=== PATIENT | female | born 1935 | race Caucasian/White ===

== ENCOUNTER 2024-03-09 15:00 | Emergency (ER) | payer MEDICARE, SELFPAY ==
--- NOTE | ~2024-03-09 | XR_ITS ---
EXAMINATION: XR chest 1V portable DATE: 03/09/2024 17:26 INDICATION: General fatigue, weakness and frequent urination TECHNIQUE: frontal view of the chest was obtained. COMPARISON: Chest radiograph dated 09/10/2022 FINDINGS: The lungs remain clear with no focal airspace opacities, pulmonary edema, pleural effusion or pneumot horax. The cardiomediastinal silhouette is normal. Lobular regions of amorphous calcification overlyi ng the right greater tuberosity consistent with right rotator cuff calcific tendinitis. IMPRESSION: 1. No acute cardiopulmonary disease. Reviewed, dictated and finalized at location A.
[2024-03-09 15:01] VITALS: BP 173/83; PULSE 76; RESP 20; TEMP 36.6; O2SAT 99
[2024-03-09 16:45] VITALS: BP 196/89; PULSE 81; RESP 16; O2SAT 96
--- NOTE | 2024-03-09 17:03 | ED.GENADULT ---
HPI - General Adult General Chief complaint: Weakness Stated complaint: weakness Time Seen by Provider: 03/09/24 16:58 Source: patient Mode of arrival: ambulatory Limitations: no limitations History of Present Illness HPI narrative: This is a 80-year-old female with PMH of DM, CVA, HLD, HTN, urinary incontinence who presents to the ED for chief complaint of generalized weakness for the past 3-4 days. She is here with her states that she has been extremely tired and not herself. Patient reports that she has had chronic urinary incontinence ever since her stroke to 4 years ago but over the last couple of days it seems to be getting worse. Denies dysuria or hematuria. Denies abdominal pain, nausea, vomiting, diarrhea or change in bowel movements. Denies GI bleeding symptoms. Denies fevers, chills, chest pain, shortness of breath, cough, focal weakness numbness. states that she has not been acting confused. He has noticed that she has had trouble with her daily activities due to general weakness. States patient has been taking her regular medications but has been out of a couple for about a month. He does note that she has been out of potassium pills but is unsure what else she has been missing. Has received her care through [facility] in the past. Related Data Home Medications Medication Instructions Recorded Confirmed insulin degludec 100 subcut 03/09/24 03/09/24 unit-liraglutide 3.6 mg/mL(3 mL) subcutaneous pen (Xultophy 100/3.6) mirabegron 25 mg tablet,extended mg PO 03/09/24 release 24 hr (Myrbetriq) Review of Systems Review of Systems: All systems as dictated in HPI Exam Narrative: GENERAL: Well-appearing, well-nourished, and in no acute distress. HEAD: Normocephalic, atraumatic. EYES: PERRLA and EOMI. ENT: Nares clear, no rhinorrhea or epistaxis. Mucous membranes moist. Oropharynx without tonsillar hypertrophy exudate or other lesions. NECK: Supple. No adenopathy or masses. CHEST: No respiratory distress. Clear to auscultation. No wheezes rales or rhonchi HEART: Regular rate and rhythm. No murmur heard. Normal peripheral pulses. ABDOMEN: Soft, nontender, nondistended, normal active bowel sounds. MSK: Normal range of motion. No edema. SKIN: Warm, dry, no rash. NEURO: Alert and oriented x4. No focal deficits. PSYCH: Normal mood and affect. Course Vital Signs Vital signs: Vital Signs Temperature 97.8 F 03/09/24 15:01 Pulse Rate 76 03/09/24 15:01 Respiratory Rate 20 03/09/24 15:01 Blood Pressure 173/83 H 03/09/24 15:01 Pulse Oximetry 99 03/09/24 15:01 Oxygen Delivery Room Air 03/09/24 15:01 Temperature 97.8 F 03/09/24 15:01 Pulse Rate 76 03/09/24 18:45 Respiratory Rate 14 03/09/24 18:45 Blood Pressure 193/82 H 03/09/24 18:45 Pulse Oximetry 100 03/09/24 18:45 Oxygen Delivery Room Air 03/09/24 15:01 Medical Decision Making MDM Narrative Medical decision making narrative: This is an 80-year-old female who presents to the ED with chief complaint of increased urinary continence and generalized weakness for the past several days. Vitals show elevated blood pressure but otherwise normal. Afebrile. Exam is benign overall. No evidence of acute abdomen or flank pain. Lab work today shows normal white count. CMP shows mild dehydration with BUN of 34 and creatinine of 1.30. I have no baseline labs to compare to as far as this is concerned. Glucose is elevated to 247, patient is diabetic and ate just prior to arrival. UA is remarkable for overt urinary tract infection. Chest x-ray is unremarkable. Overall symptoms and presentation are consistent with UTI. Discussed with patient that she has evidence of high blood sugar and dehydration exam. Offered admission. She discussed with her who is bedside and they feel more comfortable with trying to home. Advised that she needs to keep track of her blood sugars and make sure that she is
[2024-03-09 17:15] VITALS: BP 195/98; PULSE 76; RESP 16; O2SAT 100
--- NOTE | 2024-03-09 17:16 | ECG_ITS ---
SEE SCANNED COPY FOR CONFIRMED REPORT MTDD
[2024-03-09 18:00] VITALS: BP 199/91; PULSE 74; RESP 18; O2SAT 98
[2024-03-09 18:02] LABS: Alanine Aminotransferase 16 U/L (6-35); Albumin Level 4.9 g/dL (3.5-5.1); Alkaline Phosphatase 100 U/L (38-126); Anion Gap 10 mmol/L (4-12); Aspartate Amino Transferase 21 U/L (14-36); Bilirubin,Total 0.6 mg/dL (0.2-1.3); Blood Urea Nitrogen 44 mg/dL (7-17); CRP < 0.5 mg/dL (<1.0); Calcium 9.5 mg/dL (8.4-10.2); Carbon Dioxide 25 mmol/L (22-30); Chloride 105 mmol/L (98-107); Estimated Glomerular Filt Rate 39; Glucose 247 mg/dL (65-110); Magnesium 2.4 mg/dL (1.6-2.3); Potassium 4.6 mmol/L (3.4-5.0); Sodium 140 mmol/L (137-145)
[2024-03-09 18:11] LABS: Basophils Absolute Auto 0.1 K/mm3 (0.0-0.1); Basophils Percent Auto 0.6 % (0.2-1.2); Eosinophils Absolute Auto 0.2 K/mm3 (0-0.3); Eosinophils Percent Auto 2.7 % (0-4.4); Hematocrit 39.6 % (37.0-47.0); Hemoglobin 12.6 g/dL (12.0-15.0); Immature Granulocyte Absolute 0.03 K/mm3 (0.00-0.031); Immature Granulocyte Percent A 0.3 % (0-0.5); Lymphocytes Absolute Auto 2.39 K/mm3 (0.9-3.2); Lymphocytes Percent Auto 27.2 % (18.3-44.2); Mean Corpuscular HGB Conc 31.8 g/dl (32-36); Mean Corpuscular Hemoglobin 31.1 pg (26-34); Mean Corpuscular Volume 97.8 fl (80-100); Monocytes Absolute Auto 0.6 K/mm3 (0.1-0.6); Monocytes Percent Auto 7.2 % (2.6-8.5); Neutrophils Absolute Auto 5.4 K/mm3 (1.3-6.7); Platelet Count Result 369 k/mm3 (150-375); Red Blood Count 4.05 M/mm3 (4.2-5.4); Red Cell Distribution Width 12.8 % (11.5-14.5); White Blood Count 8.8 K/mm3 (4.5-10.0)
[2024-03-09 18:45] VITALS: BP 193/82; PULSE 76; RESP 14; O2SAT 100
[2024-03-09 19:06] LABS: Appearance Urine Turbid (Clear); Bacteria Urine 4+ /hpf; Bilirubin Urine Negative (Negative); Blood Urine 1+ (Negative); Color Urine Yellow (Yellow); Glucose Urine UA 3+ mg/dL (Negative); Ketones Urine Negative (Negative); Leukocyte Esterase Ur 2+ LEU/UL (Negative); Nitrate Urine Positive (Negative); Non Pathogenic Casts 0-2; Protein Urine 2+ mg/dL (Negative); RBC Urine 0-2 /hpf (0-2); Specific Grav Ur 1.016 (1.001-1.035); Squamous Epithelial Cell Urine None Seen /hpf (Few); Urobilinogen Urine 0.2 mg/dL (<2.0); WBC Urine >100 /hpf (0-3)
[2024-03-09 19:16] LABS: Add Urine Microscopic? YES
[2024-03-10 00:44] VITALS: BP 135/100; PULSE 77; RESP 15; O2SAT 97
== END 2024-03-09 21:09 | disposition home or self-care (01) ==
PROVIDERS: Emergency Provider Physician Assistant; PCP Internal Medicine
DX: N39.0 Urinary tract infection, site not specified (principal)
CPT/HCPCS: 36415; 71045; 80053; 81001; 83735; 84100; 85025; 86140; 87077; 87081; 87086; 87088; 87186; 93005; 96365; 99284; J0696

== ENCOUNTER 2024-06-25 12:04 | Emergency (ER) | payer MEDICARE, SELFPAY ==
[2024-06-25 12:24] VITALS: BP 173/94; PULSE 68; RESP 16; TEMP 36.6; O2SAT 97
[2024-06-25 16:43] VITALS: BP 227/93; PULSE 73; RESP 16; O2SAT 98
[2024-06-25] MEDS: LACTATED RINGERS 1,000 ML 999 ML IV CONT (18:04)
[2024-06-25 18:16] VITALS: BP 220/93; PULSE 78; RESP 15; O2SAT 100
[2024-06-25 18:22] LABS: Basophils Percent Auto 0.5 % (0.2-1.2); Eosinophils Absolute Auto 0.2 K/mm3 (0-0.3); Eosinophils Percent Auto 3.3 % (0-4.4); Hematocrit 38.1 % (37.0-47.0); Hemoglobin 12.7 g/dL (12.0-15.0); Immature Granulocyte Absolute 0.02 K/mm3 (0.00-0.031); Immature Granulocyte Percent A 0.3 % (0-0.5); Lymphocytes Absolute Auto 2.32 K/mm3 (0.9-3.2); Lymphocytes Percent Auto 31.5 % (18.3-44.2); Mean Corpuscular HGB Conc 33.3 g/dl (32-36); Mean Corpuscular Hemoglobin 31.4 pg (26-34); Mean Corpuscular Volume 94.1 fl (80-100); Mean Platelet Volume 9.8 fl (7.4-10.4); Monocytes Absolute Auto 0.7 K/mm3 (0.1-0.6); Monocytes Percent Auto 8.8 % (2.6-8.5); Neutrophils Absolute Auto 4.1 K/mm3 (1.3-6.7); Neutrophils Percent Auto 55.6 % (45.5-73.1); Platelet Count Result 341 k/mm3 (150-375); Red Blood Count 4.05 M/mm3 (4.2-5.4); White Blood Count 7.4 K/mm3 (4.5-10.0)
[2024-06-25 18:28] LABS: Add Urine Microscopic? YES; Appearance Urine Cloudy (Clear); Bacteria Urine 4+ /hpf; Bilirubin Urine Negative (Negative); Blood Urine 1+ (Negative); Color Urine Yellow (Yellow); Glucose Urine UA 3+ mg/dL (Negative); Ketones Urine Negative (Negative); Leukocyte Esterase Ur 2+ LEU/UL (Negative); Nitrate Urine Negative (Negative); Non Pathogenic Casts 0-2; Protein Urine 3+ mg/dL (Negative); RBC Urine 0-2 /hpf (0-2); Squamous Epithelial Cell Urine None Seen /hpf (Few); Urobilinogen Urine 0.2 mg/dL (<2.0); WBC Urine >100 /hpf (0-3); pH Urine 5.5 (5.0-9.0)
[2024-06-25 18:34] LABS: Anion Gap 11 mmol/L (4-12); Blood Urea Nitrogen 38 mg/dL (7-17); Calcium 9.1 mg/dL (8.4-10.2); Carbon Dioxide 27 mmol/L (22-30); Chloride 100 mmol/L (98-107); Estimated Glomerular Filt Rate 39; Glucose 285 mg/dL (65-110); Potassium 4.2 mmol/L (3.4-5.0); Sodium 138 mmol/L (137-145)
[2024-06-25 18:38] LABS: Beta-Hydroxybutyrate/Acetoacetate 0.24 mmol/L (0.02-0.27)
[2024-06-25 19:05] VITALS: BP 214/108; PULSE 79; RESP 15; O2SAT 100
--- NOTE | 2024-06-25 19:13 | PC.NURSE ---
Report given to Francoise Walter, all questions answered
--- NOTE | 2024-06-25 19:43 | ED.FEMALEGU ---
HPI - Female Genitourinary General Chief complaint: Urogenital-Female Stated complaint: can't control bladder Time Seen by Provider: 06/25/24 16:33 History of Present Illness HPI Narrative: This is an 89-year-old female with a history of hypertension and diabetes, presenting to the emergency department chief complaint of difficulty controlling her bladder as well as dysuria for the last few months. Patient states that every time she feels like she has to use the bathroom she gets a burning sensation in her bladder and burning while urinating. She states that she is having difficulty controlling her bladder and she sometimes is having continence at home. No injuries or back pain. She does not have any saddle anesthesia. No issues with defecation or difficulty controlling her bowels. Has a history of UTIs in the past. No recent antibiotics or recent UTIs. Denies any fever, chills, headache, vision changes. She was otherwise in her normal state of health. Related Data Home Medications Medication Instructions Recorded Confirmed insulin degludec 100 subcut 03/09/24 03/09/24 unit-liraglutide 3.6 mg/mL(3 mL) subcutaneous pen (Xultophy 100/3.6) mirabegron 25 mg tablet,extended mg PO 03/09/24 release 24 hr (Myrbetriq) Allergies Allergy/AdvReac Type Severity Reaction Status Date / Time No Known Allergies Allergy Verified 03/09/24 19:57 Review of Systems Review of Systems: As reviewed above in HPI Exam Narrative: GENERAL: [Well-appearing, well-nourished, and in no acute distress.] HEAD: [Normocephalic, atraumatic.] EYES: [PERRLA and EOMI.] ENT: Nares clear, no rhinorrhea or epistaxis. Mucous membranes moist. NECK: Supple. CHEST: [Clear to auscultation. No respiratory distress.] HEART: [Regular rate and rhythm]. No murmur heard. [Normal peripheral pulses.] ABDOMEN: [Soft, nondistended], [nontender], [No rigidity or guarding] EXTREMITIES: Normal range of motion. [No edema.] SKIN: Warm, dry, no rash. NEURO: [No focal deficits]. Alert and oriented [x3.] PSYCH: [Normal mood and affect.] Course Vital Signs Vital signs: Vital Signs Temperature 36.6 C 06/25/24 12:24 Pulse Rate 68 06/25/24 12:24 Respiratory Rate 16 06/25/24 12:24 Blood Pressure 173/94 H 06/25/24 12:24 Pulse Oximetry 97 06/25/24 12:24 Oxygen Delivery Room Air 06/25/24 12:24 Temperature 36.6 C 06/25/24 12:24 Pulse Rate 79 06/25/24 19:05 Respiratory Rate 15 06/25/24 19:05 Blood Pressure 214/108 H 06/25/24 19:05 Pulse Oximetry 100 06/25/24 19:05 Oxygen Delivery Room Air 06/25/24 12:24 MDM - Female Genitourinary MDM Narrative Medical decision making narrative: This is an 89-year-old female with a history of hypertension and type 2 diabetes who presents to the emergency department for dysuria and difficulty controlling her bladder. Symptoms have been going on for several months. She describes dysuria and burning with urination. No foul order, fever, chills, back pain, anesthesias or difficulty controlling her bowel. Reassuring examination with no focal tenderness in the abdomen, flanks or pelvic region. No other findings focally on her examination. Aside from stable hypertension she has no other vital concerns. Differential diagnosis at this time includes urinary tract infection, bladder spasms, overactive bladder, cystitis, less likely upper urinary tract pathology. A workup was ordered including a CBC, BMP, urinalysis with urine culture. Beta hydroxybutyrate was also ordered because she is a diabetic. She was given fluid resuscitation with lactated Ringer's. Workup revealed no leukocytosis or anemia. Normal electrolyte panel, a creatinine of 1.30 which is stable from patient's baseline CKD. Some elevated glucose of 285 but negative beta hydroxybutyrate. This is not ketotic hyperglycemia. Uncontrolled blood sugar could also be contributed to her frequency. Urinary analysis revealed si
[2024-06-25] MEDS: SULFAMETHOXAZOLE/TRIMETHOPRIM 800/160 MG DS TABLET 1 TAB PO (19:59)
[2024-06-25 20:09] VITALS: BP 194/100; PULSE 78; RESP 15; O2SAT 100
== END 2024-06-25 20:11 | disposition home or self-care (01) ==
PROVIDERS: Emergency Provider Student in an Organized Health Care Education/Training Program; PCP Internal Medicine
DX: N39.0 Urinary tract infection, site not specified (principal); I10 Essential (primary) hypertension; E11.9 Type 2 diabetes mellitus without complications; Z79.4 Long term (current) use of insulin
CPT/HCPCS: 36415; 80048; 81001; 82010; 85025; 87077; 87086; 87088; 96360; 99283; A9270; J7120

== ENCOUNTER 2024-12-31 19:39 | Emergency (ER) | payer MEDICARE, SELFPAY ==
--- NOTE | ~2024-12-31 | CT_ITS ---
CT facial & cervical spine wo Ordering provider: Erickson Herman MD History: . Fall, . Comparison: None. Technique: Thin slice axial CT of the facial bones was performed without contrast. Coronal and sagit mirna reformatted images were also obtained. . Automated exposure control and iterative reconstruction technique were employed. The dose-length product was 345.72 mGy-cm. FINDINGS: PARANASAL SINUSES: Well aerated. BONES: Fracture right nasal bone. Otherwise, No facial fracture. Dental cares seen in the right upper jaw in the tooth prior to the last one. ORBITS AND SUPERFICIAL SOFT TISSUES: The optic globes and orbits are normal. Hematomas seen anterior to the right orbit and in the right maxillary bone is The superficial soft tissues are normal. VISUALIZED MASTOIDS: Well aerated. LIMITED VISUALIZED BRAIN PARENCHYMA: Normal. IMPRESSION: Fracture right nasal bone. Hematoma anterior to the right orbit and right maxillary bone. CT facial & cervical spine wo Ordering provider: Erickson Herman MD History: . Fall, . Comparison: None. Technique: CT of the cervical spine was performed without contrast. Sagittal and coronal reformatted images were also obtained and reviewed. Automated exposure control and iterative reconstruction brianna hnique were employed. The dose-length product was 345.72 mGy-cm. FINDINGS: VERTEBRAE: No subluxation or acute fracture. The occipital condyles are intact. Minimal anterolisthe sis at the level of C7-T1. DISC SPACES: Narrowing of the disc spaces C5-C6, C6-C7 and T1-T2. Multilevel facet joint disease. Mul tilevel uncovertebral joint osteoarthritic changes. Multilevel intervertebral foraminal narrowing. PARASPINOUS SOFT TISSUES: Normal. IMPRESSION: No acute osseous abnormality cervical spine. Multilevel degenerative disc disease. Reviewed, dictated and finalized at location A. IMPRESSION: Fracture right nasal bone. Hematoma anterior to the right orbit and right maxillary bone. CT facial & cervical spine wo Ordering provider: Erickson Herman MD History: . Fall, . Comparison: None. Technique: CT of the cervical spine was performed without contrast. Sagittal a nd coronal reformatted images were also obtained and reviewed. Automated expos ure control and iterative reconstruction technique were employed. The dose-saúl th product was 345.72 mGy-cm. FINDINGS: VERTEBRAE: No subluxation or acute fracture. The occipital condyles are intact. Minimal anterolisthesis at the level of C7-T1. DISC SPACES: Narrowing of the disc spaces C5-C6, C6-C7 and T1-T2. Multilevel fa cet joint disease. Multilevel uncovertebral joint osteoarthritic changes. Multi level intervertebral foraminal narrowing. PARASPINOUS SOFT TISSUES: Normal.
--- NOTE | ~2024-12-31 | CT_ITS ---
CT brain wo con Ordering provider: Erickson Herman MD History: 89 years Female with . Fall . Comparison: None. Technique: CT of the head without contrast. Radiation reduction technique utilized.The dose-length product was 681 mGy-cm. FINDINGS: BRAIN PARENCHYMA AND CSF SPACES: Moderate leukoaraiosis and diffuse cortical atrophy. Moderate athero matous disease. No midline shift, mass effect or hemorrhage. The brain parenchyma and CSF spaces are otherwise norm al. VISUALIZED PARANASAL SINUSES: Well aerated. MASTOIDS: Well aerated. BONES: Right Nasal bone fracture otherwise, The bones appear intact. SOFT TISSUES: Visualized nasopharynx is normal. Hematoma in the soft tissues anterior to the right o rbit and right maxillary bone is noted. Otherwise, Superficial soft tissues are normal. IMPRESSION: No acute intracranial findings. Hematoma anterior to the right orbit and right maxillary bone. Fracture right nasal bone. Reviewed, dictated and finalized at location A.
--- NOTE | ~2024-12-31 | XR_ITS ---
XR shoulder LT min 2V Ordering provider: Erickson Herman MD History: . Fall . Comparison: None. FINDINGS: BONES: No acute fracture or dislocation. Degenerative changes in the area of the greater tuberosity. JOINT SPACES: The acromioclavicular joint shows osteoarthritic changes.. The glenohumeral joint is no rmal. SOFT TISSUES: Normal. IMPRESSION: No acute osseous abnormality left shoulder. Reviewed, dictated and finalized at location A.
--- NOTE | ~2024-12-31 | XR_ITS ---
XR hand LT min 3V Ordering provider: Erickson Herman MD History: . Fall . Comparison: None. FINDINGS: BONES: No acute fracture or dislocation. JOINT SPACES: The narrowing of the proximal and distal interphalangeal joints. Osteoarthritic changes of the first carpometacarpal joint. SOFT TISSUES: Unremarkable. IMPRESSION: No acute osseous abnormality left hand. Polyarticular osteoarthritic changes. Reviewed, dictated and finalized at location A.
--- NOTE | ~2024-12-31 | XR_ITS ---
XR elbow LT 2V Ordering provider: Erickson Herman MD History: . Fall . Comparison: None. FINDINGS: BONES: No acute fracture or dislocation. JOINT SPACES: Normal. SOFT TISSUES: Normal. No definite joint effusion. IMPRESSION: No acute osseous abnormality left elbow. Reviewed, dictated and finalized at location A.
[2024-12-31 19:34] VITALS: BP 215/85; PULSE 84; RESP 18; TEMP 36.8; O2SAT 99
--- OUTSIDE RECORDS SUMMARY | 2024-12-31 21:26 | XMS_ITS | Data Portability ---
Author Organization [facility] [place] [facility] Address [address] [place] [address] Care Team Providers Care Arson Investigator Name Role Phone JIMMY MARINO Primary Care Provider Assessment Encounter Date Assessment Date Assessment LastModified by Organization Details LastModified Time 06/28/2024 06/28/2024 diabetes is uncontrolled they have a family member who knows the insurance loss control surveyor and they are going to be reaching out to the family member so that she can get scheduled with the insurance loss control surveyor if there is any difficulty charis and her will call me and I will arrange for a referral. Atorvastatin 10 mg a day I want to see her in 1 month she is to take her blood sugars twice a day also she needs to be referred to uro straight edger eventually but right now she is infected so there is not much that they would probably do to this all clears up. I told her very important for her to keep appointments [email or web address] Not available 07/04/2024 17:30:17 07/26/2024 07/26/2024 her diabetes is uncontrolled we will make the referral to endocrinology we will make the referral to Uro straight edger for incontinence see me in 1 month I have told her that he needs to bring me the medicine that was prescribed by the insurance loss control surveyor I have no record of it [email or web address] Not available 07/31/2024 15:24:24 11/25/2024 11/25/2024 [email or web address]. Blood work. Follow up in 1 month. please take all medicines as prescribed [email or web address] Not available 11/25/2024 22:23:32 Plan of Treatment Reminders Order Date Submit Date Provider Last Modified By Organization Details Last Modified Time Details Appointments ANY 15 2024 02:15P Gavin Marino MD Not available Not available Not available Lab HbA1c (hemoglob in A1c), blood 2024 025 [email or web address] In-Office Order, Internal Use Only DO Not Attach Compendium DO Not Attach Compendium, Do Not Delete/merge, [id number] 11/25/2024 17:44:41 CMP, serum or plasma 2024 025 [email or web address] [facility], [address], [place], [address], 12/16/2024 16:23:12 lipid panel, serum 2024 025 [email or web address] [facility], [address], [place], [address], 12/16/2024 16:23:12 CBC w/ auto diff 2024 025 [email or web address] [facility], [address], [place], [address], 12/16/2024 16:23:12 HbA1c (hemoglob in A1c), blood 2023 024 [email or web address] In-Office Order, Internal Use Only DO Not Attach Compendium DO Not Attach Compendium, Do Not Delete/merge, [id number] 06/28/2024 21:41:22 Referral endocrino logy referral 2023 024 [facility] - Endocrinology , [address], [place], [address], 11/09/2024 09:37:09 Procedures None recorded. Surgeries None recorded. Imaging None recorded. Medication Orders pantopraz ole 40 mg tablet,de layed release 2024 025 [email or web address] [facility], [address], [place], [address], 11/25/2024 17:44:41 atorvasta tin 10 mg tablet 2023 024 [email or web address] [facility], [address], [place], [address], 07/31/2024 15:19:56 atorvasta tin 10 mg tablet 2023 024 [email or web address] [facility], [address], [place], [address], 07/20/2024 13:52:49 Patient TargetsNo targets recorded. Patient Instructions Encounter Date Encounter Id Patient Instructions Last Modified By Organization Details Last Modified Time 06/28/2024 [id number] A healthy lifestyle: care instructions Not available 06/28/2024 14:10:49 07/26/2024 [id number] A healthy lifestyle: care instructions [email or web address] Not available 07/26/2024 14:10:31 11/25/2024 [id number] A healthy lifestyle: care instructions [email or web address] Not available 11/25/2024 17:44:41 Reason for Referral Endocrinology Referral for T ype 2 diabetes mellitus Referring Physician: Jimmy Marino, Internal Medicine, Encounter Date: 06/28/2024 Results Created Date Observation Date Name Description Value Unit Range Abnormal Flag Note LastModifiedBy Organization Detail LastModifiedTime 06/28/2006/28/2024 HbA1c (hemo globi n A1c), blood HbA1c 10.1 Not Available In-Office Order Internal Use Only DO Not Attach Compendium DO Not Attach Compendium, Do Not Delete/merge, [id number] 06/28/2024 17:19:06 11/25/19 25 11/25/2024 HbA1c (hemo globi n A1c), blood HbA1c 8.2 Not Available In-Office Order Internal Use Only DO Not Attach Compendium DO Not Attach Compendium, Do Not Delete/merge, [id number] 11/25/2024 16:03:17 Result Notes None recorded. Problems Name Problem SNOMED Code Status Onset Date Resolution Date Notes Provider Name and Address Organization Details Recorded Time Overweight 081272637 Active [address] - [place] 12:20:55 Type 2 diabetes mellitus 61319076 Active 2023 ARMEN Motta, [facility] 4 12:21:04 Hyperlipidemia 27079500 [facility] 12:[facility]08 Problem Notes None recorded. Medical Equipment None Reported. Allergies No known drug allergies Medications Name Sig Start Date Stop Date Status Note LastModified by Organization Details LastModified Time atorvastatin 10 mg tablet Take 1 tablet every day by oral route. 2023 active Not Available Not Available Not Avai lable sulfamethoxa zole 800 mg-trimethop rim 160 mg tablet TAKE 1 TABLET BY MOUTH EVERY 12 HOURS active Not Available Not Available No t Available pantoprazole 40 mg tablet,delay ed release TAKE 1 TABLET BY MOUTH EVERY DAY active Not Available Not Available No t Available metformin ER 500 mg tablet,exten ded release 24 hr active Not Available Not Available Not Available Myrbetriq 25 mg tablet,exten ded release active Not Available Not Available Not Available Xultophy 100/3.6 100 unit-3.6 mg/mL (3 mL) subcutaneous insulin pen Inject 44 units every day by subcutaneou s route. active Not Available Not Available No t Available Vitals Date Recorded Body height Body mass index (BMI) Body weight Oxygen saturation Oxygen saturation in Arterial blood by Pulse oximetry Heart rate Systolic blood pressure Diastolic blood pressure Provider Name and Address Organization Details Last Updated DateTime 4 149.86 cm 36 kg/m2 34449.4 4 g 97 % 97 % 78 /min 116 mm[Hg] 74 mm[Hg] Anna Knutson [facility] 4 12:06:06 Date Recorded Body height Body mass index (BMI) Body weight Heart rate Oxygen saturation Oxygen saturation in Arterial blood by Pulse oximetry Systolic blood pressure Diastolic blood pressure Provider Name and Address Organization Details Last Updated DateTime 4 149.86 cm 36 kg/m2 47141.4 4 g 76 /min 96 % 96 % 130 mm[Hg] 90 mm[Hg] Anna Knutson [facility] - [facility] 4 11:54:01 Date Recorded Body height Body mass index (BMI) Body weight Heart rate Oxygen saturation Oxygen saturation in Arterial blood by Pulse oximetry Systolic blood pressure Diastolic blood pressure Provider Name and Address Organization Details Last Updated DateTime 149.86 cm 35.5 kg/m2 02056.2 6 g 78 /min 96 % 96 % 140 mm[Hg] 90 mm[Hg] Em Mcgovern [place] - [place] 14:55:16 Social History Question Answer Notes LastModified by Organizat ion Details LastModified Time Tobacco Smoking Status Never Smoker ARMEN Aguilar, [place] [facility] [place] 07/26/2024 11:55:07 Do You Have An Advance Directive? No Information n ot available 07/26/2024 What Is Your Level Of Alcohol Consumption? None Information not available 07/26/2024 Are You Blind Or Do You Have Difficulty Seeing? No Information n ot available 07/26/2024 What Is Your Level Of Caffeine Consumption? Occasional Information not available 07/26/2024 In The 14 Days Before Symptom Onset, Have You Had Close Contact With A Laboratory-confirm ed COVID-19 While That Case Was Ill? No Information n ot available 07/26/2024 In The 14 Days Before Symptom Onset, Have You Had Close Contact With A Person Who Is Under Investigation For COVID-19 While That Person Was Ill? No Information not available 07/26/2024 Have You Been To An Area Known To Be High Risk For COVID-19? No Information not available 07/26/2024 Are You Currently Employed? No Information not available 07/26/2024 Are You Deaf Or Do You Have Serious Difficulty Hearing? Yes Information not available 07/26/2024 What Type Of Diet Are You Following? REGULAR Information n ot available 07/26/2024 Are There Any Guns Present In Your Home? No Information not available 07/26/2024 What Was The Date Of Your Most Recent Tobacco Screening? 11/25/2024 [email or web address] Information not available 11/25/2024 What Is Your Relationship Status? Information not available 07/26/2024 Do You Use Your Seat Belt Or Car Seat Routinely? Yes Information not available 07/26/2024 Do You Have Smoke And Carbon Monoxide Detectors In Your Home? Yes Information not available 07/26/2024 Do You Use Any Illicit Or Recreational Drugs? No Information not available 07/26/2024 Do You Use Sunscreen Routinely? Yes Information not available 07/26/2024 Sex: Female Functional Status Question Answer Note LastModified by Organization D etails LastModified Time Are you able to care for yourself? Yes Information n ot available 07/26/2024 Mental Status None recorded. Family History Relationship Description Onset Age of this Age Resolved Age Notes LastModified by Organization Details LastModified Time Father Diabetes mellitus [email or web address] Not available 2024 10:33:30 Son Diabetes mellitus [email or web address] Not available 2024 10:33:30 Mother Diabetes mellitus [email or web address] Not available 2024 10:33:30 Brother Diabetes mellitus [email or web address] Not available 2024 10:33:30 Medical History Condition Response Coronary Artery Disease N Other N Atrial Fibrillation N High Blood Pressure Y Depression N COPD N Blood Clots N Anxiety Disorder N Muscle, Joint, or Bone Problems N Acid Reflux (GERD) N Cancer N Stroke N High Cholesterol Y Liver Disease N Headaches N Kidney or Bladder Problems N Thyroid Problems N GI Problems N Have you had a mammogram in the last yea r? N Skin Problems N Anemia N Heart Attack (SD) N Diabetes Y Seizures/Epilepsy N Have you had a colonoscopy in the last 1 0 years? Y Asthma N Allergies N Have you had a PSA blood test in the las t year? N Hepatitis N Heart Failure N Osteoporosis N Gynecological HistoryNo gynecological history recorded. Obstetrics History GPAL:G 0 P 0 0 0 0 Immunizations Vaccine Type Date Status Note Provider Nam e and Address Organization Details Recorded Time Influenza, split virus, trivalent, preservative [address] - [facility] 07/26/2024 12:21:18 Past Encounters Encounter ID Performer Location Encounter Start Date Encounter Closed Date Diagnosis/Indication Diagnosis SNOMED-CT Code Diagnosis ICD10 Code Diagnosis Note [id number] Jimmy Marino MD [facility] [place] [address] [place] [address] 06/28/2024 11:23:26 06/28/2024 13:35:11 Obesity 300012050 E66.8 Type 2 vicki betes mellitus 43281643 E11.9 Hyperlipidemia 40519271 E78.5 [id number] Jimmy Marino MD [facility] [place] [address] [place] [address] 07/26/2024 11:46:56 07/26/2024 12:47:29 Overweight 791945953 E66.3 Type 2 vicki betes mellitus 24753337 E11.9 Hyperlipidemia 62429457 E78.5 [id number] Jimmy Marino MD [facility] [place] [address] [place] [address] 11/25/2024 14:17:41 11/25/2024 15:41:29 Body mass index 30+ - obesity 454909911 Z68.35 Obesity 653905336 E66.9 Hyperlipidemia 55570384 E78.5 Gastroesop hageal reflux disease without esophagitis 769732809 K21.9 Type 2 vicki betes mellitus 60271492 E11.9 Health Concerns Section Related Observation LastModified by Organization Detai ls LastModified Time None Recorded Concern Status LastModified by Organization Details LastModified Time None Recorded Advance Directives Directive N: Payers Encounter Date Sequence Insurance Name Policy Number Policy Manjarrez Covered Member ID Manjarrez Member ID Guarantor Name 06/28/2024 1 [employer] (MEDICARE REPLACEMENT/ ADVANTAGE - HMO) [id number] Saline J Ross [id number] Saline Ross 07/26/2024 1 [employer] (MEDICARE REPLACEMENT/ ADVANTAGE - HMO) [id number] Saline J Ross [id number] Saline Ross 11/25/2024 1 [employer] - [employer] (MEDICARE REPLACEMENT/ ADVANTAGE - HMO) [id number] Saline J Ross [id number] Saline Ross Notes Date Note Type Note Provider Name and Address Organization Details Recorded Time 06/28/2024 text/html 1. UTI and urina ry incontinence that is chronic recent in ER group B strep UTI Sept. Continue his chronic urinary incontinence. Type 2 diabetes point of care A1c 10.1 her diet is lousy her insight is worse. 3. Dyslipidemia needs to be placed on medication she has stopped taking a lot of her medications she does have an injectable from a diabetic doctor that she is trying to locate Jimmy Marino MD Attn: Accounting, [address], [place], [address], [facility] - [place] 07/04/2024 17:30:47 07/26/2024 text/html she is still hav ing urinary incontinence she is not taking any of her meds except for what was given to her by a previous insurance loss control surveyor they have not made the appointment with the insurance loss control surveyor. I offered to do that at last visit but they said they would do it. They did not Jimmy Marino MD Attn: Accounting, [address], [place], [address], [facility] [place] 07/31/2024 15:24:43 11/25/2024 text/html diabetes they do not really take sugar at home A1c in the office today is 8.2. Dyslipidemia she needs blood work not taking her atorvastatin unclear why. Urinary incontinence not taking her medication. Can not tell me why. says she has been having problems with hiccups in further questioning it sounds like she sometimes gets some reflux symptoms and she coughs but she can not really describe it that well either Jimmy Marino MD Attn: Accounting, [address] , [place], [address], [facility] 11/25/2024 22:24:06 OBGyn Episode No OBEpisode recorded.
--- OUTSIDE RECORDS SUMMARY | 2024-12-31 21:26 | XMS_ITS | Continuity of Care Document ---
Author Organization [facility] Address [address] [place] [address] [place] [address] Phone Care Team Providers Care Garbage Collection Supervisor Name Role Phone Joseph Ryan Unavailable Unavailable Procedures Procedure Date Post-op Follow-up Visit Post-op Follow-up Visit Remove Cataract, Insert Lens,Comanaged N Office/outpatient Visit, Est Dilated Retinal Exam W Interpretation No v Dilated Macular Or Fundus Exam Findings Communicat Macular Or Fundus Exam Performed 2007 Communication Performed Advance Directives Directive Yes / No Effective Date File Name No Information Encounters Encounter Description Practice Location Reason(s) For Visit Diagnoses Date Provider Providers Copied on Encounter [facility], [address] [place] [address] [address], [place], [place], [id number], tel:[phone] [facility] No Information [address] Shelby Ruiz. [address] , [address], [place], [address], [place]. tel:[phone] [facility], [address] [place] [address] [address], [place], [place], [id number], [place] tel:[phone] [facility] No Information [address] Ruiz. [address] , [address], [place], [address], [place]. tel:[phone] [facility], [address] [place] [address] [address], [place], [place], [id number], [place] tel:[phone] [facility] No Information [address] Doishamar Edbeny. [address] [facility] , [address], [place], [place], [facility], . tel:[phone] Referring Provider: Gerber Rios OD, [address] [place], [address]. tel:[phone] Office/outpat ient Visit, [facility], [address], [place], [place], [id number], [place] tel:[phone] [facility] No Information [address] Ruiz. [address] [facility] , [address], [place], [place], [facility], . tel:[phone] Referring Provider: Gerber Rios OD, [address] [place], [address]. tel:[phone] Family History Family Member Type Diagnosis Age At Onset No Information Payers Payer name Insurance type Covered democrat ID Authoriza tion(s) No Information Social History Type Description Quantity Date Captured Comments Sex Female Smoking Status No Information Chief Complaint And Reason For Visit No Information Reason For Referral Reason For Referral No Information History Of Present Illness Encounter Date Complaint History Of Prese nt Illness No Information Functional Status Date Functional Assessmen t No Information Instructions Date Instruction Additional Infor mation No Information Assessments Type Assessment Date No Information Patient Care Teams Name Effective Dates (start - stop) Status Members No Information
[2024-12-31 22:18] VITALS: BP 145/91; PULSE 84; RESP 18; O2SAT 98
--- NOTE | 2024-12-31 22:42 | ED.GENADULT ---
HPI - General Adult General Chief complaint: Fall Stated complaint: fall Time Seen by Provider: 12/31/24 19:56 History of Present Illness HPI narrative: This is an 89-year-old female presenting after ground level fall. She was walking to her kitchen with her walker when she tripped striking her face on the table. She was unable to get up on her own and eventually an ambulance was called he was brought to hospital. This time she is complaining of pain to the right side of her face. She also has pain in her left arm. She is not on blood thinners. She has not had any persistent vomiting weakness to any extremity. Related Data Home Medications ?Medication ?Instructions ?Recorded ?Confirmed ?Last Taken ?Type insulin degludec 100 subcut 03/09/24 03/09/24 Unknown History unit-liraglutide 3.6 mg/mL(3 mL) subcutaneous pen (Xultophy 100/3.6) mirabegron 25 mg tablet,extended mg PO 03/09/24 Unknown History release 24 hr (Myrbetriq) Allergies Allergy/AdvReac Type Severity Reaction Status Date / Time No Known Allergies Allergy Verified 03/09/24 19:57 Exam Narrative: APPEARANCE: No apparent distress. Head: atraumatic. EYES: EOMI, NOSE: Atraumatic NECK: Trachea midline RESPIRATORY: No increased rate of breathing CARDIOVASCULAR: RRR, ABDOMINAL: Non-distended MUSCULOSKELETAl: No obvious deformities NEURO: Alert. Moving 4/4 extremities SKIN:: 2 sent for laceration PSYCHIATRIC: Normal affect Course Vital Signs Vital signs: Vital Signs Temperature 98.3 F 12/31/24 19:34 Pulse Rate 84 12/31/24 19:34 Respiratory Rate 18 12/31/24 19:34 Blood Pressure 215/85 H 12/31/24 19:34 Pulse Oximetry 99 12/31/24 19:34 Oxygen Delivery Room Air 12/31/24 19:34 Temperature 98.3 F 12/31/24 19:34 Pulse Rate 84 12/31/24 22:18 Respiratory Rate 18 12/31/24 22:18 Blood Pressure 145/91 H 12/31/24 22:18 Pulse Oximetry 98 12/31/24 22:18 Oxygen Delivery Room Air 12/31/24 19:34 Medical Decision Making Vital Signs Vital Signs: Vital Signs Temperature 98.3 F 12/31/24 19:34 Pulse Rate 84 12/31/24 19:34 Respiratory Rate 18 12/31/24 19:34 Blood Pressure 215/85 H 12/31/24 19:34 Pulse Oximetry 99 12/31/24 19:34 Oxygen Delivery Room Air 12/31/24 19:34 Temperature 98.3 F 12/31/24 19:34 Pulse Rate 84 12/31/24 22:18 Respiratory Rate 18 12/31/24 22:18 Blood Pressure 145/91 H 12/31/24 22:18 Pulse Oximetry 98 12/31/24 22:18 Oxygen Delivery Room Air 12/31/24 19:34 Discharge Plan Discharge Patient Language: Italian Prescriptions: No Action sulfamethoxazole-trimethoprim [Bactrim DS] 800-160 mg tablet 1 tablet PO Q12H Qty: 14 0RF mirabegron [Myrbetriq] 25 mg tablet extended release 24 hr PO Xultophy 100/3.6 100 unit-3.6 mg /mL (3 mL) insulin pen SUBCUT cefdinir 300 mg capsule 300 mg PO Q12H 7 Days Qty: 14 0RF Follow-up/Referrals: Ned,MD Jimmy [Primary Care Provider] -
[2025-01-01] VITALS (9 sets, daily range): BP systolic 121–245; BP diastolic 74–103; PULSE 78–88; RESP 17–20; TEMP 36.3; O2SAT 94–98
[2025-01-01] MEDS: ACETAMINOPHEN 500 MG TABLET 1000 MG PO (00:02)
[2025-01-01] MEDS: TETANUS,DIPHTHERIA,AC PERTUSSIS ADULT (0.5 ML) BOOSTRIX IM (00:19)
--- NOTE | 2025-01-01 00:36 | PC.NURSE ---
This Rn applied pressure dressing to ptrigth eye to help stop bleeding and protect sutures.
[2025-01-01] MEDS: hydrALAZINE HCL 20 MG/ML VIAL 10 MG IV PUSH (09:03)
[2025-01-01 09:27] LABS: Add Urine Microscopic? YES; Appearance Urine Cloudy (Clear); Bacteria Urine 4+ /hpf; Bilirubin Urine Negative (Negative); Blood Urine Negative (Negative); Color Urine Yellow (Yellow); Glucose Urine UA 3+ mg/dL (Negative); Ketones Urine Negative (Negative); Leukocyte Esterase Ur 1+ LEU/UL (Negative); Nitrate Urine Negative (Negative); Non Pathogenic Casts 0-2; Protein Urine 2+ mg/dL (Negative); RBC Urine 0-2 /hpf (0-2); Specific Grav Ur 1.013 (1.001-1.035); Squamous Epithelial Cell Urine None Seen /hpf (Few); Urobilinogen Urine 0.2 mg/dL (<2.0); WBC Urine 51-100 /hpf (0-3)
== END 2025-01-01 11:14 | disposition short-term general hospital (02) ==
LOC: ANHED 21:24
PROVIDERS: Emergency Medicine; Emergency Provider Emergency Medicine; PCP Internal Medicine
DX: S01.81XA Laceration without foreign body of other part of head, initial encounter (principal); S05.11XA Contusion of eyeball and orbital tissues, right eye, initial encounter; Z23 Encounter for immunization; Z79.4 Long term (current) use of insulin; Z79.899 Other long term (current) drug therapy; W01.198A Fall on same level from slipping, tripping and stumbling with subsequent striking against other object, initial encounter
CPT/HCPCS: 12011; 70450; 70486; 72125; 73030; 73070; 73130; 81001; 87077; 87086; 87186; 90471; 90715; 96374; 99285; A9270; J0360

== ENCOUNTER 2025-01-10 14:30 | Outpatient (CLI) | payer MEDICARE, SELFPAY ==
[2025-01-10 15:28] LABS: Basophils Percent Auto 0.5 % (0.2-1.2); Eosinophils Absolute Auto 0.2 K/mm3 (0-0.3); Eosinophils Percent Auto 3.2 % (0-4.4); Hematocrit 37.9 % (37.0-47.0); Hemoglobin 12.1 g/dL (12.0-15.0); Immature Granulocyte Absolute 0.02 K/mm3 (0.00-0.031); Immature Granulocyte Percent A 0.3 % (0-0.5); Immature Platelet Fraction Pct 3.7 % (0.9-11.2); Lymphocytes Absolute Auto 1.99 K/mm3 (0.9-3.2); Lymphocytes Percent Auto 26.7 % (18.3-44.2); Mean Corpuscular HGB Conc 31.9 g/dl (32-36); Mean Corpuscular Hemoglobin 30.6 pg (26-34); Mean Corpuscular Volume 95.7 fl (80-100); Mean Platelet Volume 11.2 fl (7.4-10.4); Monocytes Absolute Auto 0.5 K/mm3 (0.1-0.6); Monocytes Percent Auto 6.8 % (2.6-8.5); Neutrophils Absolute Auto 4.7 K/mm3 (1.3-6.7); Neutrophils Percent Auto 62.5 % (45.5-73.1); Platelet Count Result 290 k/mm3 (150-375); Red Blood Count 3.96 M/mm3 (4.2-5.4); Red Cell Distribution Width 14.3 % (11.5-14.5); White Blood Count 7.5 K/mm3 (4.5-10.0)
[2025-01-10 15:58] LABS: Anisocytosis 1+; Platelet Estimate Adequate (Adequate)
[2025-01-10 15:59] LABS: Burr Cells 1+; Schistocytes None Seen
--- OUTSIDE RECORDS SUMMARY | 2025-01-10 16:51 | XMS_ITS | Referral Summary ---
Author Organization [facility] [address] [facility] [address] Address [address] [place] [address] Care Team Providers Care Insurance Adviser Name Role Phone Jimmy Marino MD Primary Care Provider + [phone] Encounters Date Type Department Care Team Description 01/01/2025 8:05 PM CDT - 01/01/2025 11:59 PM CDT Hospital Encounter [facility] [address] [place] [address] Discharge Disposition: Discharge to home or self care 01/01/2025 Ophth Exam [facility] Ophthalmology [address] [place] [phone] Chris Lujan MD 01/01/2025 12:07 PM CDT - 01/01/2025 8:[address] [facility] Emergency Department [address] [place] [phone] Lei Lopez MD Knight, Caleb Daniel, MD Diagnosis unknown (Primary Dx); Fall, initial encounter; Concussion without loss of consciousness, initial encounter Discharge Disposition: Discharge to home or self care 12/31/2024 Telephone [facility] Ophthalmology [address] [place] [phone] Ravindra Suarez MD from Last 3 Months Allergies No known active allergies Medications atorvastatin (LIPITOR) 20 mg tablet atorvastatin 20 mg tablet Active furosemide (LASIX) 20 mg tablet furosemide 20 mg tablet Active omeprazole (PriLOSEC) 20 mg capsule omeprazole 20 mg capsule,delayed release Active potassium chloride ER (KLOR-CON) 20 mEq CR tablet potassium chloride ER 20 mEq tablet,extended release(part/ st) Active lisinopriL (PRINIVIL,ZESTR IL) 20 mg tablet lisinopril 20 mg tablet Active blood glucose diagnostic (FreeStyle Lite Strips) strip FreeStyle Lite Strips Active blood-glucose meter kit FreeStyle Lite Meter kit Active lancets 28 gauge misc FreeStyle Lancets 28 gauge Active aspirin 81 mg enteric coated tablet Take 81 mg by mouth daily Active Myrbetriq 25 mg tablet extended release 24 hr Take 25 mg by mouth daily 3 Active Xultophy 100/3.6 100 unit-3.6 mg /mL (3 mL) insulin pen pen INJECT 46 UNITS UNDER THE SKIN SCIENCE TECHNICIAN BEFORE BREAKFAST 45 mL 3 4 Active metFORMIN XR (GLUCOPHAGE XR) 500 mg 24 hr tablet Take 1 tablet by mouth once daily 90 tablet 3 4 Active Active Problems Problem Noted Date Diagnosed Date Diagnosis unknown 01/02/2025 Morbid (severe) obesity due to excess calories 0 06/27/2022 Assessment & Plan (11/15/2022 11:39 AM FLAG DECORATOR): This is a chronic condition which is stable 2 lb weight gain since last office visit Continue xultophy - once a day injection with GLP-1 Assessment & Plan (06/27/2022 2:32 PM CDT): This is a chronic condition which is improving 11lb weight loss since 11/10 Continue xultophy - once a day injection with GLP-1 Benign essential hypertension 11/01/2021 Assessment & Plan (11/15/2022 12:02 PM FLAG DECORATOR): This is a chronic condition which is at goal of less than 140/90 after 5 minutes of rest. Personally reviewed labs. Continue lisinopril and Lasix Avoid caffeine, caffeine will raise blood pressure and excessive alcohol consumption. Monitor your weight and B/P. Encouraged to take medications as prescribed. Assessment & Plan (06/27/2022 2:29 PM CDT): This is a chronic condition which is at goal. Goal is <140/90 Personally reviewed labs. B/p-130/90 Avoid caffeine, caffeine will raise blood pressure and excessive alcohol consumption. Monitor your weight and B/P. Encouraged to take medications as prescribed. Assessment & Plan (02/28/2022 12:34 PM CDT): This is a chronic condition which is not at goal most likely due to forgetting to take her medications. Goal is <140/90 Personally reviewed labs. B/p-164/90 Avoid caffeine, caffeine will raise blood pressure and excessive alcohol consumption. Monitor your weight and B/P. Encouraged to take medications as prescribed. Assessment & Plan (11/01/2021 4:01 PM FLAG DECORATOR): This is a chronic condition which is at goal Goal is <140/90 Personally reviewed labs. B/p-136/70 Avoid caffeine, caffeine will raise blood pressure and excessive alcohol consumption. Monitor your weight and B/P. Encouraged to take medications as prescribed. 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 - to avoid hypoglycemia Monitor blood sugar 2x times a day Encouraged annual eye exam. Monofilament foot exam completed, protective senses intact Personally reviewed labs per care everywhere from 04/10 GFR- 48 Kidney function-stage 3a. B/P today- at Goal blood pressure is <140/90 after 5 minutes of rest. continue lisinopril. Personally reviewed LDL -70. continue atorvastatin. At goal of less than 70 No history of macrovascular disease - CVA, [place]. Assessment & Plan (06/27/2022 2:30 PM CDT): This is a chronic condition which is improving Personally reviewed A1c-9.8% not at goal less than 8% Personally reviewed blood sugar -134 at goal 80-180 Medication- increase Xultophy 32 units daily am. - Monitor blood sugar 2x times a day Encouraged annual eye exam. Monofilament foot exam completed, protective senses intact, Urine microalbumin/creatinine ratio - needed. currently on lisinopril. goal <30 Personally reviewed labs per care everywhere from 04/10 GFR- 48 Kidney function-stage 3a. B/P today- 130/90 , continue lisinopril. at Goal blood pressure is <140/90 . Personally reviewed LDL -70. continue atorvastatin. At goal of less than 70 No history of macrovascular disease - CVA, [place]. Assessment & Plan (02/28/2022 12:47 PM CDT): This is a chronic condition which is out of control Personally reviewed A1c-13.6% not at goal less than 8% Personally reviewed blood sugar -217 not at goal 80-180 Medication- increase Xultophy 28 units daily am. - this will decreases number of injections and hopeful will cover mealtime insulin need. Discussed using [employer] insulin delivery system- she did not think she could sleep in it. Monitor blood sugar 2x times a day Encouraged annual eye exam. Monofilament foot exam completed, protective senses intact, Urine microalbumin/creatinine ratio - needed. currently on lisinopril. goal <30 Personally reviewed labs scanned into media from 10/30/21 BUN-33, creatinine- 1.11 GFR- 45 Kidney function-stage 3a. B/P today- 164/90 , currently on lisinopril. Not at Goal blood pressure is <140/90 and as close to 120/80 as possible. Personally reviewed LDL -91. currently on atorvastatin. Close to goal of less than 70 No history of macrovascular disease - CVA, [place]. Assessment & Plan (11/01/2021 4:03 PM FLAG DECORATOR): This is a chronic condition Awaiting labs from PCP office done yesterday Personally reviewed W7s-wriieiks results goal less than 7% Personally reviewed blood sugar -274 not at goal 80-180 Medication- stop degludec and novolog. Start Xultophy 20 units daily am. - will try this to decrease number of injections and hopeful will cover mealtime insulin need. Monitor blood sugar 4 times a day with Popsetstyle madelyn 2 sensor. Encouraged annual eye exam. Monofilament foot exam completed, protective senses intact, Urine microalbumin/creatinine ratio - awaiting labs currently on lisinopril. goal <30 Personally reviewed labs: awating labs BUN- , creatinine- GFR- Kidney function- B/P today- 136/70 , currently on lisinopril. at Goal blood pressure is <140/90 and as close to 120/80 as possible. Personally reviewed LDL - awaiting lab results. currently on atorvastatin. Goal of less than 70 No history of macrovascular disease - CVA, [place]. Resolved Problems Problem Noted Date Diagnosed Date Resolved Date Encounter for long-term (cur rent) use of insulin 02/28/2022 06/27/2022 Assessment & Plan (02/28/2022 12:38 PM CDT): Uncontrolled hyperglycemia not at goal. increase Xultophy 28 units daily am. - this will decreases number of injections and hopeful will cover mealtime insulin need. Social History Tobacco Use Types Packs/Day Years Used Date Smoking Tobacco: Never Smokeless Tobacco: Never Personal Safety Answer Date Recorded Have you ever been in or are you currently in a harmful physical or emotional relationship or is someone making you feel afraid or unsafe? Denies 01/01/2025 Comments Unknown Sex and Gender Information Value Date Recorded Sex Assigned at Not on file Legal Sex Female 1:44 AM FLAG DECORATOR Gender Identity Not on file Sexual Orientation Not on file Last Filed Vital Signs Vital Sign Reading Time Taken Comments Blood Pressure 198/93 01/01/2025 7:30 PM CDT Pulse 88 01/01/2025 7:30 PM CDT Temperature 36.8 C (98.2 F) 01/01/2025 12:43 PM CDT Respiratory Rate 18 01/01/2025 2:54 PM CDT Oxygen Saturation 95% 01/01/2025 7:30 PM CDT Inhaled Oxygen Concentration - - Weight 79.4 kg (175 lb) 01/01/2025 12:21 PM CDT Height 146.1 cm (4' 9.5 ) 01/01/2025 12:21 PM CD T Body Mass Index 37.21 01/01/2025 12:21 PM CDT Plan of Treatment Not on file Procedures Procedure Name Priority Date/Time Associated Diagnosis Comments URINALYSIS, MICROSCOPIC ONLY STAT 01/01/2025 4:24 PM CDT URINE CULTURE STAT 01/01/2025 4:24 PM CDT URINALYSIS AND REFLEX TO MICROSCOPIC AND CULTURE STAT 01/01/2025 4:24 PM CDT POCT GLUCOSE DEVICE Routine 01/01/2025 4 :11 PM CDT XR TRANSFER OF OUTSIDE FILMS Routine 01/01/2025 3:20 PM CDT XR TRANSFER OF OUTSIDE FILMS Routine 01/01/2025 3:19 PM CDT XR TRANSFER OF OUTSIDE FILMS Routine 01/01/2025 3:[address] OUTSIDE CONSULT Routine 01/01/2025 3:15 PM CDT Diagnosis unknown NEURO CT OUTSIDE CONSULT Routine 01/01/2025 3:12 PM CDT Diagnosis unknown POCT GLUCOSE DEVICE Routine 01/01/2025 2 :47 PM CDT POCT HEMOGLOBIN A1C Routine 11/15/2022 1 1:39 AM FLAG DECORATOR Type 2 diabetes mellitus with hypoglycemia without coma, with long-term current use of insulin (HCC) COMPREHENSIVE METABOLIC PANEL Routine 04/04/2022 LIPID PANEL Routine 04/04/2022 from Last 3 Months or Most Recently Relevant to Health Maintenance Results * (ABNORMAL) Urinalysis reflex to microscopic and culture Urine, clean voided (01/01/2025 4:24 PM CDT) Color, ur Yellow Yellow Clarity, ur Turbid(A) Clear [facility] Specific gravity, ur 1.015 1.003 - 1.030 [facility] pH, urine 6.5 [facility] Comment: Interpretive Data U rine pH is affected by diet, medications, systemic acid-base disturbances, and renal tubular function. pH may affect urinary stone formation. For example, urine pH below 6.0 may help reduce the tendency for calcium phosphate stones and pH greater than 6.0 may reduce the tendency for uric acid stone formation. Source: [facility] Current Interpretive Data was last revised on 2017 Protein, ur ql 2+(A) Negative [facility] Glucose, ur ql 4+(A) Negative [facility] Ketones, ur 1+(A) Negative [facility] Bilirubin, ur Negative Negative [facility] Blood, ur 1+(A) Negative [facility] Urobilinogen, ur <2.0 <2.0 mg/dL [facility] Nitrite, ur Negative Negative [facility] Leukocyte esterase, ur 3+(A) Negative [facility] UA reflex comment Reflex to microscopic UA will be performed. [facility] Urine, clean voided 01/01/2025 4:24 PM CDT 01/01/2025 4:30 PM CDT Manuel Keating MD LAB MICROBIOLOGY - GENERA L ORDERABLES Final Result [facility] [place] [address] * (ABNORMAL) Urinalysis, microscopic only (01/01/2025 4:24 PM CDT) WBC, ur >50(A) 0 - 5 /HPF RBC, ur >50(A) 0 - 2 /HPF [facility] Epithelial cells, squamous, ur 1-5 0 - 5 /HPF [facility] Bacteria, ur 4+(A) [facility] Culture Reflex Comment Reflex to urine culture will be performed. [facility] Urine, clean voided 01/01/2025 4:24 PM CDT 01/01/2025 4:30 PM CDT Manuel Keating MD LAB URINE ORDERABLES Jennifer l Result [facility] [place] [address] * (ABNORMAL) Urine culture Urine, clean voided (01/01/2025 4:24 PM CDT) Report Final Report: Growth indicates contamination with mixed bacterial lucy. Please submit a new specimen with special attention given to the collection process and to prompt transport to the laboratory. (.) Organism GROWTH INDICATES CONTAMINATION WITH MIXED LUCY. [facility] Urine, clean voided 01/01/2025 4:24 PM CDT 01/01/2025 7:57 PM CDT Narrative [facility] - 01/03/2025 4:19 PM CDT Urine culture reflexed based upon urinalysis results. Testing performed by [facility] ([phone]) Manuel Keating MD LAB MICROBIOLOGY - GENERA L ORDERABLES Final Result Performing Organization Address City/[facility] [address]/[facility] Co de Phone Number [facility] [place] [address] * (ABNORMAL) POCT glucose (01/01/2025 4:11 PM CDT) Glucose, POC 251(H) 70 - 199 mg/dL Comment:Glu2: RN/MD Notified Glucose comment 1 Glu2: RN/MD Notified [facility] Blood 01/01/2025 4:11 PM CDT 01/01/2025 4:11 PM CDT Manuel Keating MD LAB POCT ORDERABLES - DEV ICE Final Result Performing Organization Address City/[facility] [address]/ZIP Co de Phone Number [facility] [place] [address] * XR Outside Reference (01/01/2025 3:20 PM CDT) Impressions [email or web address] - 01/01/2025 3:20 PM CDT These images are for Reference purposes only and have not been reviewed by [facility] Radiology. There will be no report generated by a [facility] Radiologist. Narrative [email or web address] - 01/01/2025 3:20 PM CDT EXAMINATION: Images For Reference Purposes Only Rohan Hernandez MD IMG XR PROCEDURES Final R esult Performing Organization Address [facility] [address]/[facility] de Phone Number [email or web address] * XR Outside Reference (01/01/2025 3:19 PM CDT) Impressions [email or web address] - 01/01/2025 3:19 PM CDT These images are for Reference purposes only and have not been reviewed by [facility] Radiology. There will be no report generated by a [facility] Radiologist. Narrative [email or web address] - 01/01/2025 3:19 PM CDT EXAMINATION: Images For Reference Purposes Only Rohan Hernandez MD IMG XR PROCEDURES Final R esult Performing Organization Address [facility] [address]/[facility] de Phone Number [email or web address] * XR Outside Reference (01/01/2025 3:17 PM CDT) Impressions [email or web address] - 01/01/2025 3:17 PM CDT These images are for Reference purposes only and have not been reviewed by [facility] Radiology. There will be no report generated by a [facility] Radiologist. Narrative [email or web address] - 01/01/2025 3:17 PM CDT EXAMINATION: Images For Reference Purposes Only Rohan Hernandez MD IMG XR PROCEDURES Final R esult Performing Organization Address [facility] [address]/[facility] Co de Phone Number [email or web address] * Neuro CT Outside Consult (01/01/2025 3:15 PM CDT) Anatomical Region Laterality Modality N/A Computed Tomogra phy 01/01/2025 4:29 PM CDT Impressions 01/01/2025 4:58 PM CDT 1. Large right infraorbital soft tissue hematoma without definite intraorbital extension. 2. Mildly displaced acute nasal bone fracture deformity. 3. No acute intracranial hemorrhage or cervical spine fracture. 4. Moderate cervical spondylosis contributing to at least moderate C3-C4, C4-C5 and C5-C6 spinal canal stenosis with varying degrees of neuroforaminal narrowing. The findings, conclusions and recommendations within this report do not replace the initial findings, conclusions and recommendations made at the facility where the study was performed based upon the imaging and clinical condition at that time. Comparison with the prior report and clinical history is necessary. The provided images may or may not represent the ione source data set and thus may contain changes that may lower the accuracy of this second-opinion interpretation. Dictated by: Arik Davis M.D. The radiology attending physician has personally reviewed this study, and had reviewed and/or edited this written report and agrees with it. Electronically signed by: MD Oralia Neely 01/01/2025 4:58 PM CDT EXAMINATION: RADIOLOGY CONSULTATION ON OUTSIDE IMAGING STUDY STUDY INITIALLY PERFORMED: 12/31/2024 at [facility]. TYPE OF STUDY: Multiple CT images of the head, face and cervical spine without intravenous contrast are provided at the time of this interpretation. CONTRAST ROUTE: No contrast was administered. The protocol was adequate to address the clinical question. The outside final report was not available at the time of this second opinion interpretation. TYPE OF CONSULTATION: Consult on outside imaging study with images submitted through Outside Image Sharing Service DATE OF CONSULTATION: 01/01/2025 3:31 PM HISTORY: 89-year-old female status post fall COMPARISON: None available. FINDINGS: No acute intracranial hemorrhage. There is a large right infraorbital soft tissue hematoma measuring 4.6 x 2.3 x 3.5 cm without definite intraorbital extension. Moderate generalized cerebral volume loss with ex vacuo dilatation of ventricles. 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 Bilateral lens extractions. Mild paranasal sinus mucosal thickening. Mastoid air cells are well aerated. There is a mildly displaced acute nasal bone fracture deformity. Right mandibular premolar periapical lucencies. There is pannus formation at the dens with mild narrowing of the craniocervical junction. Straightening of the lordotic curvature of the cervical spine. No acute fracture of the cervical spine. Vertebral bodies are normal in height. Multilevel degenerative disc disease most pronounced at C5-C6. Moderate cervical spondylosis with multilevel disc osteophyte complexes contributing to at least moderate spinal canal stenosis at C3-C4, C4-C5 and C5-C6. Varying degrees of facet arthropathy and uncovertebral hypertrophy with no severe neuroforaminal narrowing. Procedure Note Rebecca Owen MD PhD - 01/01/2025 EXAMINATION: RADIOLOGY CONSULTATION ON OUTSIDE IMAGING STUDY STUDY INITIALLY PERFORMED: 12/31/2024 at [facility]. TYPE OF STUDY: Multiple CT images of the head, face and cervical spine without intravenous contrast are provided at the time of this interpretation. CONTRAST ROUTE: No contrast was administered. The protocol was adequate to address the clinical question. The outside final report was not available at the time of this second opinion interpretation. TYPE OF CONSULTATION: Consult on outside imaging study with images submitted through Outside Image Sharing Service DATE OF CONSULTATION: 01/01/2025 3:31 PM HISTORY: 89-year-old female status post fall COMPARISON: None available. FINDINGS: No acute intracranial hemorrhage. There is a large right infraorbital soft tissue hematoma measuring 4.6 x 2.3 x 3.5 cm without definite intraorbital extension. Moderate generalized cerebral volume loss with ex vacuo dilatation of ventricles. 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 Bilateral lens extractions. Mild paranasal sinus mucosal thickening. Mastoid air cells are well aerated. There is a mildly displaced acute nasal bone fracture deformity. Right mandibular premolar periapical lucencies. There is pannus formation at the dens with mild narrowing of the craniocervical junction. Straightening of the lordotic curvature of the cervical spine. No acute fracture of the cervical spine. Vertebral bodies are normal in height. Multilevel degenerative disc disease most pronounced at C5-C6. Moderate cervical spondylosis with multilevel disc osteophyte complexes contributing to at least moderate spinal canal stenosis at C3-C4, C4-C5 and C5-C6. Varying degrees of facet arthropathy and uncovertebral hypertrophy with no severe neuroforaminal narrowing. IMPRESSION: 1. Large right infraorbital soft tissue hematoma without definite intraorbital extension. 2. Mildly displaced acute nasal bone fracture deformity. 3. No acute intracranial hemorrhage or cervical spine fracture. 4. Moderate cervical spondylosis contributing to at least moderate C3-C4, C4-C5 and C5-C6 spinal canal stenosis with varying degrees of neuroforaminal narrowing. The findings, conclusions and recommendations within this report do not replace the initial findings, conclusions and recommendations made at the facility where the study was performed based upon the imaging and clinical condition at that time. Comparison with the prior report and clinical history is necessary. The provided images may or may not represent the ione source data set and thus may contain changes that may lower the accuracy of this second-opinion interpretation. Dictated by: Arik Davis M.D. The radiology attending physician has personally reviewed this study, and had reviewed and/or edited this written report and agrees with it. Electronically signed by: Rebecca Owen MD Rohan Hernandez MD IMG CT PROCEDURES Final R esult * Neuro CT Outside Consult (01/01/2025 3:12 PM CDT) Anatomical Region Laterality Modality N/A Computed Tomogra phy 01/01/2025 4:29 PM CDT Impressions 01/01/2025 4:58 PM CDT 1. Large right infraorbital soft tissue hematoma without definite intraorbital extension. 2. Mildly displaced acute nasal bone fracture deformity. 3. No acute intracranial hemorrhage or cervical spine fracture. 4. Moderate cervical spondylosis contributing to at least moderate C3-C4, C4-C5 and C5-C6 spinal canal stenosis with varying degrees of neuroforaminal narrowing. The findings, conclusions and recommendations within this report do not replace the initial findings, conclusions and recommendations made at the facility where the study was performed based upon the imaging and clinical condition at that time. Comparison with the prior report and clinical history is necessary. The provided images may or may not represent the ione source data set and thus may contain changes that may lower the accuracy of this second-opinion interpretation. Dictated by: Arik Davis M.D. The radiology attending physician has personally reviewed this study, and had reviewed and/or edited this written report and agrees with it. Electronically signed by: Rebecca Owen MD Narrative 01/01/2025 4:58 PM CDT EXAMINATION: RADIOLOGY CONSULTATION ON OUTSIDE IMAGING STUDY STUDY INITIALLY PERFORMED: 12/31/2024 at [facility]. TYPE OF STUDY: Multiple CT images of the head, face and cervical spine without intravenous contrast are provided at the time of this interpretation. CONTRAST ROUTE: No contrast was administered. The protocol was adequate to address the clinical question. The outside final report was not available at the time of this second opinion interpretation. TYPE OF CONSULTATION: Consult on outside imaging study with images submitted through Outside Image Sharing Service DATE OF CONSULTATION: 01/01/2025 3:31 PM HISTORY: 89-year-old female status post fall COMPARISON: None available. FINDINGS: No acute intracranial hemorrhage. There is a large right infraorbital soft tissue hematoma measuring 4.6 x 2.3 x 3.5 cm without definite intraorbital extension. Moderate generalized cerebral volume loss with ex vacuo dilatation of ventricles. 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 Bilateral lens extractions. Mild paranasal sinus mucosal thickening. Mastoid air cells are well aerated. There is a mildly displaced acute nasal bone fracture deformity. Right mandibular premolar periapical lucencies. There is pannus formation at the dens with mild narrowing of the craniocervical junction. Straightening of the lordotic curvature of the cervical spine. No acute fracture of the cervical spine. Vertebral bodies are normal in height. Multilevel degenerative disc disease most pronounced at C5-C6. Moderate cervical spondylosis with multilevel disc osteophyte complexes contributing to at least moderate spinal canal stenosis at C3-C4, C4-C5 and C5-C6. Varying degrees of facet arthropathy and uncovertebral hypertrophy with no severe neuroforaminal narrowing. Procedure Note Rebecca Owen MD PhD - 01/01/2025 EXAMINATION: RADIOLOGY CONSULTATION ON OUTSIDE IMAGING STUDY STUDY INITIALLY PERFORMED: 12/31/2024 at [facility]. TYPE OF STUDY: Multiple CT images of the head, face and cervical spine without intravenous contrast are provided at the time of this interpretation. CONTRAST ROUTE: No contrast was administered. The protocol was adequate to address the clinical question. The outside final report was not available at the time of this second opinion interpretation. TYPE OF CONSULTATION: Consult on outside imaging study with images submitted through Outside Image Sharing Service DATE OF CONSULTATION: 01/01/2025 3:31 PM HISTORY: 89-year-old female status post fall COMPARISON: None available. FINDINGS: No acute intracranial hemorrhage. There is a large right infraorbital soft tissue hematoma measuring 4.6 x 2.3 x 3.5 cm without definite intraorbital extension. Moderate generalized cerebral volume loss with ex vacuo dilatation of ventricles. 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 Bilateral lens extractions. Mild paranasal sinus mucosal thickening. Mastoid air cells are well aerated. There is a mildly displaced acute nasal bone fracture deformity. Right mandibular premolar periapical lucencies. There is pannus formation at the dens with mild narrowing of the craniocervical junction. Straightening of the lordotic curvature of the cervical spine. No acute fracture of the cervical spine. Vertebral bodies are normal in height. Multilevel degenerative disc disease most pronounced at C5-C6. Moderate cervical spondylosis with multilevel disc osteophyte complexes contributing to at least moderate spinal canal stenosis at C3-C4, C4-C5 and C5-C6. Varying degrees of facet arthropathy and uncovertebral hypertrophy with no severe neuroforaminal narrowing. IMPRESSION: 1. Large right infraorbital soft tissue hematoma without definite intraorbital extension. 2. Mildly displaced acute nasal bone fracture deformity. 3. No acute intracranial hemorrhage or cervical spine fracture. 4. Moderate cervical spondylosis contributing to at least moderate C3-C4, C4-C5 and C5-C6 spinal canal stenosis with varying degrees of neuroforaminal narrowing. The findings, conclusions and recommendations within this report do not replace the initial findings, conclusions and recommendations made at the facility where the study was performed based upon the imaging and clinical condition at that time. Comparison with the prior report and clinical history is necessary. The provided images may or may not represent the ione source data set and thus may contain changes that may lower the accuracy of this second-opinion interpretation. Dictated by: Arik Davis M.D. The radiology attending physician has personally reviewed this study, and had reviewed and/or edited this written report and agrees with it. Electronically signed by: Rebecca Owen MD us Rohan Hernandez MD IMG CT PROCEDURES Final R esult * (ABNORMAL) POCT glucose (01/01/2025 2:47 PM CDT) [facility] Glucose, POC 256(H) 70 - 199 mg/dL Blood 01/01/2025 2:47 PM CDT 01/01/2025 2:47 PM CDT Lei Lopez MD LAB POCT ORDERABLES - DEVICE F inal Result [facility] [place] [address] * (ABNORMAL) POCT hemoglobin A1c (11/15/2022 11:39 AM FLAG DECORATOR) [facility] Hemoglobin A1C, POC 9.9 Blood 11/15/2022 11:3 9 AM FLAG DECORATOR us Tammy Lewis NP POINT OF CARE TEST ORDERABLES F inal Result * (ABNORMAL) Lipid panel (04/04/2022) [facility] SCRIBED Cholesterol, Total 165 140 - 199 EXTERNAL LAB SCRIBED HDL 65(A) 0 - 40 EXTERNAL LAB SCRIBED LDL 70 0 - 130 EXTERNAL LAB SCRIBED Triglycerides 150 0 - 150 EXTERNAL LAB Blood 04/04/2022 us Historical Provider LAB BLOOD ORDERABLES Jennifer l Result EXTERNAL LAB * (ABNORMAL) Comprehensive metabolic panel (04/04/2022) [facility] SCRIBED Sodium 139 137 - 145 mmol/L EXTERNAL LAB SCRIBED Potassium 5.0 3.5 - 5.1 mmol/L EXTERNAL LAB SCRIBED Chloride 104 98 - 107 mmol/L EXTERNAL LAB SCRIBED Carbon Dioxide 25 22 - 30 mmol/L EXTERNAL LAB SCRIBED Anion Gap 15.0 14 - 22 mmol/L EXTERNAL LAB SCRIBED Urea Nitrogen (BUN) 33(A) 8 - 19 mg/dl EXTERNAL LAB SCRIBED Creatinine 1.09 0.66 - 1.25 mg/dl EXTERNAL LAB SCRIBED Glucose 277(A) 70 - 99 mg/dl EXTERNAL LAB SCRIBED Calcium 9.2 8.4 - 10.2 mg/dl EXTERNAL LAB SCRIBED Bilirubin 0.40 0.20 - 1.30 mg/dl EXTERNAL LAB SCRIBED Plasma Protein 7.6 6.3 - 8.2 g/dl EXTERNAL LAB SCRIBED Albumin 4.4 3.0 - 4.4 g/dl EXTERNAL LAB SCRIBED Alkaline Phosphatase 87 38 - 126 Units/L EXTERNAL LAB SCRIBED Alanine Transaminase (ALT) 14 0 - 35 Units/L EXTERNAL LAB SCRIBED Aspartate Transaminase (AST) 23 15 - 37 Units/L EXTERNAL LAB SCRIBED eGFR in NonAfrican [place] 48(A) 60 - >90 EXTERNAL LAB Blood 04/04/2022 Historical Provider LAB BLOOD ORDERABLES Jennifer l Result EXTERNAL LAB from Last 3 Months or Most Recently Relevant to Health Maintenance Insurance MEDICARE [employer] AETNA MEDICARE GOLD AETNA MEDICARE GOLD Care Teams Insurance Adviser Relationship Specialty Start Date End Date Jimmy Marino MD PCP - General Internal Medicine 07/11/17
--- OUTSIDE RECORDS SUMMARY | 2025-01-10 16:51 | XMS_ITS | Clinical Summary ---
Author Organization [facility] [address] [facility] [address] Address [address] [place] [address] Care Team Providers Care Network Support Engineer Name Role Phone Jimmy Marino MD Primary Care Provider + [phone] Allergies No known active allergies Medications atorvastatin (LIPITOR) 20 mg tablet atorvastatin 20 mg tablet Active furosemide (LASIX) 20 mg tablet furosemide 20 mg tablet Active omeprazole (PriLOSEC) 20 mg capsule omeprazole 20 mg capsule,delayed release Active potassium chloride ER (KLOR-CON) 20 mEq CR tablet potassium chloride ER 20 mEq tablet,extended release(part/cry st) Active lisinopriL (PRINIVIL,ZESTR IL) 20 mg [...] pen INJECT 46 UNITS UNDER THE SKIN FACILITATOR BEFORE BREAKFAST 45 mL 3 4 Active metFORMIN XR (GLUCOPHAGE XR) 500 mg 24 hr tablet Take 1 tablet by mouth once daily 90 tablet 3 4 Active Active Problems Problem Noted Date Diagnosed Date Diagnosis unknown 01/02/2025 Morbid (severe) obesity due to excess calories 0 06/27/2022 Assessment & Plan (11/15/2022 11:39 AM WOOD CABINET FINISHER): This is a chronic condition which is [...] 11/01/2021 Assessment & Plan (11/15/2022 12:02 PM WOOD CABINET FINISHER): This is a chronic condition which is [...] prescribed. Assessment & Plan (11/01/2021 4:01 PM WOOD CABINET FINISHER): This is a chronic condition which is at goal Goal is <140/90 Personally reviewed labs. B/p-136/70 Avoid caffeine, caffeine will raise blood pressure and excessive alcohol consumption. Monitor your weight and B/P. Encouraged to take medications as prescribed. 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 Assessment & Plan (06/27/2022 2:30 PM CDT): [...] No history of macrovascular disease - CVA, [place]. Assessment & Plan (02/28/2022 12:47 PM CDT): This is a chronic condition which is out of control Personally reviewed A1c-13.6% not at goal less than 8% Personally reviewed blood sugar -217 not at goal 80-180 Medication- increase Xultophy 28 units daily am. - this will decreases number of injections and hopeful will cover mealtime insulin need. Discussed using V[employer] insulin delivery system- she did not think [...] No history of macrovascular disease - CVA, CO. Assessment & Plan (11/01/2021 4:03 PM WOOD CABINET FINISHER): This is a chronic condition Awaiting labs from PCP office done yesterday Personally reviewed [id number] results goal less than 7% Personally reviewed blood sugar -274 not at goal 80-180 Medication- stop degludec and novolog. Start Xultophy 20 units daily am. - will try this to decrease number of injections and hopeful will cover mealtime insulin need. Monitor blood sugar 4 times a day with freestyle madelyn 2 sensor. Encouraged annual eye exam. [...] No history of macrovascular disease - CVA, CO. Resolved Problems Problem Noted Date Diagnosed Date Resolved Date Encounter for long-term (cur rent) use of insulin 02/28/2022 06/27/2022 Assessment & Plan (02/28/2022 12:38 PM CDT): Uncontrolled hyperglycemia not at goal. increase Xultophy 28 units daily am. - this will decreases number of injections and hopeful will cover mealtime insulin need. Encounters Date Type Department Care Team Description 01/01/2025 8:05 PM CDT - 01/01/2025 11:59 PM CDT Hospital Encounter [facility] [address] [place] [address] Discharge Disposition: Discharge to home or self care 01/01/2025 12:07 PM CDT - 01/01/2025 8:01 PM CDT Emergency [facility] Emergency Department [address] [place] [address] Lei Lopez MD Knight, Caleb Daniel, MD Diagnosis unknown (Primary Dx); Fall, initial encounter; Concussion without loss of consciousness, initial encounter Discharge Disposition: Discharge to home or self care 01/01/2025 Ophth Exam [facility] [address] [place] [phone] Chris Lujan MD 12/31/2024 Telephone [facility]hthal[facility] [address] [place] [address] [phone] Ravindra Suarez MD from Last 3 Months Social History Tobacco Use Types Packs/Day Years [...] on file Legal Sex Female 1:44 AM WOOD CABINET FINISHER Gender Identity Not on file Sexual Orientation Not on file Obstetrics History Last Filed Vital Signs Vital Sign Reading [...] 01/01/2025 12:21 PM CDT Plan of Treatment Health Maintenance Due Date Last Done Comments Albumin Creatinine Ratio, Urine 1935 Depression Screening 1935 Fall Risk Assessment 1935 DTaP/Tdap/Td Vaccine (1 - Tdap) 1946 Hepatitis B Screening 1953 Pneumococcal vaccine 65+ (1 of 2 - PCV) 1954 Zoster Vaccine (1 of 2) 1985 Well Visit 65+ 2000 Foot Exam 02/28/2023 02/28/2022, 11/01/2021 Lipid Panel 04/04/2023 04/04/2022, 10/31/2021 eGFR 04/04/2023 04/04/2022, 10/31/2021 Hemoglobin A1C 05/15/2023 11/15/2022, 09/0 05/2022, 02/28/2022, Additional history exists Influenza Vaccine (#1) 2024 09/06/2014 Dilated Eye Exam 01/01/2026 01/01/2025 Procedures Procedure Name Priority Date/Time Associated Diagnosis [...] HEMOGLOBIN A1C Routine 11/15/2022 1 1:39 AM WOOD CABINET FINISHER Type 2 diabetes mellitus with hypoglycemia without coma, with long-term current use of insulin (HCC) COMPREHENSIVE METABOLIC PANEL Routine 04/04/2022 LIPID PANEL Routine 04/04/2022 from Last 3 Months or Most Recently Relevant to Health Maintenance Results * (ABNORMAL) Urinalysis reflex to microscopic and culture Urine, clean voided (01/01/2025 4:24 PM CDT) Color, ur Yellow Yellow Clarity, ur Turbid(A) Clear [facility] Specific gravity, ur 1.015 1.003 - 1.030 [facility] pH, urine 6.[address] [facility] Comment: Interpretive Data U rine pH is affected by diet, medications, systemic acid-base disturbances, and renal tubular function. pH may affect urinary stone formation. For example, urine pH below 6.0 may help reduce the tendency for calcium phosphate stones and pH greater than 6.0 may reduce the tendency for uric acid stone formation. Source: [facility] [place] Current Interpretive Data was last revised on 2017 Protein, ur ql 2+(A) Negative [facility] Glucose, ur ql 4+(A) Negative [facility] Ketones, ur 1+(A) Negative [facility] Bilirubin, ur Negative Negative [facility] Blood, ur 1+(A) Negative [facility] Urobilinogen, ur <2.0 <2.0 mg/dL [facility] Nitrite, ur Negative Negative [facility] Leukocyte esterase, ur 3+(A) Negative [facility] UA reflex comment Reflex to microscopic UA will be performed. [facility] Urine, clean voided 01/01/2025 4:24 PM CDT 01/01/2025 4:30 PM CDT Manuel Keating MD LAB MICROBIOLOGY - GENERA L ORDERABLES Final Result Performing Organization Address [facility] Co de Phone Number [facility] [place] [address] * (ABNORMAL) Urinalysis, microscopic only (01/01/2025 4:24 PM CDT) WBC, ur >50(A) 0 - 5 /HPF RBC, ur >50(A) 0 - 2 /HPF [facility] Epithelial cells, squamous, ur 1-5 0 - 5 /HPF [facility] Bacteria, ur 4+(A) [facility] Culture Reflex Comment Reflex to urine culture will be performed. [facility] Urine, clean voided 01/01/2025 4:24 PM CDT 01/01/2025 4:30 PM CDT Manuel Keating MD LAB URINE ORDERABLES Jennifer l Result Performing Organization Address [facility] de Phone Number [facility] [place] [address] * (ABNORMAL) Urine culture Urine, clean voided (01/01/2025 4:24 PM CDT) Report Final Report: Growth indicates contamination with mixed bacterial lucy. Please submit a new specimen with special attention given to the collection process and to prompt transport to the laboratory. (.) Organism GROWTH INDICATES CONTAMINATION WITH MIXED LUCY. [facility] Urine, clean voided 01/01/2025 4:24 PM CDT 01/01/2025 7:57 PM CDT Narrative [facility] - 01/03/2025 4:19 PM CDT Urine culture reflexed based upon urinalysis results. Testing performed by [facility] Microbiology Laboratory ([phone]) Manuel Keating MD LAB MICROBIOLOGY - GENERA L ORDERABLES Final Result Performing Organization Address [facility] de Phone Number [facility] Department [place] [address] * (ABNORMAL) POCT glucose (01/01/2025 4:11 PM CDT) Glucose, POC 251(H) 70 - 199 mg/dL Comment:Glu2: RN/MD Notified Glucose comment 1 Glu2: RN/MD Notified [facility] Blood 01/01/2025 4:11 PM CDT 01/01/2025 4:11 PM CDT Manuel Keating MD LAB POCT ORDERABLES - DEV ICE Final Result Performing Organization Address [facility] de Phone Number [facility] Department [place] [address] * XR Outside Reference (01/01/2025 3:20 PM CDT) Impressions [facility] - 01/01/2025 3:20 PM CDT These images are for Reference purposes only and have not been reviewed by [facility] Radiology. There will be no report generated by a [facility] Radiologist. Narrative [facility] - 01/01/2025 3:20 PM CDT EXAMINATION: Images For Reference Purposes Only us Rohan Hernandez MD IMG XR PROCEDURES Final R esult Performing Organization Address [facility] de Phone Number [email or web address] * XR Outside Reference (01/01/2025 3:19 PM CDT) Impressions [facility] - 01/01/2025 3:19 PM CDT These images are for Reference purposes only and have not been reviewed by [facility] Radiology. There will be no report generated by a [facility] Radiologist. Narrative [facility] - 01/01/2025 3:19 PM CDT EXAMINATION: Images For Reference Purposes Only Rohan Hernandez MD IMG XR PROCEDURES Final R esult Performing Organization Address City/[facility] Co de Phone Number [email or web address] * XR Outside Reference (01/01/2025 3:17 PM CDT) Impressions [email or web address] - 01/01/2025 3:17 PM CDT These images are for Reference purposes only and have not been reviewed by [facility] Radiology. There will be no report generated by a [facility] Radiologist. Narrative [facility] - 01/01/2025 3:17 PM CDT EXAMINATION: Images For Reference Purposes Only Rohan Hernandez MD IMG XR PROCEDURES Final R esult Performing Organization Address [facility] de Phone Number [email or web address] * Neuro CT [...] images may or may not represent the [place] source data set and thus may contain [...] IMAGING STUDY STUDY INITIALLY PERFORMED: 12/31/2024 at [facility]. TYPE OF STUDY: Multiple CT [...] IMAGING STUDY STUDY INITIALLY PERFORMED: 12/31/2024 at [facility]. TYPE OF STUDY: Multiple CT [...] images may or may not represent the [place] source data set and thus may contain [...] images may or may not represent the [place] source data set and thus may contain [...] IMAGING STUDY STUDY INITIALLY PERFORMED: 12/31/2024 at [facility]. TYPE OF STUDY: Multiple CT [...] IMAGING STUDY STUDY INITIALLY PERFORMED: 12/31/2024 at [facility]. TYPE OF STUDY: Multiple CT [...] images may or may not represent the [place] source data set and thus may contain [...] (ABNORMAL) POCT glucose (01/01/2025 2:47 PM CDT) Glucose, POC 256(H) 70 - 199 mg/dL Blood 01/01/2025 2:47 PM CDT 01/01/2025 2:47 PM CDT us Lei Lopez MD LAB POCT ORDERABLES - DEVICE F inal Result [facility] [place] [address] * (ABNORMAL) POCT hemoglobin A1c (11/15/2022 11:39 AM WOOD CABINET FINISHER) Hemoglobin A1C, POC 9.9 Blood 11/15/2022 11:3 9 AM WOOD CABINET FINISHER us Tammy K. Joshua COTTON GINNER HELPER POINT OF CARE TEST ORDERABLES F inal Result * (ABNORMAL) Lipid panel (04/04/2022) SCRIBED Cholesterol, Total 165 140 - 199 EXTERNAL LAB SCRIBED HDL 65(A) 0 - 40 EXTERNAL LAB SCRIBED LDL 70 0 - 130 EXTERNAL LAB SCRIBED Triglycerides 150 0 - 150 EXTERNAL LAB Blood 04/04/2022 Historical Provider LAB BLOOD ORDERABLES Jennifer l Result EXTERNAL LAB * (ABNORMAL) Comprehensive metabolic panel (04/04/2022) SCRIBED Sodium 139 137 - 145 mmol/L [...] Units/L EXTERNAL LAB SCRIBED eGFR in NonAfrican [place] 48(A) 60 - >90 EXTERNAL LAB Blood 04/04/2022 Historical Provider LAB BLOOD ORDERABLES Jennifer l Result EXTERNAL LAB from Last 3 Months or Most Recently Relevant to Health Maintenance Insurance MEDICARE [employer] [facility] [employer] MEDIC[place] [place] [address] [employer] MED[employer] GOLD Care Teams Network Support Engineer Relationship Specialty Start Date End Date Jimmy Marino MD PCP - General Internal Medicine 07/11/17
--- OUTSIDE RECORDS SUMMARY | 2025-01-10 16:51 | XMS_ITS | Encounter Summary ---
Author Organization [facility] Address [address] [place] [address] Phone Care Team Providers Care Black Leather Buffer Name Role Phone Jimmy Marino MD Primary Care Provider + [phone] Encounter Details Date Type Department Care Team (Late st Contact Info) Description 01/01/2025 Ophth Exam [facility] Ophthalmology [address] [place] [address] [address] [place] [phone] Chris Lujan MD [address] [facility] [address] [place], [place] [id number] Social History Tobacco Use Types Packs/Day Years [...] on file Legal Sex Female 1:44 AM MUSIC CRITIC Gender Identity Not on file Sexual Orientation Not on file documented as of this encounter Plan of Treatment Not on file documented as of this encounter Visit Diagnoses Not on filedocumented in this encounter Eye Exam Visual Acuity (Snellen - Linear) Right eye Left eye Near cc at least 20/400 at least 20/400 Unable to use PH occluder. Confused when trying to read card Tonometry (Tonopen, 2:49 PM) Right eye Left eye Pressure 19 18 Pupils Dark Light Shape React APD Right eye 3 2 Round Sluggish None Left eye 3 2 Round Sluggish None Dilation Both eyes: 2.5% Phenylephrin e, 1.0% Mydriacyl @ 2:50 PM External Exam Right eye Left eye External inferior laceration s/p repair by outside ED over right cheek, large inferior hematoma Slit Lamp Exam Right eye Left eye Lids/Lashes edema, ecchymosis, m inimal resistance to retropulsion, distracible Normal Conjunctiva/Sclera Temporal ANIVAL with sm all amount of inferior chemosis White and quiet Cornea Clear Clear Anterior Chamber Deep and quiet Deep and quiet Iris Round and reactive, no NVI Round and reactive, no NVI Lens PCIOL PCIOL Anterior Vitreous syneresis syneresis Fundus Exam Right eye Left eye Disc Normal Normal C/D Ratio 0.4 0.4 Macula DBH Normal Vessels DBH and few CWS, sclerosed vesse l DBH and few CWS, sclerosed vessel Periphery Peripheral drusen, 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
--- OUTSIDE RECORDS SUMMARY | 2025-01-10 16:51 | XMS_ITS | Data Portability ---
Author Organization [facility] [place] [facility] Address [address] [place] [address] Care Team Providers Care Hand Hose Cutter Name Role Phone REAGAN MARINO Primary Care Provider Assessment Encounter Date Assessment Date Assessment LastModified by Organization Details LastModified Time 06/28/2024 06/28/2024 diabetes is uncontrolled they have a family member who knows the sap hana developer and they are going to be reaching out to the family member so that she can get scheduled with the sap hana developer if there is any difficulty charis and her will call me and I will arrange for a referral. Atorvastatin 10 mg a day I want to see her in 1 month she is to take her blood sugars twice a day also she needs to be referred to uro patrol supervisor eventually but right now she is infected so there is not much that they would probably do to this all clears up. I told her very important for her to keep appointments [email or web address] Not available 07/04/2024 17:30:17 07/26/2024 07/26/2024 her diabetes is uncontrolled we will make the referral to endocrinology we will make the referral to Uro patrol supervisor for incontinence see me in 1 month I have told her that he needs to bring me the medicine that was prescribed by the sap hana developer I have no record of it [email or web address] Not available 07/31/2024 15:24:24 11/25/2024 11/25/2024 pantoprazole. Blood work. Follow up in 1 month. please take all medicines as prescribed [email or web address] Not available 11/25/2024 22:23:32 Plan of Treatment Reminders Order Date Submit Date Provider Last Modified By Organization Details Last Modified Time Details Appointments ANY 2024 01:00P Gavin Marino MD Not available Not available Not available ANY 5 02:15P Gavin Marino MD Not available Not available Not available Lab HbA1c (hemoglob in A1c), blood 2024 025 In-Office Order, Internal Use Only DO Not Attach Compendium DO Not Attach Compendium, Do Not Delete/merge, [id number] 11/25/2024 17:44:41 CMP, serum or plasma 2024 025 [email or web address] [facility], [address], [place], [address], 12/16/2024 16:23:12 lipid panel, serum 2024 025 [email or web address] [facility], [address], [place], [address], 12/16/2024 16:23:12 CBC w/ auto diff [email or web address], [address], [place], [address], 12/16/2024 16:23:12 HbA1c (hemoglob in A1c), blood 2023 024 In-Office Order, Internal Use Only DO Not Attach Compendium DO Not Attach Compendium, Do Not Delete/merge, [id number] 06/28/2024 21:41:22 Referral endocrino logy referral 2023 024 [facility] - Endocrinology , [address], [place], [address], 11/09/2024 09:37:09 Procedures None recorded. Surgeries None recorded. Imaging None recorded. Medication Orders pantopraz ole 40 mg tablet,de layed release 2024 025 [email or web address] [id number], [address], [place], [address], 11/25/2024 17:44:41 atorvasta tin 10 mg tablet 2023 024 LARRY [facility], [address], [place], [address], 01/10/2025 14:13:59 atorvasta tin 10 mg tablet 2023 024 [email or web address] [facility], [address], [place], [address], 01/10/2025 14:13:57 Patient TargetsNo targets recorded. Patient Instructions Encounter Date Encounter Id Patient Instructions Last Modified By Organization Details Last Modified Time 06/28/2024 [id number] A healthy lifestyle: care instructions [email or web address] Not available 06/28/2024 14:10:49 07/26/2024 [id number] A healthy lifestyle: care instructions [email or web address] Not available 07/26/2024 14:10:31 11/25/2024 [id number] A healthy lifestyle: care instructions Not available 11/25/2024 17:44:41 Reason for Referral Endocrinology Referral for T ype 2 diabetes mellitus Referring Physician: Reagan Marino, Internal Medicine, Encounter Date: 06/28/2024 Results Created Date Observation Date Name Description Value Unit Range Abnormal Flag Note LastModifiedBy Organization Detail LastModifiedTime 06/28/2006/28/2024 HbA1c (hemo globi n A1c), blood HbA1c 10.1 Not Available In-Office Order Internal Use Only DO Not Attach Compendium DO Not Attach Compendium, Do Not Delete/merge, [id number] 06/28/2024 17:19:06 11/25/1911/25/2024 HbA1c (hemo globi n A1c), blood HbA1c 8.2 Not Available In-Office Order Internal Use Only DO Not Attach Compendium DO Not Attach Compendium, Do Not Delete/merge, [id number] 11/25/2024 16:03:17 01/01/20 25 12/31/2024 CT, brain , w/o contr ast No observ ation record ed. [facility] [address], [place], [address], 01/05/2025 21:52:52 01/01/20 25 12/31/2024 XR, elbow No observ ation record ed. [address] [facility], [place], [address], 01/05/2025 21:52:52 01/01/20 25 12/31/2024 XR, hand No observ ation record ed. [address] [facility], [place], [address], 01/05/2025 21:52:52 01/01/20 25 12/31/2024 XR, shoul simon No observ ation record ed. [address] [facility], [place], [address], 01/05/2025 21:52:53 01/01/20 25 12/31/2024 CT, cervi kathleen spine , w/o contr ast No observ ation record ed. [address] [facility], [place], [address], 01/05/2025 21:52:53 01/05/20 CT, maxil lofac ial, w/o contr ast No observ ation record ed. [address] [facility], [place], [address], 01/05/2025 21:52:53 Result Notes None recorded. Problems Name Problem SNOMED Code Status Onset Date Resolution Date Notes Provider Name and Address Organization Details Recorded Time Overweight 569063594 Active 2023 ARMEN [place], [place] - [facility] 4 12:20:55 Type 2 diabetes mellitus 57973049 Active 2023 ARM[place] [facility] 4 12:21:04 Hyperlipidemia 31211598 Active 2023 ARM[place], [place] [facility] 4 12:21:08 Problem Notes None recorded. Procedures Surgical History None recorded. Imaging Results Imaging Date Name Status LastModified by Organiz ation Details LastModified Time 12/31/2024 CT, brain, w/o contrast completed [address] [place] [address], [id number], 01/05/2025 21:52:52 12/31/2024 XR, elbow completed [address] [place] [address], [id number], 01/05/2025 21:52:52 12/31/2024 XR, hand completed [address] [place] [address], [id number], 01/05/2025 21:52:52 12/31/2024 XR, shoulder completed [address] [place] [address] [place] [address], [address], 01/05/2025 21:52:53 12/31/2024 CT, cervical spine, w/o contrast completed [address] [place] [address], [address], 01/05/2025 21:52:53 01/04/2025 CT, maxillofacial , w/o contrast completed [address] [place] [address], [address], 01/05/2025 21:52:53 Procedure Notes None recorded. Medical Equipment None Reported. Allergies No known drug allergies Medications Name Sig Start Date Stop Date Status Note LastModified by Organization Details LastModified Time atorvastatin 10 mg tablet TAKE 1 TABLET BY MOUTH EVERY DAY active Not Available Not Available No t Available sulfamethoxa zole 800 mg-trimethop rim 160 mg tablet TAKE 1 TABLET BY MOUTH EVERY 12 HOURS active Not Available Not Available No t Available pantoprazole 40 mg tablet,delay ed release TAKE 1 TABLET BY MOUTH EVERY DAY active Not Available Not Available No t Available metformin ER 500 mg tablet,exten ded release 24 hr TAKE 1 TABLET BY MOUTH EVERY DAY active Not Available Not Available No t Available Myrbetriq 25 mg tablet,exten ded release active Not Available Not Available Not Available Xultophy 100/3.6 100 unit-3.6 mg/mL (3 mL) subcutaneous insulin pen Inject 44 units every day by subcutaneou s route. active Not Available Not Available No t Available Ozempic 0.25 mg or 0.5 mg (2 mg/1.5 mL) subcutaneous pen injector inject 0.25mg weekly for 4 weeks then 0.5mg 2024 active Not Available Not Available Not Avai lable Vitals Date Recorded Body height Body mass index (BMI) Body weight Oxygen saturation Oxygen saturation in Arterial blood by Pulse oximetry Heart rate Systolic blood pressure Diastolic blood pressure Provider Name and Address Organization Details Last Updated DateTime 4 149.86 cm 36 kg/m2 53934.4 4 g 97 % 97 % 78 /min 116 mm[Hg] 74 mm[Hg] Anna Knutson MA [facility] 4 12:06:06 Date Recorded Body height Body mass index (BMI) Body weight Heart rate Oxygen saturation Oxygen saturation in Arterial blood by Pulse oximetry Systolic blood pressure Diastolic blood pressure Provider Name and Address Organization Details Last Updated DateTime 4 149.86 cm 36 kg/m2 65196.4 4 g 76 /min 96 % 96 % 130 mm[Hg] 90 mm[Hg] Anna Knutson MA [facility] 4 11:54:01 Date Recorded Body height Body mass index (BMI) Body weight Heart rate Oxygen saturation Oxygen saturation in Arterial blood by Pulse oximetry Systolic blood pressure Diastolic blood pressure Provider Name and Address Organization Details Last Updated DateTime 5 149.86 cm 35.5 kg/m2 92109.2 6 g 78 /min 96 % 96 % 140 mm[Hg] 90 mm[Hg] Em Mcgovern [place] - [facility] 5 14:55:16 Date Recorded Body height Heart rate Oxygen saturation Oxygen saturation in Arterial blood by Pulse oximetry Systolic blood pressure Diastolic blood pressure Provider Name and Address Organization Details Last Updated DateTime 5 149.86 cm 76 /min 97 % 97 % 130 mm[Hg] 80 mm[Hg] Anna Knutson MA [facility] 5 14:11:03 Social History Question Answer Notes LastModified by Organizat ion Details LastModified Time Tobacco Smoking Status Never Smoker Anna Knutson MA [facility], [place] - [facility] 07/26/2024 11:55:07 Do You Have [...] Date Of Your Most Recent Tobacco Screening? 01/10/2025 Information not available 01/10/2025 What Is Your Relationship Status? Information not available 07/26/2024 Do You Use Your Seat Belt Or Car Seat Routinely? Yes Information not available 07/26/2024 Do You Have Smoke And Carbon Monoxide Detectors In Your Home? Yes Information not available 07/26/2024 Do You Use Any Illicit Or Recreational Drugs? No Information not available 07/26/2024 Do You Use Sunscreen Routinely? Yes Information not available 07/26/2024 Has Tobacco Cessation Counseling Been Provided? No Information not available 01/10/2025 Sex: Female Functional Status Question Answer Note [...] Skin Problems N Anemia N Heart Attack ([place]) N Diabetes Y Seizures/Epilepsy N Have you [...] Influenza, split virus, trivalent, preservative 4 completed Brie Buchaann MA [facility] 07/26/2024 12:21:18 Past Encounters Encounter ID Performer Location Encounter Start Date Encounter Closed Date Diagnosis/Indication Diagnosis SNOMED-CT Code Diagnosis ICD10 Code Diagnosis Note [id number] Reagan Marino MD [facility] [employer] [facility] [place] [address] [place] [address] 06/28/2024 11:23:26 06/28/2024 13:35:11 Obesity 848623711 E66.8 Type 2 vicki betes mellitus 15796118 E11.9 Hyperlipidemia 05822395 E78.5 [id number] Reagan Marino MD [facility] [employer] [facility] [place] [address] [place] [employer] [place] [address] 07/26/2024 11:46:56 07/26/2024 12:47:29 Overweight 508904085 E66.3 Type 2 vicki betes mellitus 90938251 E11.9 Hyperlipidemia 10254143 E78.5 [id number] Reagan Marino MD [facility] [employer] [address] [place] [employer] [place] [address] 11/25/2024 14:17:41 11/25/2024 15:41:29 Body mass index 30+ - obesity 600566299 Z68.35 Obesity 243050738 E66.9 Hyperlipidemia 00690388 E78.5 Gastroesop hageal reflux disease without esophagitis 572326359 K21.9 Type 2 vicki betes mellitus 27202918 E11.9 [id number] Em Mcgovern MA [facility] [employer] [address] [place] [address] 01/10/2025 13:53:12 01/10/2025 14:46:45 Facial laceration 300534710 S01.81XA Type 2 vicki betes mellitus 01905351 E11.9 Gastroesop hageal reflux disease without esophagitis 913432348 K21.9 Hyperlipidemia 44682133 E78.5 Health Concerns Section Related Observation LastModified by Organization Detai ls LastModified Time None Recorded Concern Status LastModified by Organization Details LastModified Time None Recorded Advance Directives Directive N: Payers Encounter Date Sequence Insurance Name Policy Number Policy Manjarrez Covered Member ID Manjarrez Member ID Guarantor Name 06/28/2024 1 [employer] - PRIME (MEDICARE REPLACEMENT/ ADVANTAGE - HMO) [id number] Charis Ross [id number] Charis Ross 07/26/2024 1 [employer] - [employer]IME (MEDICARE REPLACEMENT/ ADVANTAGE - HMO) [id number] Charis Ross [id number] [place] 11/25/2024 1 [employer] - [employer]IME (MEDICARE REPLACEMENT/ ADVANTAGE - HMO) [id number] Charis Ross [id number] Chrais Ross Notes Date Note Type Note Provider [...] doctor that she is trying to locate Reagan Marino MD Attn: Accounting, [address], [place], [address], [facility] 07/04/2024 17:30:47 07/26/2024 text/html she is still hav ing urinary incontinence she is not taking any of her meds except for what was given to her by a previous sap hana developer they have not made the appointment with the sap hana developer. I offered to do that at last visit but they said they would do it. They did not Reagan Marino MD Attn: Accounting, [address], [place], [address], [facility] 07/31/2024 15:24:43 11/25/2024 text/html diabetes they do [...] not really describe it that well either Reagan Marino MD Attn: Accounting, [address], [place], [address], [facility] [place] 11/25/2024 22:24:06 OBGyn Episode No OBEpisode recorded.
--- OUTSIDE RECORDS SUMMARY | 2025-01-10 16:51 | XMS_ITS | Continuity of Care Document ---
Author Organization [facility] Address [address] [place] [address] [place] [address] Phone Care Team Providers Care Wafer Machine Operator Name Role Phone Joseph Ryan Unavailable Unavailable [...] Diagnoses Date Provider Providers Copied on Encounter [facility], [address] [place] [address] [address], [place], [place], [id number], tel:[phone] [facility] No Information 8 Shelby Ruiz. [address] , [address], [place], [address], [place]. tel:[phone] [facility], [address] [place] [address] [address], [place], [place], [id number], [place] tel:[phone] [facility] No Information [address] Ru[address]. [address] , [address], [place], [address], [place]. tel:[phone] [facility], [address] [place] [address] [address], [place], [place], [id number], [place] tel:[phone] [facility] No Information [address]. [address] [facility] , [address], [place], [place], [facility], . tel:[phone] Referring Provider: Gerber Rios OD, [address] [place], [address]. tel:[phone] Office/outpat ient Visit, [facility], [address], [place], [place], [id number], [place] tel:[phone] [facility] No Information [address] Ruiz. [address] [facility] , [address], [place], [place], [facility], . tel:[phone] Referring Provider: Gerber Rios OD, [address] [place], [address]. tel:[phone] Family History Family Member Type Diagnosis Age At Onset No Information Payers Payer name Insurance type Covered constitution party ID Authoriza tion(s) No Information Social History [...]
[2025-01-10 17:28] LABS: Hemoglobin A1C 7.3 % (<5.7)
== END 2025-01-10 14:31 | disposition home or self-care (01) ==
LOC: ANHLAB 14:35
PROVIDERS: PCP Internal Medicine; Visit Provider Internal Medicine
DX: E11.9 Type 2 diabetes mellitus without complications (principal)
CPT/HCPCS: 36415; 83036; 85025; 85055

== ENCOUNTER 2025-01-19 13:18 | Inpatient (IN) | payer MEDICARE, SELFPAY ==
[2025-01-19] VITALS (15 sets, daily range): BP systolic 151–217; BP diastolic 61–101; PULSE 76–94; RESP 12–20; TEMP 36.4–36.5; O2SAT 96–99; BMI 35.7
--- NOTE | ~2025-01-19 | CT_ITS ---
CT head without contrast Indication: Weakness COMPARISON: 12/31/2024 Technique: Serial scans were obtained through the brain without the administration of contrast. Dose reduction technique was used on this scan by utilizing automated exposure control and iterative recon struction technique. The dose-length product (DLP) was 681.00 mGy-cm. Findings: There is no evidence of intracranial hemorrhage, mass lesion, or acute infarct. The ventri cles and subarachnoid spaces are dilated, consistent with moderate atrophy. Low attenuation regions are seen within the periventricular white matter bilaterally, likely representing changes from chroni c microvascular ischemic disease. There is no evidence of edema, mass effect or midline shift. The visualized paranasal sinuses and mastoid air cells are clear. Mild interval decrease of right infraor bital hematoma. Impression: No intracranial hemorrhage, mass, or acute infarct. Atrophy and chronic white matter changes, as above. Mild interval decrease of right intraorbital hematoma. Reviewed, dictated and finalized at location . Impression: No intracranial hemorrhage, mass, or acute infarct. Atrophy and chronic white matter changes, as above. Mild interval decrease of right intraorbital hematoma.
--- NOTE | ~2025-01-19 | XR_ITS ---
EXAMINATION: XR chest 1V DATE: 01/19/2025 15:05 INDICATION: Weakness. Altered mental status. TECHNIQUE: frontal view of the chest was obtained. COMPARISON: Chest radiograph dated 03/09/2024 FINDINGS: The lungs are clear with no focal airspace opacities, pulmonary edema, pleural effusion or pneumothor ax. The cardiomediastinal silhouette is normal. Chronic appearing posterior right sixth rib fracture, new since the prior study. IMPRESSION: 1. No acute cardiopulmonary disease. Reviewed, dictated and finalized at location A.
--- NOTE | 2025-01-19 13:30 | ECG_ITS ---
Test Date: 2025-01-19 13:44:33 Measurements Intervals [place] Rate: 83 P: 69 PA: 324 QRS: 4 QRSD: 92 T: 11 QT: 380 QTc: 448 Interpretive Statements SINUS RHYTHM WITH MARKED FIRST DEGREE AV BLOCK VOLTAGE CRITERIA FOR LVH CONSIDER INFERIOR INFARCT, AGE INDETERMINATE BASELINE ARTIFACT- I, II, AVR, AVL, AVF, V1 ABNORMAL ECG No previous ECG available for comparison Electronically Signed On 01-19-2025 13:48:33 CDT by Jorge L George D.O.
[2025-01-19 13:38] LABS: Glucose Point of Care 87 mg/dl (65-105)
[2025-01-19 13:44] LABS: Basophils Absolute Auto 0.1 K/mm3 (0.0-0.1); Basophils Percent Auto 0.5 % (0.2-1.2); Eosinophils Absolute Auto 0.2 K/mm3 (0-0.3); Hematocrit 35.9 % (37.0-47.0); Hemoglobin 11.5 g/dL (12.0-15.0); Immature Granulocyte Absolute 0.02 K/mm3 (0.00-0.031); Immature Granulocyte Percent A 0.2 % (0-0.5); Lymphocytes Absolute Auto 2.26 K/mm3 (0.9-3.2); Lymphocytes Percent Auto 22.4 % (18.3-44.2); Mean Corpuscular Hemoglobin 30.3 pg (26-34); Mean Corpuscular Volume 94.7 fl (80-100); Mean Platelet Volume 9.9 fl (7.4-10.4); Monocytes Absolute Auto 0.7 K/mm3 (0.1-0.6); Monocytes Percent Auto 6.5 % (2.6-8.5); Neutrophils Absolute Auto 6.9 K/mm3 (1.3-6.7); Neutrophils Percent Auto 68.4 % (45.5-73.1); Platelet Count Result 398 k/mm3 (150-375); Red Blood Count 3.79 M/mm3 (4.2-5.4); Red Cell Distribution Width 14.4 % (11.5-14.5); White Blood Count 10.1 K/mm3 (4.5-10.0)
[2025-01-19 13:56] LABS: Alanine Aminotransferase 13 U/L (6-35); Albumin Level 4.2 g/dL (3.5-5.1); Alkaline Phosphatase 88 U/L (38-126); Anion Gap 11 mmol/L (4-12); Aspartate Amino Transferase 24 U/L (14-36); Bilirubin,Total 0.4 mg/dL (0.2-1.3); Blood Urea Nitrogen 30 mg/dL (7-17); Carbon Dioxide 22 mmol/L (22-30); Chloride 107 mmol/L (98-107); Estimated Glomerular Filt Rate 49; Glucose 103 mg/dL (65-110); Potassium 4.1 mmol/L (3.4-5.0); Sodium 140 mmol/L (137-145)
[2025-01-19 14:09] LABS: Add Urine Microscopic? YES; Appearance Urine Cloudy (Clear); Bacteria Urine 4+ /hpf; Bilirubin Urine Negative (Negative); Blood Urine Negative (Negative); Color Urine Yellow (Yellow); Glucose Urine UA Negative (Negative); Ketones Urine Negative (Negative); Leukocyte Esterase Ur 3+ LEU/UL (Negative); Nitrate Urine Negative (Negative); Non Pathogenic Casts 0-2; Protein Urine 3+ mg/dL (Negative); RBC Urine 0-2 /hpf (0-2); Specific Grav Ur 1.013 (1.001-1.035); Squamous Epithelial Cell Urine None Seen /hpf (Few); Urobilinogen Urine 0.2 mg/dL (<2.0); WBC Urine >100 /hpf (0-3); pH Urine 5.5 (5.0-9.0)
--- NOTE | 2025-01-19 14:38 | ED.WEAKNESS ---
HPI - Weakness General Chief complaint: Weakness <Mechelle Hamilton PA-C - Last Filed: 01/19/25 16:30> Stated complaint: weakness <Mechelle Hamilton PA-C - Last Filed: 01/19/25 16:30> Time Seen by Provider: 01/19/25 14:16 <Mechelle Hamilton PA-C - Last Filed: 01/19/25 16:30> Source: patient <CHAN Quinn Last Filed: 01/19/25 16:30> Mode of arrival: EMS <CHAN Quinn Last Filed: 01/19/25 16:30> Limitations: no limitations <Mechelle Hamilton PA-C - Last Filed: 01/19/25 16:30> History of Present Illness HPI Narrative: Patient is an 89-year-old female, with PMH of CVA, DM, who presents the ED via EMS from home, with report of weakness. Per EMS, patient has been increasingly weak and confused at home. Sent here for further evaluation. 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 Patient does not know why she is in the hospital. Denies acute pain. Denies chest pain or shortness of breath. Nursing staff here noticed a strong odor of urine. Patient has history of frequent UTIs. Patient was seen here in the ED on 12/31 after a fall with significant swelling to right periorbital region. She was transferred to [facility] at that time for ophthalmology evaluation. Per records, patient typically A&O x4. Alert oriented x2 currently. <Mechelle Hamilton PA-C - Last Filed: 01/19/25 16:30> Related Data Home medications: Home Medications ?Medication ?Instructions ?Recorded ?Confirmed ?Last Taken ?Type insulin degludec 100 44 unit subcut QAM 09/11/22 01/19/25 01/19/25 History unit-liraglutide 3.6 mg/mL(3 mL) subcutaneous pen (Xultophy 100/3.6) metformin 500 mg tablet,extended 500 mg PO QPM 01/19/25 01/19/25 01/18/25 History release 24 hr pantoprazole 40 mg tablet,delayed 40 mg PO DAILY 01/19/25 01/19/25 01/19/25 History release semaglutide 0.25 mg or 0.5 mg (2 0.25 mg subcut WEEKLY 01/19/25 01/19/25 01/12/25 History mg/3 mL) subcutaneous pen injector (Ozempic) <Mechelle Hamilton PA-C - Last Filed: 01/19/25 16:30> Allergies/Adverse reactions: Allergies Allergy/AdvReac Type Severity Reaction Status Date / Time No Known Allergies Allergy Verified 01/06/25 08:12 <Mechelle Hamilton PA-C - Last Filed: 01/19/25 16:30> Review of Systems Review of Systems: All systems reviewed & are unremarkable except as noted in HPI. 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/2018) Left basal ganglia and posterior limb of the left internal capsule with initial complaint of difficulty walking and right facial numbness <Mechelle Hamilton PA-C - Last Filed: 01/19/25 16:30> Surgical History Surgical History: Surgical History History of tonsillectomy and adenoidectomy Status post cataract extraction of both eyes with insertion of intraocular lens History of total bilateral knee replacement (2005) <Mechelle Hamilton PA-C - Last Filed: 01/19/25 16:30> Family History Family History: Family History Mother Diabetes mellitus Cerebrovascular accident Father Diabetes mellitus Heart disease Sibling Diabetes mellitus Multiple myeloma <Mechelle Hamilton PA-C - Last Filed: 01/19/25 16:30> Social History Social History: Social History Smoking status: Never smoker Second hand tobacco smoke exposure: No Alcohol intake: never Substance use: never Lack of Transportation: No Lack of Food: Never True Current Housing: I Have Housing Concerned About Future Housing: No Difficulty Paying Gas/Electric Bills: No Difficulty Paying for Meds: No Currently Unemployed: No Education: High School Diploma/GED Difficulty w/ Childcare or Family Care: No Spiritual care concerns: No <Mechelle Hamilton PA-C - Last Filed: 01/19/25 16:30> Exam Narrative: GENERAL: Elderly, obese with BMI of 37.2, non-toxic, in no acute distress. HEAD: Normocephalic, atraumatic. EYES: Moderate swelling and bruising to R inferior periorbital region. Small laceration present which appears to be healing well. No active bleeding or drainage. Small conjunctival hemorrhage medial eye. PERRL/EOMI, no crepitus RESPIRATORY: Airway patent, respirations nonlabored. Clear to auscultation bilaterally, no rales, rhonchi, wheezing. CARDIOVASCULAR: Regular rate and rhythm without murmurs, rubs, or gallops. ABDOMINAL: Soft, no appreciable tenderness, nondistended. Normoactive BS. MUSCULOSKELETAL: No gross deformities. SKIN: Warm, dry, normal color. NEURO: A&O X2, knows her name and that she is in a hospital. Speech clear. No ataxic movements. No focal deficits. PSYCHIATRIC: Appropriate mood and affect. Normal interaction. <Mechelle Hamilton PA-C - Last Filed: 01/19/25 16:30> Course SENIOR MANAGER [employer]/PA Physician Supervision For this patient encounter, I reviewed the SENIOR MANAGER [employer] or PA documentation, treatment plan, and medical decision making; and I had [id number] time with this patient. <Bowen Metz MD - Last Filed: 01/19/25 18:33> Vital Signs Vital signs: Vital Signs Temperature 97.6 F 01/19/25 13:20 Pulse Rate 85 01/19/25 13:20 Respiratory Rate 14 01/19/25 13:20 Blood Pressure 213/98 H 01/19/25 13:20 Pulse Oximetry 97 01/19/25 13:20 Oxygen Delivery Room Air 01/19/25 13:20 Temperature 97.6 F 01/19/25 13:20 Pulse Rate 91 01/19/25 16:35 Respiratory Rate 17 01/19/25 16:35 Blood Pressure 151/61 H 01/19/25 16:35 Pulse Oximetry 98 01/19/25 16:35 Oxygen Delivery Room Air 01/19/25 13:53 <Mechelle Hamilton PA-C - Last Filed: 01/19/25 16:30> Vital Signs Temperature 97.6 F 01/19/25 13:20 Pulse Rate 85 01/19/25 13:20 Respiratory Rate 14 01/19/25 13:20 Blood Pressure 213/98 H 01/19/25 13:20 Pulse Oximetry 97 01/19/25 13:20 Oxygen Delivery Room Air 01/19/25 13:20 Temperature 97.6 F 01/19/25 13:20 Pulse Rate 91 01/19/25 16:35 Respiratory Rate 17 01/19/25 16:35 Blood Pressure 151/61 H 01/19/25 16:35 Pulse Oximetry 98 01/19/25 16:35 Oxygen Delivery Room Air 01/19/25 13:53 <Bowen Metz MD - Last Filed: 01/19/25 18:33> MDM - Weakness MDM Narrative Medical decision making narrative: Patient presented to ED with increased weakness, confusion from home. Vital signs notable for hypertension upon arrival. Patient with frequently uncontrolled blood pressure per records. Given dose of IV hydralazine here for persistent pressures in 200s systolic. Blood pressure did improve into the 160s systolic. She is asymptomatic regarding this. Denies any acute complaints. A&O x2 currently. Laboratory studies with white blood cell count of 10.1. Stable H& H. CMP is unremarkable. UA consistent with infection. Will treat. Sent for culture. Previous sensitivities reviewed. Rocephin started in the ED. CT brain without acute findings. Showing interval improvement of right periorbital region. Chest x-ray is clear. Patient will be admitted for further evaluation of altered mental status, weakness, UTI. Will place care coordination consult as patient currently living at home with as caregiver, multiple recent falls. Discussed case with Peggy Rodriguez SENIOR MANAGER [employer] hospitalist, accepted patient for admission. <Mechelle Hamilton PA-C - Last Filed: 01/19/25 16:30> Medical Records Attestation: I reviewed the patient's medical records. <Mechelle Hamilton PA-C - Last Filed: 01/19/25 16:30> Lab Data Attestation: I reviewed the patient's lab results. <Mechelle Hamilton PA-C - Last Filed: 01/19/25 16:30> Result diagrams: 01/19/25 13:34 01/19/25 13:34 <CHAN Quinn Last Filed: 01/19/25 16:30> Labs: Lab Results 01/19/25 01/19/25 01/19/25 Range/Units 13:34 13:36 13:54 WBC 10.1 H (4.5-10.0) K/mm3 RBC 3.79 L (4.2-5.4) M/mm3 Hgb 11.5 L (12.0-15.0) g/dL Hct 35.9 L (37.0-47.0) % MCV 94.7 (80-100) fl MCH 30.3 (26-34) pg MCHC 32.0 (32-36) g/dl RDW 14.4 (11.5-14.5) % Plt Count 398 H (150-375) k/mm3 MPV 9.9 (7.4-10.4) fl Immature Gran % (Auto) 0.2 (0-0.5) % Neut % (Auto) 68.4 (45.5-73.1) % Lymph % (Auto) 22.4 (18.3-44.2) % [place] % (Auto) 6.5 (2.6-8.5) % Eos % (Auto) 2.0 (0-4.4) % Baso % (Auto) 0.5 (0.2-1.2) % Lymph # (Auto) 2.26 (0.9-3.2) K/mm3 [place] # (Auto) 0.7 H (0.1-0.6) K/mm3 Eos # (Auto) 0.2 (0-0.3) K/mm3 Baso # (Auto) 0.1 (0.0-0.1) K/mm3 Abs Immat Gran (auto) 0.02 (0.00-0.031) K/mm3 Absolute Neuts (auto) 6.9 H (1.3-6.7) K/mm3 Absolute Nucleated RBC 0.000 (0.0-0.012) K/mm3 Nucleated RBC % 0.0 (0.0-0.2) % Sodium 140 (137-145) mmol/L Potassium 4.1 (3.4-5.0) mmol/L Chloride 107 (98-107) mmol/L Carbon Dioxide 22 (22-30) mmol/L Anion Gap 11 (4-12) mmol/L BUN 30 H (7-17) mg/dL Creatinine 1.05 H (0.7-1.0) mg/dL Estim Creat Clear Calc Not Reportable Estimated GFR 49 L (59 - ) Glucose 103 (65-110) mg/dL POC Capillary Glucose 87 (65-105) mg/dl Calcium 9.0 (8.4-10.2) mg/dL Total Bilirubin 0.4 (0.2-1.3) mg/dL AST 24 (14-36) U/L ALT 13 (6-35) U/L Alkaline Phosphatase 88 (38-126) U/L Total Protein 8.0 (6.3-8.2) g/dL Albumin 4.2 (3.5-5.1) g/dL Urine Color Yellow (Yellow) Urine Appearance Cloudy H (Clear) Urine pH 5.5 (5.0-9.0) Ur Specific [place] 1.013 (1.001-1.035) Urine Protein 3+ H (Negative) mg/dL Urine Glucose (UA) Negative (Negative) mg/dL Urine Ketones Negative (Negative) mg/dL Ur Blood (Man) Negative (Negative) Urine Nitrate Negative (Negative) Urine Bilirubin Negative (Negative) Urine Urobilinogen 0.2 (<2.0) mg/dL Leukocyte Esterase Rfl 3+ H (Negative) ZAID/UL Urine RBC 0-2 (0-2) /hpf Urine WBC >100 H (0-3) /hpf Ur Squamous Epith Cells None seen (Few) /hpf Urine Bacteria 4+ H /hpf Urine Casts 0-2 <Mechelle Hamilton PA-C - Last Filed: 01/19/25 16:30> Lab Results 01/19/25 01/19/25 01/19/25 Range/Units 13:34 13:36 13:54 WBC 10.1 H (4.5-10.0) K/mm3 RBC 3.79 L (4.2-5.4) M/mm3 Hgb 11.5 L (12.0-15.0) g/dL Hct 35.9 L (37.0-47.0) % MCV 94.7 (80-100) fl MCH 30.3 (26-34) pg MCHC 32.0 (32-36) g/dl RDW 14.4 (11.5-14.5) % Plt Count 398 H (150-375) k/mm3 MPV 9.9 (7.4-10.4) fl Immature Gran % (Auto) 0.2 (0-0.5) % Neut % (Auto) 68.4 (45.5-73.1) % Lymph % (Auto) 22.4 (18.3-44.2) % [place] % (Auto) 6.5 (2.6-8.5) % Eos % (Auto) 2.0 (0-4.4) % Baso % (Auto) 0.5 (0.2-1.2) % Lymph # (Auto) 2.26 (0.9-3.2) K/mm3 [place] # (Auto) 0.7 H (0.1-0.6) K/mm3 Eos # (Auto) 0.2 (0-0.3) K/mm3 Baso # (Auto) 0.1 (0.0-0.1) K/mm3 Abs Immat Gran (auto) 0.02 (0.00-0.031) K/mm3 Absolute Neuts (auto) 6.9 H (1.3-6.7) K/mm3 Absolute Nucleated RBC 0.000 (0.0-0.012) K/mm3 Nucleated RBC % 0.0 (0.0-0.2) % Sodium 140 (137-145) mmol/L Potassium 4.1 (3.4-5.0) mmol/L Chloride 107 (98-107) mmol/L Carbon Dioxide 22 (22-30) mmol/L Anion Gap 11 (4-12) mmol/L BUN 30 H (7-17) mg/dL Creatinine 1.05 H (0.7-1.0) mg/dL Estim Creat Clear Calc Not Reportable Estimated GFR 49 L (59 - ) Glucose 103 (65-110) mg/dL POC Capillary Glucose 87 (65-105) mg/dl Calcium 9.0 (8.4-10.2) mg/dL Total Bilirubin 0.4 (0.2-1.3) mg/dL AST 24 (14-36) U/L ALT 13 (6-35) U/L Alkaline Phosphatase 88 (38-126) U/L Total Protein 8.0 (6.3-8.2) g/dL Albumin 4.2 (3.5-5.1) g/dL Urine Color Yellow (Yellow) Urine Appearance Cloudy H (Clear) Urine pH 5.5 (5.0-9.0) Ur Specific [place] 1.013 (1.001-1.035) Urine Protein 3+ H (Negative) mg/dL Urine Glucose (UA) Negative (Negative) mg/dL Urine Ketones Negative (Negative) mg/dL Ur Blood (Man) Negative (Negative) Urine Nitrate Negative (Negative) Urine Bilirubin Negative (Negative) Urine Urobilinogen 0.2 (<2.0) mg/dL Leukocyte Esterase Rfl 3+ H (Negative) ZAID/UL Urine RBC 0-2 (0-2) /hpf Urine WBC >100 H (0-3) /hpf Ur Squamous Epith Cells None seen (Few) /hpf Urine Bacteria 4+ H /hpf Urine Casts 0-2 <Bowen Metz MD - Last Filed: 01/19/25 18:33> Imaging Data Attestation: I personally reviewed and interpreted this imaging study as follows: <Mechelle Hamilton PA-C - Last Filed: 01/19/25 16:30> Radiologist's impression: ITS Impressions Head CT 01/19/25 15:03 Impression: No intracranial hemorrhage, mass, or acute infarct. Atrophy and chronic white matter changes, as above. Mild interval decrease of right intraorbital hematoma. Chest X-Ray 01/19/25 15:20 IMPRESSION: 1. No acute cardiopulmonary disease. <Mechelle Hamilton PA-C - Last Filed: 01/19/25 16:30> ECG Data EKG #1: Attestation: I personally reviewed and interpreted this ECG as follows: <Mechelle Hamilton PA-C - Last Filed: 01/19/25 16:30> ECG completion date: 01/19/25 <CHAN Quinn Last Filed: 01/19/25 16:30> ECG completion time: 13:44 <CHAN Quinn Last Filed: 01/19/25 16:30> EKG Interpretation: normal rate (83), sinus rhythm (First-degree AV block), non-specific ST changes and other (Baseline artifact) <CHAN Quinn Last Filed: 01/19/25 16:30> Discharge Plan Discharge Clinical Impression: Generalized weakness, UTI (urinary tract infection), Elevated blood pressure reading with diagnosis of hypertension, AMS (altered mental status) <Mechelle Hamilton PA-C - Last Filed: 01/19/25 16:30> Patient Disposition: Still a Patient <CHAN Quinn Last Filed: 01/19/25 16:30> Condition: Stable <CHAN Quinn Last Filed: 01/19/25 16:30>
[2025-01-19] MEDS: SODIUM CHLORIDE 0.9% IV 500 ML 999 ML IV CONT (15:04)
[2025-01-19] MEDS: hydrALAZINE HCL 20 MG/ML VIAL 10 MG IV PUSH (15:05)
--- OUTSIDE RECORDS SUMMARY | 2025-01-19 15:51 | XMS_ITS | Clinical Summary ---
Author Organization [facility] [address] Address [address] [place] [address] Care Team Providers Care Account Financial Manager Name Role Phone Jimmy Marino MD Primary Care Provider + [phone] Allergies No known active allergies Medications atorvastatin [...] pen INJECT 46 UNITS UNDER THE SKIN WINDOWS AND DOORS INSTALLER BEFORE BREAKFAST 45 mL 3 4 Active metFORMIN XR (GLUCOPHAGE XR) 500 mg 24 hr tablet Take 1 tablet by mouth once daily 90 tablet 3 4 Active Active Problems Problem Noted Date Diagnosed Date Diagnosis unknown 01/02/2025 Morbid (severe) obesity due to excess calories 0 06/27/2022 Assessment & Plan (11/15/2022 11:39 AM RECREATION COUNSELOR): This is a chronic condition which is [...] 11/01/2021 Assessment & Plan (11/15/2022 12:02 PM RECREATION COUNSELOR): This is a chronic condition which is [...] prescribed. Assessment & Plan (11/01/2021 4:01 PM RECREATION COUNSELOR): This is a chronic condition which is at goal Goal is <140/90 Personally reviewed labs. B/p-136/70 Avoid caffeine, caffeine will raise blood pressure and excessive alcohol consumption. Monitor your weight and B/P. Encouraged to take medications as prescribed. Type 2 diabetes mellitus wit h hypoglycemia without coma, with long-term current use of insulin 07/31/2020 Assessment & Plan (11/15/2022 12:06 PM RECREATION COUNSELOR): This is a chronic condition which is [...] No history of macrovascular disease - CVA, NV. Assessment & Plan (06/27/2022 2:30 PM CDT): [...] No history of macrovascular disease - CVA, NV. Assessment & Plan (02/28/2022 12:47 PM CDT): [...] No history of macrovascular disease - CVA, NV. Assessment & Plan (11/01/2021 4:03 PM RECREATION COUNSELOR): This is a chronic condition Awaiting labs from PCP office done yesterday Personally reviewed [id number] results goal less than 7% Personally reviewed [...] No history of macrovascular disease - CVA, NV. Resolved Problems Problem Noted Date Diagnosed Date [...] PM CDT Hospital Encounter [facility] [id number] [place] [address] Discharge Disposition: Discharge to home or self care 01/01/2025 12:07 PM CDT - 01/01/2025 8:01 PM CDT Emergency [facility] Emergency Department [address] [place] [address] Lei Lopez MD Knight, Caleb Daniel, MD Diagnosis unknown (Primary Dx); Fall, initial encounter; Concussion without loss of consciousness, initial encounter Discharge Disposition: Discharge to home or self care 01/01/2025 Ophth Exam [facility] Ophthalmology [address] [place] [phone] Chris Lujan MD 12/31/2024 Telephone [facility] Ophthalmology [address] [place] [address] [phone] Ravindra Suarez MD from Last 3 Months [...] on file Legal Sex Female 1:44 AM RECREATION COUNSELOR Gender Identity Not on file Sexual Orientation [...] 05/2022, 02/28/2022, Additional history exists Influenza Vaccine (Season Ended) 2025 09/06/20 14 Dilated Eye Exam 01/01/2026 01/01/2025 Procedures Procedure [...] HEMOGLOBIN A1C Routine 11/15/2022 1 1:39 AM RECREATION COUNSELOR Type 2 diabetes mellitus with hypoglycemia without coma, with long-term current use of insulin (HCC) COMPREHENSIVE METABOLIC PANEL Routine 04/04/2022 LIPID PANEL Routine 04/04/2022 from Last 3 Months or Most Recently Relevant to Health Maintenance Results * (ABNORMAL) Urinalysis reflex to microscopic and culture Urine, clean voided (01/01/2025 4:24 PM CDT) Color, ur Yellow Yellow Clarity, ur Turbid(A) Clear [facility] Specific gravity, ur 1.015 1.003 - 1.030 [facility] pH, urine 6.5 [facility] Comment: Interpretive Data U rine pH is affected by diet, medications, systemic acid-base disturbances, and renal tubular function. pH may affect urinary stone formation. For example, urine pH below 6.0 may help reduce the tendency for calcium phosphate stones and pH greater than 6.0 may reduce the tendency for uric acid stone formation. Source: [facility]ILabs Current Interpretive Data was last revised on 2017 Protein, ur ql 2+(A) Negative [facility] Glucose, ur ql 4+(A) Negative [facility] Ketones, ur 1+(A) Negative [facility] Bilirubin, ur Negative Negative [facility] Blood, ur 1+(A) Negative [facility] Urobilinogen, ur <2.0 <2.0 mg/dL [facility] Nitrite, ur Negative Negative [facility] Leukocyte esterase, ur 3+(A) Negative [facility] UA reflex comment Reflex to microscopic UA will be performed. [facility] Urine, clean voided 01/01/2025 4:24 PM CDT 01/01/2025 4:30 PM CDT Manuel Keating MD LAB MICROBIOLOGY - GENERA L ORDERABLES Final Result Performing Organization Address [facility] Co de Phone Number [facility] [place] [address] * (ABNORMAL) Urinalysis, microscopic only (01/01/2025 4:24 PM CDT) WBC, ur >50(A) 0 - 5 /HPF RBC, ur >50(A) 0 - 2 /HPF [facility] Epithelial cells, squamous, ur 1-5 0 - 5 /HPF [facility] Bacteria, ur 4+(A) [facility] Culture Reflex Comment Reflex to urine culture will be performed. [facility] Urine, clean voided 01/01/2025 4:24 PM CDT 01/01/2025 4:30 PM CDT Manuel Keating MD LAB URINE ORDERABLES Jennifer l Result Performing Organization Address [facility] de Phone Number [facility] Department [place] [address] * (ABNORMAL) Urine culture Urine, clean voided (01/01/2025 4:24 PM CDT) Report Final Report: Growth indicates contamination with mixed bacterial lucy. Please submit a new specimen with special attention given to the collection process and to prompt transport to the laboratory. (.) Organism GROWTH INDICATES CONTAMINATION WITH MIXED LUCY. [facility] Urine, clean voided 01/01/2025 4:24 PM CDT 01/01/2025 7:57 PM CDT Narrative [facility] - 01/03/2025 4:19 PM CDT Urine culture reflexed based upon urinalysis results. Testing performed by [facility] Microbiology Laboratory ([phone]) Manuel Keating MD LAB MICROBIOLOGY - GENERA L ORDERABLES Final Result Performing Organization Address [facility] de Phone Number [facility] Department [place] [address] * (ABNORMAL) POCT glucose (01/01/2025 4:11 PM CDT) Glucose, POC 251(H) 70 - 199 mg/dL Comment:Glu2: RN/MD Notified Glucose comment 1 Glu2: RN/MD Notified [id number] Blood 01/01/2025 4:11 PM CDT 01/01/2025 4:11 PM CDT Manuel Keating MD LAB POCT ORDERABLES - DEV ICE Final Result Performing Organization Address [facility] de Phone Number [facility] [place] [address] * XR Outside Reference (01/01/2025 3:20 PM CDT) Impressions [facility] - 01/01/2025 3:20 PM CDT These images are for Reference purposes only and have not been reviewed by [facility] Radiology. There will be no report generated by a [facility] Radiologist. Narrative [facility] - 01/01/2025 3:20 PM CDT EXAMINATION: Images For Reference Purposes Only us Rohan Hernandez MD IMG XR PROCEDURES Final R esult Performing Organization Address [facility] de Phone Number [email or web address] * XR Outside Reference (01/01/2025 3:19 PM CDT) Impressions [facility] - 01/01/2025 3:19 PM CDT These images are for Reference purposes only and have not been reviewed by [facility] Radiology. There will be no report generated by a [facility] Radiologist. Narrative [facility] - 01/01/2025 3:19 PM CDT EXAMINATION: Images For Reference Purposes Only us Rohan Hernandez MD IMG XR PROCEDURES Final R esult Performing Organization Address City/[facility] Co de Phone Number [email or web address] * XR Outside Reference (01/01/2025 3:17 PM CDT) Impressions [email or web address] - 01/01/2025 3:17 PM CDT These images are for Reference purposes only and have not been reviewed by [facility] Radiology. There will be no report generated by a [facility] Radiologist. Narrative [facility] - 01/01/2025 3:17 PM CDT EXAMINATION: Images For Reference Purposes Only Rohan Hernandez MD IMG XR PROCEDURES Final R esult Performing Organization Address [facility] de Phone Number [email or web address] * Neuro CT [...] images may or may not represent the citizen [place] source data set and thus may contain [...] IMAGING STUDY STUDY INITIALLY PERFORMED: 12/31/2024 at [facility]. TYPE OF STUDY: Multiple CT images of [...] IMAGING STUDY STUDY INITIALLY PERFORMED: 12/31/2024 at [facility]. TYPE OF STUDY: Multiple CT images of [...] images may or may not represent the citizen [place] source data set and thus may contain [...] images may or may not represent the citizen [place] source data set and thus may contain [...] IMAGING STUDY STUDY INITIALLY PERFORMED: 12/31/2024 at [facility]. TYPE OF STUDY: Multiple CT images of [...] IMAGING STUDY STUDY INITIALLY PERFORMED: 12/31/2024 at [facility]. TYPE OF STUDY: Multiple CT images of [...] images may or may not represent the citizen [place] source data set and thus may contain [...] POCT ORDERABLES - DEVICE F inal Result [facility] Department [place] [address] * (ABNORMAL) POCT hemoglobin A1c (11/15/2022 11:39 AM RECREATION COUNSELOR) Hemoglobin A1C, POC 9.9 Blood 11/15/2022 11:3 9 AM RECREATION COUNSELOR us Tammy K. Joshua SWIMMING COACH POINT OF CARE TEST ORDERABLES F inal [...] Units/L EXTERNAL LAB SCRIBED eGFR in NonAfrican Guyanese 48(A) 60 - >90 EXTERNAL LAB Blood 04/04/2022 Historical Provider LAB BLOOD ORDERABLES Jennifer l Result EXTERNAL LAB from Last 3 Months or Most Recently Relevant to Health Maintenance Insurance MEDICARE [employer] [facility] [employer] [place] [address] [place] [address] [employer] [facility] Address: [facility] [address] [place] [address] Care Teams Account Financial Manager Relationship Specialty Start Date End Date Jimmy Marino MD PCP - General Internal Medicine 07/11/17
--- OUTSIDE RECORDS SUMMARY | 2025-01-19 15:51 | XMS_ITS | Referral Summary ---
Author Organization [facility] [address] [facility] [address] Address [address] [place] [address] Care Team Providers Care Metallurgical Specialist Name Role Phone Jimmy Marino MD Primary Care Provider + [phone] Encounters Date Type Department Care Team Description 01/01/2025 8:05 PM CDT - 01/01/2025 11:59 PM CDT Hospital Encounter [facility] [address] [place] [address] Discharge Disposition: Discharge to home or self care 01/01/2025 Ophth Exam [facility] Ophthalmology [address] [place] [phone] Chris Lujan MD 01/01/2025 12:07 PM CDT - 01/01/2025 8:01 PM CDT Emergency [facility] Emergency Department [address] [place] [phone] Lei Lopez MD Knight, Caleb Daniel, MD Diagnosis unknown (Primary Dx); Fall, initial encounter; Concussion without loss of consciousness, initial encounter Discharge Disposition: Discharge to home or self care 12/31/2024 Telephone [facility] Ophthalmology [address] [place] [phone] Ravindra Suarez MD from Last 3 [...] pen INJECT 46 UNITS UNDER THE SKIN STAKING ENGINEER BEFORE BREAKFAST 45 mL 3 4 Active metFORMIN XR (GLUCOPHAGE XR) 500 mg 24 hr tablet Take 1 tablet by mouth once daily 90 tablet 3 4 Active Active Problems Problem Noted Date Diagnosed Date Diagnosis unknown 01/02/2025 Morbid (severe) obesity due to excess calories 0 06/27/2022 Assessment & Plan (11/15/2022 11:39 AM REFRACTORY TECHNICIAN): This is a chronic condition which is [...] 11/01/2021 Assessment & Plan (11/15/2022 12:02 PM REFRACTORY TECHNICIAN): This is a chronic condition which is [...] prescribed. Assessment & Plan (11/01/2021 4:01 PM REFRACTORY TECHNICIAN): This is a chronic condition which is at goal Goal is <140/90 Personally reviewed labs. B/p-136/70 Avoid caffeine, caffeine will raise blood pressure and excessive alcohol consumption. Monitor your weight and B/P. Encouraged to take medications as prescribed. 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 Assessment & Plan (06/27/2022 2:30 PM CDT): [...] No history of macrovascular disease - CVA, CT. Assessment & Plan (02/28/2022 12:47 PM CDT): This is a chronic condition which is out of control Personally reviewed A1c-13.6% not at goal less than 8% Personally reviewed blood sugar -217 not at goal 80-180 Medication- increase Xultophy 28 units daily am. - this will decreases number of injections and hopeful will cover mealtime insulin need. Discussed using [employer]age[employer] insulin delivery system- she did not think [...] No history of macrovascular disease - CVA, CT. Assessment & Plan (11/01/2021 4:03 PM REFRACTORY TECHNICIAN): This is a chronic condition Awaiting labs from PCP office done yesterday Personally reviewed T6d-aujitvoh results goal less than 7% Personally reviewed blood sugar -274 not at goal 80-180 Medication- stop degludec and novolog. Start Xultophy 20 units daily am. - will try this to decrease number of injections and hopeful will cover mealtime insulin need. Monitor blood sugar 4 times a day with Digital [employer]oy[employer] madelyn 2 sensor. Encouraged annual eye exam. [...] No history of macrovascular disease - CVA, CT. Resolved Problems Problem Noted Date Diagnosed Date [...] on file Legal Sex Female 1:44 AM REFRACTORY TECHNICIAN Gender Identity Not on file Sexual Orientation [...] HEMOGLOBIN A1C Routine 11/15/2022 1 1:39 AM REFRACTORY TECHNICIAN Type 2 diabetes mellitus with hypoglycemia without coma, with long-term current use of insulin (HCC) COMPREHENSIVE METABOLIC PANEL Routine 04/04/2022 LIPID PANEL Routine 04/04/2022 from Last 3 Months or Most Recently Relevant to Health Maintenance Results * (ABNORMAL) Urinalysis reflex to microscopic and culture Urine, clean voided (01/01/2025 4:24 PM CDT) Color, ur Yellow Yellow Clarity, ur Turbid(A) Clear [facility] Specific gravity, ur 1.015 1.003 - 1.030 [facility] pH, urine 6.5 [facility] Comment: Interpretive Data U rine pH is affected by diet, medications, systemic acid-base disturbances, and renal tubular function. pH may affect urinary stone formation. For example, urine pH below 6.0 may help reduce the tendency for calcium phosphate stones and pH greater than 6.0 may reduce the tendency for uric acid stone formation. Source: [facility] Current Interpretive Data was last revised on 2017 Protein, ur ql 2+(A) Negative [facility] Glucose, ur ql 4+(A) Negative [facility] Ketones, ur 1+(A) Negative [facility] Bilirubin, ur Negative Negative [facility] Blood, ur 1+(A) Negative [facility] Urobilinogen, ur <2.0 <2.0 mg/dL [facility] Nitrite, ur Negative Negative [facility] Leukocyte esterase, ur 3+(A) Negative [facility] UA reflex comment Reflex to microscopic UA will be performed. [facility] Urine, clean voided 01/01/2025 4:24 PM CDT 01/01/2025 4:30 PM CDT Manuel Keating MD LAB MICROBIOLOGY - GENERA L ORDERABLES Final Result [facility] Department [place] [address] * (ABNORMAL) Urinalysis, microscopic only (01/01/2025 4:24 PM CDT) WBC, ur >50(A) 0 - 5 /HPF RBC, ur >50(A) 0 - 2 /HPF [facility] Epithelial cells, squamous, ur 1-5 0 - 5 /HPF [facility] Bacteria, ur 4+(A) [facility] Culture Reflex Comment Reflex to urine culture will be performed. [facility] Urine, clean voided 01/01/2025 4:24 PM CDT 01/01/2025 4:30 PM CDT Manuel Keating MD LAB URINE ORDERABLES Jennifer l Result [facility] [place] [address] * (ABNORMAL) Urine culture Urine, clean voided (01/01/2025 4:24 PM CDT) Report Final Report: Growth indicates contamination with mixed bacterial lucy. Please submit a new specimen with special attention given to the collection process and to prompt transport to the laboratory. (.) Organism GROWTH INDICATES CONTAMINATION WITH MIXED LUCY. [facility] Urine, clean voided 01/01/2025 4:24 PM CDT 01/01/2025 7:57 PM CDT Narrative [facility] - 01/03/2025 4:19 PM CDT Urine culture reflexed based upon urinalysis results. Testing performed by [facility] Microbiology Laboratory ([phone]) Manuel Keating MD LAB MICROBIOLOGY - GENERA L ORDERABLES Final Result Performing Organization Address City/[facility] Co de Phone Number [facility] [place] [address] * (ABNORMAL) POCT glucose (01/01/2025 4:11 PM CDT) Glucose, POC 251(H) 70 - 199 mg/dL Comment:Glu2: RN/MD Notified Glucose comment 1 Glu2: RN/MD Notified [facility] Blood 01/01/2025 4:11 PM CDT 01/01/2025 4:11 PM CDT Manuel Keating MD LAB POCT ORDERABLES - DEV ICE Final Result Performing Organization Address City/[facility]/ZIP Co de Phone Number [facility] [place] [address] * XR Outside Reference (01/01/2025 3:20 PM CDT) Impressions [email or web address] - 01/01/2025 3:20 PM CDT These images are for Reference purposes only and have not been reviewed by [facility] Radiology. There will be no report generated by a [facility] Radiologist. Narrative [email or web address] - 01/01/2025 3:20 PM CDT EXAMINATION: Images For Reference Purposes Only Rohan Hernandez MD IMG XR PROCEDURES Final R esult Performing Organization Address [facility] de Phone Number [email or web address] * XR Outside Reference (01/01/2025 3:19 PM CDT) Impressions [email or web address] - 01/01/2025 3:19 PM CDT These images are for Reference purposes only and have not been reviewed by [facility] Radiology. There will be no report generated by a [facility] Radiologist. Narrative [facility] - 01/01/2025 3:19 PM CDT EXAMINATION: Images For Reference Purposes Only Rohan Hernandez MD IMG XR PROCEDURES Final R esult Performing Organization Address [facility] de Phone Number [email or web address] * XR Outside Reference (01/01/2025 3:17 PM CDT) Impressions [email or web address] - 01/01/2025 3:17 PM CDT These images are for Reference purposes only and have not been reviewed by [facility] Radiology. There will be no report generated by a [facility] Radiologist. Narrative [email or web address] - 01/01/2025 3:17 PM CDT EXAMINATION: Images For Reference Purposes Only Rohan Hernandez MD IMG XR PROCEDURES Final R esult Performing Organization Address [facility] Co de Phone Number [email or web address] * Neuro [...] images may or may not represent the lovelock source data set and thus may contain [...] IMAGING STUDY STUDY INITIALLY PERFORMED: 12/31/2024 at [facility]. TYPE OF STUDY: Multiple CT [...] IMAGING STUDY STUDY INITIALLY PERFORMED: 12/31/2024 at [facility]. TYPE OF STUDY: Multiple CT [...] images may or may not represent the lovelock source data set and thus may contain [...] images may or may not represent the lovelock source data set and thus may contain [...] IMAGING STUDY STUDY INITIALLY PERFORMED: 12/31/2024 at [facility]. TYPE OF STUDY: Multiple CT [...] IMAGING STUDY STUDY INITIALLY PERFORMED: 12/31/2024 at [facility]. TYPE OF STUDY: Multiple CT [...] images may or may not represent the lovelock source data set and thus may contain [...] (ABNORMAL) POCT glucose (01/01/2025 2:47 PM CDT) [facility] Glucose, POC 256(H) 70 - 199 mg/dL Blood 01/01/2025 2:47 PM CDT 01/01/2025 2:47 PM CDT Lei Lopez MD LAB POCT ORDERABLES - DEVICE F inal Result [facility] Department [place] [address] * (ABNORMAL) POCT hemoglobin A1c (11/15/2022 11:39 AM REFRACTORY TECHNICIAN) [facility] Hemoglobin A1C, POC 9.9 Blood 11/15/2022 11:3 9 AM REFRACTORY TECHNICIAN us Tammy Lewis NP POINT OF CARE TEST ORDERABLES F inal Result * (ABNORMAL) Lipid panel (04/04/2022) [facility] SCRIBED Cholesterol, Total 165 140 - 199 EXTERNAL LAB SCRIBED HDL 65(A) 0 - 40 EXTERNAL LAB SCRIBED LDL 70 0 - 130 EXTER[facility] LAB SCRIBED Triglycerides 150 0 - 150 EXTERNAL LAB Blood 04/04/2022 us Historical Provider LAB BLOOD ORDERABLES Jennifer l Result EXTERNAL LAB * (ABNORMAL) Comprehensive metabolic panel (04/04/2022) [facility] SCRIBED Sodium 139 137 - 145 mmol/L [...] Units/L EXTERNAL LAB SCRIBED eGFR in NonAfrican Iranian 48(A) 60 - >90 EXTERNAL LAB Blood 04/04/2022 Historical Provider LAB BLOOD ORDERABLES Jennifer l Result EXTERNAL LAB from Last 3 Months or Most Recently Relevant to Health Maintenance Insurance MEDICARE [employer] IDPA [employer] AETNA MEDICARE GOLD AETNA MEDICARE GOLD Care Teams Metallurgical Specialist Relationship Specialty Start Date End Date Jimmy Marino MD PCP - General Internal Medicine 07/11/17
--- OUTSIDE RECORDS SUMMARY | 2025-01-19 15:51 | XMS_ITS | Continuity of Care Document ---
Author Organization [facility] Address [address] [place] [address] [place] [address] Phone Care Team Providers Care Marketing Analytics Analyst Name Role Phone Joseph Ryan Unavailable Unavailable [...] Diagnoses Date Provider Providers Copied on Encounter [facility], [address] [place] [address] [address], [place], [place], [id number], tel:[phone] [facility] No Information [address] , [address], [place], [address], [place]. tel:[phone] [facility], [address] [place] [address] [address], [place], [place], [id number], [place] tel:[phone] [facility] No Information [address] , [address], [place], [address], [place]. tel:[phone] [facility], [address] [place] [address] [address], [place], [place], [id number], [place] tel:[phone] [facility] No Information [address] [facility] , [address], [place], [place], [facility], . tel:[phone] Referring Provider: Gerber Rios OD, [address] [place], [address]. tel:[phone] Office/outpat ient Visit, [facility], [address], [place], [place], [id number], [place] tel:[phone] [facility] No Information [address] [facility] , [address], [place], [place], [facility], . tel:[phone] Referring Provider: Gerber Rios OD, [address] [place], [address]. tel:[phone] Family History Family Member Type Diagnosis Age [...]
--- OUTSIDE RECORDS SUMMARY | 2025-01-19 15:51 | XMS_ITS | Data Portability ---
[facility] Address [address] [place] [address] Care Team Providers Care Missile Inspector Name Role Phone REAGAN MARINO Primary Care Provider Assessment Encounter Date Assessment Date Assessment LastModified by Organization Details LastModified Time 06/28/2024 06/28/2024 diabetes is uncontrolled they have a family member who knows the diver's tender and they are going to be reaching out to the family member so that she can get scheduled with the diver's tender if there is any difficulty charis and her will call me and I will arrange for a referral. Atorvastatin 10 mg a day I want to see her in 1 month she is to take her blood sugars twice a day also she needs to be referred to uro meat press operator eventually but right now she is infected so there is not much that they would probably do to this all clears up. I told her very important for her to keep appointments [email or web address] Not available 07/04/2024 17:30:17 07/26/2024 07/26/2024 her diabetes is uncontrolled we will make the referral to endocrinology we will make the referral to Uro meat press operator for incontinence see me in 1 month I have told her that he needs to bring me the medicine that was prescribed by the diver's tender I have no record of it [email or web address] Not available 07/31/2024 15:24:24 11/25/2024 11/25/2024 pantoprazole. Blood work. Follow up in 1 month. please take all medicines as prescribed [email or web address] Not available 11/25/2024 22:23:32 01/10/2025 01/10/2025 sutures were removed without incident hemostasis maintained we will try to get her some Ozempic check blood work. Get her some Tylenol with codeine for pain she will see me back in 3 weeks and she needs to check in with her private optoelectronic technician Not available 01/11/2025 22:29:35 Plan of Treatment Reminders Order Date Submit Date Provider Last Modified By Organization Details Last Modified Time Details Appointments ANY 15 2024 02:15P Gavin Marino MD Not available Not available Not available Lab HbA1c (hemoglob in A1c), blood 2024 025 LARRY [facility], [address], [place], [address], 01/11/2025 00:30:44 lipid panel, serum 2024 025 [email or web address] [facility], [address], [place], [address], 01/10/2025 17:24:01 CMP, serum or plasma 2024 025 nicole [facility], [address], [place], [address], 01/10/2025 17:24:01 CBC w/ auto diff 2024 025 [email or web address] [facility], [address], [place], [address], 01/10/2025 17:24:01 HbA1c (hemoglob in A1c), blood 2024 025 [email or web address] In-Office Order, Internal Use Only DO Not Attach Compendium DO Not Attach Compendium, Do Not Delete/merge, [id number] 11/25/2024 17:44:41 CMP, serum or plasma 2024 025 [email or web address] [facility], [address], [place], [address], 01/18/2025 13:28:25 lipid panel, serum 2024 025 [email or web address] [facility], [address], [place], [address], 01/18/2025 13:28:25 CBC w/ auto diff 2024 025 [email or web address] [facility], [address], [place], [address], 01/18/2025 13:28:25 HbA1c (hemoglob in A1c), blood 2023 024 [email or web address] In-Office Order, Internal Use Only DO Not Attach Compendium DO Not Attach Compendium, Do Not Delete/merge, [id number] 06/28/2024 21:41:22 Referral endocrino logy referral 2023 024 [facility] - Endocr[facility]ology , [address], [place], [address], 11/09/2024 09:37:09 Procedures None recorded. Surgeries None recorded. Imaging None recorded. Medication Orders Ozempic 0.25 mg or 0.5 mg (2 mg/1.5 mL) subcutane ous pen injector 2024 025 [email or web address] [facility] [address] [address] , [place], [address], 01/10/2025 17:24:01 pantopraz ole 40 mg tablet,de layed release 2024 025 [email or web address] [facility] [address] , [place], [address], 11/25/2024 17:44:41 atorvasta tin 10 mg tablet 2023 024 LARRY [facility] [address] , [place], [address], 01/10/2025 14:13:59 atorvasta tin 10 mg tablet 2023 024 [email or web address] [facility] [address] , [place], [address], 01/10/2025 14:13:57 Patient TargetsNo targets recorded. Patient Instructions Encounter Date Encounter Id Patient Instructions Last Modified By Organization Details Last Modified Time 06/28/2024 [id number] A healthy lifestyle: care instructions Not available 06/28/2024 14:10:49 07/26/2024 [id number] A healthy lifestyle: care instructions Not available 07/26/2024 14:10:31 11/25/2024 [id number] A healthy lifestyle: care instructions [email or web address] Not available 11/25/2024 17:44:41 Reason for Referral [...] DO Not Attach Compendium, Do Not Delete/merge, [id number] 06/28/2024 17:19:06 11/25/1911/25/2024 HbA1c (hemo globi n A1c), blood HbA1c 8.2 Not Available In-Office Order Internal Use Only DO Not Attach Compendium DO Not Attach Compendium, Do Not Delete/merge, [id number] 11/25/2024 16:03:17 01/01/2012/31/2024 CT, brain , w/o contr ast No observ ation record ed. [address], [place], [address], 01/05/2025 21:52:52 01/01/20 25 12/31/2024 XR, elbow No observ ation record ed. [address], [place], [address], 01/05/2025 21:52:52 01/01/20 25 12/31/2024 XR, hand No observ ation record ed. [address], [place], [address], 01/05/2025 21:52:52 01/01/2012/31/2024 XR, shoul simon No observ ation record ed. [address], [place], [address], 01/05/2025 21:52:53 01/01/2012/31/2024 CT, cervi kathleen spine , w/o contr ast No observ ation record ed. [address], [place], [address], 01/05/2025 21:52:53 01/05/20 CT, maxil lofac ial, w/o contr ast No observ ation record ed. [address] [address], [place], [address], 01/05/2025 21:52:53 01/20/20 25 01/19/2025 imagi ng/di agnos tic resul t No observ ation record ed. [address] [address], [place], [address], 01/19/2025 16:11:08 01/20/20 25 01/19/2025 imagi ng/di agnos tic resul t No observ ation record ed. [address] [address], [place], [address], 01/19/2025 16:25:25 Result Notes None recorded. Problems Name Problem SNOMED Code Status Onset Date Resolution Date Notes Provider Name and Address Organization Details Recorded Time Overweight 582285984 Active 2023 ARMEN Motta, EMILY - [facility] 4 12:20:55 Type 2 diabetes mellitus 84887895 Active 2023 ARMEN Motta, EMILY - [facility] 12:21:04 Hyperlipidemia 17531779 Active 2023 ARMEN Motta, [facility] 12:21:08 Problem Notes None recorded. Procedures Surgical History None recorded. Imaging Results Imaging Date Name Status LastModified by [facility] Details LastModified Time 12/31/2024 CT, brain, w/o contrast completed [address] [facility], [place], [address], 01/05/2025 21:52:52 12/31/2024 XR, elbow completed [address] [facility], [place], [address], 01/05/2025 21:52:52 12/31/2024 XR, hand completed [address] [address], [place], [address], 01/05/2025 21:52:52 12/31/2024 XR, shoulder completed [address] [place] [address] [place] [address], [address], 01/05/2025 21:52:53 12/31/2024 CT, cervical spine, w/o contrast completed [address] [facility], [place], [address], 01/05/2025 21:52:53 01/04/2025 CT, maxillofacial , w/o contrast completed [address], [address], 01/05/2025 21:52:53 01/19/2025 imaging/diagn ostic result active [address] [place] [address], [address], 01/19/2025 16:11:08 01/19/2025 imaging/diagn ostic result active [address], [address], 01/19/2025 16:25:25 Procedure Notes None recorded. Medical Equipment None Reported. Allergies No known drug allergies Medications Name Sig Start Date Stop Date Status Note LastModified by Organization Details LastModified Time atorvastatin 10 mg tablet TAKE 1 TABLET BY MOUTH EVERY DAY active Not Available Not Available No t Available acetaminophe n 300 mg-codeine 30 mg tablet Take 1 tablet every 8 hours by oral route as needed. 2024 active Not Available Not Available Not [...] Updated DateTime 4 149.86 cm 36 kg/m2 26515.4 4 g 97 % 97 % 78 /min 116 mm[Hg] 74 mm[Hg] [place] - [facility] 4 12:06:06 Date Recorded Body height Body mass index (BMI) Body weight Heart rate Oxygen saturation Oxygen saturation in Arterial blood by Pulse oximetry Systolic blood pressure Diastolic blood pressure Provider Name and Address Organization Details Last Updated DateTime 4 149.86 cm 36 kg/m2 07273.4 4 g 76 /min 96 % 96 % 130 mm[Hg] 90 mm[Hg] [place] - [facility] 4 11:54:01 Date Recorded Body height Body mass index (BMI) Body weight Heart rate Oxygen saturation Oxygen saturation in Arterial blood by Pulse oximetry Systolic blood pressure Diastolic blood pressure Provider Name and Address Organization Details Last Updated DateTime 5 149.86 cm 35.5 kg/m2 28316.2 6 g 78 /min 96 % 96 % 140 mm[Hg] 90 mm[Hg] [place] - [facility] 5 14:55:16 Date Recorded Body height Heart rate Oxygen saturation Oxygen saturation in Arterial blood by Pulse oximetry Systolic blood pressure Diastolic blood pressure Provider Name and Address Organization Details Last Updated DateTime 5 149.86 cm 76 /min 97 % 97 % 130 mm[Hg] 80 mm[Hg] Anna Knutson MA [facility] 5 14:11:03 Social History Question Answer Notes LastModified by Organizat ion Details LastModified Time Tobacco Smoking Status Never Smoker Anna Knutson MA null, [facility] 07/26/2024 11:55:07 Do You Have An [...] Skin Problems N Anemia N Heart Attack (NM) N Diabetes Y Seizures/Epilepsy N Have you [...] split virus, trivalent, preservative 4 completed Brie Buchanan MA Merged with [facility] 07/26/2024 12:21:18 Past Encounters Encounter ID Performer Location Encounter Start Date Encounter Closed Date Diagnosis/Indication Diagnosis SNOMED-CT Code Diagnosis ICD10 Code Diagnosis Note [id number] Reagan Marino MD [facility] [place] [address] [place] [address] 06/28/2024 11:23:26 06/28/2024 13:35:11 Obesity 438649512 E66.8 Type 2 vicki betes mellitus 38366485 E11.9 Hyperlipidemia 44489509 E78.5 [id number] Reagan Marino MD [facility] [place] [address] [place] [address] 07/26/2024 11:46:56 07/26/2024 12:47:29 Overweight 721209550 E66.3 Type 2 vicki betes mellitus 91730570 E11.9 Hyperlipidemia 10364164 E78.5 [id number] Reagan Marino MD [facility] [place] [address] [place] [address] 11/25/2024 14:17:41 11/25/2024 15:41:29 Body mass index 30+ - obesity 787968846 Z68.35 Obesity 489714053 E66.9 Hyperlipidemia 21425772 E78.5 Gastroesop hageal reflux disease without esophagitis 591261931 K21.9 Type 2 vicki betes mellitus 35350098 E11.9 [id number] Reagan Marino MD [facility] [place] [address] [place] [address] 01/10/2025 13:53:12 01/10/2025 14:46:45 Facial laceration 282213809 S01.81XA Type 2 vicki betes mellitus 56917550 E11.9 Gastroesop hageal reflux disease without esophagitis 975605409 K21.9 Hyperlipidemia 97763429 E78.5 Health Concerns Section Related Observation LastModified by Organization Detai ls LastModified Time None Recorded Concern Status LastModified by Organization Details LastModified Time None Recorded Advance Directives Directive N: Payers Encounter Date Sequence Insurance Name Policy Number Policy Manjarrez Covered Member ID Manjarrez Member ID Guarantor Name 06/28/2024 1 [employer] - [employer] (MEDICARE REPLACEMENT/ ADVANTAGE - HMO) [id number] Charis Ross [id number] [place] 07/26/2024 1 [employer] (MEDICARE REPLACEMENT/ ADVANTAGE - HMO) [id number] Charis Ross [id number] [place] 11/25/2024 1 [employer] - [employer] (MEDICARE REPLACEMENT/ ADVANTAGE - HMO) [id number] Charis Ross [id number] [place] 01/10/2025 1 [employer] - [employer] (MEDICARE REPLACEMENT/ ADVANTAGE - HMO) [id number] Charis Ross [id number] [place] Notes Date Note Type Note Provider Name and Address Organization Details Recorded Time 06/28/2024 text/html 1. UTI and urina ry incontinence that is chronic recent in ER group B strep UTI Septra. Continue his chronic urinary incontinence. Type 2 diabetes point of care A1c 10.1 her diet is lousy her insight is worse. 3. Dyslipidemia needs to be placed on medication she has stopped taking a lot of her medications she does have an injectable from a diabetic doctor that she is trying to locate Reagan Marino MD Attn: Accounting[address] , [place], [address], [facility] 07/04/2024 17:30:47 07/26/2024 text/html she is still hav ing urinary incontinence she is not taking any of her meds except for what was given to her by a previous diver's tender they have not made the appointment with the diver's tender. I offered to do that at last visit but they said they would do it. They did not Reagan Marino MD Attn: Accounting,[address], [place], [address], [facility] 07/31/2024 15:24:43 11/25/2024 text/html diabetes [...] that well either Reagan Marino MD Attn: Accounting,[address], [place], [address], [facility] 11/25/2024 22:24:06 01/10/2025 text/html she had a fall w ent to the hospital for stitches paste over her right cheek transferred to [place] because of concerns about her eye and she was given a clean bill of health with regards to her eye from Ophthalmology at the tertiary care center she still has some redness in the eye sore all over and ibuprofen is not really helping no numbness or tingling anywhere. No headache no nausea no vomiting no polyphagia no polydipsia she is interested in a GLP 1 agent her GERD has been doing fine on the pantoprazole urinary incontinence she still struggles Reagan Marino MD Attn: Accounting,[address], [place], [address], [facility] 01/11/2025 22:32:39 OBGyn Episode No OBEpisode recorded.
--- NOTE | 2025-01-19 17:10 | ADMGEN ---
This patient, Yesi Ross, was admitted to 3 Med Surg Room 322-01. Patient/family oriented to hospital policies and general routines including ID bracelet, bed and alarms, visiting hours, pain management, procedures, bathroom and other care routines, personal items, smoking policy, room service/diet, and visiting hours. Information on how to activate the Rapid Response Team has been discussed. Patient/Family are encouraged to report perceived risks to care and to ask questions if they do not understand what they are told or what they should do.
[2025-01-19 21:24] LABS: Glucose Point of Care 73 mg/dl (65-105)
--- NOTE | 2025-01-19 21:24 | P.HP_ITS ---
H&P: HPI History of Present Illness Date/Time: 01/19/25 21:24 Chief Complaint: Confusion and weakness Narrative: 89-year-old female with past medical history wbb-zgthzgb-yryeqloxo diabetes mellitus, hypertension, history of CVA in 2018 who was noted to be increasingly weak and confused at home by her who is her spa assistant manager. Arrived to [place] [facility] via EMS and she did not know why she is in the hospital and is A&O x1. She is typically x3. Of note, she was seen in [place] [facility] on 12/31 after a fall and was transferred to [facility] for right periorbital edema. ER evaluation revealed blood pressure 213/98 now improved status post hydralazine 10 mg IV x2. WBC borderline elevated at 10.1. Head CT without acute changes, demonstrating chronic white matter changes and mild interval decrease of right intraorbital hematoma. UA consistent with UTI. Positive wbc's, leukocyte esterase, bacteria. Patient given ceftriaxone 1 g IV. Review of Systems Review of Systems: All systems reviewed & are unremarkable except as noted in HPI and below (HPI) ROS unobtainable: Yes unobtainable due to mental status PMFSH Past Medical History Medical History Type 2 diabetes mellitus Normal echocardiogram (06/2018) EF 65-70%, impaired grade 1 diastolic dysfunction CVA (cerebral vascular accident) (06/2018) Left basal ganglia and posterior limb of the left internal capsule with initial complaint of difficulty walking and right facial numbness Surgical History Surgical History History of tonsillectomy and adenoidectomy Status post cataract extraction of both eyes with insertion of intraocular lens History of total bilateral knee replacement (2005) Family History Family History Mother Diabetes mellitus Cerebrovascular accident Father Diabetes mellitus Heart disease Sibling Diabetes mellitus Multiple myeloma Social History Social History Smoking status: Never smoker Second hand tobacco smoke exposure: No Alcohol intake: never Substance use: never Lack of Transportation: No Lack of Food: Never True Current Housing: I Have Housing Concerned About Future Housing: No Difficulty Paying Gas/Electric Bills: No Difficulty Paying for Meds: No Currently Unemployed: No Education: High School Diploma/GED Difficulty w/ Childcare or Family Care: No Spiritual care concerns: No Meds Home Medications and Allergies Home Medications ?Medication ?Instructions ?Recorded ?Confirmed ?Type insulin degludec 100 44 unit subcut QAM 09/11/22 01/19/25 History unit-liraglutide 3.6 mg/mL(3 mL) subcutaneous pen (Xultophy 100/3.6) metformin 500 mg tablet,extended 500 mg PO QPM 01/19/25 01/19/25 History release 24 hr pantoprazole 40 mg tablet,delayed 40 mg PO DAILY 01/19/25 01/19/25 History release semaglutide 0.25 mg or 0.5 mg (2 0.25 mg subcut WEEKLY 01/19/25 01/19/25 History mg/3 mL) subcutaneous pen injector (Ozempic) Allergies Allergy/AdvReac Type Severity Reaction Status Date / Time No Known Allergies Allergy Verified 01/06/25 08:12 Vital Signs Vital Signs - 24 hr 01/19/25 13:20 01/19/25 13:30 01/19/25 13:45 Temperature 97.6 F Pulse Rate 85 85 84 Respiratory Rate 14 15 15 Blood Pressure 213/98 H 213/78 H 215/93 H Pulse Oximetry 97 96 97 Oxygen Delivery Room Air 01/19/25 13:53 01/19/25 14:00 01/19/25 14:15 Temperature Pulse Rate 85 82 Respiratory Rate 14 Blood Pressure 217/93 H 215/92 H Pulse Oximetry 97 99 99 Oxygen Delivery Room Air 01/19/25 14:30 01/19/25 15:02 01/19/25 15:09 Temperature Pulse Rate 83 83 Respiratory Rate 15 15 Blood Pressure 209/93 H 212/101 H 198/85 H Pulse Oximetry 97 Oxygen Delivery 01/19/25 15:15 01/19/25 15:30 01/19/25 15:53 Temperature Pulse Rate 85 88 94 Respiratory Rate 16 14 12 Blood Pressure 184/70 H 167/90 H Pulse Oximetry 98 97 97 Oxygen Delivery 01/19/25 16:35 01/19/25 20:11 01/19/25 21:07 Temperature 97.7 F Pulse Rate 91 76 Respiratory Rate 17 20 Blood Pressure 151/61 H 182/94 H 164/92 H Pulse Oximetry 98 97 Oxygen Delivery Exam Const: General: comfortable and no acute distress Other: A&O x1 HENMT: Mouth: Yes moist mucous membranes Eyes: Pupils: Equal, round and reactive pupils present Neck: Neck: supple Resp: Effort & Inspection: normal respiratory effort Auscultation: clear to auscultation bilaterally Cardio: Rate: regular rate Rhythm: regular rhythm GI: GI Palp: Yes Soft to palpation and No Tenderness to palpation present (GI) : General: Yes bladder normal to palpation Urinary Catheter: Urinary Catheter: urine cloudy Extrem: General: edema (+1 pitting edema bilateral lower extremities below the knees) H&P: Results Labs Labs: Short CBC 01/19/25 Range/Units 13:34 WBC 10.1 H (4.5-10.0) K/mm3 Hgb 11.5 L (12.0-15.0) g/dL Hct 35.9 L (37.0-47.0) % Plt Count 398 H (150-375) k/mm3 BMP 01/19/25 13:34 Sodium 140 Potassium 4.1 Chloride 107 Carbon Dioxide 22 BUN 30 H Creatinine 1.05 H Glucose 103 Calcium 9.0 Liver Function 01/19/25 Range/Units 13:34 Total Bilirubin 0.4 (0.2-1.3) mg/dL AST 24 (14-36) U/L ALT 13 (6-35) U/L Alkaline Phosphatase 88 (38-126) U/L Albumin 4.2 (3.5-5.1) g/dL Urine 01/19/25 Range/Units 13:54 Urine Color Yellow (Yellow) Urine Appearance Cloudy H (Clear) Urine pH 5.5 (5.0-9.0) Ur Specific [place] 1.013 (1.001-1.035) Urine Protein 3+ H (Negative) mg/dL Urine Glucose (UA) Negative (Negative) mg/dL Assessment and Plan Assessment and plan (1) Acute UTI: Code(s): N39.0 - Urinary tract infection, site not specified Status: Acute (2) AMS (altered mental status): Code(s): R41.82 - Altered mental status, unspecified Status: Acute (3) Generalized weakness: Code(s): R53.1 - Weakness Status: Acute Plan 89-year-old female with past medical history gkq-yzzaivt-uhqkquitu diabetes mellitus, hypertension, history of CVA in 2018 who was noted to be increasingly weak and confused at home by her who is her spa assistant manager. Arrived to [place] [facility] via EMS and she did not know why she is in the hospital and is A&O x1. She is typically x3. Of note, she was seen in [place] [facility] on 12/31 after a fall and was transferred to [facility] for right periorbital edema. ER evaluation revealed blood pressure 213/98 now improved status post hydralazine 10 mg IV x2. WBC borderline elevated at 10.1. Head CT without acute changes, demonstrating chronic white matter changes and mild interval decrease of right intraorbital hematoma. UA consistent with UTI. Positive wbc's, leukocyte esterase, bacteria. Patient given ceftriaxone 1 g IV. ----- Admit for observation for UTI, weakness, confusion. Continue ceftriaxone 1 g Q 24 hours. Follow-up urine cultures. PTOT evaluations for weakness. Care coordination consultation for palliative care assessment. Uncontrolled hypertension. Now improved status post hydralazine. Continue with labetalol 10 mg q.2 hours p.r.n. for SBP greater than 180. Start amlodipine 10 mg q.day starting now. Full code. SCDs. Saline lock IV. Ambulate with assistance. Accu-Allynks darrencDeirdre HS, diabetic diet. Hospitalist MIPS Advance Care Plan I have confirmed that the patient's Advanced Care Plan is present, code status is documented, or surrogate decision maker is listed in patient medical record.: Yes Medication Reconciliation I have utilized all available resources to obtain, update and review the patients current medications (includes all prescriptions, OTC, herbals, cannabis, and nutritional supplements).: Yes
[2025-01-19] MEDS: amLODIPine BESYLATE 10 MG TABLET PO (22:26)
[2025-01-20 04:56] LABS: Glucose Point of Care 114 mg/dl (65-105)
[2025-01-20 04:56] LABS: Glucose Point of Care 59 mg/dl (65-105)
[2025-01-20] MEDS: DEXTROSE 50% 25 GM/50 ML SYRINGE IV PUSH (05:10)
[2025-01-20 05:15] VITALS: BP 170/80; PULSE 78; RESP 16; TEMP 36.4; O2SAT 100
[2025-01-20 06:01] LABS: Basophils Absolute Auto 0.1 K/mm3 (0.0-0.1); Basophils Percent Auto 0.6 % (0.2-1.2); Eosinophils Absolute Auto 0.3 K/mm3 (0-0.3); Eosinophils Percent Auto 2.8 % (0-4.4); Hematocrit 34.6 % (37.0-47.0); Hemoglobin 11.1 g/dL (12.0-15.0); Immature Granulocyte Absolute 0.02 K/mm3 (0.00-0.031); Immature Granulocyte Percent A 0.2 % (0-0.5); Lymphocytes Absolute Auto 2.07 K/mm3 (0.9-3.2); Lymphocytes Percent Auto 21.5 % (18.3-44.2); Mean Corpuscular HGB Conc 32.1 g/dl (32-36); Mean Corpuscular Hemoglobin 30.3 pg (26-34); Mean Corpuscular Volume 94.5 fl (80-100); Mean Platelet Volume 9.8 fl (7.4-10.4); Monocytes Absolute Auto 0.8 K/mm3 (0.1-0.6); Monocytes Percent Auto 8.2 % (2.6-8.5); Neutrophils Absolute Auto 6.4 K/mm3 (1.3-6.7); Neutrophils Percent Auto 66.7 % (45.5-73.1); Platelet Count Result 361 k/mm3 (150-375); Red Blood Count 3.66 M/mm3 (4.2-5.4); Red Cell Distribution Width 14.5 % (11.5-14.5); White Blood Count 9.6 K/mm3 (4.5-10.0)
[2025-01-20 06:15] LABS: Anion Gap 11 mmol/L (4-12); Blood Urea Nitrogen 24 mg/dL (7-17); Calcium 8.8 mg/dL (8.4-10.2); Carbon Dioxide 22 mmol/L (22-30); Chloride 106 mmol/L (98-107); Estimated Glomerular Filt Rate 54; Glucose 93 mg/dL (65-110); Magnesium 1.9 mg/dL (1.6-2.3); Potassium 3.6 mmol/L (3.4-5.0); Sodium 139 mmol/L (137-145)
[2025-01-20 08:43] LABS: Glucose Point of Care 87 mg/dl (65-105)
[2025-01-20] MEDS: PANTOPRAZOLE 40 MG TABLET PO (08:51)
--- NOTE | 2025-01-20 09:20 | P.PNIM_ITS ---
Progress Note: A&P Assessment and Plan (1) Acute UTI: Code(s): N39.0 - Urinary tract infection, site not specified Status: Acute Assessment and Plan: Continue ceftriaxone 1 g Q 24 hours. cultures and sensitivities pending (2) AMS (altered mental status): Code(s): R41.82 - Altered mental status, unspecified Status: Acute Assessment and Plan: could be from UTI verses overall decline versus other home meds reviewed no concerns there urine drug screen pending head CT with no acute process chest x-ray with no acute process no leukocytosis electrolytes within range (3) Generalized weakness: Code(s): R53.1 - Weakness Status: Acute Assessment and Plan: could be secondary to UTI PT OT evaluate and treat (4) Hypertensive emergency: Code(s): I16.1 - Hypertensive emergency Status: Acute Assessment and Plan: ER evaluation revealed blood pressure 213/98 now improved status post hydralazine 10 mg IV x2. Continue with labetalol 10 mg q.2 hours p.r.n. for SBP greater than 180. Start amlodipine 10 mg q.day starting now. (5) Type 2 diabetes mellitus with hyperglycemia, with long-term current use of insulin: Code(s): E11.65 - Type 2 diabetes mellitus with hyperglycemia; Z79.4 - retirement (current) use of insulin Status: Acute Assessment and Plan: hold home metformin while in hospital laura brought in from home and given on / diabetic diet Accu-Cheks a.c. HS SSI Plan Full code. SCDs. Saline lock IV. Ambulate with assistance. Accu-Cheks a.c. HS, diabetic diet. Time Spent With Patient Time with patient: Greater than 35 minutes Subjective Date/time seen: 01/20/25 09:20 Interval history: 89-year-old female with past medical history [id number] diabetes mellitus, hypertension, history of CVA in 2018 who was noted to be increasingly weak and confused at home. f note, she was seen in [place] ER on 12/31 after a fall and was transferred to [facility] for right periorbital edema. Head CT without acute changes, demonstrating chronic white matter changes and mild interval decrease of right intraorbital hematoma. UA consistent with UTI. when trying to talk to patient, patient swats at [employer] and says stay back not to touch her. When asked what is her name ,she answers that she needs her . Review of Systems Review of Systems: ROS unobtainable: Yes unobtainable due to mental status Exam Narrative: General: well appearing, appears stated age. HEENT: normocephalic, atraumatic. Mucous membranes moist. EOMI, PERRLA, bilateral sclera anicteric, no conjunctival injection. Neck supple without JVD, lymphadenopathy, or bruit. Respiratory: refuses assessment Cardiovascular: refuses assessment Abdomen: refuses assessment Extremities: No cyanosis, clubbing, or edema present. Pulses are palpable 2/2. Active ROM to all four extremities. Neuro: patient is alert however refuses to answer any questions, PERRLA. Skin: Warm, dry, Psych: pleasant, uncooperative, normal speech, hard of hearing Objective Data Vital Signs Vital Signs: Vital Signs - 24 hr 04/02/25 13:20 01/19/25 13:30 01/19/25 13:45 Temperature 97.6 F Pulse Rate 85 85 84 Respiratory Rate 14 15 15 Blood Pressure 213/98 H 213/78 H 215/93 H Pulse Oximetry 97 96 97 Oxygen Delivery Room Air 01/19/25 13:53 01/19/25 14:00 01/19/25 14:15 Temperature Pulse Rate 85 82 Respiratory Rate 14 Blood Pressure 217/93 H 215/92 H Pulse Oximetry 97 99 99 Oxygen Delivery Room Air 01/19/25 14:30 01/19/25 15:02 01/19/25 15:09 Temperature Pulse Rate 83 83 Respiratory Rate 15 15 Blood Pressure 209/93 H 212/101 H 198/85 H Pulse Oximetry 97 Oxygen Delivery 01/19/25 15:15 01/19/25 15:30 01/19/25 15:53 Temperature Pulse Rate 85 88 94 Respiratory Rate 16 14 12 Blood Pressure 184/70 H 167/90 H Pulse Oximetry 98 97 97 Oxygen Delivery 01/19/25 16:35 01/19/25 20:00 01/19/25 20:11 Temperature 97.7 F Pulse Rate 91 76 Respiratory Rate 17 20 Blood Pressure 151/61 H 182/94 H Pulse Oximetry 98 97 Oxygen Delivery Room Air 01/19/25 21:07 01/20/25 05:15 Temperature 97.5 F L Pulse Rate 78 Respiratory Rate 16 Blood Pressure 164/92 H 170/80 H Pulse Oximetry 100 Oxygen Delivery Intake/Output Intake/Output: Intake & Output 01/17/25 01/18/25 01/19/25 01/20/25 23:59 23:59 23:59 23:59 Intake Total 550 790 Output Total 775 Balance 550 15 Meds/Results Medications: Active Medications Generic Name Dose Route Start Last Admin Trade Name Freq PRN Reason Stop Dose Admin Acetaminophen 650 mg 01/19/25 15:50 Acetaminophen 325 Mg Tablet PO Q4H PRN Mild Pain (1-3) or Fever Amlodipine Besylate 10 mg 01/19/25 20:40 01/19/25 22:26 Amlodipine Besylate 10 Mg Tablet PO 10 mg DAILY ANIVAL Administration Dextrose 12.5 gm 01/19/25 20:37 01/20/25 05:10 Dextrose 50% 25 Gm/50 Ml Syringe IV PUSH 12.5 gm PRN PRN Administration Hypoglycemia Protocol Glucagon 1 mg 01/19/25 20:37 Glucagon For Inj 1 Mg Vial IM PRN PRN Hypoglycemia Protocol Glucose 15 gm 01/19/25 20:37 Glucose Oral Gel 15 Gm Of Glucse In 37.5 Gm Tube PO PRN PRN Hypoglycemia Protocol Ceftriaxone Sodium 1 gm in 50 mls @ 100 mls/hr 01/20/25 14:00 Rocephin 1 Gm/Ns 50 Ml IVPB Q24H ANIVAL Dextrose 1,000 mls @ 100 mls/hr 01/19/25 20:37 Dextrose 5% 1,000 Ml IVPB PRN PRN Hypoglycemia Protocol Insulin Aspart 2 - 5 units 01/20/25 08:00 01/20/25 08:51 Insulin Aspart (*Bkc) 100 Units/Ml SUB-Q Not Given TIDWM ANIVAL Protocol Insulin Aspart 1 - 2 units 01/19/25 21:00 01/19/25 22:23 Insulin Aspart (*Bkc) 100 Units/Ml SUB-Q Not Given HS ANIVAL Protocol Labetalol HCl 10 mg 01/19/25 20:39 Labetalol Hcl Inj 100 Mg/20 Ml Vial IV PUSH Q2H PRN hypertension Pantoprazole Sodium 40 mg 01/20/25 09:00 01/20/25 08:51 Pantoprazole 40 Mg Tablet PO 40 mg DAILY ANIVAL Administration Radiology Results: ITS Impressions Head CT 01/19/25 15:03 Impression: No intracranial hemorrhage, mass, or acute infarct. Atrophy and chronic white matter changes, as above. Mild interval decrease of right intraorbital hematoma. Chest X-Ray 01/19/25 15:20 IMPRESSION: 1. No acute cardiopulmonary disease. Labs Labs: Laboratory Results - last 24 hr 01/19/25 01/19/25 01/19/25 13:34 13:36 13:54 WBC 10.1 H RBC 3.79 L Hgb 11.5 L Hct 35.9 L MCV 94.7 MCH 30.3 MCHC 32.0 RDW 14.4 Plt Count 398 H MPV 9.9 Immature Gran % (Auto) 0.2 Neut % (Auto) 68.4 Lymph % (Auto) 22.4 [place] % (Auto) 6.5 Eos % (Auto) 2.0 Baso % (Auto) 0.5 Lymph # (Auto) 2.26 [place] # (Auto) 0.7 H Eos # (Auto) 0.2 Baso # (Auto) 0.1 Abs Immat Gran (auto) 0.02 Absolute Neuts (auto) 6.9 H Absolute Nucleated RBC 0.000 Nucleated RBC % 0.0 Sodium 140 Potassium 4.1 Chloride 107 Carbon Dioxide 22 Anion Gap 11 BUN 30 H Creatinine 1.05 H Estim Creat Clear Calc Not Reportable Estimated GFR 49 L Glucose 103 POC Capillary Glucose 87 Calcium 9.0 Magnesium Total Bilirubin 0.4 AST 24 ALT 13 Alkaline Phosphatase 88 Total Protein 8.0 Albumin 4.2 Urine Color Yellow Urine Appearance Cloudy H Urine pH 5.5 Ur Specific [place] 1.013 Urine Protein 3+ H Urine Glucose (UA) Negative Urine Ketones Negative Ur Blood (Man) Negative Urine Nitrate Negative Urine Bilirubin Negative Urine Urobilinogen 0.2 Leukocyte Esterase Rfl 3+ H Urine RBC 0-2 Urine WBC >100 H Ur Squamous Epith Cells None seen Urine Bacteria 4+ H Urine Casts 0-2 01/19/25 01/20/25 01/20/25 21:03 04:26 04:50 WBC RBC Hgb Hct MCV MCH MCHC RDW Plt Count MPV Immature Gran % (Auto) Neut % (Auto) Lymph % (Auto) [place] % (Auto) Eos % (Auto) Baso % (Auto) Lymph # (Auto) [place] # (Auto) Eos # (Auto) Baso # (Auto) Abs Immat Gran (auto) Absolute Neuts (auto) Absolute Nucleated RBC Nucleated RBC % Sodium Potassium Chloride Carbon Dioxide Anion Gap BUN Creatinine Estim Creat Clear Calc Estimated GFR Glucose POC Capillary Glucose 73 59 L* 114 H Calcium Magnesium Total Bilirubin AST ALT Alkaline Phosphatase Total Protein Albumin Urine Color Urine Appearance Urine pH Ur Specific [place] Urine Protein Urine Glucose (UA) Urine Ketones Ur Blood (Man) Urine Nitrate Urine Bilirubin Urine Urobilinogen Leukocyte Esterase Rfl Urine RBC Urine WBC Ur Squamous Epith Cells Urine Bacteria Urine Casts 01/20/25 01/20/25 01/20/25 05:39 05:40 07:55 WBC 9.6 RBC 3.66 L Hgb 11.1 L Hct 34.6 L MCV 94.5 MCH 30.3 MCHC 32.1 RDW 14.5 Plt Count 361 MPV 9.8 Immature Gran % (Auto) 0.2 Neut % (Auto) 66.7 Lymph % (Auto) 21.5 [place] % (Auto) 8.2 Eos % (Auto) 2.8 Baso % (Auto) 0.6 Lymph # (Auto) 2.07 [place] # (Auto) 0.8 H Eos # (Auto) 0.3 Baso # (Auto) 0.1 Abs Immat Gran (auto) 0.02 Absolute Neuts (auto) 6.4 Absolute Nucleated RBC 0.000 Nucleated RBC % 0.0 Sodium 139 Potassium 3.6 Chloride 106 Carbon Dioxide 22 Anion Gap 11 BUN 24 H Creatinine 0.97 Estim Creat Clear Calc Not Reportable Estimated GFR 54 L Glucose 93 POC Capillary Glucose 87 Calcium 8.8 Magnesium 1.9 Total Bilirubin AST ALT Alkaline Phosphatase Total Protein Albumin Urine Color Urine Appearance Urine pH Ur Specific [place] Urine Protein Urine Glucose (UA) Urine Ketones Ur Blood (Man) Urine Nitrate Urine Bilirubin Urine Urobilinogen Leukocyte Esterase Rfl Urine RBC Urine WBC Ur Squamous Epith Cells Urine Bacteria Urine Casts Quality VTE Prophylaxis VTE prophylaxis: mechanical ordered Hospitalist MIPS Advance Care Plan I have confirmed that the patient's Advanced Care Plan is present, code status is documented, or surrogate decision maker is listed in patient medical record.: Yes
--- NOTE | 2025-01-20 10:11 | PCPTNOTE ---
Attempted therapy evaluation 1010, patient disoriented and swinging arms at therapist and saying get out . Will follow once orientation improves.
--- NOTE | 2025-01-20 11:48 | PHAR ---
Pharmacy verified home med: * Use From Home * Semaglutide [Ozempic] 0.25 mg or 0.5 mg (2 mg/3 mL) pen injector - inject 0.25 mg once weekly on friday for 4 weeks, then increase dose to 0.5 mg (1st dose given on 01/12)
[2025-01-20 11:56] LABS: Glucose Point of Care 146 mg/dl (65-105)
[2025-01-20] MEDS: [UNRECOGNIZED DRUG - REMARK] 0.25 EACH SUB-Q (12:10)
[2025-01-20 16:40] LABS: Glucose Point of Care 103 mg/dl (65-105)
[2025-01-20 20:22] VITALS: BP 175/95; PULSE 93; RESP 16; TEMP 37.2; O2SAT 98
[2025-01-20 21:22] LABS: Glucose Point of Care 159 mg/dl (65-105)
[2025-01-21 06:00] VITALS: BP 152/75; PULSE 94; RESP 20; TEMP 36.6; O2SAT 98
[2025-01-21 07:43] LABS: Glucose Point of Care 146 mg/dl (65-105)
[2025-01-21 11:17] LABS: Glucose Point of Care 173 mg/dl (65-105)
--- NOTE | 2025-01-21 12:14 | P.PNIM_ITS ---
Progress Note: A&P Assessment and Plan (1) Acute UTI: Code(s): N39.0 - Urinary tract infection, site not specified Status: Acute Assessment and Plan: UA concerning for UTI Continue ceftriaxone 1 g Q 24 hours. cultures and sensitivities pending (2) AMS (altered mental status): Code(s): R41.82 - Altered mental status, unspecified Status: Acute Assessment and Plan: could be from UTI verses overall decline versus other UA positive for ECOLI previously pansensitive home meds reviewed no concerns there urine drug screen pending head CT with no acute process chest x-ray with no acute process no leukocytosis electrolytes within range (3) Generalized weakness: Code(s): R53.1 - Weakness Status: Acute Assessment and Plan: could be secondary to UTI PT OT evaluate and treat (4) Hypertensive emergency: Code(s): I16.1 - Hypertensive emergency Status: Acute Assessment and Plan: ER evaluation revealed blood pressure 213/98 now improved status post hydralazine 10 mg IV x2. Continue with labetalol 10 mg q.2 hours p.r.n. for SBP greater than 180. amlodipine 10 mg q.day (5) Type 2 diabetes mellitus with hyperglycemia, with long-term current use of insulin: Code(s): E11.65 - Type 2 diabetes mellitus with hyperglycemia; Z79.4 - detention (current) use of insulin Status: Acute Assessment and Plan: hold home metformin while in hospital theronempic brought in from home and given on 01/20 diabetic diet Accu-Cheks a.c. HS SSI Plan Full code. SCDs. Saline lock IV. Ambulate with assistance. Accu-Cheks a.c. HS, diabetic diet. Subjective Date/time seen: 01/21/25 12:14 Interval history: 89-year-old female with past medical history [id number] diabetes mellitus, hypertension, history of CVA in 2018 who was noted to be increasingly weak and confused at home. f note, she was seen in [place] ER on 12/31 after a fall and was transferred to [facility] for right periorbital edema. Head CT without acute changes, demonstrating chronic white matter changes and mild interval decrease of right intraorbital hematoma. UA consistent with UTI. when trying to talk to patient, patient swats at [employer] and says stay back not to touch her. When asked what is her name ,she answers that she needs her h usband. 01/21/25 Patient was seen and examined at bedside. She is awake but oriented to her name only. Denies any chest pain, shortness of breath, abd pain, nausea vomiting. WBC 9.6, hemoglobin 11.1, creatinine 0.97. UA concerning for UTI. Continue with Rocephin. Follow culture results Chest xray and CT unremarkable Review of Systems Review of Systems: All systems reviewed & are unremarkable except as noted in HPI and below (HPI) ROS unobtainable: Yes unobtainable due to mental status Exam Narrative: Const: General: comfortab le and no acute di stress Other: A &O x1 HENMT: Mouth: Yes moist m ucous membranes Eyes: Pupils: Equal, rou nd and reactive pu pils present Neck: Neck: supple Resp: Effort & Inspectio n: normal respirat ory effort Auscul tation: clear to a uscultation bilate rally Cardio: Rate: regular rate Rhythm: regular rhythm GI: GI Palp: Yes Soft to palpation and N o Tenderness to pa lpation present (G I) : General: Yes bladd er normal to palpa tion Urinary Catheter: Urinary Catheter: urine cloudy Extrem: General: edema (+1 pitting edema sylvia ateral lower extre mities below the k nees) Const: General: comfortable and no acute distress Other: A&O x1 HENMT: Mouth: Yes moist mucous membranes Eyes: Pupils: Equal, round and reactive pupils present Neck: Neck: supple Resp: Effort & Inspection: normal respiratory effort Auscultation: clear to auscultation bilaterally Cardio: Rate: regular rate Rhythm: regular rhythm : General: Yes bladder normal to palpation Bimanual exam- vagina & uterus: bladder normal to palpation Urinary Catheter: Urinary Catheter: urine cloudy Neuro: Cranial nerves: Yes Equal, round and reactive pupils present Extrem: General: edema (+1 pitting edema bilateral lower extremities below the knees) Objective Data Vital Signs Vital Signs: Vital Signs - 24 hr 01/20/25 20:22 01/21/25 06:00 01/21/25 09:32 Temperature 98.9 F 97.8 F Pulse Rate 93 94 Respiratory Rate 16 20 Blood Pressure 175/95 H 152/75 H Pulse Oximetry 98 98 Oxygen Delivery Room Air Intake/Output Intake/Output: Intake & Output 01/18/25 01/19/25 01/20/25 01/21/25 23:59 23:59 23:59 23:59 Intake Total 550 2010 790 Output Total 775 Balance 550 1235 790 Meds/Results Medications: Active Medications Generic Name Dose Route Start Last Admin Trade Name Freq PRN Reason Stop Dose Admin Acetaminophen 650 mg 01/19/25 15:50 Acetaminophen 325 Mg Tablet PO Q4H PRN Mild Pain (1-3) or Fever Amlodipine Besylate 10 mg 01/19/25 20:40 01/19/25 22:26 Amlodipine Besylate 10 Mg Tablet PO 10 mg DAILY ANIVAL Administration Dextrose 12.5 gm 01/19/25 20:37 01/20/25 05:10 Dextrose 50% 25 Gm/50 Ml Syringe IV PUSH 12.5 gm PRN PRN Administration Hypoglycemia Protocol Glucagon 1 mg 01/19/25 20:37 Glucagon For Inj 1 Mg Vial IM PRN PRN Hypoglycemia Protocol Glucose 15 gm 01/19/25 20:37 Glucose Oral Gel 15 Gm Of Glucse In 37.5 Gm Tube PO PRN PRN Hypoglycemia Protocol Ceftriaxone Sodium 1 gm in 50 mls @ 100 mls/hr 01/20/25 14:00 01/20/25 15:20 Rocephin 1 Gm/Ns 50 Ml IVPB 100 mls/hr Q24H ANIVAL Administration Dextrose 1,000 mls @ 100 mls/hr 01/19/25 20:37 Dextrose 5% 1,000 Ml IVPB PRN PRN Hypoglycemia Protocol Insulin Aspart 2 - 5 units 01/20/25 08:00 01/21/25 07:56 Insulin Aspart (*Bkc) 100 Units/Ml SUB-Q Not Given TIDWM ANIVAL Protocol Insulin Aspart 1 - 2 units 01/19/25 21:00 01/20/25 21:20 Insulin Aspart (*Bkc) 100 Units/Ml SUB-Q Not Given HS ANIVAL Protocol Labetalol HCl 10 mg 01/19/25 20:39 Labetalol Hcl Inj 100 Mg/20 Ml Vial IV PUSH Q2H PRN hypertension * Home Med * 0.25 mg 01/20/25 11:45 01/20/25 12:10 Semaglutide [Ozempic SUB-Q 02/19/25 11:44 0.25 mg ] 0.25 Mg Or 0.5 Mg We@0900 ANIVAL Administration (2 Mg/3 Ml) Pen Injector Pantoprazole Sodium 40 mg 01/20/25 09:00 01/20/25 08:51 Pantoprazole 40 Mg Tablet PO 40 mg DAILY ANIVAL Administration Radiology Results: ITS Impressions Head CT 01/19/25 15:03 Impression: No intracranial hemorrhage, mass, or acute infarct. Atrophy and chronic white matter changes, as above. Mild interval decrease of right intraorbital hematoma. Chest X-Ray 01/19/25 15:20 IMPRESSION: 1. No acute cardiopulmonary disease. Labs Labs: Laboratory Results - last 24 hr 01/20/25 01/20/25 01/21/25 16:21 21:19 07:40 POC Capillary Glucose 103 159 H 146 H 01/21/25 11:14 POC Capillary Glucose 173 H Quality VTE Prophylaxis VTE prophylaxis: mechanical ordered
[2025-01-21 14:55] VITALS: BP 176/99; PULSE 85; RESP 16; TEMP 36.5; O2SAT 99
[2025-01-21] MEDS: amLODIPine BESYLATE 10 MG TABLET PO (14:59)
[2025-01-21] MEDS: PANTOPRAZOLE 40 MG TABLET PO (14:59)
[2025-01-21 15:00] VITALS: BMI 10.0
[2025-01-21] MEDS: ONDANSETRON INJ 4 MG/2 ML VIAL IV PUSH (15:30)
[2025-01-21 16:39] LABS: Glucose Point of Care 183 mg/dl (65-105)
[2025-01-21 20:19] LABS: Glucose Point of Care 169 mg/dl (65-105)
[2025-01-21 22:00] VITALS: BP 153/70; PULSE 78; RESP 18; TEMP 36.1; O2SAT 96
[2025-01-22 05:54] VITALS: BP 149/69; PULSE 75; RESP 18; TEMP 36.2; O2SAT 94
[2025-01-22 05:57] LABS: Hematocrit 35.1 % (37.0-47.0); Hemoglobin 11.2 g/dL (12.0-15.0); Mean Corpuscular HGB Conc 31.9 g/dl (32-36); Mean Corpuscular Hemoglobin 30.4 pg (26-34); Mean Corpuscular Volume 95.4 fl (80-100); Mean Platelet Volume 9.8 fl (7.4-10.4); Platelet Count Result 366 k/mm3 (150-375); Red Blood Count 3.68 M/mm3 (4.2-5.4); Red Cell Distribution Width 14.4 % (11.5-14.5); White Blood Count 8.4 K/mm3 (4.5-10.0)
[2025-01-22 06:20] LABS: Anion Gap 9 mmol/L (4-12); Blood Urea Nitrogen 27 mg/dL (7-17); Calcium 8.5 mg/dL (8.4-10.2); Carbon Dioxide 25 mmol/L (22-30); Chloride 106 mmol/L (98-107); Estimated Glomerular Filt Rate 42; Glucose 147 mg/dL (65-110); Potassium 3.9 mmol/L (3.4-5.0); Sodium 140 mmol/L (137-145)
[2025-01-22 07:49] LABS: Glucose Point of Care 142 mg/dl (65-105)
[2025-01-22] MEDS: amLODIPine BESYLATE 10 MG TABLET PO (10:20)
[2025-01-22] MEDS: PANTOPRAZOLE 40 MG TABLET PO (10:20)
[2025-01-22 11:15] LABS: Glucose Point of Care 166 mg/dl (65-105)
--- NOTE | 2025-01-22 13:03 | P.PNIM_ITS ---
Progress Note: A&P Assessment and Plan (1) Acute UTI: Code(s): N39.0 - Urinary tract infection, site not specified Status: Acute Assessment and Plan: UA concerning for UTI Continue ceftriaxone 2 g Q 24 hours. Urine positive for E coli. sensitivities pending (2) AMS (altered mental status): Code(s): R41.82 - Altered mental status, unspecified Status: Acute Assessment and Plan: Secondary to UTI UA positive for ECOLI previously pansensitive home meds reviewed no concerns there urine drug screen pending head CT with no acute process chest x-ray with no acute process no leukocytosis electrolytes within range (3) Generalized weakness: Code(s): R53.1 - Weakness Status: Acute Assessment and Plan: secondary to UTI PT OT evaluate and treat Rehab placement (4) Hypertensive emergency: Code(s): I16.1 - Hypertensive emergency Status: Acute Assessment and Plan: ER evaluation revealed blood pressure 213/98. improving Continue with labetalol 10 mg q.2 hours p.r.n. for SBP greater than 180. 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 HS SSI Plan Full code. SCDs. Saline lock IV. Ambulate with assistance. Accu-Cheks a.c. HS, diabetic diet. Subjective Date/time seen: 01/22/25 13:03 Interval history: 89-year-old female with past medical history [id number] diabetes mellitus, hypertension, history of CVA in 2018 who was noted to be increasingly weak and confused at home. f note, she was seen in [place] ER on 12/31 after a fall and was transferred to [facility] for right periorbital edema. Head CT without acute changes, demonstrating chronic white matter changes and mild interval decrease of right intraorbital hematoma. UA consistent with UTI. when trying to talk to patient, patient swats at [employer] and says stay back not to touch her. When asked what is her name ,she answers that she needs her . 01/21/25 Patient was seen and examined at bedside. She is awake but oriented to her name only. Denies any chest pain, shortness of breath, abd pain, nausea vomiting. WBC 9.6, hemoglobin 11.1, creatinine 0.97. UA concerning for UTI. Continue with Rocephin. Follow culture results Chest xray and CT unremarkable 01/22/25 Patient was seen and examined at bedside. She is more awake oriented. Oriented to her name time and place. Denies any chest pain, shortness a breath no abdominal pain, nausea vomiting. Urine positive for E coli. Will follow final urine culture result. Continue Rocephin. Leukocytosis improving Review of Systems Review of Systems: All systems reviewed & are unremarkable except as noted in HPI and below (HPI) ROS unobtainable: Yes unobtainable due to mental status Exam Narrative: Const: General: comfortab le and no acute di stress Other: A &O x3 HENMT: Mouth: Yes moist m ucous membranes Eyes: Pupils: Equal, rou nd and reactive pu pils present Neck: Neck: supple Resp: Effort & Inspectio n: normal respirat ory effort Auscul tation: clear to a uscultation bilate rally Cardio: Rate: regular rate Rhythm: regular rhythm GI: GI Palp: Yes Soft to palpation and N o Tenderness to pa lpation present (G I) : General: Yes bladd er normal to palpa tion Urinary Catheter: Urinary Catheter: urine cloudy Extrem: General: edema (+1 pitting edema sylvia ateral lower extre mities below the k nees) Const: General: comfortable and no acute distress Other: A&O x1 HENMT: Mouth: Yes moist mucous membranes Eyes: Pupils: Equal, round and reactive pupils present Neck: Neck: supple Resp: Effort & Inspection: normal respiratory effort Auscultation: clear to auscultation bilaterally Cardio: Rate: regular rate Rhythm: regular rhythm : General: Yes bladder normal to palpation Bimanual exam- vagina & uterus: bladder normal to palpation Urinary Catheter: Urinary Catheter: urine cloudy Neuro: Cranial nerves: Yes Equal, round and reactive pupils present Extrem: General: edema (+1 pitting edema bilateral lower extremities below the knees) Objective Data Vital Signs Vital Signs: Vital Signs - 24 hr 01/21/25 14:55 01/21/25 22:00 01/22/25 05:54 Temperature 97.7 F 97.0 F L 97.2 F L Pulse Rate 85 78 75 Respiratory Rate 16 18 18 Blood Pressure 176/99 H 153/70 H 149/69 H Pulse Oximetry 99 96 94 Intake/Output Intake/Output: Intake & Output 01/19/25 01/20/25 01/21/25 01/22/25 23:59 23:59 23:59 23:59 Intake Total 550 2060 1080 0 Output Total 775 Balance 550 1285 1080 0 Meds/Results Medications: Active Medications Generic Name Dose Route Start Last Admin Trade Name Freq PRN Reason Stop Dose Admin Acetaminophen 650 mg 01/19/25 15:50 Acetaminophen 325 Mg Tablet PO Q4H PRN Mild Pain (1-3) or Fever Amlodipine Besylate 10 mg 01/19/25 20:40 01/22/25 10:20 Amlodipine Besylate 10 Mg Tablet PO 10 mg DAILY ANIVAL Administration Dextrose 12.5 gm 01/19/25 20:37 01/20/25 05:10 Dextrose 50% 25 Gm/50 Ml Syringe IV PUSH 12.5 gm PRN PRN Administration Hypoglycemia Protocol Glucagon 1 mg 01/19/25 20:37 Glucagon For Inj 1 Mg Vial IM PRN PRN Hypoglycemia Protocol Glucose 15 gm 01/19/25 20:37 Glucose Oral Gel 15 Gm Of Glucse In 37.5 Gm Tube PO PRN PRN Hypoglycemia Protocol Ceftriaxone Sodium 1 gm in 50 mls @ 100 mls/hr 01/20/25 14:00 01/21/25 15:28 Rocephin 1 Gm/Ns 50 Ml IVPB Infused Q24H ANIVAL Infusion Dextrose 1,000 mls @ 100 mls/hr 01/19/25 20:37 Dextrose 5% 1,000 Ml IVPB PRN PRN Hypoglycemia Protocol Insulin Aspart 2 - 5 units 01/20/25 08:00 01/22/25 10:19 Insulin Aspart (*Bkc) 100 Units/Ml SUB-Q Not Given TIDWM ANIVAL Protocol Insulin Aspart 1 - 2 units 01/19/25 21:00 01/21/25 22:47 Insulin Aspart (*Bkc) 100 Units/Ml SUB-Q Not Given HS ANIVAL Protocol Labetalol HCl 10 mg 01/19/25 20:39 Labetalol Hcl Inj 100 Mg/20 Ml Vial IV PUSH Q2H PRN hypertension * Home Med * 0.25 mg 01/20/25 11:45 01/20/25 12:10 Semaglutide [Ozempic SUB-Q 02/19/25 11:44 0.25 mg ] 0.25 Mg Or 0.5 Mg We@0900 ANIVAL Administration (2 Mg/3 Ml) Pen Injector Ondansetron HCl 4 mg 01/21/25 15:24 01/21/25 15:30 Ondansetron Inj 4 Mg/2 Ml Vial IV PUSH 4 mg Q6H PRN Administration Nausea And Vomiting Pantoprazole Sodium 40 mg 01/20/25 09:00 01/22/25 10:20 Pantoprazole 40 Mg Tablet PO 40 mg DAILY ANIVAL Administration Radiology Results: ITS Impressions Head CT 01/19/25 15:03 Impression: No intracranial hemorrhage, mass, or acute infarct. Atrophy and chronic white matter changes, as above. Mild interval decrease of right intraorbital hematoma. Chest X-Ray 01/19/25 15:20 IMPRESSION: 1. No acute cardiopulmonary disease. Labs Labs: Laboratory Results - last 24 hr 01/21/25 01/21/25 01/22/25 16:34 20:13 05:45 WBC 8.4 RBC 3.68 L Hgb 11.2 L Hct 35.1 L MCV 95.4 MCH 30.4 MCHC 31.9 L RDW 14.4 Plt Count 366 MPV 9.8 Sodium 140 Potassium 3.9 Chloride 106 Carbon Dioxide 25 Anion Gap 9 BUN 27 H Creatinine 1.20 H Estim Creat Clear Calc Not Reportable Estimated GFR 42 L Glucose 147 H POC Capillary Glucose 183 H 169 H Calcium 8.5 01/22/25 01/22/25 07:47 11:12 WBC RBC Hgb Hct MCV MCH MCHC RDW Plt Count MPV Sodium Potassium Chloride Carbon Dioxide Anion Gap BUN Creatinine Estim Creat Clear Calc Estimated GFR Glucose POC Capillary Glucose 142 H 166 H Calcium Quality VTE Prophylaxis VTE prophylaxis: mechanical ordered
[2025-01-22 14:00] VITALS: BP 148/70; PULSE 85; RESP 16; TEMP 36.6; O2SAT 95
[2025-01-22 16:29] LABS: Glucose Point of Care 171 mg/dl (65-105)
[2025-01-22 20:50] LABS: Glucose Point of Care 223 mg/dl (65-105)
[2025-01-22] MEDS: INSULIN ASPART (*BKC) 100 UNITS/ML SUB-Q (20:52)
[2025-01-22 22:00] VITALS: BP 150/73; PULSE 88; RESP 18; TEMP 36.6; O2SAT 96
[2025-01-23 04:26] VITALS: BP 152/76; PULSE 83; RESP 18; TEMP 36.3; O2SAT 95
[2025-01-23 06:15] LABS: Hematocrit 35.7 % (37.0-47.0); Hemoglobin 11.4 g/dL (12.0-15.0); Mean Corpuscular HGB Conc 31.9 g/dl (32-36); Mean Corpuscular Hemoglobin 30.3 pg (26-34); Mean Corpuscular Volume 94.9 fl (80-100); Mean Platelet Volume 9.6 fl (7.4-10.4); Platelet Count Result 388 k/mm3 (150-375); Red Blood Count 3.76 M/mm3 (4.2-5.4); Red Cell Distribution Width 13.9 % (11.5-14.5); White Blood Count 8.5 K/mm3 (4.5-10.0)
[2025-01-23 06:28] LABS: Anion Gap 11 mmol/L (4-12); Blood Urea Nitrogen 26 mg/dL (7-17); Calcium 8.7 mg/dL (8.4-10.2); Carbon Dioxide 26 mmol/L (22-30); Chloride 103 mmol/L (98-107); Estimated Glomerular Filt Rate 50; Glucose 187 mg/dL (65-110); Potassium 3.8 mmol/L (3.4-5.0); Sodium 140 mmol/L (137-145)
[2025-01-23 07:26] LABS: Glucose Point of Care 187 mg/dl (65-105)
[2025-01-23] MEDS: amLODIPine BESYLATE 10 MG TABLET PO (10:39)
[2025-01-23] MEDS: PANTOPRAZOLE 40 MG TABLET PO (10:40)
[2025-01-23 11:18] LABS: Glucose Point of Care 210 mg/dl (65-105)
[2025-01-23] MEDS: INSULIN ASPART (*BKC) 100 UNITS/ML SUB-Q ×2 (12:03→20:52)
--- NOTE | 2025-01-23 12:14 | P.PNIM_ITS ---
Progress Note: A&P Assessment and Plan (1) Acute UTI: Code(s): N39.0 - Urinary tract infection, site not specified Status: Acute Assessment and Plan: UA concerning for UTI Continue ceftriaxone 2 g Q 24 hours. Urine positive for E coli. sensitivities pending (2) AMS (altered mental status): Code(s): R41.82 - Altered mental status, unspecified Status: Acute Assessment and Plan: Secondary to UTI UA positive for ECOLI previously pansensitive home meds reviewed no concerns there head CT with no acute process chest x-ray with no acute process no leukocytosis electrolytes within range (3) Generalized weakness: Code(s): R53.1 - Weakness Status: Acute Assessment and Plan: secondary to UTI PT OT evaluate and treat ?Rehab placement (4) Hypertensive emergency: Code(s): I16.1 - Hypertensive emergency Status: Acute Assessment and Plan: ER evaluation revealed blood pressure 213/98. improving Continue with labetalol 10 mg q.2 hours p.r.n. for SBP greater than 180. amlodipine 10 mg q.day (5) Type 2 diabetes mellitus with hyperglycemia, with long-term current use of insulin: Code(s): E11.65 - Type 2 diabetes mellitus with hyperglycemia; Z79.4 - detention (current) use of insulin Status: Acute Assessment and Plan: hold home metformin while in hospital laura brought in from home and given on 01/20 diabetic diet Accu-Cheks a.c. HS SSI Plan Full code. SCDs. Saline lock IV. Ambulate with assistance. Accu-Cheks a.c. HS, diabetic diet. Subjective Date/time seen: 01/23/25 12:14 Interval history: 89-year-old female with past medical history hej-vghvcvw-vuhqrwiic diabetes mellitus, hypertension, history of CVA in 2018 who was noted to be increasingly weak and confused at home. f note, she was seen in [place] ER on 12/31 after a fall and was transferred to [facility] for right periorbital edema. Head CT without acute changes, demonstrating chronic white matter changes and mild interval decrease of right intraorbital hematoma. UA consistent with UTI. when trying to talk to patient, patient swats at [employer] and says stay back not to touch her. When asked what is her name ,she answers that she needs her . 01/21/25 Patient was seen and examined at bedside. She is awake but oriented to her name only. Denies any chest pain, shortness of breath, abd pain, nausea vomiting. WBC 9.6, hemoglobin 11.1, creatinine 0.97. UA concerning for UTI. Continue with Rocephin. Follow culture results Chest xray and CT unremarkable 01/22/25 Patient was seen and examined at bedside. She is more awake oriented. Oriented to her name time and place. Denies any chest pain, shortness a breath no abdominal pain, nausea vomiting. Urine positive for E coli. Will follow final urine culture result. Continue Rocephin. Leukocytosis improving 01/23/25 Patient is more alert oriented. Almost back to baseline. Urine culture positive for E coli pending sensitivities. WBC 8.4. Patient denies any chest pain, shortness of breath, abd pain, N/V Review of Systems Review of Systems: All systems reviewed & are unremarkable except as noted in HPI and below (HPI) ROS unobtainable: Yes unobtainable due to mental status Exam Narrative: Const: General: comfortab le and no acute di stress Other: A &O x3 HENMT: Mouth: Yes moist m ucous membranes Eyes: Pupils: Equal, rou nd and reactive pu pils present Neck: Neck: supple Resp: Effort & Inspectio n: normal respirat ory effort Auscul tation: clear to a uscultation bilate rally Cardio: Rate: regular rate Rhythm: regular rhythm GI: GI Palp: Yes Soft to palpation and N o Tenderness to pa lpation present (G I) : General: Yes bladd er normal to palpa tion Urinary Catheter: Urinary Catheter: urine cloudy Extrem: General: edema (+1 pitting edema sylvia ateral lower extre mities below the k nees) Const: General: comfortable and no acute distress Other: A&O x1 HENMT: Mouth: Yes moist mucous membranes Eyes: Pupils: Equal, round and reactive pupils present Neck: Neck: supple Resp: Effort & Inspection: normal respiratory effort Auscultation: clear to auscultation bilaterally Cardio: Rate: regular rate Rhythm: regular rhythm : General: Yes bladder normal to palpation Bimanual exam- vagina & uterus: bladder normal to palpation Urinary Catheter: Urinary Catheter: urine cloudy Neuro: Cranial nerves: Yes Equal, round and reactive pupils present Extrem: General: edema (+1 pitting edema bilateral lower extremities below the knees) Objective Data Vital Signs Vital Signs: Vital Signs - 24 hr 01/22/25 14:00 01/22/25 20:32 01/22/25 22:00 Temperature 97.9 F 97.8 F Pulse Rate 85 88 Respiratory Rate 16 18 Blood Pressure 148/70 H 150/73 H Pulse Oximetry 95 96 Oxygen Delivery Room Air 01/23/25 04:26 Temperature 97.4 F L Pulse Rate 83 Respiratory Rate 18 Blood Pressure 152/76 H Pulse Oximetry 95 Oxygen Delivery Intake/Output Intake/Output: Intake & Output 01/20/25 01/21/25 01/22/25 01/23/25 23:59 23:59 23:59 23:59 Intake Total 2060 1080 963.3 400 Output Total 775 Balance 1285 1080 963.3 400 Meds/Results Medications: Active Medications Generic Name Dose Route Start Last Admin Trade Name Freq PRN Reason Stop Dose Admin Acetaminophen 650 mg 01/19/25 15:50 Acetaminophen 325 Mg Tablet PO Q4H PRN Mild Pain (1-3) or Fever Amlodipine Besylate 10 mg 01/19/25 20:40 01/23/25 10:39 Amlodipine Besylate 10 Mg Tablet PO 10 mg DAILY ANIVAL Administration Dextrose 12.5 gm 01/19/25 20:37 01/20/25 05:10 Dextrose 50% 25 Gm/50 Ml Syringe IV PUSH 12.5 gm PRN PRN Administration Hypoglycemia Protocol Glucagon 1 mg 01/19/25 20:37 Glucagon For Inj 1 Mg Vial IM PRN PRN Hypoglycemia Protocol Glucose 15 gm 01/19/25 20:37 Glucose Oral Gel 15 Gm Of Glucse In 37.5 Gm Tube PO PRN PRN Hypoglycemia Protocol Ceftriaxone Sodium 1 gm in 50 mls @ 100 mls/hr 01/20/25 14:00 01/22/25 16:22 Rocephin 1 Gm/Ns 50 Ml IVPB Infused Q24H ANIVAL Infusion Dextrose 1,000 mls @ 100 mls/hr 01/19/25 20:37 Dextrose 5% 1,000 Ml IVPB PRN PRN Hypoglycemia Protocol Insulin Aspart 2 - 5 units 01/20/25 08:00 01/23/25 12:03 Insulin Aspart (*Bkc) 100 Units/Ml SUB-Q 2 units TIDWM ANIVAL Administration Protocol Insulin Aspart 1 - 2 units 01/19/25 21:00 01/22/25 20:52 Insulin Aspart (*Bkc) 100 Units/Ml SUB-Q 1 units HS ANIVAL Administration Protocol Labetalol HCl 10 mg 01/19/25 20:39 Labetalol Hcl Inj 100 Mg/20 Ml Vial IV PUSH Q2H PRN hypertension * Home Med * 0.25 mg 01/20/25 11:45 01/20/25 12:10 Semaglutide [Ozempic SUB-Q 02/19/25 11:44 0.25 mg ] 0.25 Mg Or 0.5 Mg We@0900 ANIVAL Administration (2 Mg/3 Ml) Pen Injector Ondansetron HCl 4 mg 01/21/25 15:24 01/21/25 15:30 Ondansetron Inj 4 Mg/2 Ml Vial IV PUSH 4 mg Q6H PRN Administration Nausea And Vomiting Pantoprazole Sodium 40 mg 01/20/25 09:00 01/23/25 10:40 Pantoprazole 40 Mg Tablet PO 40 mg DAILY ANIVAL Administration Radiology Results: ITS Impressions Head CT 01/19/25 15:03 Impression: No intracranial hemorrhage, mass, or acute infarct. Atrophy and chronic white matter changes, as above. Mild interval decrease of right intraorbital hematoma. Chest X-Ray 01/19/25 15:20 IMPRESSION: 1. No acute cardiopulmonary disease. Labs Labs: Laboratory Results - last 24 hr 01/22/25 01/22/25 01/23/25 16:25 20:49 06:10 WBC 8.5 RBC 3.76 L Hgb 11.4 L Hct 35.7 L MCV 94.9 MCH 30.3 MCHC 31.9 L RDW 13.9 Plt Count 388 H MPV 9.6 Sodium 140 Potassium 3.8 Chloride 103 Carbon Dioxide 26 Anion Gap 11 BUN 26 H Creatinine 1.04 H Estim Creat Clear Calc Not Reportable Estimated GFR 50 L Glucose 187 H POC Capillary Glucose 171 H 223 H Calcium 8.7 01/23/25 01/23/25 07:21 11:15 WBC RBC Hgb Hct MCV MCH MCHC RDW Plt Count MPV Sodium Potassium Chloride Carbon Dioxide Anion Gap BUN Creatinine Estim Creat Clear Calc Estimated GFR Glucose POC Capillary Glucose 187 H 210 H Calcium Quality VTE Prophylaxis VTE prophylaxis: mechanical ordered
[2025-01-23 14:00] VITALS: BP 179/78; PULSE 81; RESP 18; TEMP 36.7; O2SAT 99
[2025-01-23 16:24] LABS: Glucose Point of Care 178 mg/dl (65-105)
[2025-01-23 20:00] VITALS: BP 184/81; PULSE 87; RESP 18; TEMP 36.4; O2SAT 97
[2025-01-23 20:50] LABS: Glucose Point of Care 275 mg/dl (65-105)
[2025-01-23 20:54] VITALS: BP 151/77
[2025-01-24 05:49] VITALS: BP 176/79; PULSE 84; RESP 16; TEMP 36.1; O2SAT 99
[2025-01-24 06:06] LABS: Hematocrit 37.3 % (37.0-47.0); Hemoglobin 11.6 g/dL (12.0-15.0); Mean Corpuscular HGB Conc 31.1 g/dl (32-36); Mean Corpuscular Hemoglobin 30.1 pg (26-34); Mean Corpuscular Volume 96.9 fl (80-100); Mean Platelet Volume 9.9 fl (7.4-10.4); Platelet Count Result 397 k/mm3 (150-375); Red Blood Count 3.85 M/mm3 (4.2-5.4); White Blood Count 9.1 K/mm3 (4.5-10.0)
[2025-01-24 06:20] LABS: Anion Gap 12 mmol/L (4-12); Blood Urea Nitrogen 26 mg/dL (7-17); Calcium 9.1 mg/dL (8.4-10.2); Carbon Dioxide 25 mmol/L (22-30); Chloride 103 mmol/L (98-107); Estimated Glomerular Filt Rate 48; Glucose 207 mg/dL (65-110); Potassium 4.2 mmol/L (3.4-5.0); Sodium 140 mmol/L (137-145)
[2025-01-24 07:58] LABS: Glucose Point of Care 207 mg/dl (65-105)
[2025-01-24] MEDS: INSULIN ASPART (*BKC) 100 UNITS/ML SUB-Q ×3 (08:21→21:07)
[2025-01-24] MEDS: PANTOPRAZOLE 40 MG TABLET PO (08:21)
[2025-01-24] MEDS: amLODIPine BESYLATE 10 MG TABLET PO (08:21)
--- NOTE | 2025-01-24 10:34 | P.DS_ITS ---
DS: Admitting Diagnosis Discharge Date 01/24/25 Admitting Diagnosis AMS DS: Discharge Diagnosis Discharge Diagnosis (1) Acute UTI: Code(s): N39.0 - Urinary tract infection, site not specified Status: Acute Assessment and Plan: UA concerning for UTI Received ceftriaxone 2 g Q 24 hours. Will continue Omnicef for 4 more days Urine positive for E coli. Previously pansensitive (2) AMS (altered mental status): Code(s): R41.82 - Altered mental status, unspecified Status: Acute Assessment and Plan: Secondary to UTI UA positive for ECOLI previously pansensitive home meds reviewed no concerns there head CT with no acute process chest x-ray with no acute process no leukocytosis electrolytes within range (3) Generalized weakness: Code(s): R53.1 - Weakness Status: Acute Assessment and Plan: secondary to UTI PT OT evaluate and treat ?Rehab placement (4) Hypertensive emergency: Code(s): I16.1 - Hypertensive emergency Status: Acute Assessment and Plan: ER evaluation revealed blood pressure 213/98. improving Continue with labetalol 10 mg q.2 hours p.r.n. for SBP greater than 180. 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 HS SSI Plan Full code. SCDs. Saline lock IV. Ambulate with assistance. Accu-Cheks a.c. HS, diabetic diet. DS: Summary Hospital Course Hospital Course: Interval history: 89-year-old female with past medical history [id number]-rhckgclkc diabetes mellitus, hypertension, history of CVA in 2018 who was noted to be increasingly weak and confused at home. f note, she was seen in [place] ER on 12/31 after a fall and was transferred to [facility] for right periorbital edema. Head CT without acute changes, demonstrating chronic white matter changes and mild interval decrease of right intraorbital hematoma. UA consistent with UTI. when trying to talk to patient, patient swats at ROLL TESTER and says stay back not to touch her. When asked what is her name ,she answers that she needs her . 01/21/25 Patient was seen and examined at bedside. She is awake but oriented to her name only. Denies any chest pain, shortness of breath, abd pain, nausea vomiting. WBC 9.6, hemoglobin 11.1, creatinine 0.97. UA concerning for UTI. Continue with Rocephin. Follow culture results Chest xray and CT unremarkable 01/24/25 Patient was seen and examined at bedside. She gradually improved. Today is alert oriented and back to baseline. Denies any chest pain, shortness off breath, nausea vomiting. Urine culture positive for E coli. Discharge patient to home with home health Status at Discharge Overall status at discharge: patient is back to baseline Time Spent with Patient Time attestation: Total time spent providing and/or coordinating discharge services: Exam Narrative: Const: General: comfortab le and no acute di stress Other: A &O x3 HENMT: Mouth: Yes moist m ucous membranes Eyes: Pupils: Equal, rou nd and reactive pu pils present Neck: Neck: supple Resp: Effort & Inspectio n: normal respirat ory effort Auscul tation: clear to a uscultation bilate rally Cardio: Rate: regular rate Rhythm: regular rhythm GI: GI Palp: Yes Soft to palpation and N o Tenderness to pa lpation present (G I) : General: Yes bladd er normal to palpa tion Urinary Catheter: Urinary Catheter: urine cloudy Extrem: General: edema (+1 pitting edema sylvia ateral lower extre mities below the k nees) Const: General: comfortable and no acute distress Other: A&O x1 HENMT: Mouth: Yes moist mucous membranes Eyes: Pupils: Equal, round and reactive pupils present Neck: Neck: supple Resp: Effort & Inspection: normal respiratory effort Auscultation: clear to auscultation bilaterally Cardio: Rate: regular rate Rhythm: regular rhythm : General: Yes bladder normal to palpation Bimanual exam- vagina & uterus: bladder normal to palpation Urinary Catheter: Urinary Catheter: urine cloudy Neuro: Cranial nerves: Yes Equal, round and reactive pupils present Extrem: General: edema (+1 pitting edema bilateral lower extremities below the knees) DS: Data Data Completed and Pending Labs on day of discharge: Labs from last 24 hours 01/24/25 01/24/25 01/23/25 07:55 05:55 20:19 WBC 9.1 RBC 3.85 L Hgb 11.6 L Hct 37.3 MCV 96.9 MCH 30.1 MCHC 31.1 L RDW 14.0 Plt Count 397 H MPV 9.9 Sodium 140 Potassium 4.2 Chloride 103 Carbon Dioxide 25 Anion Gap 12 BUN 26 H Creatinine 1.07 H Estim Creat Clear Calc Not Reportable Estimated GFR 48 L Glucose 207 H POC Capillary Glucose 207 H 275 H Calcium 9.1 01/23/25 01/23/25 16:22 11:15 WBC RBC Hgb Hct MCV MCH MCHC RDW Plt Count MPV Sodium Potassium Chloride Carbon Dioxide Anion Gap BUN Creatinine Estim Creat Clear Calc Estimated GFR Glucose POC Capillary Glucose 178 H 210 H Calcium Preliminary micro results at discharge 01/19/25 13:54 Urine Culture - Preliminary Urine Catheterized Escherichia Coli Discharge Plan Discharge Discharging Clinician: Tianna Seymour Patient Disposition: Home with Home Health Service Activity: as tolerated Diet: heart healthy Discharge Instructions: Per Care Coordination: [facility] will contact you prior to their first visit. [facility] will follow for RN and PT/OT eval and treat. [facility] can be contacted at [phone]. Nursing please fax discharge paperwork to [phone]. Follow with PCP in 1 week Check your blood pressure and heart rate regularly and report to PCP Patient Instructions: Antibiotic Form Patient Language: Romanian Stand Alone Forms: General Discharge Information Follow-up/Referrals: Yaritza,MD Jimmy [Primary Care Provider] - 1 Week Discharge Medications: New amlodipine 10 mg Tablet 10 mg PO DAILY Qty: 30 0RF cefdinir 300 mg capsule 300 mg PO Q12H Qty: 6 0RF Continued metformin 500 mg tablet extended release 24 hr 500 mg PO QPM pantoprazole 40 mg tablet,delayed release (DR/EC) 40 mg PO DAILY Ozempic 0.25 mg or 0.5 mg (2 mg/3 mL) pen injector 0.25 mg SUBCUT WEEKLY Xultophy 100/3.6 100 unit-3.6 mg /mL (3 mL) insulin pen 44 unit SUBCUT QAM Date of admission: 01/20/25 10:57 Primary Care Provider: NedJimmy Admitting Provider: Tianna Seymour Attending physician on admission: Tamica Medellin Condition: Stable Quality VTE Prophylaxis VTE prophylaxis: mechanical ordered
--- NOTE | 2025-01-24 10:47 | P.PNIM_ITS ---
Progress Note: A&P Assessment and Plan (1) Acute UTI: Code(s): N39.0 - Urinary tract infection, site not specified Status: Acute Assessment and Plan: UA concerning for UTI Continue ceftriaxone 2 g Q 24 hours. Urine positive for E coli. sensitivities pending (2) AMS (altered mental status): Code(s): R41.82 - Altered mental status, unspecified Status: Acute Assessment and Plan: Secondary to UTI UA positive for ECOLI previously pansensitive home meds reviewed no concerns there head CT with no acute process chest x-ray with no acute process no leukocytosis electrolytes within range (3) Generalized weakness: Code(s): R53.1 - Weakness Status: Acute Assessment and Plan: secondary to UTI PT OT evaluate and treat Rehab placement (4) Hypertensive emergency: Code(s): I16.1 - Hypertensive emergency Status: Acute Assessment and Plan: ER evaluation revealed blood pressure 213/98. improving Continue with labetalol 10 mg q.2 hours p.r.n. for SBP greater than 180. 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 HS SSI Plan Full code. SCDs. Saline lock IV. Ambulate with assistance. Accu-Cheks a.c. HS, diabetic diet. Subjective Date/time seen: 01/24/25 10:47 Interval history: 89-year-old female with past medical history kcr-rrzanje-zllamldep diabetes mellitus, hypertension, history of CVA in 2018 who was noted to be increasingly weak and confused at home. f note, she was seen in [place] ER on 12/31 after a fall and was transferred to [facility] for right periorbital edema. Head CT without acute changes, demonstrating chronic white matter changes and mild interval decrease of right intraorbital hematoma. UA consistent with UTI. when trying to talk to patient, patient swats at NATIONAL ACCOUNT DIRECTOR and says stay back not to touch her. When asked what is her name ,she answers that she needs her . 01/21/25 Patient was seen and examined at bedside. She is awake but oriented to her name only. Denies any chest pain, shortness of breath, abd pain, nausea vomiting. WBC 9.6, hemoglobin 11.1, creatinine 0.97. UA concerning for UTI. Continue with Rocephin. Follow culture results Chest xray and CT unremarkable 01/22/25 Patient was seen and examined at bedside. She is more awake oriented. Oriented to her name time and place. Denies any chest pain, shortness a breath no abdominal pain, nausea vomiting. Urine positive for E coli. Will follow final urine culture result. Continue Rocephin. Leukocytosis improving 01/23/25 Patient is more alert oriented. Almost back to baseline. Urine culture positive for E coli pending sensitivities. WBC 8.4. Patient denies any chest pain, shortness of breath, abd pain, N/V 01/24/25 Patient was seen and examined at bedside. She gradually improved. Today is alert oriented and back to baseline. Denies any chest pain, shortness off breath, nausea vomiting. Urine culture positive for E coli. Patient and her family decided SNF. 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 Review of Systems Review of Systems: All systems reviewed & are unremarkable except as noted in HPI and below (HPI) ROS unobtainable: Yes unobtainable due to mental status Exam Narrative: Const: General: comfortab le and no acute di stress Other: A &O x3 HENMT: Mouth: Yes moist m ucous membranes Eyes: Pupils: Equal, rou nd and reactive pu pils present Neck: Neck: supple Resp: Effort & Inspectio n: normal respirat ory effort Auscul tation: clear to a uscultation bilate rally Cardio: Rate: regular rate Rhythm: regular rhythm GI: GI Palp: Yes Soft to palpation and N o Tenderness to pa lpation present (G I) : General: Yes bladd er normal to palpa tion Urinary Catheter: Urinary Catheter: urine cloudy Extrem: General: edema (+1 pitting edema sylvia ateral lower extre mities below the k nees) Const: General: comfortable and no acute distress Other: A&O x1 HENMT: Mouth: Yes moist mucous membranes Eyes: Pupils: Equal, round and reactive pupils present Neck: Neck: supple Resp: Effort & Inspection: normal respiratory effort Auscultation: clear to auscultation bilaterally Cardio: Rate: regular rate Rhythm: regular rhythm : General: Yes bladder normal to palpation Bimanual exam- vagina & uterus: bladder normal to palpation Urinary Catheter: Urinary Catheter: urine cloudy Neuro: Cranial nerves: Yes Equal, round and reactive pupils present Extrem: General: edema (+1 pitting edema bilateral lower extremities below the knees) Objective Data Vital Signs Vital Signs: Vital Signs - 24 hr 01/23/25 14:00 01/23/25 20:00 01/23/25 20:52 Temperature 98.0 F 97.6 F Pulse Rate 81 87 Respiratory Rate 18 18 Blood Pressure 179/78 H 184/81 H Pulse Oximetry 99 97 Oxygen Delivery Room Air 01/23/25 20:54 01/24/25 05:49 01/24/25 08:00 Temperature 97 F L Pulse Rate 84 Respiratory Rate 16 Blood Pressure 151/77 H 176/79 H Pulse Oximetry 99 Oxygen Delivery Room Air Intake/Output Intake/Output: Intake & Output 01/21/25 01/22/25 01/23/25 01/24/25 23:59 23:59 23:59 23:59 Intake Total 1080 963.3 1190 0 Balance 1080 963.3 1190 0 Meds/Results Medications: Active Medications Generic Name Dose Route Start Last Admin Trade Name Freq PRN Reason Stop Dose Admin Acetaminophen 650 mg 01/19/25 15:50 Acetaminophen 325 Mg Tablet PO Q4H PRN Mild Pain (1-3) or Fever Amlodipine Besylate 10 mg 01/19/25 20:40 01/24/25 08:21 Amlodipine Besylate 10 Mg Tablet PO 10 mg DAILY ANIVAL Administration Dextrose 12.5 gm 01/19/25 20:37 01/20/25 05:10 Dextrose 50% 25 Gm/50 Ml Syringe IV PUSH 12.5 gm PRN PRN Administration Hypoglycemia Protocol Glucagon 1 mg 01/19/25 20:37 Glucagon For Inj 1 Mg Vial IM PRN PRN Hypoglycemia Protocol Glucose 15 gm 01/19/25 20:37 Glucose Oral Gel 15 Gm Of Glucse In 37.5 Gm Tube PO PRN PRN Hypoglycemia Protocol Ceftriaxone Sodium 1 gm in 50 mls @ 100 mls/hr 01/20/25 14:00 01/23/25 14:45 Rocephin 1 Gm/Ns 50 Ml IVPB 100 mls/hr Q24H ANIVAL Administration Dextrose 1,000 mls @ 100 mls/hr 01/19/25 20:37 Dextrose 5% 1,000 Ml IVPB PRN PRN Hypoglycemia Protocol Insulin Aspart 2 - 5 units 01/20/25 08:00 01/24/25 08:21 Insulin Aspart (*Bkc) 100 Units/Ml SUB-Q 2 units TIDWM ANIVAL Administration Protocol Insulin Aspart 1 - 2 units 01/19/25 21:00 01/23/25 20:52 Insulin Aspart (*Bkc) 100 Units/Ml SUB-Q 1 units HS ANIVAL Administration Protocol Labetalol HCl 10 mg 01/19/25 20:39 Labetalol Hcl Inj 100 Mg/20 Ml Vial IV PUSH Q2H PRN hypertension * Home Med * 0.25 mg 01/20/25 11:45 01/20/25 12:10 Semaglutide [Ozempic SUB-Q 02/19/25 11:44 0.25 mg ] 0.25 Mg Or 0.5 Mg We@0900 ANIVAL Administration (2 Mg/3 Ml) Pen Injector Ondansetron HCl 4 mg 01/21/25 15:24 01/21/25 15:30 Ondansetron Inj 4 Mg/2 Ml Vial IV PUSH 4 mg Q6H PRN Administration Nausea And Vomiting Pantoprazole Sodium 40 mg 01/20/25 09:00 01/24/25 08:21 Pantoprazole 40 Mg Tablet PO 40 mg DAILY ANIVAL Administration Radiology Results: ITS Impressions Head CT 01/19/25 15:03 Impression: No intracranial hemorrhage, mass, or acute infarct. Atrophy and chronic white matter changes, as above. Mild interval decrease of right intraorbital hematoma. Chest X-Ray 01/19/25 15:20 IMPRESSION: 1. No acute cardiopulmonary disease. Labs Labs: Laboratory Results - last 24 hr 01/23/25 01/23/25 01/23/25 11:15 16:22 20:19 WBC RBC Hgb Hct MCV MCH MCHC RDW Plt Count MPV Sodium Potassium Chloride Carbon Dioxide Anion Gap BUN Creatinine Estim Creat Clear Calc Estimated GFR Glucose POC Capillary Glucose 210 H 178 H 275 H Calcium 01/24/25 01/24/25 05:55 07:55 WBC 9.1 RBC 3.85 L Hgb 11.6 L Hct 37.3 MCV 96.9 MCH 30.1 MCHC 31.1 L RDW 14.0 Plt Count 397 H MPV 9.9 Sodium 140 Potassium 4.2 Chloride 103 Carbon Dioxide 25 Anion Gap 12 BUN 26 H Creatinine 1.07 H Estim Creat Clear Calc Not Reportable Estimated GFR 48 L Glucose 207 H POC Capillary Glucose 207 H Calcium 9.1 Quality VTE Prophylaxis VTE prophylaxis: mechanical ordered
--- NOTE | 2025-01-24 10:58 | WPDCDIQUERY2 ---
CDI Query Clarification Request Altered mental status has been documented in progress notes. Please clarify the acuity of alteration in mental status: ? -Acute ? -Chronic ? -Acute and chronic ? -Unable to determine ? -Other, please specify Please clarify the underlying possible/probable/suspected cause for the altered mental status in the progress notes: ?- Encephalopathy (metabolic, COVID, hepatic, hypoxic, uremic, Wernicke, other) ? -Neurologic condition (CVA/TIA/NPH/seizure) ? -Electrolyte/metabolic imbalance/dehydration ? -Infectious process (i.e. meningitis/encephalitis) ? -Psychiatric condition ? -Respiratory condition ? -Dementia ? -Other, please specify ? -Unknown/unable to determine (2) AMS (altered mental status): Code(s): R41.82 - Altered mental status, unspecified Status: Acute Assessment and Plan: Secondary to UTI UA positive for ECOLI previously pansensitive home meds reviewed no concerns there head CT with no acute process chest x-ray with no acute process no leukocytosis electrolytes within range <Debbie Peterson RN - Last Filed: 01/24/25 11:01> Provider Comments Acute metabolic encephalopathy <Tianna Seymour MD - Last Filed: 01/24/25 16:28>
[2025-01-24 12:00] LABS: Glucose Point of Care 195 mg/dl (65-105)
[2025-01-24] MEDS: AMOXICILLIN/CLAVULANATE K 500-125 MG TAB 1 TABLET PO ×2 (13:22→21:07)
[2025-01-24 14:00] VITALS: BP 174/68; PULSE 88; RESP 18; TEMP 36.1; O2SAT 97
[2025-01-24 17:05] LABS: Glucose Point of Care 217 mg/dl (65-105)
[2025-01-24 20:59] LABS: Glucose Point of Care 217 mg/dl (65-105)
[2025-01-24 22:00] VITALS: BP 155/78; PULSE 84; RESP 16; TEMP 36.6; O2SAT 98
[2025-01-25 06:00] VITALS: BP 151/76; PULSE 82; RESP 16; TEMP 36.7; O2SAT 98
[2025-01-25 07:46] LABS: Glucose Point of Care 204 mg/dl (65-105)
[2025-01-25] MEDS: AMOXICILLIN/CLAVULANATE K 500-125 MG TAB 1 TABLET PO ×2 (09:24→20:02)
[2025-01-25] MEDS: amLODIPine BESYLATE 10 MG TABLET PO (09:24)
[2025-01-25] MEDS: INSULIN ASPART (*BKC) 100 UNITS/ML SUB-Q ×4 (09:24→20:05)
[2025-01-25] MEDS: PANTOPRAZOLE 40 MG TABLET PO (09:24)
[2025-01-25 12:00] LABS: Glucose Point of Care 256 mg/dl (65-105)
[2025-01-25 14:00] VITALS: BP 177/93; PULSE 83; RESP 16; TEMP 36.3; O2SAT 99
--- NOTE | 2025-01-25 14:05 | P.PNIM_ITS ---
Progress Note: A&P Assessment and Plan (1) Acute UTI: Code(s): N39.0 - Urinary tract infection, site not specified Status: Acute Assessment and Plan: UA concerning for UTI received Rocephin. on Augmentin since yesterday Urine positive for E coli and aerococus. sensitivities to augmentin (2) AMS (altered mental status): Code(s): R41.82 - Altered mental status, unspecified Status: Acute Assessment and Plan: Secondary to UTI Urine positive for E coli and aerococus. sensitivities to augmentin home meds reviewed no concerns there head CT with no acute process chest x-ray with no acute process no leukocytosis electrolytes within range (3) Generalized weakness: Code(s): R53.1 - Weakness Status: Acute Assessment and Plan: secondary to UTI PT OT evaluate and treat Rehab placement (4) Hypertensive emergency: Code(s): I16.1 - Hypertensive emergency Status: Acute Assessment and Plan: ER evaluation revealed blood pressure 213/98. improving Continue with labetalol 10 mg q.2 hours p.r.n. for SBP greater than 180. amlodipine 10 mg q.day will add coreg (5) Type 2 diabetes mellitus with hyperglycemia, with long-term current use of insulin: Code(s): E11.65 - Type 2 diabetes mellitus with hyperglycemia; Z79.4 - [facility] (current) use of insulin Status: Acute Assessment and Plan: hold home metformin while in hospital laura brought in from home and given on 01/20 diabetic diet Accu-Cheks a.c. HS SSI Plan Full code. SCDs. Saline lock IV. Ambulate with assistance. Accu-Cheks a.c. HS, diabetic diet. Subjective Date/time seen: 01/25/25 14:05 Interval history: 89-year-old female with past medical history [id number] diabetes mellitus, hypertension, history of CVA in 2018 who was noted to be increasingly weak and confused at home. f note, she was seen in [place] ER on 12/31 after a fall and was transferred to [facility] for right periorbital edema. Head CT without acute changes, demonstrating chronic white matter changes and mild interval decrease of right intraorbital hematoma. UA consistent with UTI. when trying to talk to patient, patient swats at [employer] and says stay back not to touch her. When asked what is her name ,she answers that she needs her . 01/21/25 Patient was seen and examined at bedside. She is awake but oriented to her name only. Denies any chest pain, shortness of breath, abd pain, nausea vomiting. WBC 9.6, hemoglobin 11.1, creatinine 0.97. UA concerning for UTI. Continue with Rocephin. Follow culture results Chest xray and CT unremarkable 01/22/25 Patient was seen and examined at bedside. She is more awake oriented. Oriented to her name time and place. Denies any chest pain, shortness a breath no abdominal pain, nausea vomiting. Urine positive for E coli. Will follow final urine culture result. Continue Rocephin. Leukocytosis improving 01/23/25 Patient is more alert oriented. Almost back to baseline. Urine culture positive for E coli pending sensitivities. WBC 8.4. Patient denies any chest pain, shortness of breath, abd pain, N/V 01/24/25 Patient was seen and examined at bedside. She gradually improved. Today is alert oriented and back to baseline. Denies any chest pain, shortness off breath, nausea vomiting. Urine culture positive for E coli. on Augmentin. Patient and her family decided SNF. 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 01/25/25 Patient was seen and examined at bedside.. Denies any chest pain, shortness off breath, abdominal pain, nausea vomiting. Blood pressure running high. Will add coreg. continue amlodipin Review of Systems Review of Systems: All systems reviewed & are unremarkable except as noted in HPI and below (HPI) ROS unobtainable: Yes unobtainable due to mental status Exam Narrative: Const: General: comfortab le and no acute di stress Other: A &O x3 HENMT: Mouth: Yes moist m ucous membranes Eyes: Pupils: Equal, rou nd and reactive pu pils present Neck: Neck: supple Resp: Effort & Inspectio n: normal respirat ory effort Auscul tation: clear to a uscultation bilate rally Cardio: Rate: regular rate Rhythm: regular rhythm GI: GI Palp: Yes Soft to palpation and N o Tenderness to pa lpation present (G I) : General: Yes bladd er normal to palpa tion Urinary Catheter: Urinary Catheter: urine cloudy Extrem: General: edema (+1 pitting edema sylvia ateral lower extre mities below the k nees) Const: General: comfortable and no acute distress Other: A&O x1 HENMT: Mouth: Yes moist mucous membranes Eyes: Pupils: Equal, round and reactive pupils present Neck: Neck: supple Resp: Effort & Inspection: normal respiratory effort Auscultation: clear to auscultation bilaterally Cardio: Rate: regular rate Rhythm: regular rhythm : General: Yes bladder normal to palpation Bimanual exam- vagina & uterus: bladder normal to palpation Urinary Catheter: Urinary Catheter: urine cloudy Neuro: Cranial nerves: Yes Equal, round and reactive pupils present Extrem: General: edema (+1 pitting edema bilateral lower extremities below the knees) Objective Data Vital Signs Vital Signs: Vital Signs - 24 hr 01/24/25 22:00 01/25/25 06:00 01/25/25 08:00 Temperature 97.8 F 98.1 F Pulse Rate 84 82 Respiratory Rate 16 16 Blood Pressure 155/78 H 151/76 H Pulse Oximetry 98 98 Oxygen Delivery Room Air Intake/Output Intake/Output: Intake & Output 01/22/25 01/23/25 01/24/25 01/25/25 23:59 23:59 23:59 23:59 Intake Total 963.3 1190 850 710 Balance 963.3 1190 850 710 Meds/Results Medications: Active Medications Generic Name Dose Route Start Last Admin Trade Name Freq PRN Reason Stop Dose Admin Acetaminophen 650 mg 01/19/25 15:50 Acetaminophen 325 Mg Tablet PO Q4H PRN Mild Pain (1-3) or Fever Amlodipine Besylate 10 mg 01/19/25 20:40 01/25/25 09:24 Amlodipine Besylate 10 Mg Tablet PO 10 mg DAILY ANIVAL Administration Amoxicillin/Clavulanate Potassium 1 tablet 01/24/25 13:15 01/25/25 09:24 Amoxicillin/Clavulanate K 500-125 Mg Tab PO 01/25/25 21:01 1 tablet Q12HR ANIVAL Administration Dextrose 12.5 gm 01/19/25 20:37 01/20/25 05:10 Dextrose 50% 25 Gm/50 Ml Syringe IV PUSH 12.5 gm PRN PRN Administration Hypoglycemia Protocol Glucagon 1 mg 01/19/25 20:37 Glucagon For Inj 1 Mg Vial IM PRN PRN Hypoglycemia Protocol Glucose 15 gm 01/19/25 20:37 Glucose Oral Gel 15 Gm Of Glucse In 37.5 Gm Tube PO PRN PRN Hypoglycemia Protocol Dextrose 1,000 mls @ 100 mls/hr 01/19/25 20:37 Dextrose 5% 1,000 Ml IVPB PRN PRN Hypoglycemia Protocol Insulin Aspart 2 - 5 units 01/20/25 08:00 01/25/25 12:21 Insulin Aspart (*Bkc) 100 Units/Ml SUB-Q 3 units TIDWM ANIVAL Administration Protocol Insulin Aspart 1 - 2 units 01/19/25 21:00 01/24/25 21:07 Insulin Aspart (*Bkc) 100 Units/Ml SUB-Q 1 units HS ANIVAL Administration Protocol Labetalol HCl 10 mg 01/19/25 20:39 Labetalol Hcl Inj 100 Mg/20 Ml Vial IV PUSH Q2H PRN hypertension * Home Med * 0.25 mg 01/20/25 11:45 01/20/25 12:10 Semaglutide [Ozempic SUB-Q 02/19/25 11:44 0.25 mg ] 0.25 Mg Or 0.5 Mg We@0900 ANIVAL Administration (2 Mg/3 Ml) Pen Injector Ondansetron HCl 4 mg 01/21/25 15:24 01/21/25 15:30 Ondansetron Inj 4 Mg/2 Ml Vial IV PUSH 4 mg Q6H PRN Administration Nausea And Vomiting Pantoprazole Sodium 40 mg 01/20/25 09:00 01/25/25 09:24 Pantoprazole 40 Mg Tablet PO 40 mg DAILY ANIVAL Administration Radiology Results: ITS Impressions Head CT 01/19/25 15:03 Impression: No intracranial hemorrhage, mass, or acute infarct. Atrophy and chronic white matter changes, as above. Mild interval decrease of right intraorbital hematoma. Chest X-Ray 01/19/25 15:20 IMPRESSION: 1. No acute cardiopulmonary disease. Labs Labs: Laboratory Results - last 24 hr 01/24/25 01/24/25 01/25/25 16:51 20:51 07:43 POC Capillary Glucose 217 H 217 H 204 H 01/25/25 11:41 POC Capillary Glucose 256 H Quality VTE Prophylaxis VTE prophylaxis: mechanical ordered
[2025-01-25 16:29] LABS: Glucose Point of Care 244 mg/dl (65-105)
[2025-01-25 20:02] VITALS: PULSE 80
[2025-01-25] MEDS: carvediloL 6.25 MG TABLET PO (20:02)
[2025-01-25 20:16] VITALS: BP 169/82; PULSE 86; RESP 16; TEMP 36.2; O2SAT 97
[2025-01-25 20:16] LABS: Glucose Point of Care 346 mg/dl (65-105)
[2025-01-26 05:45] VITALS: BP 175/81; PULSE 80; RESP 18; TEMP 36.5; O2SAT 94
[2025-01-26 06:12] LABS: Hematocrit 35.4 % (37.0-47.0); Hemoglobin 11.3 g/dL (12.0-15.0); Mean Corpuscular HGB Conc 31.9 g/dl (32-36); Mean Corpuscular Hemoglobin 30.6 pg (26-34); Mean Corpuscular Volume 95.9 fl (80-100); Platelet Count Result 361 k/mm3 (150-375); Red Blood Count 3.69 M/mm3 (4.2-5.4); Red Cell Distribution Width 14.1 % (11.5-14.5)
[2025-01-26 06:39] LABS: Anion Gap 8 mmol/L (4-12); Blood Urea Nitrogen 32 mg/dL (7-17); Carbon Dioxide 26 mmol/L (22-30); Chloride 105 mmol/L (98-107); Estimated Glomerular Filt Rate 41; Glucose 309 mg/dL (65-110); Sodium 139 mmol/L (137-145)
[2025-01-26 08:15] LABS: Glucose Point of Care 309 mg/dl (65-105)
[2025-01-26] MEDS: INSULIN ASPART (*BKC) 100 UNITS/ML SUB-Q ×4 (09:02→21:10)
[2025-01-26] MEDS: amLODIPine BESYLATE 10 MG TABLET PO (09:02)
[2025-01-26 09:03] VITALS: PULSE 80
[2025-01-26] MEDS: carvediloL 6.25 MG TABLET PO ×2 (09:03→21:09)
[2025-01-26] MEDS: PANTOPRAZOLE 40 MG TABLET PO (09:03)
[2025-01-26] MEDS: INSULIN GLARGINE (*BKC) 100 UNITS/ML 8 UNITS SUB-Q (09:05)
[2025-01-26 12:02] LABS: Glucose Point of Care 284 mg/dl (65-105)
[2025-01-26 14:00] VITALS: BP 157/83; PULSE 75; RESP 16; TEMP 36.1; O2SAT 99
[2025-01-26 17:10] LABS: Glucose Point of Care 309 mg/dl (65-105)
--- NOTE | 2025-01-26 19:11 | P.PNIM_ITS ---
Progress Note: A&P Assessment and Plan (1) Acute UTI: Code(s): N39.0 - Urinary tract infection, site not specified Status: Acute Assessment and Plan: UA concerning for UTI received Rocephin. Urine positive for E coli and aerococus. sensitivities to augmentin Patient changed to Augmentin (2) AMS (altered mental status): Code(s): R41.82 - Altered mental status, unspecified Status: Acute Assessment and Plan: Secondary to UTI Urine culture positive Home meds reviewed no concerns there Head CT with no acute process CXR with no acute process No leukocytosis Electrolytes within range Mental status is much improved. She is more oriented. Continue PT OT. Strongly encourage family to consider [facility] placement. (3) Generalized weakness: Code(s): R53.1 - Weakness Status: Acute Assessment and Plan: Secondary to UTI PT OT evaluate and treat Rehab placement (4) Hypertensive emergency: Code(s): I16.1 - Hypertensive emergency Status: Acute Assessment and Plan: ER evaluation revealed blood pressure 213/98. Patient's blood pressure was reviewed on 01/26 Blood pressure better but still poorly controlled. Coreg just added. Will continue Coreg and Norvasc. Continue with labetalol 10 mg q.2 hours p.r.n. for SBP greater than 180. (5) Type 2 diabetes mellitus with hyperglycemia, with long-term current use of insulin: Code(s): E11.65 - Type 2 diabetes mellitus with hyperglycemia; Z79.4 - nursing home (current) use of insulin Status: Acute Assessment and Plan: The patient's blood glucose was reviewed on 01/26 Glucose remains well controlled. Continue AccuCheks covering with sliding scale. Hypoglycemia protocol available as needed. Add lantus. Hold Ozempic. Continue to monitor Plan Code status - Full code. DVT Prophylaxis - SCDs. Subjective Date/time seen: 01/26/25 19:11 Interval history: 89yo female with DM, HTN, history of CVA in 2018 who was noted to be increasingly weak and confused at home. Of note, she was seen in [place] ER on 12/31 after a fall and was transferred to [facility] for right periorbital edema. Assuming care. Chart reviewed. No chest pain or shortness of breath. No nausea or vomiting. No abdominal pain. Exam Narrative: AF 97.0 157/83 75 16 99% ra Gen - NARD Chest - CTA bilaterally, nml RR CV - RRR S1/S2 Abd - Soft, NT/ND, Positive BS Ext - No pedal edema Neuro - Alert and oriented x4 Psych - Nml mood and affect Skin - Warm and dry. Resolving bruising noted in the right periorbital region Objective Data Vital Signs Vital Signs: Vital Signs - 24 hr 01/25/25 20:02 01/25/25 20:16 01/26/25 05:45 Temperature 97.2 F L 97.7 F Pulse Rate 80 86 80 Respiratory Rate 16 18 Blood Pressure 169/82 H 175/81 H Pulse Oximetry 97 94 Oxygen Delivery 01/26/25 08:00 01/26/25 09:03 01/26/25 14:00 Temperature 97.0 F L Pulse Rate 80 75 Respiratory Rate 16 Blood Pressure 157/83 H Pulse Oximetry 99 Oxygen Delivery Room Air Intake/Output Intake/Output: Intake & Output 01/23/25 01/24/25 01/25/25 01/26/25 23:59 23:59 23:59 23:59 Intake Total 0930 583 3517 237 Balance 8974 085 0952 237 Meds/Results Medications: Active Medications Generic Name Dose Route Start Last Admin Trade Name Freq PRN Reason Stop Dose Admin Acetaminophen 650 mg 01/19/25 15:50 Acetaminophen 325 Mg Tablet PO Q4H PRN Mild Pain (1-3) or Fever Amlodipine Besylate 10 mg 01/19/25 20:40 01/26/25 09:02 Amlodipine Besylate 10 Mg Tablet PO 10 mg DAILY ANIVAL Administration Carvedilol 6.25 mg 01/25/25 21:00 01/26/25 09:03 Carvedilol 6.25 Mg Tablet PO 6.25 mg Q12HR ANIVAL Administration Dextrose 12.5 gm 01/19/25 20:37 01/20/25 05:10 Dextrose 50% 25 Gm/50 Ml Syringe IV PUSH 12.5 gm PRN PRN Administration Hypoglycemia Protocol Glucagon 1 mg 01/19/25 20:37 Glucagon For Inj 1 Mg Vial IM PRN PRN Hypoglycemia Protocol Glucose 15 gm 01/19/25 20:37 Glucose Oral Gel 15 Gm Of Glucse In 37.5 Gm Tube PO PRN PRN Hypoglycemia Protocol Dextrose 1,000 mls @ 100 mls/hr 01/19/25 20:37 Dextrose 5% 1,000 Ml IVPB PRN PRN Hypoglycemia Protocol Insulin Aspart 2 - 5 units 01/20/25 08:00 01/26/25 18:15 Insulin Aspart (*Bkc) 100 Units/Ml SUB-Q 4 units TIDWM ANIVAL Administration Protocol Insulin Aspart 1 - 2 units 01/19/25 21:00 01/25/25 20:05 Insulin Aspart (*Bkc) 100 Units/Ml SUB-Q 2 units HS ANIVAL Administration Protocol Insulin Glargine 8 units 01/26/25 09:00 01/26/25 09:05 Insulin Glargine (*Bkc) 100 Units/Ml SUB-Q 8 units QAM ANIVAL Administration Labetalol HCl 10 mg 01/19/25 20:39 Labetalol Hcl Inj 100 Mg/20 Ml Vial IV PUSH Q2H PRN hypertension * Home Med * 0.25 mg 01/20/25 11:45 01/20/25 12:10 Semaglutide [Ozempic SUB-Q 02/19/25 11:44 0.25 mg ] 0.25 Mg Or 0.5 Mg We@0900 ANIVAL Administration (2 Mg/3 Ml) Pen Injector Ondansetron HCl 4 mg 01/21/25 15:24 01/21/25 15:30 Ondansetron Inj 4 Mg/2 Ml Vial IV PUSH 4 mg Q6H PRN Administration Nausea And Vomiting Pantoprazole Sodium 40 mg 01/20/25 09:00 01/26/25 09:03 Pantoprazole 40 Mg Tablet PO 40 mg DAILY ANIVAL Administration Radiology Results: ITS Impressions Head CT 01/19/25 15:03 Impression: No intracranial hemorrhage, mass, or acute infarct. Atrophy and chronic white matter changes, as above. Mild interval decrease of right intraorbital hematoma. Chest X-Ray 01/19/25 15:20 IMPRESSION: 1. No acute cardiopulmonary disease. Labs Labs: Laboratory Results - last 24 hr 01/25/25 01/26/25 01/26/25 19:41 05:55 07:54 WBC 8.0 RBC 3.69 L Hgb 11.3 L Hct 35.4 L MCV 95.9 MCH 30.6 MCHC 31.9 L RDW 14.1 Plt Count 361 MPV 10.0 Sodium 139 Potassium 4.0 Chloride 105 Carbon Dioxide 26 Anion Gap 8 BUN 32 H Creatinine 1.24 H Estim Creat Clear Calc Not Reportable Estimated GFR 41 L Glucose 309 H POC Capillary Glucose 346 H 309 H Calcium 9.0 01/26/25 01/26/25 11:46 17:04 WBC RBC Hgb Hct MCV MCH MCHC RDW Plt Count MPV Sodium Potassium Chloride Carbon Dioxide Anion Gap BUN Creatinine Estim Creat Clear Calc Estimated GFR Glucose POC Capillary Glucose 284 H 309 H Calcium
[2025-01-26 21:09] VITALS: PULSE 71
[2025-01-26 21:10] LABS: Glucose Point of Care 283 mg/dl (65-105)
[2025-01-26 21:27] VITALS: BP 163/70; PULSE 70; RESP 16; TEMP 37.1; O2SAT 96
[2025-01-27] VITALS (7 sets, daily range): BP systolic 152–182; BP diastolic 65–85; PULSE 72–86; RESP 14–18; TEMP 36.6–36.9; O2SAT 91–97
[2025-01-27 06:30] LABS: Anion Gap 11 mmol/L (4-12); Blood Urea Nitrogen 32 mg/dL (7-17); Calcium 8.8 mg/dL (8.4-10.2); Carbon Dioxide 23 mmol/L (22-30); Chloride 104 mmol/L (98-107); Estimated Glomerular Filt Rate 43; Glucose 271 mg/dL (65-110); Sodium 138 mmol/L (137-145)
[2025-01-27 08:30] LABS: Glucose Point of Care 295 mg/dl (65-105)
--- NOTE | 2025-01-27 09:40 | PCNWS ---
Weekly nutritional screen. Patient is tolerating current Diabetic consistent carb diet with adequate intake, 50-100%. No weight loss reported. No nutritional needs at this time.
[2025-01-27] MEDS: INSULIN GLARGINE (*BKC) 100 UNITS/ML 12 UNITS SUB-Q (09:43)
[2025-01-27] MEDS: INSULIN ASPART (*BKC) 100 UNITS/ML SUB-Q ×3 (09:44→20:23)
[2025-01-27] MEDS: carvediloL 6.25 MG TABLET PO ×2 (09:45→20:22)
[2025-01-27] MEDS: PANTOPRAZOLE 40 MG TABLET PO (09:45)
[2025-01-27] MEDS: amLODIPine BESYLATE 10 MG TABLET PO (09:46)
[2025-01-27 11:47] LABS: Glucose Point of Care 349 mg/dl (65-105)
[2025-01-27 16:55] LABS: Glucose Point of Care 175 mg/dl (65-105)
--- NOTE | 2025-01-27 17:40 | PM.IMPN ---
Progress Note: A&P Assessment and Plan (1) Acute UTI: Code(s): N39.0 - Urinary tract infection, site not specified Status: Acute Assessment and Plan: UA concerning for UTI received Rocephin. Urine positive for E coli and aerococus. sensitivities to augmentin Patient changed to Augmentin and completed a course (2) AMS (altered mental status): Code(s): R41.82 - Altered mental status, unspecified Status: Acute Assessment and Plan: Secondary to UTI Urine culture positive Home meds reviewed no concerns there Head CT with no acute process CXR with no acute process No leukocytosis Electrolytes within range Mental status is much improved. She is more oriented. Continue PT OT. Waiting for jail placement. (3) Generalized weakness: Code(s): R53.1 - Weakness Status: Acute Assessment and Plan: Secondary to UTI PT OT evaluate and treat Rehab placement (4) Hypertensive emergency: Code(s): I16.1 - Hypertensive emergency Status: Acute Assessment and Plan: ER evaluation revealed blood pressure 213/98. Patient's blood pressure was reviewed on 01/27 Blood pressure better but still poorly controlled. Coreg just added. Will continue Coreg and Norvasc. Continue with labetalol 10 mg q.2 hours p.r.n. for SBP greater than 180. (5) Type 2 diabetes mellitus with hyperglycemia, with long-term current use of insulin: Code(s): E11.65 - Type 2 diabetes mellitus with hyperglycemia; Z79.4 - [facility] (current) use of insulin Status: Acute Assessment and Plan: The patient's blood glucose was reviewed on 01/27 Glucose better controlled. Continue AccuCheks covering with sliding scale. Hypoglycemia protocol available as needed. Continue lantus. Hold Ozempic. Continue to monitor Plan Code status - Full code. DVT Prophylaxis - SCDs. Subjective Date/time seen: 01/27/25 17:40 Interval history: 89yo female with DM, HTN, history of CVA in 2018 who was noted to be increasingly weak and confused at home. Of note, she was seen in [place] ER on 12/31 after a fall and was transferred to [facility] for right periorbital edema. No problems overnight0. Eating well. No nausea or vomiting. No chest pain or shortness of breath. Exam Narrative: AF 97.8 152/65 72 14 97% ra Gen - NARD Chest -lungs clear anteriorly. CV - RRR S1/S2 Abd - Soft, NT/ND, Positive BS Ext - No pedal edema Neuro - Alert and appropriate Psych - Nml mood and affect Skin - Warm and dry. Resolving bruising noted in the right periorbital region Objective Data Vital Signs Vital Signs: Vital Signs - 24 hr 01/26/25 21:09 01/26/25 21:27 01/27/25 05:01 Temperature 98.8 F 98 F Pulse Rate 71 70 85 Respiratory Rate 16 17 Blood Pressure 163/70 H 182/85 H Pulse Oximetry 96 92 Oxygen Delivery 01/27/25 06:38 01/27/25 08:00 01/27/25 09:45 Temperature Pulse Rate 86 Respiratory Rate Blood Pressure 174/80 H Pulse Oximetry 92 Oxygen Delivery Room Air 01/27/25 13:54 Temperature 97.8 F Pulse Rate 72 Respiratory Rate 14 Blood Pressure 152/65 H Pulse Oximetry 97 Oxygen Delivery Intake/Output Intake/Output: Intake & Output 01/24/25 01/25/25 01/26/25 01/27/25 23:59 23:59 23:59 23:59 Intake Total 850 1500 237 455 Balance 850 1500 237 455 Meds/Results Medications: Active Medications Generic Name Dose Route Start Last Admin Trade Name Freq PRN Reason Stop Dose Admin Acetaminophen 650 mg 01/19/25 15:50 Acetaminophen 325 Mg Tablet PO Q4H PRN Mild Pain (1-3) or Fever Amlodipine Besylate 10 mg 01/19/25 20:40 01/27/25 09:46 Amlodipine Besylate 10 Mg Tablet PO 10 mg DAILY ANIVAL Administration Carvedilol 6.25 mg 01/25/25 21:00 01/27/25 09:45 Carvedilol 6.25 Mg Tablet PO 6.25 mg Q12HR ANIVAL Administration Dextrose 12.5 gm 01/19/25 20:37 01/20/25 05:10 Dextrose 50% 25 Gm/50 Ml Syringe IV PUSH 12.5 gm PRN PRN Administration Hypoglycemia Protocol Glucagon 1 mg 01/19/25 20:37 Glucagon For Inj 1 Mg Vial IM PRN PRN Hypoglycemia Protocol Glucose 15 gm 01/19/25 20:37 Glucose Oral Gel 15 Gm Of Glucse In 37.5 Gm Tube PO PRN PRN Hypoglycemia Protocol Dextrose 1,000 mls @ 100 mls/hr 01/19/25 20:37 Dextrose 5% 1,000 Ml IVPB PRN PRN Hypoglycemia Protocol Insulin Aspart 1 - 2 units 01/19/25 21:00 01/26/25 21:10 Insulin Aspart (*Bkc) 100 Units/Ml SUB-Q 1 units HS ANIVAL Administration Protocol Insulin Aspart 3 - 6 units 01/27/25 12:00 01/27/25 17:37 Insulin Aspart (*Bkc) 100 Units/Ml SUB-Q Not Given TIDWM ANIVAL Protocol Insulin Glargine 12 units 01/27/25 09:00 01/27/25 09:43 Insulin Glargine (*Bkc) 100 Units/Ml SUB-Q 12 units QAM ANIVAL Administration Labetalol HCl 10 mg 01/19/25 20:39 Labetalol Hcl Inj 100 Mg/20 Ml Vial IV PUSH Q2H PRN hypertension * Home Med * 0.25 mg 01/20/25 11:45 01/20/25 12:10 Semaglutide [Ozempic SUB-Q 02/19/25 11:44 0.25 mg ] 0.25 Mg Or 0.5 Mg We@0900 ANIVAL Administration (2 Mg/3 Ml) Pen Injector Ondansetron HCl 4 mg 01/21/25 15:24 01/21/25 15:30 Ondansetron Inj 4 Mg/2 Ml Vial IV PUSH 4 mg Q6H PRN Administration Nausea And Vomiting Pantoprazole Sodium 40 mg 01/20/25 09:00 01/27/25 09:45 Pantoprazole 40 Mg Tablet PO 40 mg DAILY ANIVAL Administration Radiology Results: ITS Impressions Head CT 01/19/25 15:03 Impression: No intracranial hemorrhage, mass, or acute infarct. Atrophy and chronic white matter changes, as above. Mild interval decrease of right intraorbital hematoma. Chest X-Ray 01/19/25 15:20 IMPRESSION: 1. No acute cardiopulmonary disease. Labs Labs: Laboratory Results - last 24 hr 01/26/25 01/27/25 01/27/25 20:52 05:47 08:26 Sodium 138 Potassium 4.0 Chloride 104 Carbon Dioxide 23 Anion Gap 11 BUN 32 H Creatinine 1.19 H Estim Creat Clear Calc Not Reportable Estimated GFR 43 L Glucose 271 H POC Capillary Glucose 283 H 295 H Calcium 8.8 01/27/25 01/27/25 11:33 16:52 Sodium Potassium Chloride Carbon Dioxide Anion Gap BUN Creatinine Estim Creat Clear Calc Estimated GFR Glucose POC Capillary Glucose 349 H 175 H Calcium
[2025-01-27 20:30] LABS: Glucose Point of Care 290 mg/dl (65-105)
[2025-01-27 20:30] LABS: Glucose Point of Care 282 mg/dl (65-105)
[2025-01-28 06:00] VITALS: BP 150/75; PULSE 70; RESP 18; TEMP 36.9; O2SAT 92
[2025-01-28 08:26] LABS: Glucose Point of Care 197 mg/dl (65-105)
[2025-01-28 10:02] VITALS: PULSE 112
[2025-01-28] MEDS: INSULIN GLARGINE (*BKC) 100 UNITS/ML 16 UNITS SUB-Q (10:02)
[2025-01-28] MEDS: carvediloL 6.25 MG TABLET PO (10:02)
[2025-01-28] MEDS: PANTOPRAZOLE 40 MG TABLET PO (10:02)
[2025-01-28] MEDS: amLODIPine BESYLATE 10 MG TABLET PO (10:02)
[2025-01-28 12:00] LABS: Glucose Point of Care 273 mg/dl (65-105)
[2025-01-28] MEDS: INSULIN ASPART (*BKC) 100 UNITS/ML SUB-Q ×2 (12:43→17:57)
[2025-01-28 13:42] VITALS: BP 142/59; PULSE 65; RESP 18; TEMP 36.6; O2SAT 99
--- NOTE | 2025-01-28 14:28 | PM.DS ---
DS: Admitting Diagnosis Discharge Date 01/28/25 Admitting Diagnosis Weak and confused DS: Discharge Diagnosis Discharge Diagnosis (1) Acute UTI: Code(s): N39.0 - Urinary tract infection, site not specified Status: Acute (2) AMS (altered mental status): Code(s): R41.82 - Altered mental status, unspecified Status: Acute (3) Generalized weakness: Code(s): R53.1 - Weakness Status: Acute (4) Hypertensive emergency: Code(s): I16.1 - Hypertensive emergency Status: Acute (5) Type 2 diabetes mellitus with hyperglycemia, with long-term current use of insulin: Code(s): E11.65 - Type 2 diabetes mellitus with hyperglycemia; Z79.4 - residential (current) use of insulin Status: Acute DS: Summary Hospital Course Reason for hospitalization: 89yo female with DM, HTN, history of CVA in 2018 who was noted to be increasingly weak and confused at home. Of note, she was seen in [facility] on 12/31 after a fall and was transferred to [facility] for right periorbital edema. Please see H&P for details. Hospital Course: Patient presents with weakness and confusion. UA concerning for UTI. She was started on Rocephin. Urine positive for E coli and aerococus sensitivities to augmentin. Patient changed to Augmentin and completed a course. Patient with altered mental status felt secondary to UTI. Home meds reviewed and no concerns there. Head CT with no acute process. CXR with no acute process. No leukocytosis. Electrolytes within range. Mental status is much improved. She is more oriented. She worked with PT/OT. She was ambulating a few feet but very weak. ER evaluation revealed blood pressure 213/98. Patient's blood pressure was monitored. Norvasc then Coreg added. She overall did well and was able to be placed at a long term facility for further therapy. Status at Discharge Cognitive/behavioral status at discharge: stable Time Spent with Patient Time attestation: Total time spent providing and/or coordinating discharge services: 35 minutes Time spent: Greater than 30 minutes Exam Narrative: AF 98.4 150/75 112 18 92% ra Gen - NARD Chest - minimal right base crackles o/w clear. CV - RRR S1/S2 Abd - Soft, NT/ND, Positive BS Ext - No pedal edema Neuro - Alert and oriented x4 Psych - Nml mood and affect Skin - Warm and dry. Resolving bruising noted in the right periorbital region DS: Data Data Completed and Pending Labs on day of discharge: Labs from last 24 hours 01/28/25 01/28/25 01/27/25 11:45 08:02 20:22 POC Capillary Glucose 273 H 197 H 282 H 01/27/25 01/27/25 20:20 16:52 POC Capillary Glucose 290 H 175 H Discharge Plan Discharge Attending physician on discharge: Parviz De La Vega Discharging Clinician: Parviz De La Vega Anticipated Discharge Date/Time: 01/28/25 14:36 Patient Disposition: SNF Activity: as tolerated Diet: heart healthy and diabetic Discharge Instructions: Please check glucose before meals and before bed. Record for the doctor's review. Check blood pressure 1 to 2 times a day. Record for the doctor's review. Take precautions to avoid falls. Rise slowly from a lying or sitting position. Pause before standing or walking. Check daily morning weights after voiding. Call the doctor if the patient gains more than 3 lb in 2 days or 5 lb in 1 week. Contact the doctor if the patient has any type of trauma, lightheadedness with standing or other worrisome symptoms. Avoid NSAIDs (ibuprofen, naproxen, Aleve). Tylenol is safe to take. Follow-up with the provider at the facility. Thank you for using [facility] for your health care needs. Patient Instructions: Antibiotic Form Patient Language: Somali Stand Alone Forms: General Discharge Information Follow-up/Referrals: Ned,MD Jimmy [Primary Care Provider] - 1 Week Discharge Medications: New amlodipine 10 mg Tablet 10 mg PO DAILY Qty: 30 0RF carvedilol [Coreg] 6.25 mg Tablet 6.25 mg PO Q12HR Qty: 60 0RF Continued metformin 500 mg tablet extended release 24 hr 500 mg PO QPM pantoprazole 40 mg tablet,delayed release (DR/EC) 40 mg PO DAILY Ozempic 0.25 mg or 0.5 mg (2 mg/3 mL) pen injector 0.25 mg SUBCUT WEEKLY Xultophy 100/3.6 100 unit-3.6 mg /mL (3 mL) insulin pen 44 unit SUBCUT QAM Date of admission: 01/20/25 10:57 Primary Care Provider: YaritzaJimmy Admitting Provider: Tianna Seymour Attending physician on admission: Tamica Medellin Condition: Stable Hospitalist MIPS Heart Failure (Exclusion) Patient has history of Heart Transplant or Left Ventricular Assistive Device?: No IF YES, STOP HERE Heart Failure (Qualifier) Patient has current or prior documentation of LVEF less than or equal to 40%, or mod/servere depressed LVSF?: No IF NO, STOP HERE
[2025-01-28 16:11] LABS: SARS-CoV-2 RNA PCR Negative (Negative)
[2025-01-28 17:09] LABS: Glucose Point of Care 263 mg/dl (65-105)
== END 2025-01-28 19:00 | DRG 689 ==
LOC: ANHED 15:41 → ANH3MEDSUR 16:31
PROVIDERS: Emergency Medicine; General Practice; Nurse Practitioner Acute Care; Admitting Provider Internal Medicine; Emergency Provider Physician Assistant; PCP Internal Medicine; Visit Provider Internal Medicine
DX: N39.0 Urinary tract infection, site not specified (principal); G93.41 Metabolic encephalopathy; I16.1 Hypertensive emergency; B96.20 Unspecified Escherichia coli [E. coli] as the cause of diseases classified elsewhere; B96.89 Other specified bacterial agents as the cause of diseases classified elsewhere; E66.9 Obesity, unspecified; E11.65 Type 2 diabetes mellitus with hyperglycemia; Z96.653 Presence of artificial knee joint, bilateral; Z96.1 Presence of intraocular lens; Z11.52 Encounter for screening for COVID-19; Z98.42 Cataract extraction status, left eye; Z98.41 Cataract extraction status, right eye; Z86.73 Personal history of transient ischemic attack (TIA), and cerebral infarction without residual deficits; Z79.4 Long term (current) use of insulin
CPT/HCPCS: 36415; 70450; 71045; 80048; 80053; 81001; 82948; 83735; 85025; 85027; 87086; 87186; 87635; 93005; 96365; 96375; 96376; 97110; 97116; 97161; 97166; 97530; 97535; 99285; A9270; G0378; J0360; J0696; J1815; J2405; J7040

== ENCOUNTER 2025-02-22 10:12 | Observation (INO) | payer MEDICARE, SELFPAY ==
[2025-02-22] VITALS (7 sets, daily range): BP systolic 186–230; BP diastolic 75–100; PULSE 70–88; RESP 16–20; TEMP 36.5–37.1; O2SAT 92–99; BMI 33.6
--- NOTE | ~2025-02-22 | XR_ITS ---
XR chest 1V Ordering provider: Ashish Talamantes III, DO History: 89 years Female with . altered mental status, weakness . Comparison: January 19, 2025 FINDINGS: MEDIASTINUM: The cardiac silhouette is slightly enlarged. LUNGS: No infiltrates, effusions or pneumothorax. OTHER: No free air under the diaphragm. Healing fracture in the right sixth rib. IMPRESSION: No acute cardiopulmonary pathology. Reviewed, dictated and finalized at location A.
--- NOTE | ~2025-02-22 | CT_ITS ---
CT brain wo con Ordering provider: Ashish Talamantes III DO History: 89 years Female with . ams . Comparison: January 19, 2025 Technique: CT of the head without contrast. Radiation reduction technique utilized.The dose-length pr oduct was 681 mGy-cm. FINDINGS: BRAIN PARENCHYMA AND CSF SPACES: Mild leukoaraiosis and diffuse cortical atrophy. Mild atheromatous d isease. No midline shift, mass effect or hemorrhage. The brain parenchyma and CSF spaces are otherwi se normal. VISUALIZED PARANASAL SINUSES: Well aerated. MASTOIDS: Well aerated. BONES: The bones appear intact. SOFT TISSUES: Visualized nasopharynx is normal. Superficial soft tissues are normal. IMPRESSION: No acute intracranial findings. Reviewed, dictated and finalized at location A.
--- NOTE | 2025-02-22 10:20 | ECG_ITS ---
Test Date: 2025-02-22 10:21:27 Measurements Intervals [place] Rate: 76 P: 71 ME: 334 QRS: 5 QRSD: 100 T: 23 QT: 396 QTc: 447 Interpretive Statements SINUS RHYTHM WITH FIRST DEGREE AV BLOCK Compared to ECG 01/19/2025 13:44:33 NO SIGNIFICANT CHANGES Electronically Signed On 02-22-2025 14:33:00 CDT by Gee Astudillo M.D.
--- NOTE | 2025-02-22 10:29 | ED_ITS ---
HPI - Altered Mental Status General Chief Complaint: Altered Mental Status Stated Complaint: altered LOC Time Seen by Provider: 02/22/25 10:23 History of Present Illness HPI narrative: Pt presents with altered mental status today. Pt only responds to questions with I'm sorry No further history available. Related Data Home Medications Medication Instructions Recorded Confirmed Last Taken Type metformin 500 mg tablet,extended 500 mg PO QPM 01/19/25 02/22/25 02/21/25 History release 24 hr semaglutide 0.25 mg or 0.5 mg (2 0.25 mg subcut WEEKLY 01/19/25 02/22/25 02/16/25 History mg/3 mL) subcutaneous pen injector (Ozempic) amlodipine 10 mg tablet 10 mg PO DAILY@0800 02/22/25 02/22/25 02/21/25 History carvedilol 6.25 mg tablet 6.25 mg PO Q12H 02/22/25 02/22/25 02/21/25 History insulin glargine 100 unit/mL (3 20 unit subcut QPM 02/22/25 02/22/25 02/21/25 History mL) subcutaneous pen (Lantus Solostar U-100 Insulin) Allergies Allergy/AdvReac Type Severity Reaction Status Date / Time No Known Allergies Allergy Verified 02/22/25 12:29 Review of Systems 2 Review of Systems: ROS unobtainable: Yes unobtainable due to mental status PMFSH Past Medical History Medical History Type 2 diabetes mellitus Normal echocardiogram (06/2018) EF 65-70%, impaired grade 1 diastolic dysfunction CVA (cerebral vascular accident) (06/2018) Left basal ganglia and posterior limb of the left internal capsule with initial complaint of difficulty walking and right facial numbness Surgical History Surgical History History of tonsillectomy and adenoidectomy Status post cataract extraction of both eyes with insertion of intraocular lens History of total bilateral knee replacement (2005) Family History Family History Mother Diabetes mellitus Cerebrovascular accident Father Diabetes mellitus Heart disease Sibling Diabetes mellitus Multiple myeloma Social History Social History Smoking status: Never smoker Second hand tobacco smoke exposure: No Alcohol intake: never Substance use: never Substance use type: does not use Do You Feel Safe in your Home?: Yes Lack of Transportation: YES Lack of Food: Never True Current Housing: I Have Housing Concerned About Future Housing: No Difficulty Paying Gas/Electric Bills: No Difficulty Paying for Meds: No Currently Unemployed: No Education: High School Diploma/GED Difficulty w/ Childcare or Family Care: No Spiritual care concerns: No Exam 2 Const: General: no acute distress Nutritional Appearance: well nourished Limitations: altered mental status HENMT: Head: normal to inspection Eyes: Pupils: Equal, round and reactive pupils present Neck: Neck: normal visual inspection Resp: Effort & Inspection: normal respiratory effort Auscultation: clear to auscultation bilaterally Cardio: Rate: regular rate Rhythm: regular rhythm GI: GI Palp: Yes Soft to palpation and No Tenderness to palpation present (GI) Auscultation: normal bowel sounds Skin: General skin exam: normal color Rashes: no rashes Wounds: no wounds Neuro: General: no meningeal signs Extrem: General: normal to inspection and no clubbing, cyanosis or edema Psych: Other: responds to voice but not apprpriate answers, not oriented. Course Vital Signs Vital signs: Vital Signs Temperature 98.8 F 02/22/25 10:14 Pulse Rate 81 02/22/25 10:14 Respiratory Rate 16 02/22/25 10:14 Blood Pressure 216/91 H 02/22/25 10:14 Pulse Oximetry 97 02/22/25 10:14 Oxygen Delivery Room Air 02/22/25 10:14 Temperature 97.7 F 02/22/25 15:57 Pulse Rate 78 02/22/25 15:57 Respiratory Rate 16 02/22/25 15:57 Blood Pressure 218/95 H 02/22/25 17:14 Pulse Oximetry 99 02/22/25 15:57 Oxygen Delivery Room Air 02/22/25 10:14 MDM - Altered Mental Status MDM Narrative Medical decision making narrative: Pt presents from home with altered LOC. will need to do septic work up and get head CT. CT head no acute process, Hb 10.8 with 7.9 wbc, cmp ok, ua positive. suspect mental status related to UTI rocephin given. Discussed with Kadi Kramer and agrees to admit. Lab Data 02/22/25 10:37 02/22/25 10:37 Labs: Lab Results 02/22/25 02/22/25 02/22/25 Range/Units 10:36 10:37 11:43 WBC 7.9 (4.5-10.0) K/mm3 RBC 3.53 L (4.2-5.4) M/mm3 Hgb 10.8 L (12.0-15.0) g/dL Hct 33.6 L (37.0-47.0) % MCV 95.2 (80-100) fl MCH 30.6 (26-34) pg MCHC 32.1 (32-36) g/dl RDW 14.2 (11.5-14.5) % Plt Count 375 (150-375) k/mm3 MPV 9.8 (7.4-10.4) fl Immature Gran % (Auto) 0.4 (0-0.5) % Neut % (Auto) 63.3 (45.5-73.1) % Lymph % (Auto) 23.4 (18.3-44.2) % [place] % (Auto) 8.4 (2.6-8.5) % Eos % (Auto) 3.9 (0-4.4) % Baso % (Auto) 0.6 (0.2-1.2) % Lymph # (Auto) 1.85 (0.9-3.2) K/mm3 [place] # (Auto) 0.7 H (0.1-0.6) K/mm3 Eos # (Auto) 0.3 (0-0.3) K/mm3 Baso # (Auto) 0.1 (0.0-0.1) K/mm3 Abs Immat Gran (auto) 0.03 (0.00-0.031) K/mm3 Absolute Neuts (auto) 5.0 (1.3-6.7) K/mm3 Absolute Nucleated RBC 0.000 (0.0-0.012) K/mm3 Nucleated RBC % 0.0 (0.0-0.2) % PT 13.7 (11.1-14.7) Seconds INR 1.0 APTT 26.9 (22.3-36.8) Seconds Sodium 139 (137-145) mmol/L Potassium 4.1 (3.4-5.0) mmol/L Chloride 106 (98-107) mmol/L Carbon Dioxide 26 (22-30) mmol/L Anion Gap 7 (4-12) mmol/L BUN 28 H (7-17) mg/dL Creatinine 0.88 (0.7-1.0) mg/dL Estim Creat Clear Calc 37 ml/min Estimated GFR > 60 (59 - ) Glucose 180 H (65-110) mg/dL POC Capillary Glucose 167 H (65-105) mg/dl Lactic Acid 0.9 (0.7-2.0) mmol/L Calcium 8.7 (8.4-10.2) mg/dL Total Bilirubin 0.4 (0.2-1.3) mg/dL AST 20 (14-36) U/L ALT 18 (6-35) U/L Alkaline Phosphatase 108 (38-126) U/L Troponin I 0.018 (0.000-0.034) ng/mL Total Protein 7.0 (6.3-8.2) g/dL Albumin 4.1 (3.5-5.1) g/dL Urine Color Yellow (Yellow) Urine Appearance Cloudy H (Clear) Urine pH >=9.0 H (5.0-9.0) Ur Specific [place] 1.014 (1.001-1.035) Urine Protein 3+ H (Negative) mg/dL Urine Glucose (UA) Trace H (Negative) mg/dL Urine Ketones Negative (Negative) mg/dL Ur Blood (Man) Trace (Negative) Urine Nitrate Positive H (Negative) Urine Bilirubin Negative (Negative) Urine Urobilinogen 0.2 (<2.0) mg/dL Leukocyte Esterase Rfl 3+ H (Negative) ZAID/UL Urine RBC 0-2 (0-2) /hpf Urine WBC >100 H (0-3) /hpf Ur Squamous Epith Cells None seen (Few) /hpf Urine Bacteria 4+ H /hpf Urine Casts 0-2 Discharge Plan Discharge Clinical Impression: UTI (urinary tract infection), AMS (altered mental status) Patient Disposition: Still a Patient Condition: Serious Quality [place] Coma Scale Eyes: To Voice Verbal: Disoriented Motor: Localizes Pain [place] Coma Total Score: 12
[2025-02-22 10:48] LABS: Basophils Absolute Auto 0.1 K/mm3 (0.0-0.1); Basophils Percent Auto 0.6 % (0.2-1.2); Eosinophils Absolute Auto 0.3 K/mm3 (0-0.3); Eosinophils Percent Auto 3.9 % (0-4.4); Hematocrit 33.6 % (37.0-47.0); Hemoglobin 10.8 g/dL (12.0-15.0); Immature Granulocyte Absolute 0.03 K/mm3 (0.00-0.031); Immature Granulocyte Percent A 0.4 % (0-0.5); Lymphocytes Absolute Auto 1.85 K/mm3 (0.9-3.2); Lymphocytes Percent Auto 23.4 % (18.3-44.2); Mean Corpuscular HGB Conc 32.1 g/dl (32-36); Mean Corpuscular Hemoglobin 30.6 pg (26-34); Mean Corpuscular Volume 95.2 fl (80-100); Mean Platelet Volume 9.8 fl (7.4-10.4); Monocytes Absolute Auto 0.7 K/mm3 (0.1-0.6); Monocytes Percent Auto 8.4 % (2.6-8.5); Neutrophils Percent Auto 63.3 % (45.5-73.1); Platelet Count Result 375 k/mm3 (150-375); Red Blood Count 3.53 M/mm3 (4.2-5.4); Red Cell Distribution Width 14.2 % (11.5-14.5); White Blood Count 7.9 K/mm3 (4.5-10.0)
[2025-02-22 10:52] LABS: Add Urine Microscopic? YES; Appearance Urine Cloudy (Clear); Bacteria Urine 4+ /hpf; Bilirubin Urine Negative (Negative); Blood Urine Trace (Negative); Color Urine Yellow (Yellow); Glucose Urine UA Trace mg/dL (Negative); Ketones Urine Negative (Negative); Leukocyte Esterase Ur 3+ LEU/UL (Negative); Nitrate Urine Positive (Negative); Non Pathogenic Casts 0-2; Protein Urine 3+ mg/dL (Negative); RBC Urine 0-2 /hpf (0-2); Specific Grav Ur 1.014 (1.001-1.035); Squamous Epithelial Cell Urine None Seen /hpf (Few); Urobilinogen Urine 0.2 mg/dL (<2.0); WBC Urine >100 /hpf (0-3); pH Urine >=9.0 (5.0-9.0)
[2025-02-22 11:00] LABS: Lactic Acid Reflex 0.9 mmol/L (0.7-2.0)
[2025-02-22 11:05] LABS: Alanine Aminotransferase 18 U/L (6-35); Albumin Level 4.1 g/dL (3.5-5.1); Alkaline Phosphatase 108 U/L (38-126); Anion Gap 7 mmol/L (4-12); Aspartate Amino Transferase 20 U/L (14-36); Bilirubin,Total 0.4 mg/dL (0.2-1.3); Blood Urea Nitrogen 28 mg/dL (7-17); Calcium 8.7 mg/dL (8.4-10.2); Carbon Dioxide 26 mmol/L (22-30); Chloride 106 mmol/L (98-107); Estimated CRCL calculation 37 ml/min; Estimated Glomerular Filt Rate > 60; Glucose 180 mg/dL (65-110); Potassium 4.1 mmol/L (3.4-5.0); Sodium 139 mmol/L (137-145)
[2025-02-22 11:08] LABS: Partial Thromboplastin Time 26.9 Seconds (22.3-36.8); Prothrombin Time 13.7 Seconds (11.1-14.7)
[2025-02-22 11:16] LABS: Troponin I 0.018 ng/mL (0.000-0.034)
--- OUTSIDE RECORDS SUMMARY | 2025-02-22 11:18 | XMS_ITS | Referral Summary ---
Author Organization [facility] [address] [facility] [address] Address [address] [place] [address] Care Team Providers Care Ultrasound Sonographer Name Role Phone Jimmy Marino MD Primary Care Provider [phone] Encounters Date Type Department Care Team Description 01/01/2025 8:05 PM CDT - 01/01/2025 11:59 PM CDT Hospital Encounter [facility] [address] [place], [place] [phone] Discharge Disposition: Discharge to home or self care 01/01/2025 Ophth Exam [facility] Ophthalmology [address] [place] [phone] Chris Lujan MD 01/01/2025 12:07 PM CDT - 01/01/2025 8:[address] 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 Assessment & Plan (11/01/2021 4:01 PM EDGE WORKER): This is a chronic condition which is at goal Goal is <140/90 Personally reviewed labs. B/p-136/70 Avoid caffeine, caffeine will raise blood pressure and excessive alcohol consumption. Monitor your weight and B/P. Encouraged to take medications as prescribed. 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 Assessment & Plan (06/27/2022 2:30 PM CDT): [...] No history of macrovascular disease - CVA, ND. Assessment & Plan (02/28/2022 12:47 PM CDT): This is a chronic condition which is out of control Personally reviewed A1c-13.6% not at goal less than 8% Personally reviewed blood sugar -217 not at goal 80-180 Medication- increase Xultophy 28 units daily am. - this will decreases number of injections and hopeful will cover mealtime insulin need. Discussed using [employer] insulin delivery system- she did not think [...] No history of macrovascular disease - CVA, ND. Assessment & Plan (11/01/2021 4:03 PM EDGE WORKER): This is a chronic condition Awaiting labs from PCP office done yesterday Personally reviewed K4i-[id number] results goal less than 7% Personally reviewed blood sugar -274 not at goal 80-180 Medication- stop degludec and novolog. Start Xultophy 20 units daily am. - will try this to decrease number of injections and hopeful will cover mealtime insulin need. Monitor blood sugar 4 times a day with ProPlanstyle madelyn 2 sensor. Encouraged annual eye exam. [...] No history of macrovascular disease - CVA, ND. Resolved Problems Problem Noted Date Diagnosed Date [...] on file Legal Sex Female 1:44 AM EDGE WORKER Gender Identity Not on file Sexual Orientation [...] HEMOGLOBIN A1C Routine 11/15/2022 1 1:39 AM EDGE WORKER Type 2 diabetes mellitus with hypoglycemia without coma, with long-term current use of insulin (HCC) COMPREHENSIVE METABOLIC PANEL Routine 04/04/2022 LIPID PANEL Routine 04/04/2022 from Last 3 Months or Most Recently Relevant to Health Maintenance Results * (ABNORMAL) Urinalysis reflex to microscopic and culture Urine, clean voided (01/01/2025 4:24 PM CDT) Color, ur Yellow Yellow Clarity, ur Turbid(A) Clear [facility] Specific gravity, ur 1.015 1.003 - 1.030 [facility] pH, urine 6.5 [facility] Comment: Interpretive Data U rine pH is affected by diet, medications, systemic acid-base disturbances, and renal tubular function. pH may affect urinary stone formation. For example, urine pH below 6.0 may help reduce the tendency for calcium phosphate stones and pH greater than 6.0 may reduce the tendency for uric acid stone formation. Source: [facility] Current Interpretive Data was last revised on 2017 Protein, ur ql 2+(A) Negative [facility] Glucose, ur ql 4+(A) Negative [facility] Ketones, ur 1+(A) Negative [facility] Bilirubin, ur Negative Negative [facility] Blood, ur 1+(A) Negative [facility] Urobilinogen, ur <2.0 <2.0 mg/dL [facility] Nitrite, ur Negative Negative [facility] Leukocyte esterase, ur 3+(A) Negative [facility] UA reflex comment Reflex to microscopic UA will be performed. [facility] Urine, clean voided 01/01/2025 4:24 PM CDT 01/01/2025 4:30 PM CDT Manuel Keating MD LAB MICROBIOLOGY - GENERA L ORDERABLES Final Result [facility] Department [place] [address] * (ABNORMAL) Urinalysis, microscopic only (01/01/2025 4:24 PM CDT) WBC, ur >50(A) 0 - 5 /HPF RBC, ur >50(A) 0 - 2 /HPF [facility] Epithelial cells, squamous, ur 1-5 0 - 5 /HPF [facility] Bacteria, ur 4+(A) [facility] Culture Reflex Comment Reflex to urine culture will be performed. [facility] Urine, clean voided 01/01/2025 4:24 PM CDT 01/01/2025 4:30 PM CDT Manuel Keating MD LAB URINE ORDERABLES Jennifer l Result Performing Organization Address City/[facility]/ZIP Co de Phone Number [facility] Department [place] [address] * (ABNORMAL) Urine culture Urine, clean voided (01/01/2025 4:24 PM CDT) Report Final Report: Growth indicates contamination with mixed bacterial lucy. Please submit a new specimen with special attention given to the collection process and to prompt transport to the laboratory. (.) Organism GROWTH INDICATES CONTAMINATION WITH MIXED LUCY. [facility] Urine, clean voided 01/01/2025 4:24 PM CDT 01/01/2025 7:57 PM CDT Narrative [facility] - 01/03/2025 4:19 PM CDT Urine culture reflexed based upon urinalysis results. Testing performed by [facility] Microbiology Laboratory ([phone]) Manuel Keating MD LAB MICROBIOLOGY - GENERA L ORDERABLES Final Result Performing Organization Address City/[facility] Co de Phone Number [facility] [place] [address] * (ABNORMAL) POCT glucose (01/01/2025 4:11 PM CDT) Glucose, POC 251(H) 70 - 199 mg/dL Comment:Glu2: RN/MD Notified Glucose comment 1 Glu2: RN/MD Notified [facility] Blood 01/01/2025 4:11 PM CDT 01/01/2025 4:11 PM CDT Manuel Keating MD LAB POCT ORDERABLES - DEV ICE Final Result Performing Organization Address City/[facility]/ZIP Co de Phone Number [facility] Department [place] [address] * XR Outside Reference (01/01/2025 3:20 PM CDT) Impressions [email or web address] - 01/01/2025 3:20 PM CDT These images are for Reference purposes only and have not been reviewed by [facility] Radiology. There will be no report generated by a [facility] Radiologist. Narrative [facility] - 01/01/2025 3:20 PM CDT EXAMINATION: Images For Reference Purposes Only Rohan Hernandez MD IMG XR PROCEDURES Final R esult Performing Organization Address [facility] de Phone Number [email or web address] * XR Outside Reference (01/01/2025 3:19 PM CDT) Impressions [email or web address] - 01/01/2025 3:19 PM CDT These images are for Reference purposes only and have not been reviewed by [facility] Radiology. There will be no report generated by a [facility] Radiologist. Narrative [facility] - 01/01/2025 3:19 PM CDT EXAMINATION: Images For Reference Purposes Only Rohan Hernandez MD IMG XR PROCEDURES Final R esult Performing Organization Address [facility] de Phone Number [email or web address] * XR Outside Reference (01/01/2025 3:17 PM CDT) Impressions [email or web address] - 01/01/2025 3:17 PM CDT These images are for Reference purposes only and have not been reviewed by [facility] Radiology. There will be no report generated by a [facility] Radiologist. Narrative [facility] - 01/01/2025 3:17 PM CDT EXAMINATION: Images For Reference Purposes Only Rohan Hernandez MD IMG XR PROCEDURES Final R esult Performing Organization Address [facility] Co de Phone Number [email or web address] * [...] images may or may not represent the knik source data set and thus may contain [...] IMAGING STUDY STUDY INIT[facility]ALLY PERFORMED: [facility] TYPE OF STUDY: Multiple CT images of [...] IMAGING STUDY STUDY INITIALLY PERFORMED: 12/31/2024 at [facility]. TYPE OF STUDY: Multiple CT images of [...] images may or may not represent the knik source data set and thus may contain [...] images may or may not represent the knik source data set and thus may contain [...] IMAGING STUDY STUDY INITIALLY PERFORMED: 12/31/2024 at [facility]. TYPE OF STUDY: Multiple CT images of [...] IMAGING STUDY STUDY INITIALLY PERFORMED: 12/31/2024 at [facility]. TYPE OF STUDY: Multiple CT images of [...] images may or may not represent the knik source data set and thus may contain [...] POCT ORDERABLES - DEVICE F inal Result [facility] Department [place] [address] * (ABNORMAL) POCT hemoglobin A1c (11/15/2022 11:39 AM EDGE WORKER) [facility] Hemoglobin A1C, POC 9.9 Blood 11/15/2022 11:3 9 AM EDGE WORKER Tammy Lewis NP POINT OF CARE TEST [...] Units/L EXTERNAL LAB SCRIBED eGFR in NonAfrican Malagasy 48(A) 60 - >90 EXTERNAL LAB Blood 04/04/2022 us Historical Provider LAB BLOOD ORDERABLES Jennifer l Result EXTERNAL LAB from Last 3 Months or Most Recently Relevant to Health Maintenance Insurance MEDICARE [employer] IDPA [employer] MEDICARE GOLD [employer] MEDICARE GOLD Member Subscriber Plan / Payer (Ef fective 2024-Present) Name:Yesi Ross Relation to Subscriber:Self Name:Yesi Ross [id number]|2025-02-22 11:19:00|2025-02-22 11:18:00|XMS_ITS|[facility]|External Medical Summaries|[id number]|" Clinical Summary Created on: February 22, 2025 Yesi Ross : 1935 Sex: Female Author Organization [facility] [address] [place] [address] [address] [facility] [address] [place] [address] Care Team Providers Care Ultrasound Sonographer Name Role Phone Jimmy Marino MD Primary Care Provider [phone] Allergies No known active allergies Medications atorvastatin [...] pen INJECT 46 UNITS 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 Assessment & Plan (11/01/2021 4:01 PM EDGE WORKER): This is a chronic condition which is at goal Goal is <140/90 Personally reviewed labs. B/p-136/70 Avoid caffeine, caffeine will raise blood pressure and excessive alcohol consumption. Monitor your weight and B/P. Encouraged to take medications as prescribed. 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 Assessment & Plan (06/27/2022 2:30 PM CDT): [...] No history of macrovascular disease - CVA, ND. Assessment & Plan (02/28/2022 12:47 PM CDT): [...] No history of macrovascular disease - CVA, ND. Assessment & Plan (11/01/2021 4:03 PM EDGE WORKER): This is a chronic condition Awaiting labs from PCP office done yesterday Personally reviewed [id number]-[id number] results goal less than 7% Personally reviewed [...] No history of macrovascular disease - CVA, ND. Resolved Problems Problem Noted Date Diagnosed Date [...] PM CDT Hospital Encounter [facility] [address] [place] [address] Discharge Disposition: Discharge to home or self care 01/01/2025 12:07 PM CDT - 01/01/2025 8:[address] [facility] Emergency Department [address] [place] [address] Lei Lopez MD Knight, Caleb Daniel, MD Diagnosis unknown (Primary Dx); Fall, initial encounter; Concussion without loss of consciousness, initial encounter Discharge Disposition: Discharge to home or self care 01/01/2025 Ophth Exam [facility] Ophthalmology [address] [place] [phone] Chris Lujan MD 12/31/2024 Telephone [facility] Ophthalmology [address] [place] [phone] Ravindra Suarez MD from Last 3 Months [...] on file Legal Sex Female 1:44 AM EDGE WORKER Gender Identity Not on file Sexual Orientation [...] HEMOGLOBIN A1C Routine 11/15/2022 1 1:39 AM EDGE WORKER Type 2 diabetes mellitus with hypoglycemia without coma, with long-term current use of insulin ([facility]) COMPREHENSIVE METABOLIC PANEL Routine 04/04/2022 LIPID PANEL Routine 04/04/2022 from Last 3 Months or Most Recently Relevant to Health Maintenance Results * (ABNORMAL) Urinalysis reflex to microscopic and culture Urine, clean voided (01/01/2025 4:24 PM CDT) Color, ur Yellow Yellow Clarity, ur Turbid(A) Clear [facility] Specific gravity, ur 1.015 1.003 - 1.030 [facility] pH, urine 6.5 [facility] Comment: Interpretive Data U rine pH is affected by diet, medications, systemic acid-base disturbances, and renal tubular function. pH may affect urinary stone formation. For example, urine pH below 6.0 may help reduce the tendency for calcium phosphate stones and pH greater than 6.0 may reduce the tendency for uric acid stone formation. Source: [place] [facility] Current Interpretive Data was last revised on 2017 Protein, ur ql 2+(A) Negative [facility] Glucose, ur ql 4+(A) Negative [facility] Ketones, ur 1+(A) Negative [facility] Bilirubin, ur Negative Negative [facility] Blood, ur 1+(A) Negative [facility] Urobilinogen, ur <2.0 <2.0 mg/dL [facility] Nitrite, ur Negative Negative [facility] Leukocyte esterase, ur 3+(A) Negative [facility] UA reflex comment Reflex to microscopic UA will be performed. [facility] Urine, clean voided 01/01/2025 4:24 PM CDT 01/01/2025 4:30 PM CDT Manuel Keating MD LAB MICROBIOLOGY - GENERA L ORDERABLES Final Result Performing Organization Address [facility] Co de Phone Number [facility] [place] [address] * (ABNORMAL) Urinalysis, microscopic only (01/01/2025 4:24 PM CDT) WBC, ur >50(A) 0 - 5 /HPF RBC, ur >50(A) 0 - 2 /HPF [facility] Epithelial cells, squamous, ur 1-5 0 - 5 /HPF [facility] Bacteria, ur 4+(A) [facility] Culture Reflex Comment Reflex to urine culture will be performed. [facility] Urine, clean voided 01/01/2025 4:24 PM CDT 01/01/2025 4:30 PM CDT Manuel Keating MD LAB URINE ORDERABLES Jennifer l Result Performing Organization Address [facility] Co de Phone Number [facility] [place] [address] * (ABNORMAL) Urine culture Urine, clean voided (01/01/2025 4:24 PM CDT) Report Final Report: Growth indicates contamination with mixed bacterial lucy. Please submit a new specimen with special attention given to the collection process and to prompt transport to the laboratory. (.) Organism GROWTH INDICATES CONTAMINATION WITH MIXED LUCY. [facility] Urine, clean voided 01/01/2025 4:24 PM CDT 01/01/2025 7:57 PM CDT Narrative [facility] - 01/03/2025 4:19 PM CDT Urine culture reflexed based upon urinalysis results. Testing performed by [facility] Microbiology Laboratory ([phone]) Manuel Keating MD LAB MICROBIOLOGY - GENERA L ORDERABLES Final Result Performing Organization Address [facility] de Phone Number [facility] Department [place] [address] * (ABNORMAL) POCT glucose (01/01/2025 4:11 PM CDT) Glucose, POC 251(H) 70 - 199 mg/dL Comment:Glu2: RN/MD Notified Glucose comment 1 Glu2: RN/MD Notified [facility] Blood 01/01/2025 4:11 PM CDT 01/01/2025 4:11 PM CDT Result [facility] Manuel Keating MD LAB POCT ORDERABLES - DEV ICE Final Result Performing Organization Address [facility] de Phone Number [facility] Department [place] [address] * XR Outside Reference (01/01/2025 3:20 PM CDT) Impressions RAD_[facility]ACS[facility] - 01/01/2025 3:20 PM CDT These images are for Reference purposes only and have not been reviewed by [facility] Radiology. There will be no report generated by a [facility] Radiologist. Narrative [facility] - 01/01/2025 3:20 PM CDT EXAMINATION: Images For Reference Purposes Only Rohan Hernandez MD IMG XR PROCEDURES Final R esult Performing Organization Address [facility] de Phone Number [email or web address] * XR Outside Reference (01/01/2025 3:19 PM CDT) Impressions [email or web address] - 01/01/2025 3:19 PM CDT These images are for Reference purposes only and have not been reviewed by [facility] Radiology. There will be no report generated by a [facility] Radiologist. Narrative RAD_PACS_[facility] - 01/01/2025 3:19 PM CDT EXAMINATION: Images For Reference Purposes Only Rohan Hernandez MD IMG XR PROCEDURES Final R esult Performing Organization Address [facility] de Phone Number [email or web address] * XR Outside Reference (01/01/2025 3:17 PM CDT) Impressions [email or web address] - 01/01/2025 3:17 PM CDT These images are for Reference purposes only and have not been reviewed by [facility] Radiology. There will be no report generated by a [facility] Radiologist. Narrative [facility] - 01/01/2025 3:17 PM CDT EXAMINATION: Images For Reference Purposes Only Rohan Hernandez MD IMG XR PROCEDURES Final R esult Performing Organization Address [facility] de Phone Number [email or web address] * Neuro CT [...] images may or may not represent the knik source data set and thus may contain [...] IMAGING STUDY STUDY INITIALLY PERFORMED: 12/31/[facility] at [facility]. TYPE OF STUDY: Multiple CT images of [...] IMAGING STUDY STUDY INITIALLY PERFORMED: 12/31/2024 at [facility]. TYPE OF STUDY: Multiple CT images of [...] images may or may not represent the knik source data set and thus may contain [...] images may or may not represent the knik source data set and thus may contain [...] IMAGING STUDY STUDY INITIALLY PERFORMED: 12/31/2024 at [facility]. TYPE OF STUDY: Multiple CT images of [...] IMAGING STUDY STUDY INITIALLY PERFORMED: 12/31/2024 at [facility]. TYPE OF STUDY: Multiple CT images of [...] images may or may not represent the knik source data set and thus may contain [...] POCT ORDERABLES - DEVICE F inal Result [facility] [place] [address] * (ABNORMAL) POCT hemoglobin A1c (11/15/2022 11:39 AM EDGE WORKER) Pathologist [facility] Hemoglobin A1C, POC 9.9 Blood 11/15/2022 11:3 9 AM EDGE WORKER Tammy Lewis NP POINT OF CARE TEST ORDERABLES F inal Result * (ABNORMAL) Lipid panel (04/04/2022) Pathologist [facility] SCRIBED Cholesterol, Total 165 140 - 199 EXTERNAL LAB SCRIBED HDL 65(A) 0 - 40 EXTERNAL LAB SCRIBED LDL 70 0 - 130 EXTERNAL LAB SCRIBED Triglycerides 150 0 - 150 EXTERNAL LAB Blood 04/04/2022 Historical Provider MD LAB BLOOD ORDERABLES Jennifer l Result EXTERNAL LAB * (ABNORMAL) Comprehensive metabolic panel (04/04/2022) Pathologist [facility] SCRIBED Sodium 139 137 - 145 mmol/L [...] Units/L EXTERNAL LAB SCRIBED eGFR in NonAfrican Malagasy 48(A) 60 - >90 EXTERNAL LAB Blood 04/04/2022 us Historical Provider LAB BLOOD ORDERABLES Jennifer l Result EXTERNAL LAB from Last 3 Months or Most Recently Relevant to Health Maintenance Insurance MEDICARE [employer] [place] [address] [place] [address] [employer] Member Subscriber Plan / Payer (Ef fective 2025-Present) Name:Yesi Ross Relation to Subscriber:Self Name:Yesi Ross Payer ID:[id number]
--- OUTSIDE RECORDS SUMMARY | 2025-02-22 11:18 | XMS_ITS | Data Portability ---
Author Organization [facility] Address [address] [place] [address] Care Team Providers Care Application Security Developer Name Role Phone REAGAN MARINO Primary Care Provider [phone] Assessment Encounter Date Assessment Date Assessment LastModified by Organization Details LastModified Time 06/28/2024 06/28/2024 diabetes is uncontrolled they have a family member who knows the professional skater and they are going to be reaching out to the family member so that she can get scheduled with the professional skater if there is any difficulty charis and her will call me and I will arrange for a referral. Atorvastatin 10 mg a day I want to see her in 1 month she is to take her blood sugars twice a day also she needs to be referred to uro surveillance sensor officer eventually but right now she is infected so there is not much that they would probably do to this all clears up. I told her very important for her to keep appointments Not available 07/04/2024 17:30:17 07/26/2024 07/26/2024 her diabetes is uncontrolled we will make the referral to endocrinology we will make the referral to Uro surveillance sensor officer for incontinence see me in 1 month I have told her that he needs to bring me the medicine that was prescribed by the professional skater I have no record of it [email or web address] Not available 07/31/2024 15:24:24 11/25/2024 11/25/2024 pantoprazole. Blood work. Follow up in 1 month. please take all medicines as prescribed [email or web address] Not available 11/25/2024 22:23:32 01/10/2025 01/10/2025 sutures were removed without incident hemostasis maintained we will try to get her some Ozempic check blood work. 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 Lab HbA1c (hemoglobi n A1c), blood 2024 025 LARRY [facility], [address], [place], [address], 00:30:44 lipid panel, serum 2024 025 [email or web address], [address], [address], [place], [address], 14:36:24 CMP, serum or plasma 2024 025 HOLLAND [facility], [address], [address], [place], [address], 19:06:40 CBC w/ auto diff 2024 025 [email or web address], [address], [address], [place], [address], 14:36:24 HbA1c (hemoglobi n A1c), blood 2024 025 [email or web address] In-Office Order, Internal Use Only DO Not Attach Compendium DO Not Attach Compendium, Do Not Delete/merge, [id number] 17:44:41 CMP, serum or plasma 2024 025 [email or web address] [facility], [address], [place], [address], 5 12:50:07 lipid panel, serum 2024 025 [email or web address] [facility], [address], [address], [place], [address], 5 12:50:07 CBC w/ auto diff 2024 025 [email or web address] [facility], [address], [address], [place], [address], 5 12:50:07 HbA1c (hemoglobi n A1c), blood 2023 024 In-Office Order, Internal Use Only DO Not Attach Compendium DO Not Attach Compendium, Do Not Delete/merge, [id number] 4 21:41:22 Referral endocrinol ogy referral 2023 024 [facility] - End[facility]ology , [address], [place], [address], 5 14:26:12 Procedures None recorded. Surgeries None recorded. Imaging None recorded. Medication Orders Ozempic 0.25 mg or 0.5 mg (2 mg/1.5 mL) subcutaneo us pen injector 2024 025 [email or web address] [id number], [address], [place], [address], 5 15:21:16 pantoprazo le 40 mg tablet,del ayed release 2024 025 [facility] [address], [address], [place], [address], 5 17:44:41 atorvastat in 10 mg tablet 2023 024 LARRY [facility] [address], [address], [place], [address], 5 14:13:59 atorvastat in 10 mg tablet 2023 024 [email or web address] [facility] [address], [address], [place], [address], 14:13:57 Patient TargetsNo targets recorded. Patient Instructions Encounter Date Encounter Id Patient Instructions Last Modified By Organization Details Last Modified Time 06/28/2024 [id number] A healthy lifestyle: care instructions Not available 06/28/2024 14:10:49 07/26/2024 [id number] A healthy lifestyle: care instructions [email or web address] Not available 07/26/2024 14:10:31 11/25/2024 [id number] A healthy lifestyle: care instructions Not available [...] DO Not Attach Compendium, Do Not Delete/merge, [id number] 06/28/2024 17:19:06 11/25/19 25 11/25/2024 HbA1c (hemo globi n A1c), blood HbA1c 8.2 Not Available In-Office Order Internal Use Only DO Not Attach Compendium DO Not Attach Compendium, Do Not Delete/merge, [id number] 11/25/2024 16:03:17 01/01/20 25 12/31/2024 CT, brain , w/o contr ast No observ ation record ed. [address], [address], 01/05/2025 21:52:52 01/01/20 25 12/31/2024 XR, elbow No observ ation record ed. [address], [address], 01/05/2025 21:52:52 01/01/20 25 12/31/2024 XR, hand No observ ation record ed. [address], [address], 01/05/2025 21:52:52 01/01/20 25 12/31/2024 XR, shoul simon No observ ation record ed. [place] [address], [place], [address], 01/05/2025 21:52:53 01/01/20 25 12/31/2024 CT, cervi kathleen spine , w/o contr ast No observ ation record ed. [address], [place], [address], 01/05/2025 21:52:53 01/05/20 CT, maxil lofac ial, w/o contr ast No observ ation record ed. [address], [place], [address], 01/05/2025 21:52:53 01/20/20 25 01/19/2025 CT, brain , w/o contr ast No observ ation record ed. [address], [place], [address], 01/20/2025 09:23:40 01/20/20 25 01/19/2025 XR, chest No observ ation record ed. [address], [place], [address], 01/20/2025 09:23:26 Result Notes None recorded. Problems Name Problem SNOMED Code Status Onset Date Resolution Date Notes Provider Name and Address Organization Details Recorded Time Overweight 126740300 Active 2023 ARMEN Motta, [place] - [facility] 4 12:20:55 Type 2 diabetes mellitus 01760097 Active 2023 ARMEN Motta, [place] - [facility] 4 12:21:04 Hyperlipidemia 04344295 Active 2023 ARMEN [place], [place] [facility] 4 12:21:08 Problem Notes None recorded. Procedures Surgical History None recorded. Imaging Results Imaging Date Name Status [facility] Details LastModified Time 12/31/2024 CT, brain, w/o contrast completed [address] [facility], [place], [address], 01/05/2025 21:52:52 12/31/2024 XR, elbow completed [address] [address], [place], [address], 01/05/2025 21:52:52 12/31/2024 XR, hand completed [address] [address], [place], [address], 01/05/2025 21:52:52 12/31/2024 XR, shoulder completed [address] [facility] [place], [address], 01/05/2025 21:52:53 12/31/2024 CT, cervical spine, w/o contrast completed [address] [facility], [place], [address], 01/05/2025 21:52:53 01/04/2025 CT, maxillofacial , w/o contrast completed [address] [facility] [place], [address], 01/05/2025 21:52:53 01/19/2025 CT, brain, w/o contrast completed [address], [address], 01/20/2025 09:23:40 01/19/2025 XR, chest completed [address], [address], 01/20/2025 09:23:26 Procedure Notes None recorded. Medical Equipment None Reported. Allergies No known drug allergies Medications Name Sig Start Date Stop Date Status Note LastModified by Organization Details LastModified Time atorvasta tin 10 mg tablet TAKE 1 TABLET BY MOUTH EVERY DAY active Not Available Not Available No t Available Coreg 6.25 mg tablet Take 1 tablet twice a day by oral route. 2024 active hosptial stay Not Available Not Available Not Available acetamino phen 300 mg-codein e 30 mg tablet TAKE 1 TABLET BY MOUTH EVERY 8 HOURS NEEDED FOR SEVERE PAIN active Not Available Not Available No t Available sulfameth oxazole 800 mg-trimet hoprim 160 mg tablet TAKE 1 TABLET BY MOUTH EVERY 12 HOURS 02/14 completed Not Available Not Available Not Available amlodipin e 10 mg tablet Take 1 tablet every day by oral route. active from hosptial stay 01/2025 Not Available Not Available Not Available pantopraz ole 40 mg tablet,de layed release TAKE 1 TABLET BY MOUTH EVERY DAY active Not Available Not Available No t Available metformin ER 500 mg tablet,ex tended release 24 hr TAKE 1 TABLET BY MOUTH EVERY DAY active Not Available Not Available No t Available Myrbetriq 25 mg tablet,ex tended release active Not Available Not Available Not Available Xultophy 100/3.6 100 unit-3.6 mg/mL (3 mL) subcutane ous insulin pen Inject 44 units every day by subcutan eous route. active Not Available Not Available No t Available Ozempic 0.25 mg or 0.5 mg (2 mg/1.5 mL) subcutane ous pen injector inject 0.25mg weekly for 4 weeks then 0.5mg 02/14 completed Not Available Not Available Not Available Ozempic 0.25 mg or 0.5 mg (2 mg/3 mL) subcutane ous pen injector INJECT 0.5MG SUBCUTAN EOUSLY EVERY WEEK 2024 active Not Available Not Available Not Avai lable Vitals Date Recorded Body height Body mass index (BMI) Body weight Oxygen saturation Oxygen saturation in Arterial blood by Pulse oximetry Heart rate Systolic blood pressure Diastolic blood pressure Provider Name and Address Organization Details Last Updated DateTime 4 149.86 cm 36 kg/m2 17419.4 4 g 97 % 97 % 78 /min 116 mm[Hg] 74 mm[Hg] Anna Knutson [place] - [facility] 4 12:06:06 Date Recorded Body height Body mass index (BMI) Body weight Heart rate Oxygen saturation Oxygen saturation in Arterial blood by Pulse oximetry Systolic blood pressure Diastolic blood pressure Provider Name and Address Organization Details Last Updated DateTime 4 149.86 cm 36 kg/m2 02582.4 4 g 76 /min 96 % 96 % 130 mm[Hg] 90 mm[Hg] Anna Knutson MA [facility] 4 11:54:01 Date Recorded Body height Body mass index (BMI) Body weight Heart rate Oxygen saturation Oxygen saturation in Arterial blood by Pulse oximetry Systolic blood pressure Diastolic blood pressure Provider Name and Address Organization Details Last Updated DateTime 5 149.86 cm 35.5 kg/m2 06670.2 6 g 78 /min 96 % 96 % 140 mm[Hg] 90 mm[Hg] Em Mcgovern MA [facility] 5 14:55:16 Date Recorded Body height Heart rate Oxygen saturation Oxygen saturation in Arterial blood by Pulse oximetry Systolic blood pressure Diastolic blood pressure Provider Name and Address Organization Details Last Updated DateTime 5 149.86 cm 76 /min 97 % 97 % 130 mm[Hg] 80 mm[Hg] Anna Knutson MA [facility] 5 14:11:03 Social History Question Answer Notes LastModified by Organizat ion Details LastModified Time Tobacco Smoking Status Never Smoker [facility] 07/26/2024 11:55:07 Do You Have An [...] Response Coronary Artery Disease N Other N High Blood Pressure Y Atrial Fibrillation N Kidney or Bladder Problems N Thyroid Problems N GI Problems N Depression N COPD N Blood Clots N Have you had a mammogram in the last yea r? N Skin Problems N Anemia N Heart Attack (CA) N Anxiety Disorder N Diabetes Y Muscle, Joint, or Bone Problems N Seizures/Epilepsy N Have you had a colonoscopy in the last 1 0 years? Y Acid Reflux (GERD) N Cancer N Stroke N Asthma N Allergies N Have you had a PSA blood test in the las t year? N High Cholesterol Y Hepatitis N Liver Disease N Headaches N Heart Failure N Osteoporosis N Gynecological HistoryNo gynecological history recorded. Obstetrics History GPAL:G 0 P 0 0 0 0 Immunizations Vaccine Type Date Status Note Provider Nam e and Address Organization Details Recorded Time Influenza, split virus, trivalent, preservative 4 completed Brie Buchanan MA [facility] 07/26/2024 12:21:18 Past Encounters Encounter ID Performer Location Encounter Start Date Encounter Closed Date Diagnosis/Indication Diagnosis SNOMED-CT Code Diagnosis ICD10 Code Diagnosis Note [id number] Reagan Marino MD [facility] [place] [address] [place] [address] 06/28/2024 11:23:26 06/28/2024 13:35:11 Obesity 474256010 E66.8 Type 2 vicki betes mellitus 94976591 E11.9 Hyperlipidemia 52954312 E78.5 [id number] Reagan Marino MD [facility] [place] [address] [place] [address] 07/26/2024 11:46:56 07/26/2024 12:47:29 Overweight 268500211 E66.3 Type 2 vicki betes mellitus 44127579 E11.9 Hyperlipidemia 23485585 E78.5 [id number] Reagan Marino MD [facility] [place] [address] [place] [address] 11/25/2024 14:17:41 11/25/2024 15:41:29 Body mass index 30+ - obesity 273761425 Z68.35 Obesity 178104412 E66.9 Hyperlipidemia 78663741 E78.5 Gastroesop hageal reflux disease without esophagitis 941716859 K21.9 Type 2 vicki betes mellitus 91900577 E11.9 [id number] Reagan Marino MD [facility] [place] [address] [place] [address] 01/10/2025 13:53:12 01/10/2025 14:46:45 Facial laceration 051013645 S01.81XA Type 2 vicki betes mellitus 43822096 E11.9 Gastroesop hageal reflux disease without esophagitis 661368213 K21.9 Hyperlipidemia 44236524 E78.5 Health Concerns Section Related Observation LastModified by Organization Detai ls LastModified Time None Recorded Concern Status LastModified by Organization Details LastModified Time None Recorded Advance Directives Directive N: Payers Encounter Date Sequence Insurance Name Policy Number Policy Manjarrez Covered Member ID Manjarrez Member ID Guarantor Name 06/28/2024 1 [employer] - PRIME (MEDICARE REPLACEMENT/ ADVANTAGE - HMO) [id number] [place] J Ross [id number] [place] Rsos 07/26/2024 1 [employer] - [employer]IME (MEDICARE REPLACEMENT/ ADVANTAGE - HMO) [id number] [place] J Ross [id number] Kearney Ross 11/25/2024 1 [employer] - [employer]IME (MEDICARE REPLACEMENT/ ADVANTAGE - HMO) [id number] [place] J Ross [id number] Kearney Ross 01/10/2025 1 [employer] - [employer]IME (MEDICARE REPLACEMENT/ ADVANTAGE - HMO) [id number] [place] J Ross [id number] Kearney Ross Notes Date Note Type Note Provider [...] locate Reagan Marino MD Attn: Accounting,[address] [facility], [place], [address], [facility] 07/04/2024 17:30:47 07/26/2024 text/html she is still hav ing urinary incontinence she is not taking any of her meds except for what was given to her by a previous professional skater they have not made the appointment with the professional skater. I offered to do that at last visit but they said they would do it. They did not Reagan Marino MD Attn: Accounting, [address] , [place], [address], [facility] 07/31/2024 15:24:43 11/25/2024 text/html diabetes they do [...] Reagan Marino MD Attn: Accounting, [address] [facility], [place], [address], [facility] 11/25/2024 22:24:06 01/10/2025 text/html she had a fall w ent to the hospital for stitches paste over her right cheek transferred to [facility] because of concerns about her eye and [...] she still struggles Reagan Marino MD Attn: Accounting, [address] [facility], [place], [address], [facility] 01/11/2025 22:32:39 OBGyn Episode No OBEpisode recorded.
--- OUTSIDE RECORDS SUMMARY | 2025-02-22 11:19 | XMS_ITS | Continuity of Care Document ---
Author Organization [facility] Address [address] [place] [address] [place] [address] Phone Care Team Providers Care Chalk Machine Operator Name Role Phone Joseph Ryan [...] Diagnoses Date Provider Providers Copied on Encounter [facility], [address] [place] [address] [address], [place], [place], [id number], tel:[phone] SEC [facility] No Information [address]. [address] , [address], [place], [address], [place]. tel:[phone] [facility], [address] [place] [address] [address], [place], [place], [id number], [place] tel:[phone] SEC [facility] No Information [address] , [address], [place], [address], [place]. tel:[phone] [facility], [address] [place] [address] [address], [place], [place], [id number], [place] tel:[phone] [facility] No Information [address]. [address] [facility] , [address], [place], [place], [facility], . tel:[phone] Referring Provider: Gerber Rios OD, [address] [place], [address]. tel:[phone] Office/outpat ient Visit, [facility], [address], [place], [place], [id number], [place] tel:[phone] [facility] No Information [address]. [address] [facility] , [address], [place], [place], [facility], . tel:[phone] Referring Provider: Gerber Rios OD, [address] [place], [address]. tel:[phone] Family History Family Member Type Diagnosis Age At Onset No Information Payers Payer name Insurance type Covered alliance party ID Authoriza tion(s) No Information Social [...]
[2025-02-22 11:47] LABS: Glucose Point of Care 167 mg/dl (65-105)
--- NOTE | 2025-02-22 13:29 | P.HP_ITS ---
H&P: HPI History of Present Illness Date/Time: 02/22/25 13:29 Chief Complaint: Altered mental status Narrative: 89-year-old female past medical history of CVA, diabetes type 2 presents the hospital altered mental status. HPI is limited due to patient's altered mental status. Patient denies being in pain. Patient is oriented only to self. No other information available In the ED her lab work showed anemia with hemoglobin of 10.8 baseline of around 11 BUN of 28, UA showing cloudy positive for nitrates, 3+ leukocyte esterase, over 100 wbc's, and 4+ bacteria. Chest x-ray shows no acute pulmonary process. Head CT shows no acute process. EKG shows sinus rhythm with first-degree AV block. Patient was started on IV Rocephin and IV fluids. Review of Systems Review of Systems: ROS unobtainable: Yes unobtainable due to mental status PMFSH Past Medical History Medical History Type 2 diabetes mellitus Normal echocardiogram (06/2018) EF 65-70%, impaired grade 1 diastolic dysfunction CVA (cerebral vascular accident) (06/2018) Left basal ganglia and posterior limb of the left internal capsule with initial complaint of difficulty walking and right facial numbness Surgical History Surgical History History of tonsillectomy and adenoidectomy Status post cataract extraction of both eyes with insertion of intraocular lens History of total bilateral knee replacement (2005) Family History Family History Mother Diabetes mellitus Cerebrovascular accident Father Diabetes mellitus Heart disease Sibling Diabetes mellitus Multiple myeloma Social History Social History Smoking status: Never smoker Second hand tobacco smoke exposure: No Alcohol intake: never Substance use: never Substance use type: does not use Do You Feel Safe in your Home?: Yes Lack of Transportation: YES Lack of Food: Never True Current Housing: I Have Housing Concerned About Future Housing: No Difficulty Paying Gas/Electric Bills: No Difficulty Paying for Meds: No Currently Unemployed: No Education: High School Diploma/GED Difficulty w/ Childcare or Family Care: No Spiritual care concerns: No Meds Home Medications and Allergies Home Medications Medication Instructions Recorded Confirmed Type metformin 500 mg tablet,extended 500 mg PO QPM 01/19/25 02/22/25 History release 24 hr semaglutide 0.25 mg or 0.5 mg (2 0.25 mg subcut WEEKLY 01/19/25 02/22/25 History mg/3 mL) subcutaneous pen injector (Ozempic) amlodipine 10 mg tablet 10 mg PO DAILY@0800 02/22/25 02/22/25 History carvedilol 6.25 mg tablet 6.25 mg PO Q12H 02/22/25 02/22/25 History insulin glargine 100 unit/mL (3 20 unit subcut QPM 02/22/25 02/22/25 History mL) subcutaneous pen (Lantus Solostar U-100 Insulin) Allergies Allergy/AdvReac Type Severity Reaction Status Date / Time No Known Allergies Allergy Verified 02/22/25 12:29 Vital Signs Vital Signs - 24 hr 02/22/25 10:14 02/22/25 12:15 Temperature 98.8 F Pulse Rate 81 70 Respiratory Rate 16 16 Blood Pressure 216/91 H 186/75 H Pulse Oximetry 97 98 Oxygen Delivery Room Air Exam Narrative: General: well appearing, appears stated age. Hard of hearing HEENT: normocephalic, atraumatic. Mucous membranes moist. EOMI, PERRLA, bilateral sclera anicteric, no conjunctival injection. Neck supple without JVD, lymphadenopathy, or bruit. Respiratory: clear to ascultation bilaterally. No rales/rhonic/wheezes. Cardiovascular: Regular rate and rhythm, normal S1-S2 upon ascultation. No murmurs, rubs, or clicks. PMI is nondisplaced, capillary refill less than 3 second. Abdomen: Soft, round, no pulsatile masses, nondistended and nontender. No rebound, no guarding. No CVA tenderness, no hepatosplenomegaly. Bowel sounds present to all four quadrants. No high pitch or tinkling sounds, resonant to percussion. Extremities: No cyanosis, clubbing, or edema present. Pulses are palpable 2/2. Active ROM to all four extremities. Neuro: Alert and orientated x 1. PERRLA. Cranial nerves 2-12 intact without focal deficit. Skin: Warm, dry, and intact, without rash, erythema, or lesion. Psych: pleasant, cooperative, normal speech, normal affect, no hallucinations, no dysarthia H&P: Results Labs Labs: Short CBC 02/22/25 Range/Units 10:37 WBC 7.9 (4.5-10.0) K/mm3 Hgb 10.8 L (12.0-15.0) g/dL Hct 33.6 L (37.0-47.0) % Plt Count 375 (150-375) k/mm3 BMP 02/22/25 10:37 Sodium 139 Potassium 4.1 Chloride 106 Carbon Dioxide 26 BUN 28 H Creatinine 0.88 Glucose 180 H Calcium 8.7 Cardiac Enzymes 02/22/25 Range/Units 10:37 Troponin I 0.018 (0.000-0.034) ng/mL Liver Function 02/22/25 Range/Units 10:37 Total Bilirubin 0.4 (0.2-1.3) mg/dL AST 20 (14-36) U/L ALT 18 (6-35) U/L Alkaline Phosphatase 108 (38-126) U/L Albumin 4.1 (3.5-5.1) g/dL Urine 02/22/25 Range/Units 10:36 Urine Color Yellow (Yellow) Urine Appearance Cloudy H (Clear) Urine pH >=9.0 H (5.0-9.0) Ur Specific [place] 1.014 (1.001-1.035) Urine Protein 3+ H (Negative) mg/dL Urine Glucose (UA) Trace H (Negative) mg/dL Assessment and Plan Assessment and plan (1) Hypertensive emergency: Code(s): I16.1 - Hypertensive emergency Status: Acute Assessment and Plan: IV hydralazine q.8 p.r.n. Restart home antihypertensives, per the patient may have not taken her meds for the last week Restart home antihypertensives when patient is safe to swallow (2) Acute UTI: Code(s): N39.0 - Urinary tract infection, site not specified Status: Acute Assessment and Plan: IV Rocephin Gentle IV hydration Culture and sensitivity pending (3) AMS (altered mental status): Code(s): R41.82 - Altered mental status, unspecified Status: Acute Assessment and Plan: Could be due to UTI Head CT with no acute findings Bedside swallow exam Blood cultures pending PT OT (4) Type 2 diabetes mellitus with hyperglycemia, with long-term current use of insulin: Code(s): E11.65 - Type 2 diabetes mellitus with hyperglycemia; Z79.4 - prison (current) use of insulin Status: Acute Assessment and Plan: Will needed diabetic diet when okay PD Accu-Cheks q.6 Hypoglycemia protocol Quality VTE Prophylaxis VTE prophylaxis: mechanical ordered Hospitalist MIPS Advance Care Plan I have confirmed that the patient's Advanced Care Plan is present, code status is documented, or surrogate decision maker is listed in patient medical record.: Yes Medication Reconciliation I have utilized all available resources to obtain, update and review the patients current medications (includes all prescriptions, OTC, herbals, cannabis, and nutritional supplements).: Yes
[2025-02-22] MEDS: cefTRIAXone 2 GM/NS 100 ML 2 GM/100 ML BAG IVPB (13:31)
[2025-02-22] MEDS: SODIUM CHLORIDE 0.9% IV 1,000 ML 125 ML IV CONT (14:09)
--- NOTE | 2025-02-22 14:49 | PC.NURSE ---
Attempted to call report and was told the nurse was in another room with the provider and she will need to call me back .
--- NOTE | 2025-02-22 15:15 | ADMGEN ---
This patient, Yesi Ross, was admitted to 2 Medical Room 257-01. Patient/family oriented to hospital policies and general routines including ID bracelet, bed and alarms, visiting hours, pain management, procedures, bathroom and other care routines, personal items, smoking policy, room service/diet, and visiting hours. Information on how to activate the Rapid Response Team has been discussed. Patient/Family are encouraged to report perceived risks to care and to ask questions if they do not understand what they are told or what they should do.
[2025-02-22] MEDS: hydrALAZINE HCL 20 MG/ML VIAL 10 MG IV PUSH (16:33)
[2025-02-22 17:39] LABS: Glucose Point of Care 167 mg/dl (65-105)
[2025-02-23] VITALS (8 sets, daily range): BP systolic 139–190; BP diastolic 52–95; PULSE 80–93; RESP 16–20; TEMP 36.3–36.8; O2SAT 93–98
[2025-02-23] MEDS: hydrALAZINE HCL 20 MG/ML VIAL 10 MG IV PUSH (00:21)
[2025-02-23 01:30] LABS: Glucose Point of Care 232 mg/dl (65-105)
[2025-02-23 05:30] LABS: Glucose Point of Care 235 mg/dl (65-105)
[2025-02-23] MEDS: SODIUM CHLORIDE 0.9% IV 1,000 ML 50 ML IV CONT (05:41)
[2025-02-23 06:19] LABS: Basophils Percent Auto 0.4 % (0.2-1.2); Eosinophils Absolute Auto 0.3 K/mm3 (0-0.3); Eosinophils Percent Auto 2.7 % (0-4.4); Hematocrit 34.2 % (37.0-47.0); Hemoglobin 10.9 g/dL (12.0-15.0); Immature Granulocyte Absolute 0.03 K/mm3 (0.00-0.031); Immature Granulocyte Percent A 0.3 % (0-0.5); Lymphocytes Absolute Auto 2.16 K/mm3 (0.9-3.2); Lymphocytes Percent Auto 22.5 % (18.3-44.2); Mean Corpuscular HGB Conc 31.9 g/dl (32-36); Mean Corpuscular Volume 94.2 fl (80-100); Mean Platelet Volume 10.4 fl (7.4-10.4); Monocytes Absolute Auto 0.9 K/mm3 (0.1-0.6); Monocytes Percent Auto 9.4 % (2.6-8.5); Neutrophils Absolute Auto 6.2 K/mm3 (1.3-6.7); Neutrophils Percent Auto 64.7 % (45.5-73.1); Platelet Count Result 407 k/mm3 (150-375); Red Blood Count 3.63 M/mm3 (4.2-5.4); White Blood Count 9.6 K/mm3 (4.5-10.0)
[2025-02-23 06:31] LABS: Anion Gap 8 mmol/L (4-12); Blood Urea Nitrogen 26 mg/dL (7-17); Calcium 8.7 mg/dL (8.4-10.2); Carbon Dioxide 23 mmol/L (22-30); Chloride 108 mmol/L (98-107); Estimated CRCL calculation 34 ml/min; Estimated Glomerular Filt Rate 57; Glucose 215 mg/dL (65-110); Potassium 4.2 mmol/L (3.4-5.0); Sodium 139 mmol/L (137-145)
[2025-02-23 07:23] LABS: Iron 55 ug/dL (37-170)
[2025-02-23 07:29] LABS: Folic Acid 7.8 ng/mL (2.76->20)
[2025-02-23 07:32] LABS: Percent Iron Saturation 26 % (20-50)
[2025-02-23 07:36] LABS: Glucose Point of Care 206 mg/dl (65-105)
[2025-02-23] MEDS: carvediloL 6.25 MG TABLET PO ×2 (08:47→21:19)
[2025-02-23] MEDS: amLODIPine BESYLATE 10 MG TABLET PO (08:47)
[2025-02-23] MEDS: INSULIN ASPART (*BKC) 100 UNITS/ML SUB-Q ×4 (08:47→21:19)
--- NOTE | 2025-02-23 08:59 | P.CDI_ITS ---
<Statement entered by Rabia Velázquez, SENIOR MARKETING DATA ANALYST - 02/23/25 14:36> This documentation has been reviewed and approved. Acute, has a UTI. CDI Query Clarification Request Altered mental status has been documented in progress notes. Please clarify the acuity of alteration in mental status: Acute Chronic Acute and chronic Unable to determine Other, please specify Please clarify the underlying possible/probable/suspected cause for the altered mental status in the progress notes: Encephalopathy (metabolic, COVID, hepatic, hypoxic, uremic, Wernicke, other) Neurologic condition (CVA/TIA/NPH/seizure) Electrolyte/metabolic imbalance/dehydration Infectious process (i.e. meningitis/encephalitis) Psychiatric condition Respiratory condition Dementia Other, please specify Unknown/unable to determine The medical chart reflects the followin-year-old female past medical history of CVA, diabetes type 2 presents the hospital altered mental status. HPI is limited due to patient's altered mental status. Patient denies being in pain. Patient is oriented only to self. No other information available In the ED her lab work showed anemia with hemoglobin of 10.8 baseline of around 11 BUN of 28, UA showing cloudy positive for nitrates, 3+ leukocyte esterase, over 100 wbc's, and 4+ bacteria. Chest x-ray shows no acute pulmonary process. Head CT shows no acute process. EKG shows sinus rhythm with first-degree AV block. Patient was started on IV Rocephin and IV fluids. (2) Acute UTI: Code(s): N39.0 - Urinary tract infection, site not specified Status: Acute Assessment and Plan: IV Rocephin Gentle IV hydration Culture and sensitivity pending (3) AMS (altered mental status): Code(s): R41.82 - Altered mental status, unspecified Status: Acute Assessment and Plan: Could be due to UTI Head CT with no acute findings Bedside swallow exam Blood cultures pending PT OT
[2025-02-23 09:06] LABS: Magnesium 1.9 mg/dL (1.6-2.3)
[2025-02-23] MEDS: cefTRIAXone 2 GM/NS 100 ML 2 GM/100 ML BAG IVPB (10:36)
[2025-02-23 11:21] LABS: Glucose Point of Care 329 mg/dl (65-105)
--- NOTE | 2025-02-23 11:30 | PM.IMPN ---
Progress Note: A&P Assessment and Plan (1) Acute UTI: Code(s): N39.0 - Urinary tract infection, site not specified Status: Acute Assessment and Plan: IV Rocephin Gentle IV hydration Culture and sensitivity pending (2) Hypertensive emergency: Code(s): I16.1 - Hypertensive emergency Status: Acute Assessment and Plan: Restart Amlodipine 10 mg PO daily and Carvedilol 6.25 mg PO q 12. Current blood pressure is 139/57. (3) AMS (altered mental status): Code(s): R41.82 - Altered mental status, unspecified Status: Acute Assessment and Plan: Could be due to UTI Head CT with no acute findings. Blood cultures pending PT/OT (4) Type 2 diabetes mellitus with hyperglycemia, with long-term current use of insulin: Code(s): E11.65 - Type 2 diabetes mellitus with hyperglycemia; Z79.4 - group home (current) use of insulin Status: Acute Assessment and Plan: Diabetic diet Accu-Cheks qid. Hypoglycemia protocol. SSI and Lantus 20 units subq at bedtime. HgbA1c 7.3% on 01/10/25. Subjective Date/time seen: 02/23/25 11:30 Interval history: Patient sitting up in bed. Patient denies chest pain, palpitations, headache, dizziness, nausea, or vomiting. Patient reports a little burning with urination. Patient reports that she normally wears a hearing aid in her right ear, is supposed to bring up. Review of Systems Review of Systems: All systems reviewed & are unremarkable except as noted in HPI and below Exam Const: General: comfortable and no acute distress HENMT: Other: QAGAN TAYAGUNGIN, normally wears hearing aid in right ear. Resp: Effort & Inspection: normal respiratory effort Auscultation: clear to auscultation bilaterally Cardio: Rate: regular rate Rhythm: regular rhythm GI: GI Palp: Yes Soft to palpation Auscultation: normal bowel sounds : Other: Cloudy yellow urine. Neuro: Speech: normal speech Extrem: General: no pedal edema Psych: Affect: normal affect Other: Oriented to person, place. Gave 2023 for year. Objective Data Vital Signs Vital Signs: Vital Signs - 24 hr 02/22/25 12:15 02/22/25 14:19 02/22/25 15:57 Temperature 98 F 97.7 F Pulse Rate 70 75 78 Respiratory Rate 16 16 16 Blood Pressure 186/75 H 187/91 H Pulse Oximetry 98 98 99 Oxygen Delivery 02/22/25 16:23 02/22/25 17:14 02/22/25 19:59 Temperature 97.7 F Pulse Rate 88 Respiratory Rate 20 Blood Pressure 230/100 H 218/95 H 202/78 H Pulse Oximetry 92 Oxygen Delivery 02/22/25 20:00 02/23/25 00:15 02/23/25 01:42 Temperature Pulse Rate 88 Respiratory Rate 18 Blood Pressure 190/95 H 165/90 H Pulse Oximetry 97 Oxygen Delivery Room Air 02/23/25 04:55 02/23/25 08:47 02/23/25 08:47 Temperature 98.3 F Pulse Rate 93 93 Respiratory Rate 20 Blood Pressure 160/52 H Pulse Oximetry 93 Oxygen Delivery Room Air Intake/Output Intake/Output: Intake & Output 02/20/25 02/21/25 02/22/25 02/23/25 23:59 23:59 23:59 23:59 Intake Total 640 1036.7 Output Total 400 600 Balance 240 436.7 Meds/Results Medications: Active Medications Generic Name Dose Route Start Last Admin Trade Name Freq PRN Reason Stop Dose Admin Amlodipine Besylate 10 mg 02/23/25 08:00 02/23/25 08:47 Amlodipine Besylate 10 Mg Tablet PO 10 mg DAILY@0800 ANIVAL Administration Carvedilol 6.25 mg 02/23/25 09:00 02/23/25 08:47 Carvedilol 6.25 Mg Tablet PO 6.25 mg Q12H ANIVAL Administration Dextrose 12.5 gm 02/22/25 16:31 Dextrose 50% 25 Gm/50 Ml Syringe IV PUSH PRN PRN Hypoglycemia Protocol Glucagon 1 mg 02/22/25 16:31 Glucagon For Inj 1 Mg Vial IM PRN PRN Hypoglycemia Protocol Glucose 15 gm 02/22/25 16:31 Glucose Oral Gel 15 Gm Of Glucse In 37.5 Gm Tube PO PRN PRN Hypoglycemia Protocol Hydralazine HCl 10 mg 02/22/25 16:31 02/23/25 00:21 Hydralazine Hcl 20 Mg/Ml Vial IV PUSH 10 mg Q8H PRN Administration Blood Pressure - High Sodium Chloride 1,000 mls @ 50 mls/hr 02/22/25 13:10 02/23/25 05:41 Normal Saline Iv IV CONT 50 mls/hr .Q20H ANIVAL Administration Dextrose 1,000 mls @ 100 mls/hr 02/22/25 16:31 Dextrose 5% 1,000 Ml IVPB PRN PRN Hypoglycemia Protocol Ceftriaxone Sodium 2 gm in 100 mls @ 200 mls/hr 02/23/25 11:00 02/23/25 10:36 Rocephin 2 Gm/Ns 100 Ml IVPB 200 mls/hr DAILY ANIVAL Administration Insulin Aspart 4 - 8 units 02/23/25 08:00 02/23/25 08:47 Insulin Aspart (*Bkc) 100 Units/Ml SUB-Q 4 units TIDWM ANIVAL Administration Protocol Insulin Aspart 2 - 4 units 02/23/25 21:00 Insulin Aspart (*Bkc) 100 Units/Ml SUB-Q HS ANIVAL Protocol Insulin Glargine 20 units 02/23/25 18:00 Insulin Glargine (*Bkc) 100 Units/Ml SUB-Q QPM ANIVAL Radiology Results: ITS Impressions Head CT 02/22/25 10:53 IMPRESSION: No acute intracranial findings. Chest X-Ray 02/22/25 11:05 IMPRESSION: No acute cardiopulmonary pathology. Labs Labs: Laboratory Results - last 24 hr 02/22/25 02/22/25 02/23/25 11:43 17:35 00:21 WBC RBC Hgb Hct MCV MCH MCHC RDW Plt Count MPV Immature Gran % (Auto) Neut % (Auto) Lymph % (Auto) [place] % (Auto) Eos % (Auto) Baso % (Auto) Lymph # (Auto) [place] # (Auto) Eos # (Auto) Baso # (Auto) Abs Immat Gran (auto) Absolute Neuts (auto) Absolute Nucleated RBC Nucleated RBC % Sodium Potassium Chloride Carbon Dioxide Anion Gap BUN Creatinine Estim Creat Clear Calc Estimated GFR Glucose POC Capillary Glucose 167 H 167 H 232 H Calcium Magnesium Iron TIBC % Saturation Vitamin B12 Folate 02/23/25 02/23/25 02/23/25 05:00 05:50 07:31 WBC 9.6 RBC 3.63 L Hgb 10.9 L Hct 34.2 L MCV 94.2 MCH 30.0 MCHC 31.9 L RDW 14.0 Plt Count 407 H MPV 10.4 Immature Gran % (Auto) 0.3 Neut % (Auto) 64.7 Lymph % (Auto) 22.5 [place] % (Auto) 9.4 H Eos % (Auto) 2.7 Baso % (Auto) 0.4 Lymph # (Auto) 2.16 [place] # (Auto) 0.9 H Eos # (Auto) 0.3 Baso # (Auto) 0.0 Abs Immat Gran (auto) 0.03 Absolute Neuts (auto) 6.2 Absolute Nucleated RBC 0.000 Nucleated RBC % 0.0 Sodium 139 Potassium 4.2 Chloride 108 H Carbon Dioxide 23 Anion Gap 8 BUN 26 H Creatinine 0.92 Estim Creat Clear Calc 34 Estimated GFR 57 L Glucose 215 H POC Capillary Glucose 235 H 206 H Calcium 8.7 Magnesium 1.9 Iron 55 TIBC 212 L % Saturation 26 Vitamin B12 981.0 H Folate 7.8 02/23/25 11:15 WBC RBC Hgb Hct MCV MCH MCHC RDW Plt Count MPV Immature Gran % (Auto) Neut % (Auto) Lymph % (Auto) [place] % (Auto) Eos % (Auto) Baso % (Auto) Lymph # (Auto) [place] # (Auto) Eos # (Auto) Baso # (Auto) Abs Immat Gran (auto) Absolute Neuts (auto) Absolute Nucleated RBC Nucleated RBC % Sodium Potassium Chloride Carbon Dioxide Anion Gap BUN Creatinine Estim Creat Clear Calc Estimated GFR Glucose POC Capillary Glucose 329 H Calcium Magnesium Iron TIBC % Saturation Vitamin B12 Folate Quality VTE Prophylaxis VTE prophylaxis: mechanical ordered
[2025-02-23 16:43] LABS: Glucose Point of Care 218 mg/dl (65-105)
[2025-02-23] MEDS: INSULIN GLARGINE (*BKC) 100 UNITS/ML 20 UNITS SUB-Q (17:37)
[2025-02-23 21:00] LABS: Glucose Point of Care 250 mg/dl (65-105)
[2025-02-24] MEDS: SODIUM CHLORIDE 0.9% IV 1,000 ML 50 ML IV CONT (03:21)
[2025-02-24 05:24] LABS: Basophils Absolute Auto 0.1 K/mm3 (0.0-0.1); Basophils Percent Auto 0.6 % (0.2-1.2); Eosinophils Absolute Auto 0.4 K/mm3 (0-0.3); Eosinophils Percent Auto 4.7 % (0-4.4); Hematocrit 32.2 % (37.0-47.0); Immature Granulocyte Absolute 0.01 K/mm3 (0.00-0.031); Immature Granulocyte Percent A 0.1 % (0-0.5); Lymphocytes Absolute Auto 2.42 K/mm3 (0.9-3.2); Lymphocytes Percent Auto 27.7 % (18.3-44.2); Mean Corpuscular HGB Conc 31.1 g/dl (32-36); Mean Corpuscular Hemoglobin 29.9 pg (26-34); Mean Corpuscular Volume 96.4 fl (80-100); Mean Platelet Volume 10.5 fl (7.4-10.4); Monocytes Absolute Auto 0.9 K/mm3 (0.1-0.6); Monocytes Percent Auto 9.7 % (2.6-8.5); Neutrophils Percent Auto 57.2 % (45.5-73.1); Platelet Count Result 364 k/mm3 (150-375); Red Blood Count 3.34 M/mm3 (4.2-5.4); Red Cell Distribution Width 14.2 % (11.5-14.5); White Blood Count 8.7 K/mm3 (4.5-10.0)
[2025-02-24 05:42] LABS: Alanine Aminotransferase 17 U/L (6-35); Albumin Level 3.6 g/dL (3.5-5.1); Alkaline Phosphatase 96 U/L (38-126); Anion Gap 7 mmol/L (4-12); Aspartate Amino Transferase 25 U/L (14-36); Bilirubin,Total 0.3 mg/dL (0.2-1.3); Blood Urea Nitrogen 23 mg/dL (7-17); Calcium 8.4 mg/dL (8.4-10.2); Carbon Dioxide 23 mmol/L (22-30); Chloride 109 mmol/L (98-107); Estimated CRCL calculation 32 ml/min; Estimated Glomerular Filt Rate 54; Glucose 152 mg/dL (65-110); Magnesium 1.8 mg/dL (1.6-2.3); Potassium 3.9 mmol/L (3.4-5.0); Sodium 139 mmol/L (137-145)
[2025-02-24 06:00] VITALS: BP 174/67; PULSE 75; RESP 18; TEMP 36.7; O2SAT 96
--- OUTSIDE RECORDS SUMMARY | 2025-02-24 06:25 | XMS_ITS | Data Portability ---
Author Organization [facility] Address [address] [place] [address] Care Team Providers Care Audience Development Manager Name Role Phone REAGAN MARINO Primary Care Provider Assessment Encounter Date Assessment Date Assessment LastModified by Organization Details LastModified Time 06/28/2024 06/28/2024 diabetes is uncontrolled they have a family member who knows the business objects and they are going to be reaching out to the family member so that she can get scheduled with the business objects if there is any difficulty charis and her will call me and I will arrange for a referral. Atorvastatin 10 mg a day I want to see her in 1 month she is to take her blood sugars twice a day also she needs to be referred to uro heating unit installer eventually but right now she is infected so there is not much that they would probably do to this all clears up. I told her very important for her to keep appointments [email or web address] Not available 07/04/2024 17:30:17 07/26/2024 07/26/2024 her diabetes is uncontrolled we will make the referral to endocrinology we will make the referral to Uro heating unit installer for incontinence see me in 1 month I have told her that he needs to bring me the medicine that was prescribed by the business objects I have no record of it [email or web address] Not available 07/31/2024 15:24:24 11/25/2024 11/25/2024 [email or web address]. Blood work. Follow up in 1 month. please take all medicines as prescribed [email or web address] Not available 11/25/2024 22:23:32 01/10/2025 01/10/2025 sutures were removed without incident hemostasis maintained we will try to get her some Ozempic check blood work. 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 Lab HbA1c (hemoglobi n A1c), blood 2024 025 LARRY [facility], [address], [address], [place], [address], 00:30:44 lipid panel, serum 2024 025 LARRY [facility], [address], [address], [place], [address], 04:24:58 CMP, serum or plasma 2024 025 LARRY [facility], [address], [address], [place], [address], 19:06:40 CBC w/ auto diff 2024 025 [email or web address] [facility], [address], [address], [place], [address], 20:33:00 HbA1c (hemoglobi n A1c), blood 2024 025 [id number] In-Office Order, Internal Use Only DO Not Attach Compendium DO Not Attach Compendium, Do Not Delete/merge, [id number] 17:44:41 CMP, serum or plasma 2024 025 [email or web address], [address], [address], [place], [address], 5 12:50:07 lipid panel, serum 2024 025 [email or web address] [facility], [address], [address], [place], [address], 04/22/202 5 12:50:07 CBC w/ auto diff 2024 025 [email or web address] [facility], [address], [address], [place], [address], 5 12:50:07 HbA1c (hemoglobi n A1c), blood 2023 024 [id number] In-Office Order, Internal Use Only DO Not Attach Compendium DO Not Attach Compendium, Do Not Delete/merge, [id number] 4 21:41:22 Referral endocrinol ogy referral 2023 024 [facility] - [facility] , [address], [place], [address], 5 14:26:12 Procedures None recorded. Surgeries None recorded. Imaging None recorded. Medication Orders Ozempic 0.25 mg or 0.5 mg (2 mg/1.5 mL) subcutaneo us pen injector 2024 025 [email or web address] [facility], [address] , [place], [address], 5 15:21:16 pantoprazo le 40 mg tablet,del ayed release 2024 025 [email or web address] [facility], [address], [place], [address], 5 17:44:41 atorvastat in 10 mg tablet 2023 024 LARRY [facility], [address], [place], [address], 5 14:13:59 atorvastat in 10 mg tablet 2023 024 [email or web address] [facility], [address], [place], [address], 14:13:57 Patient TargetsNo targets recorded. Patient Instructions Encounter Date Encounter Id Patient Instructions Last Modified By Organization Details Last Modified Time 06/28/2024 [id number] A healthy lifestyle: care instructions [email or web address] Not available 06/28/2024 14:10:49 07/26/2024 [id number] A healthy lifestyle: care instructions [email or web address] Not available 07/26/2024 14:10:31 11/25/2024 [id number] A healthy lifestyle: care instructions Not available [...] DO Not Attach Compendium, Do Not Delete/merge, [id number] 06/28/2024 17:19:06 11/25/19 25 11/25/2024 HbA1c (hemo globi n A1c), blood HbA1c 8.2 Not Available In-Office Order Internal Use Only DO Not Attach Compendium DO Not Attach Compendium, Do Not Delete/merge, [id number] 11/25/2024 16:03:17 01/01/20 25 12/31/2024 CT, brain , w/o contr ast No observ ation record ed. [address], [address], 01/05/2025 21:52:52 01/01/20 25 12/31/2024 XR, elbow No observ ation record ed. [address], [address], 01/05/2025 21:52:52 01/01/20 25 12/31/2024 XR, hand No observ ation record ed. [address], [address], 01/05/2025 21:52:52 01/01/20 25 12/31/2024 XR, shoul simon No observ ation record ed. [address], [place], [address], 01/05/2025 21:52:53 01/01/20 25 12/31/2024 CT, cervi kathleen spine , w/o contr ast No observ ation record ed. [address], [place], [address], 01/05/2025 21:52:53 01/05/20 CT, maxil lofac ial, w/o contr ast No observ ation record ed. [address], [place], [address], 01/05/2025 21:52:53 01/20/20 25 01/19/2025 CT, brain , w/o contr ast No observ ation record ed. [address], [place], [address], 01/20/2025 09:23:40 01/20/20 25 01/19/2025 XR, chest No observ ation record ed. [address], [place], [address], 01/20/2025 09:23:26 02/23/20 25 02/22/2025 CT, brain , w/o contr ast No observ ation record ed. [address], [place], [address], 02/23/2025 10:39:15 02/23/20 25 02/22/2025 XR, chest , 1 view No observ ation record ed. [address], [place], [address], 02/23/2025 10:39:30 Result Notes None recorded. Problems Name Problem SNOMED Code Status Onset Date Resolution Date Notes Provider Name and Address Organization Details Recorded Time Overweight 809466475 Active 2023 Brie Buchanan MA [place], [place] - [facility] 4 12:20:55 Type 2 diabetes mellitus 52951016 Active 2023 Brie Buchanan MA null, [place] - [facility] 4 12:21:04 Hyperlipidemia 10758952 Active 2023 Brie Buchanan MA [place], [place] - [facility] 4 12:21:08 Problem Notes None recorded. Procedures Surgical History None recorded. Imaging Results Imaging Date Name Status LastModified by Organiz ation Details LastModified Time 12/31/2024 CT, brain, w/o contrast completed [address], [address], 01/05/2025 21:52:52 12/31/2024 XR, elbow completed [address], [address], 01/05/2025 21:52:52 12/31/2024 XR, hand completed [address], [address], 01/05/2025 21:52:52 12/31/2024 XR, shoulder completed [address], [address], 01/05/2025 21:52:53 12/31/2024 CT, cervical spine, w/o contrast completed [address], [address], 01/05/2025 21:52:53 01/04/2025 CT, maxillofacial , w/o contrast completed [address], [address], 01/05/2025 21:52:53 01/19/2025 CT, brain, w/o contrast completed [address], [place], [address], 01/20/2025 09:23:40 01/19/2025 XR, chest completed [address], [place], [address], 01/20/2025 09:23:26 02/22/2025 CT, brain, w/o contrast completed [address], [place], [address], 02/23/2025 10:39:15 02/22/2025 XR, chest, 1 view completed [address], [place], [address], 02/23/2025 10:39:30 Procedure Notes None recorded. Medical Equipment None [...] Updated DateTime 4 149.86 cm 36 kg/m2 93249.4 4 g 97 % 97 % 78 /min 116 mm[Hg] 74 mm[Hg] Anna Knutson [facility] 4 12:06:06 Date Recorded Body height Body mass index (BMI) Body weight Heart rate Oxygen saturation Oxygen saturation in Arterial blood by Pulse oximetry Systolic blood pressure Diastolic blood pressure Provider Name and Address Organization Details Last Updated DateTime 4 149.86 cm 36 kg/m2 55678.4 4 g 76 /min 96 % 96 % 130 mm[Hg] 90 mm[Hg] Anna [facility] 4 11:54:01 Date Recorded Body height Body mass index (BMI) Body weight Heart rate Oxygen saturation Oxygen saturation in Arterial blood by Pulse oximetry Systolic blood pressure Diastolic blood pressure Provider Name and Address Organization Details Last Updated DateTime 5 149.86 cm 35.5 kg/m2 91287.2 6 g 78 /min 96 % 96 % 140 mm[Hg] 90 mm[Hg] Em Mcgovern MA [facility] 5 14:55:16 Date Recorded Body height Heart rate Oxygen saturation Oxygen saturation in Arterial blood by Pulse oximetry Systolic blood pressure Diastolic blood pressure Provider Name and Address Organization Details Last Updated DateTime 5 149.86 cm 76 /min 97 % 97 % 130 mm[Hg] 80 mm[Hg] Anna Knutson, [facility] 14:11:03 Social History Question Answer Notes LastModified by Organizat ion Details LastModified Time Tobacco Smoking Status Never Smoker Anna Knutson MA null, [place] - [facility] 07/26/2024 11:55:07 Do You Have An Advance [...] Skin Problems N Anemia N Heart Attack ([place]) N Anxiety Disorder N Diabetes Y Muscle, [...] trivalent, preservative 4 completed Brie Buchanan MA [facility] 07/26/2024 12:21:18 Past Encounters Encounter ID Performer Location Encounter Start Date Encounter Closed Date Diagnosis/Indication Diagnosis SNOMED-CT Code Diagnosis ICD10 Code Diagnosis Note [id number] Reagan Marino MD [facility] [place] [address] [place] [address] 06/28/2024 11:23:26 06/28/2024 13:35:11 Obesity 076963428 E66.8 Type 2 vicki betes mellitus 82927381 E11.9 Hyperlipidemia 86543183 E78.5 [id number] Reagan Marino MD [facility] [place] [address] [place] [address] 07/26/2024 11:46:56 07/26/2024 12:47:29 Overweight 184796757 E66.3 Type 2 vicki betes mellitus 47428019 E11.9 Hyperlipidemia 72083076 E78.5 [id number] Reagan Marino MD [facility] - [place] [address] [place] [address] 11/25/2024 14:17:41 11/25/2024 15:41:29 Body mass index 30+ - obesity 971790010 Z68.35 Obesity 172580002 E66.9 Hyperlipidemia 94643058 E78.5 Gastroesop hageal reflux disease without esophagitis 144978069 K21.9 Type 2 vicki betes mellitus 37296911 E11.9 [id number] Reagan Marino MD [facility] [place] [address] [place] [address] 01/10/2025 13:53:12 01/10/2025 14:46:45 Facial laceration 667628896 S01.81XA Type 2 vicki betes mellitus 42703625 E11.9 Gastroesop hageal reflux disease without esophagitis 738529609 K21.9 Hyperlipidemia 30218320 E78.5 Health Concerns Section Related Observation LastModified by Organization Detai ls LastModified Time None Recorded Concern Status LastModified by Organization Details LastModified Time None Recorded Advance Directives Directive N: Payers Encounter Date Sequence Insurance Name Policy Number Policy Manjarrez Covered Member ID Manjarrez Member ID Guarantor Name 06/28/2024 1 [employer] - [employer] (MEDICARE REPLACEMENT/ ADVANTAGE - HMO) [id number] [place] J Ross [id number] [place] Ross 07/26/2024 1 [employer] - [employer] (MEDICARE REPLACEMENT/ ADVANTAGE - HMO) [id number] [place] Dariel Ross [id number] [place] Ross 11/25/2024 1 [employer] - [employer] (MEDICARE REPLACEMENT/ ADVANTAGE - HMO) [id number] [place] Dariel oRss [id number] [place] Ross 01/10/2025 1 [employer] - [employer]IME (MEDICARE REPLACEMENT/ ADVANTAGE - HMO) [id number] Charis Ross [id number] Charis Ross Notes Date Note Type Note Provider [...] Reagan Marino MD Attn: Accounting, [address] [facility], [place], [address], [facility] - [facility] 07/04/2024 17:30:47 07/26/2024 text/html she is still hav ing urinary incontinence she is not taking any of her meds except for what was given to her by a previous business objects they have not made the appointment with the business objects. I offered to do that at last visit but they said they would do it. They did not Reagan Marino MD Attn: Accounting, [address] , [place], [address], [facility] 07/31/2024 15:24:43 11/25/2024 text/html diabetes they do [...] Reagan Marino MD Attn: Accounting, [address] [facility], [place], [address], [facility] - [facility] 11/25/2024 22:24:06 01/10/2025 text/html she had a fall w ent to the hospital for stitches paste over her right cheek transferred to [place] because of concerns about her eye and [...] struggles Reagan Marino MD Attn: Accounting[address] [place], [address], [place] - [facility] 01/11/2025 22:32:39 OBGyn Episode No OBEpisode recorded.
--- OUTSIDE RECORDS SUMMARY | 2025-02-24 06:25 | XMS_ITS | Referral Summary ---
Author Organization [facility] [address] [facility] [address] Address [address] [place] [address] Care Team Providers Care Hand Mixer Name Role Phone Jimmy Marino MD Primary Care Provider [phone] Encounters Date Type Department Care Team Description 01/01/2025 8:05 PM CDT - 01/01/2025 11:59 PM CDT Hospital Encounter [facility] [address] [place], [place] [phone] Discharge Disposition: Discharge to home or self care 01/01/2025 Ophth Exam [facility] Ophthalmology [address] [place] [phone] Chris Lujan MD 01/01/2025 12:07 PM CDT - 01/01/2025 8:01 PM CDT Emergency [facility] 1 [place] [address] Lei Lopez MD Knight, Caleb Daniel, MD Diagnosis unknown (Primary Dx); Fall, initial encounter; Concussion without loss of consciousness, initial encounter Discharge Disposition: Discharge to home or self care 12/31/2024 Telephone [facility] Ophthalmology [address] [place] [phone] Ravindra Suarez MD from Last 3 [...] pen INJECT 46 UNITS UNDER THE SKIN BUSINESS OFFICE REPRESENTATIVE BEFORE BREAKFAST 45 mL 3 4 Active metFORMIN XR (GLUCOPHAGE XR) 500 mg 24 hr tablet Take 1 tablet by mouth once daily 90 tablet 3 4 Active Active Problems Problem Noted Date Diagnosed Date Diagnosis unknown 01/02/2025 Morbid (severe) obesity due to excess calories 0 06/27/2022 Assessment & Plan (11/15/2022 11:39 AM WOOD GRAINER): This is a chronic condition which is [...] Assessment & Plan (11/15/2022 12:02 PM WOOD GRAINER): This is a chronic condition which is [...] Assessment & Plan (11/01/2021 4:01 PM WOOD GRAINER): This is a chronic condition which is at goal Goal is <140/90 Personally reviewed labs. B/p-136/70 Avoid caffeine, caffeine will raise blood pressure and excessive alcohol consumption. Monitor your weight and B/P. Encouraged to take medications as prescribed. 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 Assessment & Plan (06/27/2022 2:30 PM CDT): [...] No history of macrovascular disease - CVA, DC. Assessment & Plan (02/28/2022 12:47 PM CDT): This is a chronic condition which is out of control Personally reviewed A1c-13.6% not at goal less than 8% Personally reviewed blood sugar -217 not at goal 80-180 Medication- increase Xultophy 28 units daily am. - this will decreases number of injections and hopeful will cover mealtime insulin need. Discussed using [employer] insulin delivery system- she did not think [...] No history of macrovascular disease - CVA, DC. Assessment & Plan (11/01/2021 4:03 PM WOOD GRAINER): This is a chronic condition Awaiting labs from PCP office done yesterday Personally reviewed [id number] results goal less than 7% Personally reviewed blood sugar -274 not at goal 80-180 Medication- stop degludec and novolog. Start Xultophy 20 units daily am. - will try this to decrease number of injections and hopeful will cover mealtime insulin need. Monitor blood sugar 4 times a day with Qnektstyle madelyn 2 sensor. Encouraged annual eye exam. [...] No history of macrovascular disease - CVA, DC. Resolved Problems Problem Noted Date Diagnosed Date [...] file Legal Sex Female 1:44 AM WOOD GRAINER Gender Identity Not on file Sexual Orientation [...] A1C Routine 11/15/2022 1 1:39 AM WOOD GRAINER Type 2 diabetes mellitus with hypoglycemia without coma, with long-term current use of insulin (HCC) COMPREHENSIVE METABOLIC PANEL Routine 04/04/2022 LIPID PANEL Routine 04/04/2022 from Last 3 Months or Most Recently Relevant to Health Maintenance Results * (ABNORMAL) Urinalysis reflex to microscopic and culture Urine, clean voided (01/01/2025 4:24 PM CDT) Color, ur Yellow Yellow Clarity, ur Turbid(A) Clear [facility] Specific gravity, ur 1.015 1.003 - 1.030 [facility] pH, urine 6.5 [facility] Comment: Interpretive Data U rine pH is affected by diet, medications, systemic acid-base disturbances, and renal tubular function. pH may affect urinary stone formation. For example, urine pH below 6.0 may help reduce the tendency for calcium phosphate stones and pH greater than 6.0 may reduce the tendency for uric acid stone formation. Source: [facility] Current Interpretive Data was last revised on 2017 Protein, ur ql 2+(A) Negative [facility] Glucose, ur ql 4+(A) Negative [facility] Ketones, ur 1+(A) Negative [facility] Bilirubin, ur Negative Negative [facility] Blood, ur 1+(A) Negative [facility] Urobilinogen, ur <2.0 <2.0 mg/dL [facility] Nitrite, ur Negative Negative [facility] Leukocyte esterase, ur 3+(A) Negative [facility] UA reflex comment Reflex to microscopic UA will be performed. [facility] Urine, clean voided 01/01/2025 4:24 PM CDT 01/01/2025 4:30 PM CDT Manuel Keating MD LAB MICROBIOLOGY - GENERA L ORDERABLES Final Result [facility] Department [place] [address] * (ABNORMAL) Urinalysis, microscopic only (01/01/2025 4:24 PM CDT) WBC, ur >50(A) 0 - 5 /HPF RBC, ur >50(A) 0 - 2 /HPF [facility] Epithelial cells, squamous, ur 1-5 0 - 5 /HPF [facility] Bacteria, ur 4+(A) [facility] Culture Reflex Comment Reflex to urine culture will be performed. [facility] Urine, clean voided 01/01/2025 4:24 PM CDT 01/01/2025 4:30 PM CDT Manuel Keating MD LAB URINE ORDERABLES Jennifer l Result Performing Organization Address City/[facility]/ZIP Co de Phone Number [facility] Department [place] [address] * (ABNORMAL) Urine culture Urine, clean voided (01/01/2025 4:24 PM CDT) Report Final Report: Growth indicates contamination with mixed bacterial lucy. Please submit a new specimen with special attention given to the collection process and to prompt transport to the laboratory. (.) Organism GROWTH INDICATES CONTAMINATION WITH MIXED LUCY. [facility] Urine, clean voided 01/01/2025 4:24 PM CDT 01/01/2025 7:57 PM CDT Narrative [facility] - 01/03/2025 4:19 PM CDT Urine culture reflexed based upon urinalysis results. Testing performed by [facility] ([phone]) Manuel Keating MD LAB MICROBIOLOGY - GENERA L ORDERABLES Final Result Performing Organization Address City/[facility] Co de Phone Number [facility] [place] [address] * (ABNORMAL) POCT glucose (01/01/2025 4:11 PM CDT) Glucose, POC 251(H) 70 - 199 mg/dL Comment:Glu2: RN/MD Notified Glucose comment 1 Glu2: RN/MD Notified [facility] Blood 01/01/2025 4:11 PM CDT 01/01/2025 4:11 PM CDT Manuel Keating MD LAB POCT ORDERABLES - DEV ICE Final Result Performing Organization Address City/[facility]/ZIP Co de Phone Number [facility] Department [place] [address] * XR Outside Reference (01/01/2025 3:20 PM [...] PROCEDURES Final R esult Performing Organization Address [facility] de Phone Number [email or web address] * XR [...] PROCEDURES Final R esult Performing Organization Address [facility] de Phone Number [email or web address] * XR [...] PROCEDURES Final R esult Performing Organization Address [facility] Co de Phone Number [email or web address] [...] images may or may not represent the [place] source data set and thus may contain [...] IMAGING STUDY STUDY INITIALLY PERFORMED: 12/31/2024 at [facility]. TYPE OF STUDY: Multiple CT images [...] IMAGING STUDY STUDY INITIALLY PERFORMED: 12/31/2024 at [facility]. TYPE OF STUDY: Multiple CT images [...] images may or may not represent the [place] source data set and thus may contain [...] images may or may not represent the [place] source data set and thus may contain [...] IMAGING STUDY STUDY INITIALLY PERFORMED: 12/31/2024 at [facility]. TYPE OF STUDY: Multiple CT images [...] IMAGING STUDY STUDY INITIALLY PERFORMED: 12/31/2024 at [facility]. TYPE OF STUDY: Multiple CT images [...] images may or may not represent the [place] source data set and thus may contain [...] (ABNORMAL) POCT glucose (01/01/2025 2:47 PM CDT) [facility] Glucose, POC 256(H) 70 - 199 mg/dL Blood 01/01/2025 2:47 PM CDT 01/01/2025 2:47 PM CDT Lei Lopez MD LAB POCT ORDERABLES - DEVICE F inal Result [facility] Department [place] [address] * (ABNORMAL) POCT hemoglobin A1c (11/15/2022 11:39 AM WOOD GRAINER) [facility] Hemoglobin A1C, POC 9.9 Blood 11/15/2022 11:3 9 AM WOOD GRAINER Tammy Lewis NP POINT OF CARE TEST ORDERABLES F inal Result * (ABNORMAL) Lipid panel (04/04/2022) [facility] SCRIBED Cholesterol, Total 165 140 - 199 EXTERNAL LAB SCRIBED HDL 65(A) 0 - 40 EXTERNAL LAB SCRIBED LDL 70 0 - 130 EXTERNAL LAB SCRIBED Triglycerides 150 0 - 150 EXTERNAL LAB Blood 04/04/2022 us Historical Provider LAB BLOOD ORDERABLES Jennifer l Result EXTERNAL LAB * (ABNORMAL) Comprehensive metabolic panel (04/04/2022) [facility] SCRIBED Sodium 139 137 - 145 mmol/L [...] Units/L EXTERNAL LAB SCRIBED eGFR in NonAfrican Danish 48(A) 60 - >90 EXTERNAL LAB Blood 04/04/2022 us Historical Provider LAB BLOOD ORDERABLES Jennifer l Result EXTERNAL LAB from Last 3 Months or Most Recently Relevant to Health Maintenance Insurance MEDICARE [employer] IDPA [employer] AETNA MEDICARE GOLD AETNA MEDICARE GOLD Member Subscriber Plan / Payer (Ef fective 2024-Present) Name:Yesi Ross Relation to Subscriber:Self Name:Yesi Ross [id number]|2025-02-24 06:25:00|2025-02-24 06:24:00|XMS_ITS|[facility]|External Medical Summaries|[id number]|" Clinical Summary Created on: February 24, 2025 Yesi Ross : 1935 Sex: Female Author Organization [facility] [address] [place] [address] [address] [facility] [address] [place] [address] Care Team Providers Care Hand Mixer Name Role Phone Jimmy Marino MD Primary Care Provider [phone] Allergies No known active allergies Medications atorvastatin [...] pen INJECT 46 UNITS UNDER THE SKIN BUSINESS OFFICE REPRESENTATIVE BEFORE BREAKFAST 45 mL 3 4 Active metFORMIN XR (GLUCOPHAGE XR) 500 mg 24 hr tablet Take 1 tablet by mouth once daily 90 tablet 3 4 Active Active Problems Problem Noted Date Diagnosed Date Diagnosis unknown 01/02/2025 Morbid (severe) obesity due to excess calories 0 06/27/2022 Assessment & Plan (11/15/2022 11:39 AM WOOD GRAINER): This is a chronic condition which is [...] Assessment & Plan (11/15/2022 12:02 PM WOOD GRAINER): This is a chronic condition which is [...] Assessment & Plan (11/01/2021 4:01 PM WOOD GRAINER): This is a chronic condition which is at goal Goal is <140/90 Personally reviewed labs. B/p-136/70 Avoid caffeine, caffeine will raise blood pressure and excessive alcohol consumption. Monitor your weight and B/P. Encouraged to take medications as prescribed. 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 Assessment & Plan (06/27/2022 2:30 PM CDT): [...] No history of macrovascular disease - CVA, DC. Assessment & Plan (02/28/2022 12:47 PM CDT): [...] No history of macrovascular disease - CVA, DC. Assessment & Plan (11/01/2021 4:03 PM WOOD GRAINER): This is a chronic condition Awaiting labs from PCP office done yesterday Personally reviewed [id number]-[id number] results goal less than 7% Personally reviewed [...] No history of macrovascular disease - CVA, DC. Resolved Problems Problem Noted Date Diagnosed Date [...] PM CDT Hospital Encounter [facility] [address] [place] [address] Discharge Disposition: Discharge to home or self care 01/01/2025 12:07 PM CDT - 01/01/2025 8:01 PM CDT Emergency [facility] 1 [place] [address] Lei Lopez MD Knight, Caleb Daniel, MD Diagnosis unknown (Primary Dx); Fall, initial encounter; Concussion without loss of consciousness, initial encounter Discharge Disposition: Discharge to home or self care 01/01/2025 Ophth Exam [facility] Ophthalmology [address] [place] [phone] Chris Lujan MD 12/31/2024 Telephone [facility] Ophthalmology [address] [place] [phone] Ravindra Suarez MD from Last 3 Months [...] file Legal Sex Female 1:44 AM WOOD GRAINER Gender Identity Not on file Sexual Orientation [...] A1C Routine 11/15/2022 1 1:39 AM WOOD GRAINER Type 2 diabetes mellitus with hypoglycemia without coma, with long-term current use of insulin ([facility]) COMPREHENSIVE METABOLIC PANEL Routine 04/04/2022 LIPID PANEL Routine 04/04/2022 from Last 3 Months or Most Recently Relevant to Health Maintenance Results * (ABNORMAL) Urinalysis reflex to microscopic and culture Urine, clean voided (01/01/2025 4:24 PM CDT) Color, ur Yellow Yellow Clarity, ur Turbid(A) Clear [facility] Specific gravity, ur 1.015 1.003 - 1.030 [facility] pH, urine 6.5 [facility] Comment: Interpretive Data U rine pH is affected by diet, medications, systemic acid-base disturbances, and renal tubular function. pH may affect urinary stone formation. For example, urine pH below 6.0 may help reduce the tendency for calcium phosphate stones and pH greater than 6.0 may reduce the tendency for uric acid stone formation. Source: [place] [employer] Current Interpretive Data was last revised on 2017 Protein, ur ql 2+(A) Negative [facility] Glucose, ur ql 4+(A) Negative [facility] Ketones, ur 1+(A) Negative [facility] Bilirubin, ur Negative Negative [facility] Blood, ur 1+(A) Negative [facility] Urobilinogen, ur <2.0 <2.0 mg/dL [facility] Nitrite, ur Negative Negative [facility] Leukocyte esterase, ur 3+(A) Negative [facility] UA reflex comment Reflex to microscopic UA will be performed. [facility] Urine, clean voided 01/01/2025 4:24 PM CDT 01/01/2025 4:30 PM CDT Manuel Keating MD LAB MICROBIOLOGY - GENERA L ORDERABLES Final Result Performing Organization Address [facility] Co de Phone Number [facility] [employer] [place] [address] * (ABNORMAL) Urinalysis, microscopic only (01/01/2025 4:24 PM CDT) WBC, ur >50(A) 0 - 5 /HPF RBC, ur >50(A) 0 - 2 /HPF [facility] Epithelial cells, squamous, ur 1-5 0 - 5 /HPF [facility] Bacteria, ur 4+(A) [facility] Culture Reflex Comment Reflex to urine culture will be performed. [facility] Urine, clean voided 01/01/2025 4:24 PM CDT 01/01/2025 4:30 PM CDT Manuel Keating MD LAB URINE ORDERABLES Jennifer l Result Performing Organization Address [facility] Co de Phone Number [facility] [employer] [place] [address] * (ABNORMAL) Urine culture Urine, clean voided (01/01/2025 4:24 PM CDT) Report Final Report: Growth indicates contamination with mixed bacterial lucy. Please submit a new specimen with special attention given to the collection process and to prompt transport to the laboratory. (.) Organism GROWTH INDICATES CONTAMINATION WITH MIXED LUCY. [facility] Urine, clean voided 01/01/2025 4:24 PM CDT 01/01/2025 7:57 PM CDT Narrative [facility] - 01/03/2025 4:19 PM CDT Urine culture reflexed based upon urinalysis results. Testing performed by [facility] ([phone]) Manuel Keating MD LAB MICROBIOLOGY - GENERA L ORDERABLES Final Result Performing Organization Address [facility] de Phone Number [facility] Department [place] [address] * (ABNORMAL) POCT glucose (01/01/2025 4:11 PM CDT) Glucose, POC 251(H) 70 - 199 mg/dL Comment:Glu2: RN/MD Notified Glucose comment 1 Glu2: RN/MD Notified [facility] Blood 01/01/2025 4:11 PM CDT 01/01/2025 4:11 PM CDT Result [facility] Manuel Kaeting MD LAB POCT ORDERABLES - DEV ICE Final Result Performing Organization Address [facility] de Phone Number [facility] Department [place] [address] * XR Outside Reference (01/01/2025 3:20 PM CDT) Impressions [facility] - 01/01/2025 3:20 PM CDT These images are for Reference purposes only and have not been reviewed by [facility] Radiology. There will be no report generated by a [facility] Radiologist. Narrative [facility] - 01/01/2025 3:20 PM CDT EXAMINATION: Images For Reference Purposes Only Rohan Hernandez MD IMG XR PROCEDURES Final R esult Performing Organization Address [facility] de Phone Number [email or web address] * XR [...] PROCEDURES Final R esult Performing Organization Address [facility] de Phone Number [email or web address] * XR Outside [...] PROCEDURES Final R esult Performing Organization Address [facility] de Phone Number [email or web address] * Neuro [...] images may or may not represent the [place] source data set and thus may contain [...] IMAGING STUDY STUDY INITIALLY PERFORMED: 12/31/2024 at [facility]. TYPE OF STUDY: Multiple CT images [...] IMAGING STUDY STUDY INITIALLY PERFORMED: 12/31/2024 at [facility]. TYPE OF STUDY: Multiple CT images [...] images may or may not represent the [place] source data set and thus may contain [...] images may or may not represent the [place] source data set and thus may contain [...] IMAGING STUDY STUDY INITIALLY PERFORMED: 12/31/2024 at [facility]. TYPE OF STUDY: Multiple CT images [...] IMAGING STUDY STUDY INITIALLY PERFORMED: 12/31/2024 at [facility]. TYPE OF STUDY: Multiple CT images [...] images may or may not represent the [place] source data set and thus may contain [...] ORDERABLES - DEVICE F inal Result [facility] Department [place] [address] * (ABNORMAL) POCT hemoglobin A1c (11/15/2022 11:39 AM WOOD GRAINER) Pathologist [facility] Hemoglobin A1C, POC 9.9 Blood 11/15/2022 11:3 9 AM WOOD GRAINER Tammy Lewis NP POINT OF CARE TEST ORDERABLES F inal Result * (ABNORMAL) Lipid panel (04/04/2022) Pathologist [facility] SCRIBED Cholesterol, Total 165 140 - 199 EXTERNAL LAB SCRIBED HDL 65(A) 0 - 40 EXTERNAL LAB SCRIBED LDL 70 0 - 130 EXTERNAL LAB SCRIBED Triglycerides 150 0 - 150 EXTERNAL LAB Blood 04/04/2022 Historical Provider MD LAB BLOOD ORDERABLES Jennifer l Result EXTERNAL LAB * (ABNORMAL) Comprehensive metabolic panel (04/04/2022) Pathologist [facility] SCRIBED Sodium 139 137 - 145 [...] Units/L EXTERNAL LAB SCRIBED eGFR in NonAfrican Danish 48(A) 60 - >90 EXTERNAL LAB Blood 04/04/2022 us Historical Provider LAB BLOOD ORDERABLES Jennifer l Result EXTERNAL LAB from Last 3 Months or Most Recently Relevant to Health Maintenance Insurance MEDICARE [employer] [place] [place] [address] [employer] Member Subscriber Plan / Payer (Ef fective 2025-Present) Name:Yesi Ross Relation to Subscriber:Self Name:Yesi Ross Payer ID:[id number]
--- OUTSIDE RECORDS SUMMARY | 2025-02-24 06:25 | XMS_ITS | Continuity of Care Document ---
Author Organization [facility] Address [address] [place] [address] [place] [address] Phone Care Team Providers Care Quantitative Analyst Developer Name Role Phone Joseph Ryan Unavailable Unavailable [...] Date Provider Providers Copied on Encounter [facility], [address] [place] [address] [address], [place], [place], [id number], tel:[phone] [facility] No Information [address] , [address], [place], [address], [place]. tel:[phone] [facility], [address] [place] [address] [address], [place], [place], [id number], [place] tel:[phone] [facility] No Information [address] , [address], [place], [address], [place]. tel:[phone] [facility], [address] [place] [address] [address], [place], [place], [id number], [place] tel:[phone] [facility] No Information [address] , [address], [place], [place], [facility], . tel:[phone] Referring Provider: Gerber Rios OD, [address] [place], [address]. tel:[phone] Office/outpat ient Visit, [facility] Eye [facility], [address], [place], [place], [id number], [place] tel:[phone] [facility]3] No Information [address] , [address], [place], [place], [facility], . tel:[phone] Referring Provider: Gerber Rios OD, [address] [place], [address]. tel:[phone] Family History Family Member Type Diagnosis Age At Onset No Information Payers Payer name Insurance type Covered libertarian ID Authoriza tion(s) No Information Social History [...]
[2025-02-24 07:58] LABS: Glucose Point of Care 143 mg/dl (65-105)
[2025-02-24 10:10] VITALS: PULSE 75
[2025-02-24] MEDS: AMOXICILLIN/CLAVULANATE K 875-125 MG TAB 1 TABLET PO ×2 (10:10→21:23)
[2025-02-24] MEDS: amLODIPine BESYLATE 10 MG TABLET PO (10:10)
[2025-02-24] MEDS: carvediloL 6.25 MG TABLET PO ×2 (10:10→21:23)
--- NOTE | 2025-02-24 11:01 | P.PNIM_ITS ---
Progress Note: A&P Assessment and Plan (1) Acute UTI: Code(s): N39.0 - Urinary tract infection, site not specified Status: Acute Assessment and Plan: * Augmentin 875-125 mg 1 tab PO q 12. * Urine culture grew- proteus mirabilis. * NS@ 50 ml/hr. (2) Hypertensive emergency: Code(s): I16.1 - Hypertensive emergency Status: Acute Assessment and Plan: * Amlodipine 10 mg PO daily and Carvedilol 6.25 mg PO q 12. * Current blood pressure is 134/58. (3) AMS (altered mental status): Code(s): R41.82 - Altered mental status, unspecified Status: Acute Assessment and Plan: * Could be due to UTI * Head CT with no acute findings. * Blood cultures no growth to date. * PT/OT (4) Type 2 diabetes mellitus with hyperglycemia, with long-term current use of insulin: Code(s): E11.65 - Type 2 diabetes mellitus with hyperglycemia; Z79.4 - senior living (current) use of insulin Status: Acute Assessment and Plan: * Diabetic diet * Accu-Cheks qid. * Hypoglycemia protocol. * SSI and Lantus 20 units subq at bedtime. * HgbA1c 7.3% on 01/10/25. Subjective Date/time seen: 02/24/25 11:01 Interval history: Patient sitting up in chair. Patient denies chest pain, palpitations, headache, dizziness, nausea, or vomiting. Patient reports slight burning with urination. Review of Systems Review of Systems: All systems reviewed & are unremarkable except as noted in HPI and below Exam Const: General: comfortable and no acute distress HENMT: Other: NIKOLSKI, normally wears hearing aid in right ear. Resp: Effort & Inspection: normal respiratory effort Auscultation: clear to auscultation bilaterally Cardio: Rate: regular rate Rhythm: regular rhythm GI: GI Palp: Yes Soft to palpation Auscultation: normal bowel sounds : Other: Cloudy frothy yellow urine. Neuro: Speech: normal speech Extrem: General: no pedal edema Psych: Affect: normal affect Other: Oriented to person, place. Gave 2023 for year. Objective Data Vital Signs Vital Signs: Vital Signs - 24 hr 02/23/25 11:48 02/23/25 14:00 02/23/25 21:19 Temperature 97.3 F L Pulse Rate 81 80 Respiratory Rate 16 Blood Pressure 139/57 L Pulse Oximetry 98 Oxygen Delivery Room Air Fraction of Inspired Oxygen 02/23/25 21:50 02/23/25 22:00 02/24/25 06:00 Temperature 98.0 F 98.0 F Pulse Rate 83 80 75 Respiratory Rate 20 18 18 Blood Pressure 169/71 H 174/67 H Pulse Oximetry 98 98 96 Oxygen Delivery Room Air Fraction of Inspired Oxygen 21 02/24/25 10:10 02/24/25 10:10 Temperature Pulse Rate 75 Respiratory Rate Blood Pressure Pulse Oximetry Oxygen Delivery Room Air Fraction of Inspired Oxygen Intake/Output Intake/Output: Intake & Output 02/21/25 02/22/25 02/23/25 02/24/25 23:59 23:59 23:59 23:59 Intake Total 640 1394.7 1240 Output Total 400 1100 1200 Balance 240 294.7 40 Meds/Results Medications: Active Medications Generic Name Dose Route Start Last Admin Trade Name Freq PRN Reason Stop Dose Admin Amlodipine Besylate 10 mg 02/23/25 08:00 02/24/25 10:10 Amlodipine Besylate 10 Mg Tablet PO 10 mg DAILY@0800 ANIVAL Administration Amoxicillin/Clavulanate Potassium 1 tablet 02/24/25 10:00 02/24/25 10:10 Amoxicillin/Clavulanate K 875-125 Mg Tab PO 02/28/25 21:01 1 tablet Q12HR ANIVAL Administration Carvedilol 6.25 mg 02/23/25 09:00 02/24/25 10:10 Carvedilol 6.25 Mg Tablet PO 6.25 mg Q12H ANIVAL Administration Dextrose 12.5 gm 02/22/25 16:31 Dextrose 50% 25 Gm/50 Ml Syringe IV PUSH PRN PRN Hypoglycemia Protocol Glucagon 1 mg 02/22/25 16:31 Glucagon For Inj 1 Mg Vial IM PRN PRN Hypoglycemia Protocol Glucose 15 gm 02/22/25 16:31 Glucose Oral Gel 15 Gm Of Glucse In 37.5 Gm Tube PO PRN PRN Hypoglycemia Protocol Hydralazine HCl 10 mg 02/22/25 16:31 02/23/25 00:21 Hydralazine Hcl 20 Mg/Ml Vial IV PUSH 10 mg Q8H PRN Administration Blood Pressure - High Sodium Chloride 1,000 mls @ 50 mls/hr 02/22/25 13:10 02/24/25 03:21 Normal Saline Iv IV CONT 50 mls/hr .Q20H ANIVAL Administration Dextrose 1,000 mls @ 100 mls/hr 02/22/25 16:31 Dextrose 5% 1,000 Ml IVPB PRN PRN Hypoglycemia Protocol Insulin Aspart 4 - 8 units 02/23/25 08:00 02/24/25 08:11 Insulin Aspart (*Bkc) 100 Units/Ml SUB-Q Not Given TIDWM ANIVAL Protocol Insulin Aspart 2 - 4 units 02/23/25 21:00 02/23/25 21:19 Insulin Aspart (*Bkc) 100 Units/Ml SUB-Q 2 units HS ANIVAL Administration Protocol Insulin Glargine 20 units 02/23/25 18:00 02/23/25 17:37 Insulin Glargine (*Bkc) 100 Units/Ml SUB-Q 20 units QPM ANIVAL Administration Radiology Results: ITS Impressions Head CT 02/22/25 10:53 IMPRESSION: No acute intracranial findings. Chest X-Ray 02/22/25 11:05 IMPRESSION: No acute cardiopulmonary pathology. Labs Labs: Laboratory Results - last 24 hr 02/23/25 02/23/25 02/23/25 11:15 16:40 20:15 WBC RBC Hgb Hct MCV MCH MCHC RDW Plt Count MPV Immature Gran % (Auto) Neut % (Auto) Lymph % (Auto) [place] % (Auto) Eos % (Auto) Baso % (Auto) Lymph # (Auto) [place] # (Auto) Eos # (Auto) Baso # (Auto) Abs Immat Gran (auto) Absolute Neuts (auto) Absolute Nucleated RBC Nucleated RBC % Sodium Potassium Chloride Carbon Dioxide Anion Gap BUN Creatinine Estim Creat Clear Calc Estimated GFR Glucose POC Capillary Glucose 329 H 218 H 250 H Calcium Magnesium Total Bilirubin AST ALT Alkaline Phosphatase Total Protein Albumin 02/24/25 02/24/25 04:44 07:55 WBC 8.7 RBC 3.34 L Hgb 10.0 L Hct 32.2 L MCV 96.4 MCH 29.9 MCHC 31.1 L RDW 14.2 Plt Count 364 MPV 10.5 H Immature Gran % (Auto) 0.1 Neut % (Auto) 57.2 Lymph % (Auto) 27.7 [place] % (Auto) 9.7 H Eos % (Auto) 4.7 H Baso % (Auto) 0.6 Lymph # (Auto) 2.42 [place] # (Auto) 0.9 H Eos # (Auto) 0.4 H Baso # (Auto) 0.1 Abs Immat Gran (auto) 0.01 Absolute Neuts (auto) 5.0 Absolute Nucleated RBC 0.000 Nucleated RBC % 0.0 Sodium 139 Potassium 3.9 Chloride 109 H Carbon Dioxide 23 Anion Gap 7 BUN 23 H Creatinine 0.97 Estim Creat Clear Calc 32 Estimated GFR 54 L Glucose 152 H POC Capillary Glucose 143 H Calcium 8.4 Magnesium 1.8 Total Bilirubin 0.3 AST 25 ALT 17 Alkaline Phosphatase 96 Total Protein 7.0 Albumin 3.6 Quality VTE Prophylaxis VTE prophylaxis: mechanical ordered
[2025-02-24 12:09] LABS: Glucose Point of Care 231 mg/dl (65-105)
[2025-02-24] MEDS: polyethylene glycoL 3350 17 GM POWD.PACK PO (12:40)
[2025-02-24] MEDS: DOCUSATE SODIUM 100 MG CAPSULE PO (12:40)
[2025-02-24] MEDS: INSULIN ASPART (*BKC) 100 UNITS/ML SUB-Q ×3 (12:41→21:23)
[2025-02-24 14:00] VITALS: BP 134/58; PULSE 66; RESP 18; TEMP 36.7; O2SAT 99
[2025-02-24 17:22] LABS: Glucose Point of Care 221 mg/dl (65-105)
[2025-02-24] MEDS: INSULIN GLARGINE (*BKC) 100 UNITS/ML 20 UNITS SUB-Q (17:38)
[2025-02-24 20:11] VITALS: BP 157/72; PULSE 72; RESP 20; TEMP 36.6; O2SAT 96
[2025-02-24 20:48] LABS: Glucose Point of Care 235 mg/dl (65-105)
[2025-02-24 21:23] VITALS: PULSE 70
[2025-02-25 04:28] VITALS: BP 156/65; PULSE 70; RESP 18; TEMP 36.6; O2SAT 96
[2025-02-25 05:01] LABS: Basophils Absolute Auto 0.1 K/mm3 (0.0-0.1); Basophils Percent Auto 0.5 % (0.2-1.2); Eosinophils Absolute Auto 0.5 K/mm3 (0-0.3); Eosinophils Percent Auto 5.2 % (0-4.4); Hematocrit 31.2 % (37.0-47.0); Immature Granulocyte Absolute 0.03 K/mm3 (0.00-0.031); Immature Granulocyte Percent A 0.3 % (0-0.5); Lymphocytes Absolute Auto 2.44 K/mm3 (0.9-3.2); Lymphocytes Percent Auto 23.7 % (18.3-44.2); Mean Corpuscular HGB Conc 32.1 g/dl (32-36); Mean Corpuscular Hemoglobin 30.3 pg (26-34); Mean Corpuscular Volume 94.5 fl (80-100); Mean Platelet Volume 10.1 fl (7.4-10.4); Monocytes Absolute Auto 0.9 K/mm3 (0.1-0.6); Monocytes Percent Auto 8.9 % (2.6-8.5); Neutrophils Absolute Auto 6.3 K/mm3 (1.3-6.7); Neutrophils Percent Auto 61.4 % (45.5-73.1); Platelet Count Result 349 k/mm3 (150-375); White Blood Count 10.3 K/mm3 (4.5-10.0)
[2025-02-25 05:15] LABS: Alanine Aminotransferase 17 U/L (6-35); Albumin Level 3.5 g/dL (3.5-5.1); Alkaline Phosphatase 95 U/L (38-126); Anion Gap 9 mmol/L (4-12); Aspartate Amino Transferase 23 U/L (14-36); Bilirubin,Total 0.4 mg/dL (0.2-1.3); Blood Urea Nitrogen 25 mg/dL (7-17); Calcium 8.4 mg/dL (8.4-10.2); Carbon Dioxide 23 mmol/L (22-30); Chloride 108 mmol/L (98-107); Estimated CRCL calculation 31 ml/min; Estimated Glomerular Filt Rate 52; Glucose 84 mg/dL (65-110); Magnesium 1.8 mg/dL (1.6-2.3); Potassium 3.9 mmol/L (3.4-5.0); Sodium 140 mmol/L (137-145)
[2025-02-25 07:54] LABS: Glucose Point of Care 83 mg/dl (65-105)
[2025-02-25 08:32] VITALS: PULSE 67
[2025-02-25] MEDS: AMOXICILLIN/CLAVULANATE K 875-125 MG TAB 1 TABLET PO ×2 (08:32→20:05)
[2025-02-25] MEDS: carvediloL 6.25 MG TABLET PO ×2 (08:32→20:06)
[2025-02-25] MEDS: amLODIPine BESYLATE 10 MG TABLET PO (08:32)
[2025-02-25 11:25] LABS: Glucose Point of Care 176 mg/dl (65-105)
--- NOTE | 2025-02-25 12:12 | P.PNIM_ITS ---
Progress Note: A&P Assessment and Plan (1) Acute UTI: Code(s): N39.0 - Urinary tract infection, site not specified Status: Acute Assessment and Plan: * Augmentin 875-125 mg 1 tab PO q 12. * Urine culture grew- proteus mirabilis. * Drink water. * Urine improving. * Afebrile. WBC 10.3. (2) Hypertensive emergency: Code(s): I16.1 - Hypertensive emergency Status: Acute Assessment and Plan: * Amlodipine 10 mg PO daily and Carvedilol 6.25 mg PO q 12. * Current blood pressure is 156/65. (3) AMS (altered mental status): Code(s): R41.82 - Altered mental status, unspecified Status: Acute Assessment and Plan: * Could be due to UTI * Head CT with no acute findings. * Blood cultures no growth to date. 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 * Hypoglycemia protocol. * SSI and Lantus 20 units subq at bedtime. * HgbA1c 7.3% on 01/10/25. Subjective Date/time seen: 02/25/25 12:12 Interval history: Patient sitting up in chair with at bedside. Patient reports that it hurts a little bit when she urinates. Patient denies chest pain, palpitations, headache, dizziness, nausea, or vomiting. Review of Systems Review of Systems: All systems reviewed & are unremarkable except as noted in HPI and below Exam Const: General: comfortable and no acute distress Resp: Effort & Inspection: normal respiratory effort Auscultation: clear to auscultation bilaterally Cardio: Rate: regular rate Rhythm: regular rhythm GI: GI Palp: Yes Soft to palpation Auscultation: normal bowel sounds : Other: Crystal colored urine that is clearing up. Neuro: Speech: normal speech Extrem: General: no pedal edema Psych: Affect: normal affect Other: Oriented to person, place. Gave 2023 for year. Objective Data Vital Signs Vital Signs: Vital Signs - 24 hr 02/24/25 14:00 02/24/25 20:00 02/24/25 20:11 Temperature 98.1 F 97.8 F Pulse Rate 66 72 Respiratory Rate 18 20 Blood Pressure 134/58 L 157/72 H Pulse Oximetry 99 96 Oxygen Delivery Room Air 02/24/25 21:23 02/25/25 04:28 02/25/25 08:32 Temperature 97.8 F Pulse Rate 70 70 67 Respiratory Rate 18 Blood Pressure 156/65 H Pulse Oximetry 96 Oxygen Delivery 02/25/25 08:38 Temperature Pulse Rate Respiratory Rate Blood Pressure Pulse Oximetry Oxygen Delivery Room Air Intake/Output Intake/Output: Intake & Output 02/22/25 02/23/25 02/24/25 02/25/25 23:59 23:59 23:59 23:59 Intake Total 640 1394.7 1600 310 Output Total 400 1100 1400 400 Balance 240 294.7 200 -90 Meds/Results Medications: Active Medications Generic Name Dose Route Start Last Admin Trade Name Freq PRN Reason Stop Dose Admin Amlodipine Besylate 10 mg 02/23/25 08:00 02/25/25 08:32 Amlodipine Besylate 10 Mg Tablet PO 10 mg DAILY@0800 ANIVAL Administration Amoxicillin/Clavulanate Potassium 1 tablet 02/24/25 10:00 02/25/25 08:32 Amoxicillin/Clavulanate K 875-125 Mg Tab PO 02/28/25 21:01 1 tablet Q12HR ANIVAL Administration Carvedilol 6.25 mg 02/23/25 09:00 02/25/25 08:32 Carvedilol 6.25 Mg Tablet PO 6.25 mg Q12H ANIVAL Administration Dextrose 12.5 gm 02/22/25 16:31 Dextrose 50% 25 Gm/50 Ml Syringe IV PUSH PRN PRN Hypoglycemia Protocol Docusate Sodium 100 mg 02/24/25 11:41 02/24/25 12:40 Docusate Sodium 100 Mg Capsule PO 100 mg Q12H PRN Administration Constipation Glucagon 1 mg 02/22/25 16:31 Glucagon For Inj 1 Mg Vial IM PRN PRN Hypoglycemia Protocol Glucose 15 gm 02/22/25 16:31 Glucose Oral Gel 15 Gm Of Glucse In 37.5 Gm Tube PO PRN PRN Hypoglycemia Protocol Hydralazine HCl 10 mg 02/22/25 16:31 02/23/25 00:21 Hydralazine Hcl 20 Mg/Ml Vial IV PUSH 10 mg Q8H PRN Administration Blood Pressure - High Dextrose 1,000 mls @ 100 mls/hr 02/22/25 16:31 Dextrose 5% 1,000 Ml IVPB PRN PRN Hypoglycemia Protocol Insulin Aspart 4 - 8 units 02/23/25 08:00 02/25/25 11:47 Insulin Aspart (*Bkc) 100 Units/Ml SUB-Q Not Given TIDWM ANIVAL Protocol Insulin Aspart 2 - 4 units 02/23/25 21:00 02/24/25 21:23 Insulin Aspart (*Bkc) 100 Units/Ml SUB-Q 2 units HS ANIVAL Administration Protocol Insulin Glargine 20 units 02/23/25 18:00 02/24/25 17:38 Insulin Glargine (*Bkc) 100 Units/Ml SUB-Q 20 units QPM ANIVAL Administration Polyethylene Glycol 17 gm 02/24/25 11:41 02/24/25 12:40 Polyethylene Glycol 3350 17 Gm Powd.Pack PO 17 gm QAM PRN Administration Constipation Radiology Results: ITS Impressions Head CT 02/22/25 10:53 IMPRESSION: No acute intracranial findings. Chest X-Ray 02/22/25 11:05 IMPRESSION: No acute cardiopulmonary pathology. Labs Labs: Laboratory Results - last 24 hr 02/24/25 02/24/25 02/25/25 17:09 20:16 04:39 WBC 10.3 H RBC 3.30 L Hgb 10.0 L Hct 31.2 L MCV 94.5 MCH 30.3 MCHC 32.1 RDW 14.0 Plt Count 349 MPV 10.1 Immature Gran % (Auto) 0.3 Neut % (Auto) 61.4 Lymph % (Auto) 23.7 [place] % (Auto) 8.9 H Eos % (Auto) 5.2 H Baso % (Auto) 0.5 Lymph # (Auto) 2.44 [place] # (Auto) 0.9 H Eos # (Auto) 0.5 H Baso # (Auto) 0.1 Abs Immat Gran (auto) 0.03 Absolute Neuts (auto) 6.3 Absolute Nucleated RBC 0.000 Nucleated RBC % 0.0 Sodium 140 Potassium 3.9 Chloride 108 H Carbon Dioxide 23 Anion Gap 9 BUN 25 H Creatinine 1.00 Estim Creat Clear Calc 31 Estimated GFR 52 L Glucose 84 POC Capillary Glucose 221 H 235 H Calcium 8.4 Magnesium 1.8 Total Bilirubin 0.4 AST 23 ALT 17 Alkaline Phosphatase 95 Total Protein 7.0 Albumin 3.5 02/25/25 02/25/25 07:47 11:23 WBC RBC Hgb Hct MCV MCH MCHC RDW Plt Count MPV Immature Gran % (Auto) Neut % (Auto) Lymph % (Auto) [place] % (Auto) Eos % (Auto) Baso % (Auto) Lymph # (Auto) [place] # (Auto) Eos # (Auto) Baso # (Auto) Abs Immat Gran (auto) Absolute Neuts (auto) Absolute Nucleated RBC Nucleated RBC % Sodium Potassium Chloride Carbon Dioxide Anion Gap BUN Creatinine Estim Creat Clear Calc Estimated GFR Glucose POC Capillary Glucose 83 176 H Calcium Magnesium Total Bilirubin AST ALT Alkaline Phosphatase Total Protein Albumin Quality VTE Prophylaxis VTE prophylaxis: mechanical ordered
[2025-02-25 13:45] VITALS: BP 160/62; PULSE 66; RESP 18; TEMP 36.6; O2SAT 98
[2025-02-25 17:25] LABS: Glucose Point of Care 210 mg/dl (65-105)
[2025-02-25] MEDS: INSULIN ASPART (*BKC) 100 UNITS/ML SUB-Q ×2 (17:26→21:37)
[2025-02-25] MEDS: INSULIN GLARGINE (*BKC) 100 UNITS/ML 20 UNITS SUB-Q (17:26)
[2025-02-25 19:50] VITALS: BP 177/67; PULSE 71; RESP 20; TEMP 36.6; O2SAT 96
[2025-02-25 20:06] VITALS: PULSE 85
[2025-02-25 20:47] LABS: Glucose Point of Care 265 mg/dl (65-105)
[2025-02-26 04:00] VITALS: BP 180/67; PULSE 83; RESP 20; TEMP 36.6; O2SAT 98
[2025-02-26 05:22] LABS: Basophils Percent Auto 0.4 % (0.2-1.2); Eosinophils Absolute Auto 0.5 K/mm3 (0-0.3); Eosinophils Percent Auto 5.6 % (0-4.4); Immature Granulocyte Absolute 0.03 K/mm3 (0.00-0.031); Immature Granulocyte Percent A 0.3 % (0-0.5); Lymphocytes Absolute Auto 2.35 K/mm3 (0.9-3.2); Lymphocytes Percent Auto 26.3 % (18.3-44.2); Mean Corpuscular HGB Conc 32.3 g/dl (32-36); Mean Corpuscular Hemoglobin 30.8 pg (26-34); Mean Corpuscular Volume 95.4 fl (80-100); Mean Platelet Volume 10.2 fl (7.4-10.4); Monocytes Absolute Auto 0.8 K/mm3 (0.1-0.6); Monocytes Percent Auto 8.9 % (2.6-8.5); Neutrophils Absolute Auto 5.2 K/mm3 (1.3-6.7); Neutrophils Percent Auto 58.5 % (45.5-73.1); Platelet Count Result 354 k/mm3 (150-375); Red Blood Count 3.25 M/mm3 (4.2-5.4); Red Cell Distribution Width 14.1 % (11.5-14.5); White Blood Count 8.9 K/mm3 (4.5-10.0)
[2025-02-26 05:37] LABS: Alanine Aminotransferase 19 U/L (6-35); Albumin Level 3.6 g/dL (3.5-5.1); Alkaline Phosphatase 99 U/L (38-126); Anion Gap 9 mmol/L (4-12); Aspartate Amino Transferase 28 U/L (14-36); Bilirubin,Total 0.2 mg/dL (0.2-1.3); Blood Urea Nitrogen 27 mg/dL (7-17); Calcium 8.4 mg/dL (8.4-10.2); Carbon Dioxide 23 mmol/L (22-30); Chloride 107 mmol/L (98-107); Estimated CRCL calculation 30 ml/min; Estimated Glomerular Filt Rate 50; Glucose 152 mg/dL (65-110); Sodium 139 mmol/L (137-145)
[2025-02-26 08:30] LABS: Glucose Point of Care 126 mg/dl (65-105)
[2025-02-26 10:41] VITALS: PULSE 83
[2025-02-26] MEDS: carvediloL 6.25 MG TABLET PO ×2 (10:41→19:52)
[2025-02-26] MEDS: AMOXICILLIN/CLAVULANATE K 875-125 MG TAB 1 TABLET PO ×2 (10:41→19:52)
[2025-02-26] MEDS: amLODIPine BESYLATE 10 MG TABLET PO (10:41)
--- NOTE | 2025-02-26 10:45 | P.PNIM_ITS ---
Progress Note: A&P Assessment and Plan (1) Acute UTI: Code(s): N39.0 - Urinary tract infection, site not specified Status: Acute Assessment and Plan: * Augmentin 875-125 mg 1 tab PO q 12. * Urine culture grew- proteus mirabilis. * Drink water. * Urine improving. * Afebrile. WBC 8.9. * PT/OT. (2) Hypertensive emergency: Code(s): I16.1 - Hypertensive emergency Status: Acute Assessment and Plan: * Amlodipine 10 mg PO daily and Carvedilol 6.25 mg PO q 12. * Current blood pressure is 153/59. (3) AMS (altered mental status): Code(s): R41.82 - Altered mental status, unspecified Status: Acute Assessment and Plan: * Could be due to UTI * Head CT with no acute findings. * Blood cultures no growth to date. * PT/OT * A&Ox3 today. 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 * Hypoglycemia protocol. * SSI and Lantus 20 units subq at bedtime. * HgbA1c 7.3% on 01/10/25. Subjective Date/time seen: 02/26/25 10:45 Interval history: Patient sitting up in bed. Patient reports that it hurts a little bit when she urinates. Patient denies chest pain, palpitations, headache, dizziness, nausea, or vomiting. Review of Systems Review of Systems: All systems reviewed & are unremarkable except as noted in HPI and below Exam Const: General: comfortable and no acute distress Resp: Effort & Inspection: normal respiratory effort Auscultation: clear to auscultation bilaterally Cardio: Rate: regular rate Rhythm: regular rhythm GI: GI Palp: Yes Soft to palpation Auscultation: normal bowel sounds : Other: Crystal colored urine that is clearing up. Neuro: Speech: normal speech Extrem: General: no pedal edema Psych: Mental Status: mental status grossly normal Affect: normal affect Objective Data Vital Signs Vital Signs: Vital Signs - 24 hr 02/25/25 13:45 02/25/25 19:50 02/25/25 20:00 Temperature 97.8 F 97.8 F Pulse Rate 66 71 Respiratory Rate 18 20 Blood Pressure 160/62 H 177/67 H Pulse Oximetry 98 96 Oxygen Delivery Room Air 02/25/25 20:06 02/26/25 04:00 02/26/25 10:41 Temperature 97.8 F Pulse Rate 85 83 83 Respiratory Rate 20 Blood Pressure 180/67 H Pulse Oximetry 98 Oxygen Delivery Intake/Output Intake/Output: Intake & Output 02/23/25 02/24/25 02/25/25 02/26/25 23:59 23:59 23:59 23:59 Intake Total 1394.7 1600 790 480 Output Total 1100 1400 1050 400 Balance 294.7 200 -260 80 Meds/Results Medications: Active Medications Generic Name Dose Route Start Last Admin Trade Name Freq PRN Reason Stop Dose Admin Amlodipine Besylate 10 mg 02/23/25 08:00 02/26/25 10:41 Amlodipine Besylate 10 Mg Tablet PO 10 mg DAILY@0800 ANIVAL Administration Amoxicillin/Clavulanate Potassium 1 tablet 02/24/25 10:00 02/26/25 10:41 Amoxicillin/Clavulanate K 875-125 Mg Tab PO 02/28/25 21:01 1 tablet Q12HR ANIVAL Administration Carvedilol 6.25 mg 02/23/25 09:00 02/26/25 10:41 Carvedilol 6.25 Mg Tablet PO 6.25 mg Q12H ANIVAL Administration Dextrose 12.5 gm 02/22/25 16:31 Dextrose 50% 25 Gm/50 Ml Syringe IV PUSH PRN PRN Hypoglycemia Protocol Docusate Sodium 100 mg 02/24/25 11:41 02/24/25 12:40 Docusate Sodium 100 Mg Capsule PO 100 mg Q12H PRN Administration Constipation Glucagon 1 mg 02/22/25 16:31 Glucagon For Inj 1 Mg Vial IM PRN PRN Hypoglycemia Protocol Glucose 15 gm 02/22/25 16:31 Glucose Oral Gel 15 Gm Of Glucse In 37.5 Gm Tube PO PRN PRN Hypoglycemia Protocol Hydralazine HCl 10 mg 02/22/25 16:31 02/23/25 00:21 Hydralazine Hcl 20 Mg/Ml Vial IV PUSH 10 mg Q8H PRN Administration Blood Pressure - High Dextrose 1,000 mls @ 100 mls/hr 02/22/25 16:31 Dextrose 5% 1,000 Ml IVPB PRN PRN Hypoglycemia Protocol Insulin Aspart 4 - 8 units 02/23/25 08:00 02/26/25 10:42 Insulin Aspart (*Bkc) 100 Units/Ml SUB-Q Not Given TIDWM ANIVAL Protocol Insulin Aspart 2 - 4 units 02/23/25 21:00 02/25/25 21:37 Insulin Aspart (*Bkc) 100 Units/Ml SUB-Q 2 units HS ANIVAL Administration Protocol Insulin Glargine 20 units 02/23/25 18:00 02/25/25 17:26 Insulin Glargine (*Bkc) 100 Units/Ml SUB-Q 20 units QPM ANIVAL Administration Polyethylene Glycol 17 gm 02/24/25 11:41 02/24/25 12:40 Polyethylene Glycol 3350 17 Gm Powd.Pack PO 17 gm QAM PRN Administration Constipation Radiology Results: ITS Impressions Head CT 02/22/25 10:53 IMPRESSION: No acute intracranial findings. Chest X-Ray 02/22/25 11:05 IMPRESSION: No acute cardiopulmonary pathology. Labs Labs: Laboratory Results - last 24 hr 02/25/25 02/25/25 02/25/25 11:23 17:06 19:55 WBC RBC Hgb Hct MCV MCH MCHC RDW Plt Count MPV Immature Gran % (Auto) Neut % (Auto) Lymph % (Auto) [place] % (Auto) Eos % (Auto) Baso % (Auto) Lymph # (Auto) [place] # (Auto) Eos # (Auto) Baso # (Auto) Abs Immat Gran (auto) Absolute Neuts (auto) Absolute Nucleated RBC Nucleated RBC % Sodium Potassium Chloride Carbon Dioxide Anion Gap BUN Creatinine Estim Creat Clear Calc Estimated GFR Glucose POC Capillary Glucose 176 H 210 H 265 H Calcium Magnesium Total Bilirubin AST ALT Alkaline Phosphatase Total Protein Albumin 02/26/25 02/26/25 05:01 07:59 WBC 8.9 RBC 3.25 L Hgb 10.0 L Hct 31.0 L MCV 95.4 MCH 30.8 MCHC 32.3 RDW 14.1 Plt Count 354 MPV 10.2 Immature Gran % (Auto) 0.3 Neut % (Auto) 58.5 Lymph % (Auto) 26.3 [place] % (Auto) 8.9 H Eos % (Auto) 5.6 H Baso % (Auto) 0.4 Lymph # (Auto) 2.35 [place] # (Auto) 0.8 H Eos # (Auto) 0.5 H Baso # (Auto) 0.0 Abs Immat Gran (auto) 0.03 Absolute Neuts (auto) 5.2 Absolute Nucleated RBC 0.000 Nucleated RBC % 0.0 Sodium 139 Potassium 4.0 Chloride 107 Carbon Dioxide 23 Anion Gap 9 BUN 27 H Creatinine 1.04 H Estim Creat Clear Calc 30 Estimated GFR 50 L Glucose 152 H POC Capillary Glucose 126 H Calcium 8.4 Magnesium 2.0 Total Bilirubin 0.2 AST 28 ALT 19 Alkaline Phosphatase 99 Total Protein 7.0 Albumin 3.6 Quality VTE Prophylaxis VTE prophylaxis: mechanical ordered
[2025-02-26 11:43] LABS: Glucose Point of Care 211 mg/dl (65-105)
[2025-02-26] MEDS: INSULIN ASPART (*BKC) 100 UNITS/ML SUB-Q ×3 (13:40→21:15)
[2025-02-26 14:00] VITALS: BP 153/59; PULSE 68; RESP 16; TEMP 36.6; O2SAT 97
[2025-02-26 17:00] LABS: Glucose Point of Care 220 mg/dl (65-105)
[2025-02-26] MEDS: INSULIN GLARGINE (*BKC) 100 UNITS/ML 20 UNITS SUB-Q (17:27)
[2025-02-26 19:52] VITALS: PULSE 70
[2025-02-26 20:49] LABS: Glucose Point of Care 242 mg/dl (65-105)
[2025-02-26 22:00] VITALS: BP 150/90; PULSE 65; RESP 18; TEMP 36.4; O2SAT 100
[2025-02-27 05:15] LABS: Basophils Percent Auto 0.4 % (0.2-1.2); Eosinophils Absolute Auto 0.5 K/mm3 (0-0.3); Eosinophils Percent Auto 5.3 % (0-4.4); Hematocrit 31.3 % (37.0-47.0); Hemoglobin 10.2 g/dL (12.0-15.0); Immature Granulocyte Absolute 0.02 K/mm3 (0.00-0.031); Immature Granulocyte Percent A 0.2 % (0-0.5); Lymphocytes Absolute Auto 2.81 K/mm3 (0.9-3.2); Lymphocytes Percent Auto 31.3 % (18.3-44.2); Mean Corpuscular HGB Conc 32.6 g/dl (32-36); Mean Corpuscular Hemoglobin 30.5 pg (26-34); Mean Corpuscular Volume 93.7 fl (80-100); Monocytes Absolute Auto 0.8 K/mm3 (0.1-0.6); Neutrophils Absolute Auto 4.8 K/mm3 (1.3-6.7); Neutrophils Percent Auto 53.8 % (45.5-73.1); Platelet Count Result 363 k/mm3 (150-375); Red Blood Count 3.34 M/mm3 (4.2-5.4)
[2025-02-27 05:25] LABS: Alanine Aminotransferase 18 U/L (6-35); Albumin Level 3.5 g/dL (3.5-5.1); Alkaline Phosphatase 100 U/L (38-126); Anion Gap 8 mmol/L (4-12); Aspartate Amino Transferase 25 U/L (14-36); Bilirubin,Total 0.3 mg/dL (0.2-1.3); Blood Urea Nitrogen 29 mg/dL (7-17); Calcium 8.4 mg/dL (8.4-10.2); Carbon Dioxide 24 mmol/L (22-30); Chloride 105 mmol/L (98-107); Estimated CRCL calculation 30 ml/min; Estimated Glomerular Filt Rate 50; Glucose 118 mg/dL (65-110); Potassium 3.8 mmol/L (3.4-5.0); Sodium 137 mmol/L (137-145)
[2025-02-27 06:00] VITALS: BP 178/68; PULSE 71; RESP 18; TEMP 36.6; O2SAT 98
[2025-02-27 08:12] VITALS: PULSE 70
[2025-02-27] MEDS: carvediloL 6.25 MG TABLET PO ×2 (08:12→20:15)
[2025-02-27] MEDS: amLODIPine BESYLATE 10 MG TABLET PO (08:12)
[2025-02-27] MEDS: AMOXICILLIN/CLAVULANATE K 875-125 MG TAB 1 TABLET PO ×2 (08:12→20:15)
[2025-02-27 08:15] LABS: Glucose Point of Care 118 mg/dl (65-105)
--- NOTE | 2025-02-27 10:00 | P.PNIM_ITS ---
Progress Note: A&P Assessment and Plan (1) Acute UTI: Code(s): N39.0 - Urinary tract infection, site not specified Status: Acute Assessment and Plan: * Augmentin 875-125 mg 1 tab PO q 12. * Urine culture grew- proteus mirabilis. * Drink water. * Urine improving. * Afebrile. WBC 8.9. * PT/OT. (2) Hypertensive emergency: Code(s): I16.1 - Hypertensive emergency Status: Acute Assessment and Plan: * Amlodipine 10 mg PO daily and Carvedilol 6.25 mg PO q 12. * Current blood pressure is 152/67. (3) AMS (altered mental status): Code(s): R41.82 - Altered mental status, unspecified Status: Acute Assessment and Plan: * Could be due to UTI * Head CT with no acute findings. * Blood cultures no growth to date. * PT/OT * A&Ox3 today. (4) Type 2 diabetes mellitus with hyperglycemia, with long-term current use of insulin: Code(s): E11.65 - Type 2 diabetes mellitus with hyperglycemia; Z79.4 - terminal gauger (current) use of insulin Status: Acute Assessment and Plan: * Diabetic diet * Accu-Cheks qid. * Hypoglycemia protocol. * SSI and Lantus 20 units subq at bedtime. * HgbA1c 7.3% on 01/10/25. (5) Generalized weakness: Code(s): R53.1 - Weakness Status: Acute Assessment and Plan: * PT/OT. * Awaiting insurance approval for rehab. Subjective Date/time seen: 02/27/25 10:00 Interval history: Patient sitting up in chair sleeping when I rounded on patient. Patient reports feeling pretty good. Patient reports that she occasionally gets queasy. Patient denies chest pain, palpitations, headache, dizziness, or vomiting. Review of Systems Review of Systems: All systems reviewed & are unremarkable except as noted in HPI and below Exam Const: General: comfortable and no acute distress Resp: Effort & Inspection: normal respiratory effort Auscultation: clear to auscultation bilaterally Cardio: Rate: regular rate Rhythm: regular rhythm GI: GI Palp: Yes Soft to palpation Auscultation: normal bowel sounds : Other: Crsytal colored urine that is clearing up. Neuro: Speech: normal speech Extrem: General: no pedal edema Psych: Mental Status: mental status grossly normal Affect: normal affect Objective Data Vital Signs Vital Signs: Vital Signs - 24 hr 02/26/25 10:41 02/26/25 14:00 02/26/25 19:52 Temperature 97.9 F Pulse Rate 83 68 70 Respiratory Rate 16 Blood Pressure 153/59 H Pulse Oximetry 97 Oxygen Delivery 02/26/25 20:00 02/26/25 22:00 02/27/25 06:00 Temperature 97.6 F 97.8 F Pulse Rate 65 71 Respiratory Rate 18 18 Blood Pressure 150/90 H 178/68 H Pulse Oximetry 100 98 Oxygen Delivery Room Air 02/27/25 08:12 Temperature Pulse Rate 70 Respiratory Rate Blood Pressure Pulse Oximetry Oxygen Delivery Intake/Output Intake/Output: Intake & Output 02/24/25 02/25/25 02/26/25 02/27/25 23:59 23:59 23:59 23:59 Intake Total 1600 790 960 240 Output Total 1400 1050 700 600 Balance 200 -260 260 -360 Meds/Results Medications: Active Medications Generic Name Dose Route Start Last Admin Trade Name Freq PRN Reason Stop Dose Admin Amlodipine Besylate 10 mg 02/23/25 08:00 02/27/25 08:12 Amlodipine Besylate 10 Mg Tablet PO 10 mg DAILY@0800 ANIVAL Administration Amoxicillin/Clavulanate Potassium 1 tablet 02/24/25 10:00 02/27/25 08:12 Amoxicillin/Clavulanate K 875-125 Mg Tab PO 02/28/25 21:01 1 tablet Q12HR ANIVAL Administration Carvedilol 6.25 mg 02/23/25 09:00 02/27/25 08:12 Carvedilol 6.25 Mg Tablet PO 6.25 mg Q12H ANIVAL Administration Dextrose 12.5 gm 02/22/25 16:31 Dextrose 50% 25 Gm/50 Ml Syringe IV PUSH PRN PRN Hypoglycemia Protocol Docusate Sodium 100 mg 02/24/25 11:41 02/24/25 12:40 Docusate Sodium 100 Mg Capsule PO 100 mg Q12H PRN Administration Constipation Glucagon 1 mg 02/22/25 16:31 Glucagon For Inj 1 Mg Vial IM PRN PRN Hypoglycemia Protocol Glucose 15 gm 02/22/25 16:31 Glucose Oral Gel 15 Gm Of Glucse In 37.5 Gm Tube PO PRN PRN Hypoglycemia Protocol Hydralazine HCl 10 mg 02/22/25 16:31 02/23/25 00:21 Hydralazine Hcl 20 Mg/Ml Vial IV PUSH 10 mg Q8H PRN Administration Blood Pressure - High Dextrose 1,000 mls @ 100 mls/hr 02/22/25 16:31 Dextrose 5% 1,000 Ml IVPB PRN PRN Hypoglycemia Protocol Insulin Aspart 4 - 8 units 02/23/25 08:00 02/27/25 08:16 Insulin Aspart (*Bkc) 100 Units/Ml SUB-Q Not Given TIDWM ANIVAL Protocol Insulin Aspart 2 - 4 units 02/23/25 21:00 02/26/25 21:15 Insulin Aspart (*Bkc) 100 Units/Ml SUB-Q 2 units HS ANIVAL Administration Protocol Insulin Glargine 20 units 02/23/25 18:00 02/26/25 17:27 Insulin Glargine (*Bkc) 100 Units/Ml SUB-Q 20 units QPM ANIVAL Administration Polyethylene Glycol 17 gm 02/24/25 11:41 02/24/25 12:40 Polyethylene Glycol 3350 17 Gm Powd.Pack PO 17 gm QAM PRN Administration Constipation Radiology Results: ITS Impressions Head CT 02/22/25 10:53 IMPRESSION: No acute intracranial findings. Chest X-Ray 02/22/25 11:05 IMPRESSION: No acute cardiopulmonary pathology. Labs Labs: Laboratory Results - last 24 hr 02/26/25 02/26/25 02/26/25 11:26 16:43 20:47 WBC RBC Hgb Hct MCV MCH MCHC RDW Plt Count MPV Immature Gran % (Auto) Neut % (Auto) Lymph % (Auto) Stark % (Auto) Eos % (Auto) Baso % (Auto) Lymph # (Auto) Stark # (Auto) Eos # (Auto) Baso # (Auto) Abs Immat Gran (auto) Absolute Neuts (auto) Absolute Nucleated RBC Nucleated RBC % Sodium Potassium Chloride Carbon Dioxide Anion Gap BUN Creatinine Estim Creat Clear Calc Estimated GFR Glucose POC Capillary Glucose 211 H 220 H 242 H Calcium Magnesium Total Bilirubin AST ALT Alkaline Phosphatase Total Protein Albumin 02/27/25 02/27/25 04:51 07:58 WBC 9.0 RBC 3.34 L Hgb 10.2 L Hct 31.3 L MCV 93.7 MCH 30.5 MCHC 32.6 RDW 14.0 Plt Count 363 MPV 10.0 Immature Gran % (Auto) 0.2 Neut % (Auto) 53.8 Lymph % (Auto) 31.3 Stark % (Auto) 9.0 H Eos % (Auto) 5.3 H Baso % (Auto) 0.4 Lymph # (Auto) 2.81 Stark # (Auto) 0.8 H Eos # (Auto) 0.5 H Baso # (Auto) 0.0 Abs Immat Gran (auto) 0.02 Absolute Neuts (auto) 4.8 Absolute Nucleated RBC 0.000 Nucleated RBC % 0.0 Sodium 137 Potassium 3.8 Chloride 105 Carbon Dioxide 24 Anion Gap 8 BUN 29 H Creatinine 1.04 H Estim Creat Clear Calc 30 Estimated GFR 50 L Glucose 118 H POC Capillary Glucose 118 H Calcium 8.4 Magnesium 2.0 Total Bilirubin 0.3 AST 25 ALT 18 Alkaline Phosphatase 100 Total Protein 7.0 Albumin 3.5 Quality VTE Prophylaxis VTE prophylaxis: mechanical ordered
[2025-02-27 12:26] LABS: Glucose Point of Care 292 mg/dl (65-105)
[2025-02-27] MEDS: INSULIN ASPART (*BKC) 100 UNITS/ML SUB-Q ×2 (12:31→20:17)
[2025-02-27 14:00] VITALS: BP 152/67; PULSE 59; RESP 16; TEMP 36.2; O2SAT 100
[2025-02-27 17:06] LABS: Glucose Point of Care 194 mg/dl (65-105)
[2025-02-27] MEDS: INSULIN GLARGINE (*BKC) 100 UNITS/ML 20 UNITS SUB-Q (18:26)
[2025-02-27 20:15] VITALS: PULSE 76
[2025-02-27 20:17] LABS: Glucose Point of Care 276 mg/dl (65-105)
[2025-02-27 22:00] VITALS: BP 156/70; PULSE 76; RESP 18; TEMP 36.3; O2SAT 100
[2025-02-28 05:22] LABS: Basophils Percent Auto 0.5 % (0.2-1.2); Eosinophils Absolute Auto 0.3 K/mm3 (0-0.3); Eosinophils Percent Auto 3.9 % (0-4.4); Hematocrit 32.4 % (37.0-47.0); Immature Granulocyte Absolute 0.02 K/mm3 (0.00-0.031); Immature Granulocyte Percent A 0.2 % (0-0.5); Lymphocytes Absolute Auto 2.14 K/mm3 (0.9-3.2); Lymphocytes Percent Auto 24.6 % (18.3-44.2); Mean Corpuscular HGB Conc 30.9 g/dl (32-36); Mean Corpuscular Hemoglobin 29.8 pg (26-34); Mean Corpuscular Volume 96.4 fl (80-100); Mean Platelet Volume 10.4 fl (7.4-10.4); Monocytes Absolute Auto 0.7 K/mm3 (0.1-0.6); Monocytes Percent Auto 8.3 % (2.6-8.5); Neutrophils Absolute Auto 5.4 K/mm3 (1.3-6.7); Neutrophils Percent Auto 62.5 % (45.5-73.1); Platelet Count Result 377 k/mm3 (150-375); Red Blood Count 3.36 M/mm3 (4.2-5.4); Red Cell Distribution Width 14.2 % (11.5-14.5); White Blood Count 8.7 K/mm3 (4.5-10.0)
[2025-02-28 05:45] LABS: Alanine Aminotransferase 19 U/L (6-35); Albumin Level 3.6 g/dL (3.5-5.1); Alkaline Phosphatase 108 U/L (38-126); Anion Gap 10 mmol/L (4-12); Aspartate Amino Transferase 25 U/L (14-36); Bilirubin,Total 0.2 mg/dL (0.2-1.3); Blood Urea Nitrogen 37 mg/dL (7-17); Calcium 8.4 mg/dL (8.4-10.2); Carbon Dioxide 23 mmol/L (22-30); Chloride 105 mmol/L (98-107); Estimated CRCL calculation 24 ml/min; Estimated Glomerular Filt Rate 38; Glucose 174 mg/dL (65-110); Magnesium 2.1 mg/dL (1.6-2.3); Potassium 4.2 mmol/L (3.4-5.0); Sodium 138 mmol/L (137-145)
[2025-02-28 06:00] VITALS: BP 153/58; PULSE 74; RESP 18; TEMP 36.9; O2SAT 99
[2025-02-28 08:19] LABS: Glucose Point of Care 148 mg/dl (65-105)
--- NOTE | 2025-02-28 10:21 | P.PNIM_ITS ---
Progress Note: A&P Assessment and Plan (1) Acute UTI: Code(s): N39.0 - Urinary tract infection, site not specified Status: Acute Assessment and Plan: * Augmentin 875-125 mg 1 tab PO q 12. * Urine culture grew-proteus mirabilis. * Drink water. * Urine improving. * Afebrile. WBC 8.7. * PT/OT. Awaiting insurance approval for rehab. (2) Hypertensive emergency: Code(s): I16.1 - Hypertensive emergency Status: Acute Assessment and Plan: * Amlodipine 10 mg PO daily and Carvedilol 6.25 mg PO q 12. * Current blood pressure is 148/59. (3) AMS (altered mental status): Code(s): R41.82 - Altered mental status, unspecified Status: Acute Assessment and Plan: * Could be due to UTI * Head CT with no acute findings. * Blood cultures no growth to date. * PT/OT * Drowsy but answering questions appropriately, up doing therapy in afternoon. (4) Type 2 diabetes mellitus with hyperglycemia, with long-term current use of insulin: Code(s): E11.65 - Type 2 diabetes mellitus with hyperglycemia; Z79.4 - MCC (current) use of insulin Status: Acute Assessment and Plan: * Diabetic diet * Accu-Cheks qid. * Hypoglycemia protocol. * SSI and Lantus 20 units subq at bedtime. * HgbA1c 7.3% on 01/10/25. (5) Generalized weakness: Code(s): R53.1 - Weakness Status: Acute Assessment and Plan: * PT/OT. * Awaiting insurance approval for rehab. Subjective Date/time seen: 02/28/25 10:21 Interval history: Patient sleepy this morning. Patient denies chest pain, palpitations, headache, dizziness, nausea, or vomiting. Review of Systems Review of Systems: All systems reviewed & are unremarkable except as noted in HPI and below Exam Const: General: comfortable and no acute distress Resp: Effort & Inspection: normal respiratory effort Auscultation: clear to auscultation bilaterally Cardio: Rate: regular rate Rhythm: regular rhythm GI: GI Palp: Yes Soft to palpation Auscultation: normal bowel sounds : Other: yellow urine Neuro: Speech: normal speech Extrem: General: no pedal edema Psych: Affect: normal affect Other: Drowsy this morning. Answers questions appropriately. Objective Data Vital Signs Vital Signs: Vital Signs - 24 hr 02/27/25 14:00 02/27/25 20:00 02/27/25 20:15 Temperature 97.2 F L Pulse Rate 59 L 76 Respiratory Rate 16 Blood Pressure 152/67 H Pulse Oximetry 100 Oxygen Delivery Room Air 02/27/25 22:00 02/28/25 06:00 Temperature 97.3 F L 98.5 F Pulse Rate 76 74 Respiratory Rate 18 18 Blood Pressure 156/70 H 153/58 H Pulse Oximetry 100 99 Oxygen Delivery Intake/Output Intake/Output: Intake & Output 02/25/25 02/26/25 02/27/25 02/28/25 23:59 23:59 23:59 23:59 Intake Total 790 960 720 Output Total 1050 700 800 100 Balance -260 260 -80 -100 Meds/Results Medications: Active Medications Generic Name Dose Route Start Last Admin Trade Name Freq PRN Reason Stop Dose Admin Amlodipine Besylate 10 mg 02/23/25 08:00 02/27/25 08:12 Amlodipine Besylate 10 Mg Tablet PO 10 mg DAILY@0800 ANIVAL Administration Amoxicillin/Clavulanate Potassium 1 tablet 02/24/25 10:00 02/27/25 20:15 Amoxicillin/Clavulanate K 875-125 Mg Tab PO 02/28/25 21:01 1 tablet Q12HR ANIVAL Administration Carvedilol 6.25 mg 02/23/25 09:00 02/27/25 20:15 Carvedilol 6.25 Mg Tablet PO 6.25 mg Q12H ANIVAL Administration Dextrose 12.5 gm 02/22/25 16:31 Dextrose 50% 25 Gm/50 Ml Syringe IV PUSH PRN PRN Hypoglycemia Protocol Docusate Sodium 100 mg 02/24/25 11:41 02/24/25 12:40 Docusate Sodium 100 Mg Capsule PO 100 mg Q12H PRN Administration Constipation Glucagon 1 mg 02/22/25 16:31 Glucagon For Inj 1 Mg Vial IM PRN PRN Hypoglycemia Protocol Glucose 15 gm 02/22/25 16:31 Glucose Oral Gel 15 Gm Of Glucse In 37.5 Gm Tube PO PRN PRN Hypoglycemia Protocol Hydralazine HCl 10 mg 02/22/25 16:31 02/23/25 00:21 Hydralazine Hcl 20 Mg/Ml Vial IV PUSH 10 mg Q8H PRN Administration Blood Pressure - High Dextrose 1,000 mls @ 100 mls/hr 02/22/25 16:31 Dextrose 5% 1,000 Ml IVPB PRN PRN Hypoglycemia Protocol Insulin Aspart 4 - 8 units 02/23/25 08:00 02/28/25 08:51 Insulin Aspart (*Bkc) 100 Units/Ml SUB-Q Not Given TIDWM ANIVAL Protocol Insulin Aspart 2 - 4 units 02/23/25 21:00 02/27/25 20:17 Insulin Aspart (*Bkc) 100 Units/Ml SUB-Q 2 units HS ANIVAL Administration Protocol Insulin Glargine 20 units 02/23/25 18:00 02/27/25 18:26 Insulin Glargine (*Bkc) 100 Units/Ml SUB-Q 20 units QPM ANIVAL Administration Polyethylene Glycol 17 gm 02/24/25 11:41 02/24/25 12:40 Polyethylene Glycol 3350 17 Gm Powd.Pack PO 17 gm QAM PRN Administration Constipation Radiology Results: ITS Impressions Head CT 02/22/25 10:53 IMPRESSION: No acute intracranial findings. Chest X-Ray 02/22/25 11:05 IMPRESSION: No acute cardiopulmonary pathology. Labs Labs: Laboratory Results - last 24 hr 02/27/25 02/27/25 02/27/25 11:55 16:54 20:12 WBC RBC Hgb Hct MCV MCH MCHC RDW Plt Count MPV Immature Gran % (Auto) Neut % (Auto) Lymph % (Auto) Hunt % (Auto) Eos % (Auto) Baso % (Auto) Lymph # (Auto) Hunt # (Auto) Eos # (Auto) Baso # (Auto) Abs Immat Gran (auto) Absolute Neuts (auto) Absolute Nucleated RBC Nucleated RBC % Sodium Potassium Chloride Carbon Dioxide Anion Gap BUN Creatinine Estim Creat Clear Calc Estimated GFR Glucose POC Capillary Glucose 292 H 194 H 276 H Calcium Magnesium Total Bilirubin AST ALT Alkaline Phosphatase Total Protein Albumin 02/28/25 02/28/25 04:36 07:51 WBC 8.7 RBC 3.36 L Hgb 10.0 L Hct 32.4 L MCV 96.4 MCH 29.8 MCHC 30.9 L RDW 14.2 Plt Count 377 H MPV 10.4 Immature Gran % (Auto) 0.2 Neut % (Auto) 62.5 Lymph % (Auto) 24.6 Hunt % (Auto) 8.3 Eos % (Auto) 3.9 Baso % (Auto) 0.5 Lymph # (Auto) 2.14 Hunt # (Auto) 0.7 H Eos # (Auto) 0.3 Baso # (Auto) 0.0 Abs Immat Gran (auto) 0.02 Absolute Neuts (auto) 5.4 Absolute Nucleated RBC 0.000 Nucleated RBC % 0.0 Sodium 138 Potassium 4.2 Chloride 105 Carbon Dioxide 23 Anion Gap 10 BUN 37 H Creatinine 1.32 H Estim Creat Clear Calc 24 Estimated GFR 38 L Glucose 174 H POC Capillary Glucose 148 H Calcium 8.4 Magnesium 2.1 Total Bilirubin 0.2 AST 25 ALT 19 Alkaline Phosphatase 108 Total Protein 7.0 Albumin 3.6
[2025-02-28 10:53] VITALS: PULSE 78
[2025-02-28] MEDS: carvediloL 6.25 MG TABLET PO ×2 (10:53→20:06)
[2025-02-28] MEDS: amLODIPine BESYLATE 10 MG TABLET PO (10:54)
[2025-02-28] MEDS: AMOXICILLIN/CLAVULANATE K 875-125 MG TAB 1 TABLET PO ×2 (10:54→20:03)
[2025-02-28 12:03] LABS: Glucose Point of Care 217 mg/dl (65-105)
[2025-02-28] MEDS: INSULIN ASPART (*BKC) 100 UNITS/ML SUB-Q ×2 (13:29→20:05)
[2025-02-28 14:00] VITALS: BP 148/59; PULSE 66; RESP 16; TEMP 36.4; O2SAT 98
[2025-02-28 17:31] LABS: Glucose Point of Care 187 mg/dl (65-105)
[2025-02-28] MEDS: INSULIN GLARGINE (*BKC) 100 UNITS/ML 20 UNITS SUB-Q (17:39)
[2025-02-28 20:06] VITALS: PULSE 90
[2025-02-28 20:11] VITALS: BP 159/70; PULSE 90; RESP 18; TEMP 36.6; O2SAT 98
[2025-02-28 20:54] LABS: Glucose Point of Care 260 mg/dl (65-105)
[2025-03-01 05:08] LABS: Basophils Absolute Auto 0.1 K/mm3 (0.0-0.1); Basophils Percent Auto 0.5 % (0.2-1.2); Eosinophils Absolute Auto 0.4 K/mm3 (0-0.3); Eosinophils Percent Auto 4.2 % (0-4.4); Hematocrit 31.1 % (37.0-47.0); Hemoglobin 9.6 g/dL (12.0-15.0); Immature Granulocyte Absolute 0.04 K/mm3 (0.00-0.031); Immature Granulocyte Percent A 0.4 % (0-0.5); Lymphocytes Absolute Auto 2.95 K/mm3 (0.9-3.2); Mean Corpuscular HGB Conc 30.9 g/dl (32-36); Mean Corpuscular Hemoglobin 30.1 pg (26-34); Mean Corpuscular Volume 97.5 fl (80-100); Mean Platelet Volume 10.3 fl (7.4-10.4); Monocytes Absolute Auto 0.8 K/mm3 (0.1-0.6); Neutrophils Percent Auto 53.9 % (45.5-73.1); Platelet Count Result 361 k/mm3 (150-375); Red Blood Count 3.19 M/mm3 (4.2-5.4); White Blood Count 9.2 K/mm3 (4.5-10.0)
[2025-03-01 05:17] LABS: Alanine Aminotransferase 18 U/L (6-35); Albumin Level 3.7 g/dL (3.5-5.1); Alkaline Phosphatase 106 U/L (38-126); Anion Gap 8 mmol/L (4-12); Aspartate Amino Transferase 25 U/L (14-36); Bilirubin,Total 0.4 mg/dL (0.2-1.3); Blood Urea Nitrogen 32 mg/dL (7-17); Calcium 8.5 mg/dL (8.4-10.2); Carbon Dioxide 24 mmol/L (22-30); Chloride 106 mmol/L (98-107); Estimated CRCL calculation 29 ml/min; Estimated Glomerular Filt Rate 47; Glucose 114 mg/dL (65-110); Magnesium 2.1 mg/dL (1.6-2.3); Potassium 3.7 mmol/L (3.4-5.0); Sodium 138 mmol/L (137-145)
[2025-03-01 05:23] VITALS: BP 153/56; PULSE 65; RESP 17; TEMP 36.4; O2SAT 100
[2025-03-01 07:59] LABS: Glucose Point of Care 111 mg/dl (65-105)
[2025-03-01 09:08] VITALS: PULSE 72
[2025-03-01] MEDS: carvediloL 6.25 MG TABLET PO ×2 (09:08→21:34)
[2025-03-01] MEDS: amLODIPine BESYLATE 10 MG TABLET PO (09:08)
--- NOTE | 2025-03-01 10:21 | P.PNIM_ITS ---
Progress Note: A&P Assessment and Plan (1) Acute UTI: Code(s): N39.0 - Urinary tract infection, site not specified Status: Acute Assessment and Plan: * Augmentin 875-125 mg 1 tab PO q 12. * Urine culture grew-proteus mirabilis. * Drink water. * Urine improving. * Afebrile. WBC 9.2. * PT/OT. Awaiting insurance approval for rehab. (2) Hypertensive emergency: Code(s): I16.1 - Hypertensive emergency Status: Acute Assessment and Plan: * Amlodipine 10 mg PO daily and Carvedilol 6.25 mg PO q 12. * Current blood pressure is 106/61. (3) AMS (altered mental status): Code(s): R41.82 - Altered mental status, unspecified Status: Acute Assessment and Plan: * Could be due to UTI * Head CT with no acute findings. * Blood cultures no growth to date. * PT/OT * Drowsy but answering questions appropriately, up doing therapy in afternoon. (4) Type 2 diabetes mellitus with hyperglycemia, with long-term current use of insulin: Code(s): E11.65 - Type 2 diabetes mellitus with hyperglycemia; Z79.4 - assisted (current) use of insulin Status: Acute Assessment and Plan: * Diabetic diet * Accu-Cheks qid. * Hypoglycemia protocol. * SSI and Lantus 20 units subq at bedtime. * HgbA1c 7.3% on 01/10/25. (5) Generalized weakness: Code(s): R53.1 - Weakness Status: Acute Assessment and Plan: * PT/OT. * Awaiting insurance approval for rehab. Subjective Date/time seen: 03/01/25 10:21 Interval history: Patient sitting up in a chair. Patient denies chest pain, palpitations, headache, dizziness, nausea, vomiting, or burning with urination. Review of Systems Review of Systems: All systems reviewed & are unremarkable except as noted in HPI and below Exam Const: General: comfortable and no acute distress Resp: Effort & Inspection: normal respiratory effort Auscultation: clear to auscultation bilaterally Cardio: Rate: regular rate Rhythm: regular rhythm GI: GI Palp: Yes Soft to palpation Auscultation: normal bowel sounds : Other: yellow urine Neuro: Speech: normal speech Extrem: General: no pedal edema Psych: Mental Status: mental status grossly normal Affect: normal affect Objective Data Vital Signs Vital Signs: Vital Signs - 24 hr 02/28/25 10:53 02/28/25 14:00 02/28/25 20:00 Temperature 97.5 F L Pulse Rate 78 66 Respiratory Rate 16 Blood Pressure 148/59 H Pulse Oximetry 98 Oxygen Delivery Room Air 02/28/25 20:06 02/28/25 20:11 03/01/25 05:23 Temperature 97.9 F 97.6 F Pulse Rate 90 90 65 Respiratory Rate 18 17 Blood Pressure 159/70 H 153/56 H Pulse Oximetry 98 100 Oxygen Delivery 03/01/25 09:05 03/01/25 09:08 Temperature Pulse Rate 72 Respiratory Rate Blood Pressure Pulse Oximetry Oxygen Delivery Room Air Intake/Output Intake/Output: Intake & Output 02/26/25 02/27/25 02/28/25 03/01/25 23:59 23:59 23:59 23:59 Intake Total 960 720 600 240 Output Total 700 800 400 700 Balance 260 -80 200 -460 Meds/Results Medications: Active Medications Generic Name Dose Route Start Last Admin Trade Name Freq PRN Reason Stop Dose Admin Amlodipine Besylate 10 mg 02/23/25 08:00 03/01/25 09:08 Amlodipine Besylate 10 Mg Tablet PO 10 mg DAILY@0800 ANIVAL Administration Carvedilol 6.25 mg 02/23/25 09:00 03/01/25 09:08 Carvedilol 6.25 Mg Tablet PO 6.25 mg Q12H ANIVAL Administration Dextrose 12.5 gm 02/22/25 16:31 Dextrose 50% 25 Gm/50 Ml Syringe IV PUSH PRN PRN Hypoglycemia Protocol Docusate Sodium 100 mg 02/24/25 11:41 02/24/25 12:40 Docusate Sodium 100 Mg Capsule PO 100 mg Q12H PRN Administration Constipation Glucagon 1 mg 02/22/25 16:31 Glucagon For Inj 1 Mg Vial IM PRN PRN Hypoglycemia Protocol Glucose 15 gm 02/22/25 16:31 Glucose Oral Gel 15 Gm Of Glucse In 37.5 Gm Tube PO PRN PRN Hypoglycemia Protocol Hydralazine HCl 10 mg 02/22/25 16:31 02/23/25 00:21 Hydralazine Hcl 20 Mg/Ml Vial IV PUSH 10 mg Q8H PRN Administration Blood Pressure - High Dextrose 1,000 mls @ 100 mls/hr 02/22/25 16:31 Dextrose 5% 1,000 Ml IVPB PRN PRN Hypoglycemia Protocol Insulin Aspart 4 - 8 units 02/23/25 08:00 03/01/25 09:07 Insulin Aspart (*Bkc) 100 Units/Ml SUB-Q Not Given TIDWM ANIVAL Protocol Insulin Aspart 2 - 4 units 02/23/25 21:00 02/28/25 20:05 Insulin Aspart (*Bkc) 100 Units/Ml SUB-Q 2 units HS ANIVAL Administration Protocol Insulin Glargine 20 units 02/23/25 18:00 02/28/25 17:39 Insulin Glargine (*Bkc) 100 Units/Ml SUB-Q 20 units QPM ANIVAL Administration Polyethylene Glycol 17 gm 02/24/25 11:41 02/24/25 12:40 Polyethylene Glycol 3350 17 Gm Powd.Pack PO 17 gm QAM PRN Administration Constipation Radiology Results: ITS Impressions Head CT 02/22/25 10:53 IMPRESSION: No acute intracranial findings. Chest X-Ray 02/22/25 11:05 IMPRESSION: No acute cardiopulmonary pathology. Labs Labs: Laboratory Results - last 24 hr 02/28/25 02/28/25 02/28/25 11:50 17:11 20:02 WBC RBC Hgb Hct MCV MCH MCHC RDW Plt Count MPV Immature Gran % (Auto) Neut % (Auto) Lymph % (Auto) Mason % (Auto) Eos % (Auto) Baso % (Auto) Lymph # (Auto) Mason # (Auto) Eos # (Auto) Baso # (Auto) Abs Immat Gran (auto) Absolute Neuts (auto) Absolute Nucleated RBC Nucleated RBC % Sodium Potassium Chloride Carbon Dioxide Anion Gap BUN Creatinine Estim Creat Clear Calc Estimated GFR Glucose POC Capillary Glucose 217 H 187 H 260 H Calcium Magnesium Total Bilirubin AST ALT Alkaline Phosphatase Total Protein Albumin 03/01/25 03/01/25 04:23 07:54 WBC 9.2 RBC 3.19 L Hgb 9.6 L Hct 31.1 L MCV 97.5 MCH 30.1 MCHC 30.9 L RDW 14.0 Plt Count 361 MPV 10.3 Immature Gran % (Auto) 0.4 Neut % (Auto) 53.9 Lymph % (Auto) 32.0 Mason % (Auto) 9.0 H Eos % (Auto) 4.2 Baso % (Auto) 0.5 Lymph # (Auto) 2.95 Mason # (Auto) 0.8 H Eos # (Auto) 0.4 H Baso # (Auto) 0.1 Abs Immat Gran (auto) 0.04 H Absolute Neuts (auto) 5.0 Absolute Nucleated RBC 0.000 Nucleated RBC % 0.0 Sodium 138 Potassium 3.7 Chloride 106 Carbon Dioxide 24 Anion Gap 8 BUN 32 H Creatinine 1.09 H Estim Creat Clear Calc 29 Estimated GFR 47 L Glucose 114 H POC Capillary Glucose 111 H Calcium 8.5 Magnesium 2.1 Total Bilirubin 0.4 AST 25 ALT 18 Alkaline Phosphatase 106 Total Protein 7.0 Albumin 3.7 Quality VTE Prophylaxis VTE prophylaxis: mechanical ordered
--- NOTE | 2025-03-01 11:05 | PCNWS ---
Weekly nutritional screen. Patient is tolerating current diet with adequate intake. No weight loss reported. No nutritional needs at this time.
[2025-03-01 11:43] LABS: Glucose Point of Care 217 mg/dl (65-105)
[2025-03-01] MEDS: INSULIN ASPART (*BKC) 100 UNITS/ML SUB-Q ×3 (12:25→21:35)
[2025-03-01 14:00] VITALS: BP 106/61; PULSE 82; RESP 14; TEMP 36.6; O2SAT 97
[2025-03-01 17:06] LABS: Glucose Point of Care 227 mg/dl (65-105)
[2025-03-01] MEDS: INSULIN GLARGINE (*BKC) 100 UNITS/ML 20 UNITS SUB-Q (17:49)
[2025-03-01 20:07] VITALS: BP 152/58; PULSE 69; RESP 17; TEMP 36.8; O2SAT 100
[2025-03-01 20:56] LABS: Glucose Point of Care 201 mg/dl (65-105)
[2025-03-01 21:34] VITALS: PULSE 69
[2025-03-02 02:21] VITALS: PULSE 85; RESP 20; O2SAT 94
[2025-03-02 04:31] VITALS: BP 154/68; PULSE 71; RESP 16; TEMP 37; O2SAT 100
[2025-03-02 04:54] LABS: Basophils Absolute Auto 0.1 K/mm3 (0.0-0.1); Basophils Percent Auto 0.5 % (0.2-1.2); Eosinophils Absolute Auto 0.3 K/mm3 (0-0.3); Eosinophils Percent Auto 3.3 % (0-4.4); Hematocrit 30.7 % (37.0-47.0); Hemoglobin 9.6 g/dL (12.0-15.0); Immature Granulocyte Absolute 0.03 K/mm3 (0.00-0.031); Immature Granulocyte Percent A 0.3 % (0-0.5); Lymphocytes Absolute Auto 2.69 K/mm3 (0.9-3.2); Mean Corpuscular HGB Conc 31.3 g/dl (32-36); Mean Corpuscular Hemoglobin 30.6 pg (26-34); Mean Corpuscular Volume 97.8 fl (80-100); Mean Platelet Volume 10.4 fl (7.4-10.4); Monocytes Absolute Auto 0.9 K/mm3 (0.1-0.6); Monocytes Percent Auto 8.5 % (2.6-8.5); Neutrophils Percent Auto 60.4 % (45.5-73.1); Platelet Count Result 366 k/mm3 (150-375); Red Blood Count 3.14 M/mm3 (4.2-5.4); Red Cell Distribution Width 14.2 % (11.5-14.5)
[2025-03-02 05:11] LABS: Alanine Aminotransferase 17 U/L (6-35); Albumin Level 3.7 g/dL (3.5-5.1); Alkaline Phosphatase 106 U/L (38-126); Anion Gap 9 mmol/L (4-12); Aspartate Amino Transferase 26 U/L (14-36); Bilirubin,Total 0.4 mg/dL (0.2-1.3); Blood Urea Nitrogen 30 mg/dL (7-17); Calcium 8.4 mg/dL (8.4-10.2); Carbon Dioxide 23 mmol/L (22-30); Chloride 107 mmol/L (98-107); Estimated CRCL calculation 31 ml/min; Estimated Glomerular Filt Rate 52; Glucose 90 mg/dL (65-110); Magnesium 2.1 mg/dL (1.6-2.3); Potassium 3.9 mmol/L (3.4-5.0); Sodium 139 mmol/L (137-145)
[2025-03-02 08:09] LABS: Glucose Point of Care 88 mg/dl (65-105)
[2025-03-02 08:17] VITALS: PULSE 75
[2025-03-02] MEDS: carvediloL 6.25 MG TABLET PO (08:17)
[2025-03-02] MEDS: amLODIPine BESYLATE 10 MG TABLET PO (08:17)
[2025-03-02 11:41] LABS: SARS-CoV-2 RNA PCR Negative (Negative)
[2025-03-02 11:53] LABS: Glucose Point of Care 157 mg/dl (65-105)
--- NOTE | 2025-03-02 12:14 | P.DS_ITS ---
DS: Admitting Diagnosis Discharge Date 03/02/25 Admitting Diagnosis AMS, UTI DS: Discharge Diagnosis Discharge Diagnosis (1) Acute UTI: Code(s): N39.0 - Urinary tract infection, site not specified Status: Acute Assessment and Plan: * Augmentin 875-125 mg 1 tab PO q 12. * Urine culture grew-proteus mirabilis. * Drink water. * Urine improving. * Afebrile. WBC 9.2. * PT/OT. Dc to rehab. (2) Hypertensive emergency: Code(s): I16.1 - Hypertensive emergency Status: Acute Assessment and Plan: * Amlodipine 10 mg PO daily and Carvedilol 6.25 mg PO q 12. * (3) AMS (altered mental status): Code(s): R41.82 - Altered mental status, unspecified Status: Acute Assessment and Plan: * secondary to UTI * Head CT with no acute findings. * Blood cultures no growth to date. 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 * Hypoglycemia protocol. * SSI and Lantus 20 units subq at bedtime. * HgbA1c 7.3% on 01/10/25. (5) Generalized weakness: Code(s): R53.1 - Weakness Status: Acute Assessment and Plan: * PT/OT. * rehab. DS: Summary Hospital Course Hospital Course: per HPI: 89-year-old female past medical history of CVA, diabetes type 2 presents the hospital altered mental status. HPI is limited due to patient's altered mental status. Patient denies being in pain. Patient is oriented only to self. No other information available In the ED her lab work showed anemia with hemoglobin of 10.8 baseline of around 11 BUN of 28, UA showing cloudy positive for nitrates, 3+ leukocyte esterase, over 100 wbc's, and 4+ bacteria. Chest x-ray shows no acute pulmonary process. Head CT shows no acute process. EKG shows sinus rhythm with first-degree AV block. Patient was started on IV Rocephin and IV fluids. 03/02/25 Patient was in agreement with that. She is feeling fine. Denies any chest pain, shortness of breath, abdominal pain, nausea vomiting. She has admitted for acute encephalopathy secondary to UTI. Urine culture positive for Proteus mirabilis sensitive to Augmentin. Lab test improving. Her mental status improving. Blood cultures neg. PT OT recommended rehab. Will discharge patient to rehab Time Spent with Patient Time attestation: Total time spent providing and/or coordinating discharge services: Time spent: Greater than 30 minutes Exam Narrative: General: well appearing, appears stated age. Hard of hearing HEENT: normocephalic, atraumatic. Mucous membranes moist. EOMI, PERRLA, bilateral sclera anicteric, no conjunctival injection. Neck supple without JVD, lymphadenopathy, or bruit. Respiratory: clear to ascultation bilaterally. No rales/rhonic/wheezes. Cardiovascular: Regular rate and rhythm, normal S1-S2 upon ascultation. No murmurs, rubs, or clicks. PMI is nondisplaced, capillary refill less than 3 second. Abdomen: Soft, round, no pulsatile masses, nondistended and nontender. No rebound, no guarding. No CVA tenderness, no hepatosplenomegaly. Bowel sounds present to all four quadrants. No high pitch or tinkling sounds, resonant to percussion. Extremities: No cyanosis, clubbing, or edema present. Pulses are palpable 2/2. Active ROM to all four extremities. Neuro: Alert and orientated x 1. PERRLA. Cranial nerves 2-12 intact without focal deficit. Skin: Warm, dry, and intact, without rash, erythema, or lesion. Psych: pleasant, cooperative, normal speech, normal affect, no hallucinations, no dysarthia Const: General: comfortable and no acute distress HENMT: Other: [employer] [place], normally wears hearing aid in right ear. Resp: Effort & Inspection: normal respiratory effort Auscultation: clear to auscultation bilaterally Cardio: Rate: regular rate Rhythm: regular rhythm GI: Auscultation: normal bowel sounds : Other: yellow urine Neuro: Speech: normal speech Extrem: General: no pedal edema Psych: Mental Status: mental status grossly normal Affect: normal affect Other: Drowsy this morning. Answers questions appropriately. DS: Data Data Completed and Pending Labs on day of discharge: Labs from last 24 hours 03/02/25 03/02/25 03/02/25 11:50 10:43 08:04 WBC RBC Hgb Hct MCV MCH MCHC RDW Plt Count MPV Immature Gran % (Auto) Neut % (Auto) Lymph % (Auto) Perry % (Auto) Eos % (Auto) Baso % (Auto) Lymph # (Auto) Perry # (Auto) Eos # (Auto) Baso # (Auto) Abs Immat Gran (auto) Absolute Neuts (auto) Absolute Nucleated RBC Nucleated RBC % Sodium Potassium Chloride Carbon Dioxide Anion Gap BUN Creatinine Estim Creat Clear Calc Estimated GFR Glucose POC Capillary Glucose 157 H 88 Calcium Magnesium Total Bilirubin AST ALT Alkaline Phosphatase Total Protein Albumin SARS-CoV-2 RNA (RT-PCR) Negative 03/02/25 03/01/25 03/01/25 04:27 19:53 16:57 WBC 10.0 RBC 3.14 L Hgb 9.6 L Hct 30.7 L MCV 97.8 MCH 30.6 MCHC 31.3 L RDW 14.2 Plt Count 366 MPV 10.4 Immature Gran % (Auto) 0.3 Neut % (Auto) 60.4 Lymph % (Auto) 27.0 Perry % (Auto) 8.5 Eos % (Auto) 3.3 Baso % (Auto) 0.5 Lymph # (Auto) 2.69 Perry # (Auto) 0.9 H Eos # (Auto) 0.3 Baso # (Auto) 0.1 Abs Immat Gran (auto) 0.03 Absolute Neuts (auto) 6.0 Absolute Nucleated RBC 0.000 Nucleated RBC % 0.0 Sodium 139 Potassium 3.9 Chloride 107 Carbon Dioxide 23 Anion Gap 9 BUN 30 H Creatinine 1.00 Estim Creat Clear Calc 31 Estimated GFR 52 L Glucose 90 POC Capillary Glucose 201 H 227 H Calcium 8.4 Magnesium 2.1 Total Bilirubin 0.4 AST 26 ALT 17 Alkaline Phosphatase 106 Total Protein 7.0 Albumin 3.7 SARS-CoV-2 RNA (RT-PCR) Discharge Plan Discharge Attending physician on discharge: Tianna Seymour Discharging Clinician: Tianna Seymour Patient Disposition: Inpatient Rehab Facility Activity: as tolerated Diet: heart healthy Patient Language: Latvian Stand Alone Forms: General Discharge Information Follow-up/Referrals: Ned,MD Jimmy [Primary Care Provider] - 1 Week Discharge Medications: New amoxicillin-pot clavulanate 875-125 mg tablet 1 tablet PO Q12H Qty: 10 0RF Continued metformin 500 mg tablet extended release 24 hr 500 mg PO QPM Ozempic 0.25 mg or 0.5 mg (2 mg/3 mL) pen injector 0.25 mg SUBCUT WEEKLY insulin glargine [Lantus Solostar U-100 Insulin] 100 unit/mL (3 mL) insulin pen 20 unit SUBCUT QPM amlodipine 10 mg tablet 10 mg PO DAILY@0800 carvedilol 6.25 mg tablet 6.25 mg PO Q12H Date of admission: 02/22/25 13:10 Primary Care Provider: YaritzaJimmy Admitting Provider: Bud Petty Attending physician on admission: Tianna Seymour Condition: Serious
[2025-03-02 14:00] VITALS: BP 146/58; PULSE 64; RESP 14; TEMP 36.4; O2SAT 96
[2025-03-02 17:05] LABS: Glucose Point of Care 268 mg/dl (65-105)
[2025-03-02] MEDS: INSULIN GLARGINE (*BKC) 100 UNITS/ML 20 UNITS SUB-Q (17:21)
[2025-03-02] MEDS: INSULIN ASPART (*BKC) 100 UNITS/ML SUB-Q (17:21)
== END 2025-03-02 18:05 ==
LOC: ANHED 13:09 → ANH2MED 17:04 → ANH3MEDSUR 02-24 06:22 → ANH2MED 02-24 06:22
PROVIDERS: Nurse Practitioner Family; Nurse Practitioner Gerontology; Admitting Provider General Practice; Emergency Provider Emergency Medicine; PCP Internal Medicine; Visit Provider Internal Medicine
DX: N39.0 Urinary tract infection, site not specified (principal); B96.4 Proteus (mirabilis) (morganii) as the cause of diseases classified elsewhere; G93.49 Other encephalopathy; I16.1 Hypertensive emergency; I10 Essential (primary) hypertension; E11.65 Type 2 diabetes mellitus with hyperglycemia; D64.9 Anemia, unspecified; R53.1 Weakness; Z20.822 Contact with and (suspected) exposure to COVID-19; Z79.4 Long term (current) use of insulin; Z79.84 Long term (current) use of oral hypoglycemic drugs; Z79.85 Long-term (current) use of injectable non-insulin antidiabetic drugs; Z79.899 Other long term (current) drug therapy; Z86.73 Personal history of transient ischemic attack (TIA), and cerebral infarction without residual deficits; Z96.1 Presence of intraocular lens; Z98.42 Cataract extraction status, left eye; Z98.41 Cataract extraction status, right eye; Z96.653 Presence of artificial knee joint, bilateral
CPT/HCPCS: 36415; 70450; 71045; 80048; 80053; 81001; 82607; 82746; 82948; 83540; 83550; 83605; 83735; 84484; 85025; 85610; 85730; 87040; 87077; 87086; 87186; 87635; 93005; 96365; 96366; 96375; 97110; 97161; 97166; 97530; 97535; 99285; A9270; G0378; J0360; J0696; J1815; J7030

== ENCOUNTER 2025-04-03 19:32 | Emergency (ER) | payer MEDICARE, SELFPAY ==
--- NOTE | ~2025-04-03 | CT_ITS ---
History: Fall PROCEDURE: CT head without contrast. COMPARISON: 02/22/2025 TECHNIQUE: Axial imaging of the head performed from the skull base to the vertex without IV contrast. Sagittal a nd coronal reformations obtained. DLP: 681 mGy-cm FINDINGS: The ventricles are enlarged. The dilatation of the ventricles is proportional to the degree of sulcal prominence, not uncommon in the senescent brain. Decreased attenuation is identified within the periventricular white matter, likely secondary to micr ovascular ischemic disease, in a patient of this age. There is no mass, mass effect or midline shift. There is no abnormal extra-axial fluid collection or intracranial hemorrhage. Visualized paranasal sinuses are clear. The mastoid air cells are well aerated. No acute displaced fractures within the overlying cranium. Impression: No acute intracranial hemorrhage or suspicious mass effect. Reviewed, dictated and finalized at location A. Impression: No acute intracranial hemorrhage or suspicious mass effect.
--- NOTE | ~2025-04-03 | CT_ITS ---
History: Fall PROCEDURE: CT cervical spine without intravenous contrast. COMPARISON: 12/31/2024 TECHNIQUE: Multiple contiguous axial images of the cervical spine were performed without the administration of i ntravenous contrast. DLP: 304 mGy-cm FINDINGS: Significant degenerative disease is identified within the cervical spine. Ossification of the anterior and posterior longitudinal ligament are identified at multiple levels, n arrowing the cervical spinal canal. At the level of C5/C6 the canal measures 6.4 mm in anterior to posterior dimension Significant facet arthropathy is also noted along with osteophyte formation and endplate changes. No acute compression fractures are present. The bilateral lung apices are unremarkable. No soft tissue abnormality is present. The airway is patent. Impression: Significant degenerative disease with cervical spinal stenosis most prominent at the level of C5/C6. No acute fracture. Reviewed, dictated and finalized at location A. Impression: Significant degenerative disease with cervical spinal stenosis most prominent a t the level of C5/C6. No acute fracture.
[2025-04-03 19:37] VITALS: BP 139/100; PULSE 51; RESP 16; TEMP 36.7; O2SAT 100
[2025-04-03 20:00] VITALS: BP 111/69; PULSE 53; RESP 18; TEMP 36.6; O2SAT 100
--- OUTSIDE RECORDS SUMMARY | 2025-04-03 20:22 | XMS_ITS | Clinical Summary ---
Author Organization [facility] [address] Address [address] [place] [address] Care Team Providers Care Physical Damage Appraiser Name Role Phone Jimmy Marino MD Primary Care Provider [phone] Allergies No known active allergies Medications atorvastatin [...] pen INJECT 46 UNITS UNDER THE SKIN SPINDLE TESTER BEFORE BREAKFAST 45 mL 3 4 Active metFORMIN XR (GLUCOPHAGE XR) 500 mg 24 hr tablet Take 1 tablet by mouth once daily 90 tablet 3 4 Active Active Problems Problem Noted Date Diagnosed Date Diagnosis unknown 01/02/2025 Morbid (severe) obesity due to excess calories 0 06/27/2022 Assessment & Plan (11/15/2022 11:39 AM SEAFOOD FARMER): This is a chronic condition which is [...] 11/01/2021 Assessment & Plan (11/15/2022 12:02 PM SEAFOOD FARMER): This is a chronic condition which is [...] prescribed. Assessment & Plan (11/01/2021 4:01 PM SEAFOOD FARMER): This is a chronic condition which is at goal Goal is <140/90 Personally reviewed labs. B/p-136/70 Avoid caffeine, caffeine will raise blood pressure and excessive alcohol consumption. Monitor your weight and B/P. Encouraged to take medications as prescribed. Type 2 diabetes mellitus wit h hypoglycemia without coma, with long-term current use of insulin 07/31/2020 Assessment & Plan (11/15/2022 12:06 PM SEAFOOD FARMER): This is a chronic condition which is [...] No history of macrovascular disease - CVA, [place]. Assessment & Plan (06/27/2022 2:30 PM CDT): [...] No history of macrovascular disease - CVA, [place]. Assessment & Plan (02/28/2022 12:47 PM CDT): [...] No history of macrovascular disease - CVA, [place]. Assessment & Plan (11/01/2021 4:03 PM SEAFOOD FARMER): This is a chronic condition Awaiting labs from PCP office done yesterday Personally reviewed I2e-bdzurpte results goal less than 7% Personally reviewed [...] No history of macrovascular disease - CVA, [place]. Resolved Problems Problem Noted Date Diagnosed Date [...] PM CDT Hospital Encounter [facility] [address] [place] [address] Discharge Disposition: Discharge to home or self care 01/01/2025 12:07 PM CDT - 01/01/2025 8:01 PM CDT Emergency [facility] Emergency Department [address] [place] [address] Lei Lopez MD Knight, Caleb Daniel, MD Diagnosis unknown (Primary Dx); Fall, initial encounter; Concussion without loss of consciousness, initial encounter Discharge Disposition: Discharge to home or self care 01/01/2025 Ophth Exam [facility] Ophthalmology [address] [place] [address] 1[address] [place] [address] Chris Lujan MD from Last 3 Months Social History [...] on file Legal Sex Female 1:44 AM SEAFOOD FARMER Gender Identity Not on file Sexual Orientation [...] 12:21 PM CDT Height 146.1 cm (4' 9.5) 01/01/2025 12:21 PM CD T Body Mass Index 37.21 01/01/2025 12:21 PM CDT Plan of Treatment Health Maintenance Due Date Last Done Comments Albumin Creatinine Ratio, Urine 1935 Depression Screening 1935 Fall Risk Assessment 1935 Osteoporosis Screening-Bone Density Scan 1935 DTaP/Tdap/Td Vaccine (1 - Tdap) 1946 [...] HEMOGLOBIN A1C Routine 11/15/2022 1 1:39 AM SEAFOOD FARMER Type 2 diabetes mellitus with hypoglycemia without coma, with long-term current use of insulin (HCC) COMPREHENSIVE METABOLIC PANEL Routine 04/04/2022 LIPID PANEL Routine 04/04/2022 from Last 3 Months or Most Recently Relevant to Health Maintenance Results * (ABNORMAL) Urinalysis reflex to microscopic and culture Urine, clean voided (01/01/2025 4:24 PM CDT) Color, ur Yellow Yellow Clarity, ur Turbid(A) Clear [facility] Specific gravity, ur 1.015 1.003 - 1.030 [facility] pH, urine 6.5 [facility] Comment: Interpretive Data U rine pH is affected by diet, medications, systemic acid-base disturbances, and renal tubular function. pH may affect urinary stone formation. For example, urine pH below 6.0 may help reduce the tendency for calcium phosphate stones and pH greater than 6.0 may reduce the tendency for uric acid stone formation. Source: [facility] [employer] Current Interpretive Data was last revised on 2017 Protein, ur ql 2+(A) Negative [facility] Glucose, ur ql 4+(A) Negative [facility] Ketones, ur 1+(A) Negative [facility] Bilirubin, ur Negative Negative [facility] Blood, ur 1+(A) Negative [facility] Urobilinogen, ur <2.0 <2.0 mg/dL [facility] Nitrite, ur Negative Negative [facility] Leukocyte esterase, ur 3+(A) Negative [facility] UA reflex comment Reflex to microscopic UA will be performed. [facility] Urine, clean voided 01/01/2025 4:24 PM CDT 01/01/2025 4:30 PM CDT Manuel Keating MD LAB MICROBIOLOGY - GENERA L ORDERABLES Final Result Performing Organization Address [facility] de Phone Number [facility] [place] [address] * (ABNORMAL) Urinalysis, microscopic only (01/01/2025 4:24 PM CDT) WBC, ur >50(A) 0 - 5 /HPF RBC, ur >50(A) 0 - 2 /HPF [facility] Epithelial cells, squamous, ur 1-5 0 - 5 /HPF [facility] Bacteria, ur 4+(A) [facility] Culture Reflex Comment Reflex to urine culture will be performed. [facility] Urine, clean voided 01/01/2025 4:24 PM CDT 01/01/2025 4:30 PM CDT Manuel Keating MD LAB URINE ORDERABLES Jennifer l Result Performing Organization Address [facility] de Phone Number [facility] [place] [address] * (ABNORMAL) Urine culture Urine, clean voided (01/01/2025 4:24 PM CDT) Report Final Report: Growth indicates contamination with mixed bacterial lucy. Please submit a new specimen with special attention given to the collection process and to prompt transport to the laboratory. (.) Organism GROWTH INDICATES CONTAMINATION WITH MIXED LUCY. [facility] Urine, clean voided 01/01/2025 4:24 PM CDT 01/01/2025 7:57 PM CDT Narrative [facility] - 01/03/2025 4:19 PM CDT Urine culture reflexed based upon urinalysis results. Testing performed by [facility] Microbiology Laboratory ([phone]) Manuel Keating MD LAB MICROBIOLOGY - GENERA L ORDERABLES Final Result Performing Organization Address [facility] Co de Phone Number [facility] [place] [address] * (ABNORMAL) POCT glucose (01/01/2025 4:11 PM CDT) Glucose, POC 251(H) 70 - 199 mg/dL Comment:Glu2: RN/MD Notified Glucose comment 1 Glu2: RN/MD Notified [facility] Blood 01/01/2025 4:11 PM CDT 01/01/2025 4:11 PM CDT Manuel Keating MD LAB POCT ORDERABLES - DEV ICE Final Result Performing Organization Address [facility] Co de Phone Number [facility] Department [place] [address] * XR Outside Reference (01/01/2025 3:20 PM CDT) Impressions [facility] - 01/01/2025 3:20 PM CDT These images are for Reference purposes only and have not been reviewed by [facility] Radiology. There will be no report generated by a [facility] Radiologist. Narrative [facility] - 01/01/2025 3:20 PM CDT EXAMINATION: Images For Reference Purposes Only Result [facility] Rohan Hernandez MD IMG XR PROCEDURES Final R esult Performing Organization Address [facility]/ZIP Co de Phone Number [email or web address] * XR Outside Reference (01/01/2025 3:19 PM CDT) Impressions [facility] - 01/01/2025 3:19 PM CDT These images are for Reference purposes only and have not been reviewed by [facility] Radiology. There will be no report generated by a [facility] Radiologist. Narrative [facility] - 01/01/2025 3:19 PM CDT EXAMINATION: Images For Reference Purposes Only Rohan Hernandez MD IMG XR PROCEDURES Final R esult Performing Organization Address [facility] Co de Phone Number [email or web address] * XR Outside Reference (01/01/2025 3:17 PM CDT) Impressions [facility] - 01/01/2025 3:17 PM CDT These images are for Reference purposes only and have not been reviewed by [facility] Radiology. There will be no report generated by a [facility] Radiologist. Narrative [facility] - 01/01/2025 3:17 PM CDT EXAMINATION: Images For Reference Purposes Only Rohan Hernandez MD IMG XR PROCEDURES Final R [facility] Performing Organization Address [facility] de Phone Number [email or web address] * Neuro [...] images may or may not represent the mcgrath source data set and thus may contain [...] IMAGING STUDY STUDY INITIALLY PERFORMED: 12/31/2024 at [facility]. TYPE OF STUDY: Multiple CT images [...] IMAGING STUDY STUDY INITIALLY PERFORMED: 12/31/2024 at [facility]. TYPE OF STUDY: Multiple CT images [...] images may or may not represent the mcgrath source data set and thus may contain [...] images may or may not represent the mcgrath source data set and thus may contain [...] IMAGING STUDY STUDY INITIALLY PERFORMED: 12/31/2024 at [facility]. TYPE OF STUDY: Multiple CT images [...] IMAGING STUDY STUDY INITIALLY PERFORMED: 12/31/2024 at [facility]. TYPE OF STUDY: Multiple CT images [...] images may or may not represent the mcgrath source data set and thus may contain [...] (ABNORMAL) POCT glucose (01/01/2025 2:47 PM CDT) Pathologist [facility] Glucose, POC 256(H) 70 - 199 mg/dL Blood 01/01/2025 2:47 PM CDT 01/01/2025 2:47 PM CDT us Lei Lopez MD LAB POCT ORDERABLES - DEVICE F inal Result [facility] Department [place] [address] * (ABNORMAL) POCT hemoglobin A1c (11/15/2022 11:39 AM SEAFOOD FARMER) Pathologist [facility] Hemoglobin A1C, POC 9.9 Blood 11/15/2022 11:3 9 AM SEAFOOD FARMER us Tammy Lewis NP POINT OF CARE [...] Units/L EXTERNAL LAB SCRIBED eGFR in NonAfrican Mosotho 48(A) 60 - >90 EXTERNAL LAB Blood 04/04/2022 Historical Provider LAB BLOOD ORDERABLES Jennifer l Result EXTERNAL LAB from Last 3 Months or Most Recently Relevant to Health Maintenance Insurance MEDICARE [employer] AET MEDICARE [address] [address] [facility] MEDICARE [facility] Care Teams Physical Damage Appraiser Relationship Specialty Start Date End Date Jimmy Marino MD PCP - General Internal Medicine 07/11/17
--- OUTSIDE RECORDS SUMMARY | 2025-04-03 20:22 | XMS_ITS | Continuity of Care Document ---
Author Organization [facility] Address [address] [place] [address] [place] [address] Phone Care Team Providers Care Computer Numerical Control Operator Name Role Phone Joseph Ryan Unavailable [...] Date Provider Providers Copied on Encounter [facility], [address] [place] [address] [address], [place], [place], [id number], tel:[phone] [facility] No Information [address]. [address] , [address], [place], [address], [place]. tel:[phone] [facility], [address] [place] [address] [address], [place], [place], [id number], [place] tel:[phone] [facility] No Information [address] , [address], [place], [address], [place]. tel:[phone] [facility], [address] [place] [address] [address], [place], [place], [id number], [place] tel:[phone] [facility] No Information [address] [facility] , [address], [place], [place], [facility], . tel:[phone] Referring Provider: Gerber Rios OD, [address] [place], [address]. tel:[phone] Office/outpat ient Visit, [facility], [address], [place], [place], [id number], [place] tel:[phone] [facility] No Information [address] [facility] , [address], [place], [place], [facility], . tel:[phone] Referring Provider: Gerber Rios OD, [address] [place], [address]. tel:[phone] Family History Family Member Type Diagnosis Age [...]
--- OUTSIDE RECORDS SUMMARY | 2025-04-03 20:22 | XMS_ITS | Data Portability ---
[facility] Address [address] [place] [address] Care Team Providers Care Tool Drawing Checker Name Role Phone REAGAN MARINO Primary Care Provider Assessment Encounter Date Assessment Date Assessment LastModified by Organization Details LastModified Time 06/28/2024 06/28/2024 diabetes is uncontrolled they have a family member who knows the microfiche camera operator and they are going to be reaching out to the family member so that she can get scheduled with the microfiche camera operator if there is any difficulty charis and her will call me and I will arrange for a referral. Atorvastatin 10 mg a day I want to see her in 1 month she is to take her blood sugars twice a day also she needs to be referred to uro home school teacher eventually but right now she is infected so there is not much that they would probably do to this all clears up. I told her very important for her to keep appointments Not available 07/04/2024 17:30:17 07/26/2024 07/26/2024 her diabetes is uncontrolled we will make the referral to endocrinology we will make the referral to [employer] home school teacher for incontinence see me in 1 month I have told her that he needs to bring me the medicine that was prescribed by the microfiche camera operator I have no record of it [email or web address] Not available 07/31/2024 15:24:24 11/25/2024 11/25/2024 [email or web address]. Blood work. Follow up in 1 month. please take all medicines as prescribed [email or web address] Not available 11/25/2024 22:23:32 01/10/2025 01/10/2025 sutures were removed without incident hemostasis maintained we will try to get her some Ozempic check blood work. Get her some Tylenol with codeine for pain she will see me back in 3 weeks and she needs to check in with her private steel turner [email or web address] Not available 01/11/2025 22:29:35 Plan of Treatment Reminders Order Date Submit Date Provider Last Modified By Organization Details Last Modified Time Details Appointments None recorded. Lab HbA1c (hemoglobi n A1c), blood 2024 025 LARRY [facility], [address], [place], [address], 00:30:44 lipid panel, serum 2024 025 [email or web address] [facility], [address], [place], [address], 5 10:09:02 CMP, serum or plasma 2024 025 LARRY [facility], [address], [place], [address], 19:06:40 CBC w/ auto diff 2024 025 [email or web address] [facility], [address], [place], [address], 5 10:09:02 HbA1c (hemoglobi n A1c), blood 2024 025 [email or web address] In-Office Order, Internal Use Only DO Not Attach Compendium DO Not Attach Compendium, Do Not Delete/merge, [id number] 17:44:41 CMP, serum or plasma 2024 025 [email or web address] [facility], [address], [place], [address], 5 22:43:16 lipid panel, serum 2024 025 [email or web address] [facility], [address], [place], [address], 5 10:54:18 CBC w/ auto diff 2024 025 [email or web address] [facility], [address], [place], [address], 5 10:54:19 HbA1c (hemoglobi n A1c), blood 2023 024 [email or web address] In-Office Order, Internal Use Only DO Not Attach Compendium DO Not Attach Compendium, Do Not Delete/merge, [id number] 4 21:41:22 Referral endocrinol ogy referral 2023 024 [facility] , [address], [place], [address], 5 14:26:12 Procedures None recorded. Surgeries None recorded. Imaging None recorded. Medication Orders Ozempic 0.25 mg or 0.5 mg (2 mg/1.5 mL) subcutaneo us pen injector 2024 025 [email or web address] [facility], [address] , [place], [address], 5 15:21:16 pantoprazo le 40 mg tablet,del ayed release 2024 025 [email or web address] [facility], [address], [place], [address], 5 17:44:41 atorvastat in 10 mg tablet 2023 024 LARRY [facility], [address], [place], [address], 5 14:13:59 atorvastat in 10 mg tablet 2023 024 [email or web address] [facility], [address], [place], [address], 14:13:57 Patient TargetsNo targets recorded. Patient Instructions Encounter Date Encounter Id Patient Instructions Last Modified By Organization Details Last Modified Time 06/28/2024 [id number] A healthy lifestyle: care instructions [email or web address] Not available 06/28/2024 14:10:49 07/26/2024 [id number] A healthy lifestyle: care instructions [email or web address] Not available 07/26/2024 14:10:31 11/25/2024 [id number] A healthy lifestyle: care instructions [email or web address] Not available 11/25/2024 17:44:41 Reason for Referral [...] DO Not Attach Compendium, Do Not Delete/merge, [id number] 06/28/2024 17:19:06 11/25/19 25 11/25/2024 HbA1c (hemo globi n A1c), blood HbA1c 8.2 Not Available In-Office Order Internal Use Only DO Not Attach Compendium DO Not Attach Compendium, Do Not Delete/merge, [id number] 11/25/2024 16:03:17 01/01/20 25 12/31/2024 CT, brain , w/o contr ast No observ ation record ed. [address], [address], 01/05/2025 21:52:52 01/01/20 25 12/31/2024 XR, elbow No observ ation record ed. [address], [address], 01/05/2025 21:52:52 01/01/20 25 12/31/2024 XR, hand No observ ation record ed. [address], [address], 01/05/2025 21:52:52 01/01/20 25 12/31/2024 XR, shoul simon No observ ation record ed. [place] [address], [place], [address], 01/05/2025 21:52:53 01/01/20 25 12/31/2024 CT, cervi kathleen spine , w/o contr ast No observ ation record ed. [address], [place], [address], 01/05/2025 21:52:53 01/05/20 CT, maxil lofac ial, w/o contr ast No observ ation record ed. [address], [place], [address], 01/05/2025 21:52:53 01/20/20 25 01/19/2025 CT, brain , w/o contr ast No observ ation record ed. [address], [place], [address], 01/20/2025 09:23:40 01/20/20 25 01/19/2025 XR, chest No observ ation record ed. [address], [place], [address], 01/20/2025 09:23:26 02/23/20 25 02/22/2025 CT, brain , w/o contr ast No observ ation record ed. [address], [place], [address], 02/23/2025 10:39:15 02/23/20 25 02/22/2025 XR, chest , 1 view No observ ation record ed. [address], [place], [address], 02/23/2025 10:39:30 03/17/20 25 03/17/2025 CT, chest + abdom en + pelvi s, w/ contr ast No observ ation record ed. [facility] [address], [place], [address], 03/27/2025 22:43:27 Result Notes None recorded. Problems Name Problem SNOMED Code Status Onset Date Resolution Date Notes Provider Name and Address Organization Details Recorded Time Overweight 007032341 Active 2023 Brie Buchanan MA null, [place] - [facility] 4 12:20:55 Type 2 diabetes mellitus 08895556 Active 2023 ARMEN Motta, [place] - [facility] 4 12:21:04 Hyperlipidemia 15369773 Active 2023 ARMEN [place], [place] - [facility] 4 12:21:08 Problem Notes None recorded. Medical [...] Not Available Not Available Not Available Ozempic 1 mg/dose (4 mg/3 mL) subcutane ous pen injector inject 1mg weekly 2024 active Not Available Not Available Not Avai lable Ozempic 0.25 mg or 0.5 mg (2 [...] Updated DateTime 5 149.86 cm 35.5 kg/m2 35524.2 6 g 78 /min 96 % 96 % 140 mm[Hg] 90 mm[Hg] Em Mcgovern MA [facility] 5 14:55:16 Date Recorded Body height Heart rate Oxygen saturation Oxygen saturation in Arterial blood by Pulse oximetry Systolic blood pressure Diastolic blood pressure Provider Name and Address Organization Details Last Updated DateTime 5 149.86 cm 76 /min 97 % 97 % 130 mm[Hg] 80 mm[Hg] Anna Knutson [facility] - [facility] 5 14:11:03 Date Recorded Body height Body mass index (BMI) Body weight Oxygen saturation Oxygen saturation in Arterial blood by Pulse oximetry Heart rate Systolic blood pressure Diastolic blood pressure Provider Name and Address Organization Details Last Updated DateTime 4 149.86 cm 36 kg/m2 74257.4 4 g 97 % 97 % 78 /min 116 mm[Hg] 74 mm[Hg] Anna Knutson [place] - [facility] 4 12:06:06 Date Recorded Body height Body mass index (BMI) Body weight Heart rate Oxygen saturation Oxygen saturation in Arterial blood by Pulse oximetry Systolic blood pressure Diastolic blood pressure Provider Name and Address Organization Details Last Updated DateTime 149.86 cm 36 kg/m2 10268.4 4 g 76 /min 96 % 96 % 130 mm[Hg] 90 mm[Hg] Anna Knutson [place] - [facility] 11:54:01 Social History Question Answer Notes LastModified by Organizat ion Details LastModified Time Tobacco Smoking Status Never Smoker Anna Knutson [place] null, [place] - [facility] 07/26/2024 11:55:07 Do You Have An Advance Directive? No Information n ot available 07/26/2024 Are You Blind Or Do [...] Functional Status Question Answer Note LastModified by Organizat ion Details LastModified Time Do you use any illicit or recreational drugs? No Information not available 07/26/2024 What is your level of alcohol consumption? None Information not available 07/26/2024 Are you currently employed? No Information not available 07/26/2024 Are you able to care for yourself? Yes Information not available 07/26/2024 Mental Status None recorded. Family [...] virus, trivalent, preservative 4 completed ARMEN Mot[place] - [facility] 07/26/2024 12:21:18 Past Encounters Encounter ID Performer Location Encounter Start Date Encounter Closed Date Diagnosis/Indication Diagnosis SNOMED-CT Code Diagnosis ICD10 Code Diagnosis Note [id number] Reagan Marino MD [facility] - [place] Oseguera [address] [place] [address] 06/28/2024 11:23:26 06/28/2024 13:35:11 Obesity 611169944 E66.8 Type 2 vicki betes mellitus 02003643 E11.9 Hyperlipidemia 48440719 E78.5 [id number] Reagan Marino MD [facility] [email or web address] e - [place] [address] [place] [address] 07/26/2024 11:46:56 07/26/2024 12:47:29 Overweight 107924062 E66.3 Type 2 vicki betes mellitus 10909229 E11.9 Hyperlipidemia 12113399 E78.5 [id number] Reagan Marino MD [facility] [email or web address] - [place] [address] [place] [address] 11/25/2024 14:17:41 11/25/2024 15:41:29 Body mass index 30+ - obesity 106498450 Z68.35 Obesity 431307465 E66.9 Hyperlipidemia 43013116 E78.5 Gastroesop hageal reflux disease without esophagitis 316396908 K21.9 Type 2 vicki betes mellitus 27132612 E11.9 [id number] Reagan Marino MD [facility] [email or web address] - [place] [address] [place] [address] 01/10/2025 13:53:12 01/10/2025 14:46:45 Facial laceration 759763538 S01.81XA Type 2 vicki betes mellitus 42150296 E11.9 Gastroesop hageal reflux disease without esophagitis 622449046 K21.9 Hyperlipidemia 32075480 E78.5 Health Concerns Section Related Observation LastModified by Organization Detai ls LastModified Time None Recorded Concern Status LastModified by Organization Details LastModified Time None Recorded Advance Directives Directive N: Payers Insurance Date Sequence Insurance Name Policy Number Policy Manjarrez Covered Member ID Manjarrez Member ID Guarantor Name 01/21/2025 1 [employer] - PRIME (MEDICARE REPLACEMENT/ ADVANTAGE - HMO) [id number] Charis Ross [id number] Charis Ross Notes Date Note Type Note [...] trying to locate Reagan Marino MD Attn: , [address] [place], [address], [facility] 07/04/2024 17:30:47 07/26/2024 text/html she is still hav ing urinary incontinence she is not taking any of her meds except for what was given to her by a previous microfiche camera operator they have not made the appointment with the microfiche camera operator. I offered to do that at last visit but they said they would do it. They did not Reagan Marino MD Attn: , [address] [facility], [place], [address], [facility] 07/31/2024 15:24:43 11/25/2024 text/html diabetes they do [...] that well either Reagan Marino MD Attn: , [address] [place], [address], [facility] 11/25/2024 22:24:06 01/10/2025 text/html she had a fall w ent to the hospital for stitches paste over her right cheek transferred to [place] because of concerns about her eye and [...] struggles Reagan Marino MD Attn: Accounting, [address] [place], [address], [place] - [facility] 01/11/2025 22:32:39 OBGyn Episode No OBEpisode recorded.
--- OUTSIDE RECORDS SUMMARY | 2025-04-03 20:22 | XMS_ITS | Referral Summary ---
Author Organization [facility] [address] [facility] [address] Address [address] [place] [address] Care Team Providers Care Tissue Packer Name Role Phone Jimmy Marino MD Primary Care Provider + [phone] Encounters Date Type Department Care Team Description 01/01/2025 8:05 PM CDT - 01/01/2025 11:59 PM CDT Hospital Encounter [facility] [address] [place] [address] Discharge Disposition: Discharge to home or self care 01/01/2025 Ophth Exam [facility] Ophthalmology [address] [place] [phone] Chris Lujan MD 01/01/2025 12:07 PM CDT - 01/01/2025 8:01 PM CDT Emergency [facility] Emergency Department [address] [place] [phone] Lei Lopez MD Knight, Caleb Daniel, MD Diagnosis unknown (Primary Dx); Fall, initial encounter; Concussion without loss of consciousness, initial encounter Discharge Disposition: Discharge to home or self care from Last 3 Months Allergies No known [...] pen INJECT 46 UNITS UNDER THE SKIN FIRE ENGINE PUMP OPERATOR BEFORE BREAKFAST 45 mL 3 4 Active metFORMIN XR (GLUCOPHAGE XR) 500 mg 24 hr tablet Take 1 tablet by mouth once daily 90 tablet 3 4 Active Active Problems Problem Noted Date Diagnosed Date Diagnosis unknown 01/02/2025 Morbid (severe) obesity due to excess calories 0 06/27/2022 Assessment & Plan (11/15/2022 11:39 AM TESTER/LIFT TRUCKER): This is a chronic condition which is [...] 11/01/2021 Assessment & Plan (11/15/2022 12:02 PM TESTER/LIFT TRUCKER): This is a chronic condition which is [...] prescribed. Assessment & Plan (11/01/2021 4:01 PM TESTER/LIFT TRUCKER): This is a chronic condition which is at goal Goal is <140/90 Personally reviewed labs. B/p-136/70 Avoid caffeine, caffeine will raise blood pressure and excessive alcohol consumption. Monitor your weight and B/P. Encouraged to take medications as prescribed. Type 2 diabetes mellitus wit h hypoglycemia without coma, with long-term current use of insulin 07/31/2020 Assessment & Plan (11/15/2022 12:06 PM TESTER/LIFT TRUCKER): This is a chronic condition which is [...] No history of macrovascular disease - CVA, [place]. Assessment & Plan (06/27/2022 2:30 PM CDT): [...] No history of macrovascular disease - CVA, [place]. Assessment & Plan (02/28/2022 12:47 PM CDT): This is a chronic condition which is out of control Personally reviewed A1c-13.6% not at goal less than 8% Personally reviewed blood sugar -217 not at goal 80-180 Medication- increase Xultophy 28 units daily am. - this will decreases number of injections and hopeful will cover mealtime insulin need. Discussed using uTaPo insulin delivery system- she did not think [...] No history of macrovascular disease - CVA, [place]. Assessment & Plan (11/01/2021 4:03 PM TESTER/LIFT TRUCKER): This is a chronic condition Awaiting labs from PCP office done yesterday Personally reviewed H9g-npvkjxav results goal less than 7% Personally reviewed blood sugar -274 not at goal 80-180 Medication- stop degludec and novolog. Start Xultophy 20 units daily am. - will try this to decrease number of injections and hopeful will cover mealtime insulin need. Monitor blood sugar 4 times a day with Boxedstyle madelyn 2 sensor. Encouraged annual eye exam. [...] No history of macrovascular disease - CVA, [place]. Resolved Problems Problem Noted Date Diagnosed Date [...] on file Legal Sex Female 1:44 AM TESTER/LIFT TRUCKER Gender Identity Not on file Sexual Orientation [...] HEMOGLOBIN A1C Routine 11/15/2022 1 1:39 AM TESTER/LIFT TRUCKER Type 2 diabetes mellitus with hypoglycemia without coma, with long-term current use of insulin (HCC) COMPREHENSIVE METABOLIC PANEL Routine 04/04/2022 LIPID PANEL Routine 04/04/2022 from Last 3 Months or Most Recently Relevant to Health Maintenance Results * (ABNORMAL) Urinalysis reflex to microscopic and culture Urine, clean voided (01/01/2025 4:24 PM CDT) Color, ur Yellow Yellow Clarity, ur Turbid(A) Clear [facility] Specific gravity, ur 1.015 [...] tendency for uric acid stone formation. Source: [facility] Current Interpretive Data was last revised on 2017 Protein, ur ql 2+(A) Negative [facility] Glucose, ur ql 4+(A) Negative [facility] Ketones, ur 1+(A) Negative [facility] Bilirubin, ur Negative Negative [facility] Blood, ur 1+(A) Negative [facility] Urobilinogen, ur <2.0 <2.0 mg/dL [facility] Nitrite, ur Negative Negative [facility] Leukocyte esterase, ur 3+(A) Negative [facility] UA reflex comment Reflex to microscopic UA will be performed. [facility] Urine, clean voided 01/01/2025 4:24 PM CDT 01/01/2025 4:30 PM CDT Manuel Keating MD LAB MICROBIOLOGY - GENERA L ORDERABLES Final Result Performing Organization Address [facility] Co de Phone Number [facility] Department [place] [address] * (ABNORMAL) Urinalysis, microscopic only (01/01/2025 4:24 [...] ORDERABLES Jennifer l Result Performing Organization Address City/[facility] Co de Phone Number [facility] Department [place] [address] * (ABNORMAL) Urine culture Urine, clean voided (01/01/2025 4:24 PM CDT) Pathologist [facility] Report Final Report: Growth indicates contamination with [...] upon urinalysis results. Testing performed by [facility] Microbiology Laboratory ([phone]) Manuel Keating MD LAB MICROBIOLOGY - GENERA L ORDERABLES Final Result [facility] Department [place] [address] * (ABNORMAL) POCT glucose (01/01/2025 4:11 PM CDT) Pathologist [facility] Glucose, POC 251(H) 70 - 199 mg/dL Comment:Glu2: RN/MD Notified Glucose comment 1 Glu2: RN/MD Notified [facility] Blood 01/01/2025 4:11 PM CDT 01/01/2025 4:11 PM CDT Manuel Keating MD LAB POCT ORDERABLES - DEV ICE Final Result [facility] [place] [address] * XR Outside Reference (01/01/2025 3:20 PM CDT) Impressions [facility] - 01/01/2025 3:20 PM CDT These images are for Reference purposes only and have not been reviewed by [facility] Radiology. There will be no report generated by a [facility] Radiologist. Narrative [facility] - 01/01/2025 3:20 PM CDT EXAMINATION: Images For Reference Purposes Only Rohan Hernandez MD IMG XR PROCEDURES Final R esult Performing Organization Address [facility] de Phone Number [email or web address] * XR Outside Reference (01/01/2025 3:19 PM CDT) Impressions [facility] - 01/01/2025 3:19 PM CDT These images are for Reference purposes only and have not been reviewed by [facility] Radiology. There will be no report generated by a [facility] Radiologist. Narrative [facility] - 01/01/2025 3:19 PM CDT EXAMINATION: Images For Reference Purposes Only Rohan Hernandez MD IMG XR PROCEDURES Final R esult Performing Organization Address [facility] de Phone Number [facility] * XR Outside Reference (01/01/2025 3:17 PM CDT) Impressions [facility] - 01/01/2025 3:17 PM CDT These images are for Reference purposes only and have not been reviewed by [facility] Radiology. There will be no report generated by a [facility] Radiologist. Narrative [facility] - 01/01/2025 3:17 PM CDT EXAMINATION: Images For Reference Purposes Only Rohan Hernandez MD IMG XR PROCEDURES Final R esult Performing Organization Address [facility] de Phone Number [email or web address] * Neuro [...] images may or may not represent the [place] source data set and thus may contain [...] IMAGING STUDY STUDY INITIALLY PERFORMED: 12/31/2024 at [facility]. TYPE OF STUDY: Multiple CT images of [...] IMAGING STUDY STUDY INITIALLY PERFORMED: 12/31/2024 at [facility]. TYPE OF STUDY: Multiple CT images of [...] images may or may not represent the [place] source data set and thus may contain [...] images may or may not represent the [place] source data set and thus may contain [...] IMAGING STUDY STUDY INITIALLY PERFORMED: 12/31/2024 at [facility]. TYPE OF STUDY: Multiple CT images of [...] no severe neuroforaminal narrowing. Procedure Note Rebecca Owne MD PhD - 01/01/2025 EXAMINATION: RADIOLOGY CONSULTATION ON OUTSIDE IMAGING STUDY STUDY INITIALLY PERFORMED: 12/31/2024 at [facility]. TYPE OF STUDY: Multiple CT images of [...] images may or may not represent the [place] source data set and thus may contain [...] POCT ORDERABLES - DEVICE F inal Result Performing Organization Address City/[facility]/ZIP Co de Phone Number [facility] Department [place] [address] * (ABNORMAL) POCT hemoglobin A1c (11/15/2022 11:39 AM TESTER/LIFT TRUCKER) [facility] Hemoglobin A1C, POC 9.9 Blood 11/15/2022 11:3 9 AM TESTER/LIFT TRUCKER Tammy [place] NP POINT OF CARE TEST ORDERABLES F inal Result * (ABNORMAL) Lipid panel (04/04/2022) Pathologist [facility] SCRIBED Cholesterol, Total 165 140 - 199 [...] Units/L EXTERNAL LAB SCRIBED eGFR in NonAfrican Panamanian 48(A) 60 - >90 EXTERNAL LAB Blood 04/04/2022 us Historical Provider LAB BLOOD ORDERABLES Jennifer l Result EXTERNAL LAB from Last 3 Months or Most Recently Relevant to Health Maintenance Insurance MEDICARE [employer] AETNA MEDICARE GOLD AETNA MEDICARE GOLD Care Teams Tissue Packer Relationship Specialty Start Date End Date Jimmy Marino MD PCP - General Internal Medicine 07/11/17
[2025-04-03 21:49] VITALS: BP 137/50; PULSE 52; RESP 18; TEMP 36.6; O2SAT 100
--- NOTE | 2025-04-03 23:41 | ED.FALL ---
HPI - Fall General Chief Complaint: Fall Stated Complaint: fall Time Seen by Provider: 04/03/25 19:47 History of Present Illness HPI Narrative: Patient's left foot got caught in wheelchair while she was being pushed and she tumbled out, hitting her head and left knee. No loss of consciousness and denies any pain anywhere other than to her left knee. Related Data Home Medications ?Medication ?Instructions ?Recorded ?Confirmed ?Last Taken ?Type metformin 500 mg tablet,extended 500 mg PO QPM 01/19/25 02/22/25 02/21/25 History release 24 hr semaglutide 0.25 mg or 0.5 mg (2 0.25 mg subcut WEEKLY 01/19/25 02/22/25 02/16/25 History mg/3 mL) subcutaneous pen injector (Ozempic) insulin glargine 100 unit/mL (3 20 unit subcut QPM 02/22/25 02/22/25 02/21/25 History mL) subcutaneous pen (Lantus Solostar U-100 Insulin) Allergies Allergy/AdvReac Type Severity Reaction Status Date / Time No Known Allergies Allergy Verified 02/22/25 12:29 Review of Systems Review of Systems: All systems reviewed & are unremarkable except as noted in HPI and below PMFSH Past Medical History Medical History Type 2 diabetes mellitus Normal echocardiogram (06/2018) EF 65-70%, impaired grade 1 diastolic dysfunction CVA (cerebral vascular accident) (06/2018) Left basal ganglia and posterior limb of the left internal capsule with initial complaint of difficulty walking and right facial numbness Surgical History Surgical History History of tonsillectomy and adenoidectomy Status post cataract extraction of both eyes with insertion of intraocular lens History of total bilateral knee replacement (2005) Family History Family History Mother Diabetes mellitus Cerebrovascular accident Father Diabetes mellitus Heart disease Sibling Diabetes mellitus Multiple myeloma Social History Social History Smoking status: Never smoker Second hand tobacco smoke exposure: No Alcohol intake: never Substance use: never Substance use type: does not use Do You Feel Safe in your Home?: Yes Lack of Transportation: YES Lack of Food: Never True Current Housing: I Have Housing Concerned About Future Housing: No Difficulty Paying Gas/Electric Bills: No Difficulty Paying for Meds: No Currently Unemployed: No Education: High School Diploma/GED Difficulty w/ Childcare or Family Care: No Spiritual care concerns: No Exam Narrative: EXAMINATION OF ORGAN SYSTEMS/BODY AREAS: Constitutional: Vital signs per nursing GENERAL:[No acute distress, non-toxic appearing.] HEAD: Tiny contusion forehead EYES: EOMI, conjunctiva normal ENT: Hearing grossly intact LUNGS: Nonlabored breathing. HEART: [Regular rate and rhythm] ABD: [Soft], [nontender to palpation] EXT: Normal range of motion SKIN: Bruising to left knee NEURO: [Alert. No gross focal sensory or strength deficits.] PSYCH: Normal affect Course Vital Signs Vital signs: Vital Signs Temperature 98.0 F 04/03/25 19:37 Pulse Rate 51 L 04/03/25 19:37 Respiratory Rate 16 04/03/25 19:37 Blood Pressure 139/100 H 04/03/25 19:37 Pulse Oximetry 100 04/03/25 19:37 Oxygen Delivery Room Air 04/03/25 19:37 Temperature 98 F 04/03/25 21:49 Pulse Rate 52 L 04/03/25 21:49 Respiratory Rate 18 04/03/25 21:49 Blood Pressure 137/50 L 04/03/25 21:49 Pulse Oximetry 100 04/03/25 21:49 Oxygen Delivery Room Air 04/03/25 19:37 MDM - Fall MDM Narrative Medical decision making narrative: Patient presenting here after ground level fall when she actually tumbled out of a wheelchair, hitting her head and knee. She is very well-appearing here, on palpation of all extremities she only has some slight tenderness to her left knee, there is a small bruise, otherwise no obvious deformity anywhere and she has normal range of motion. CT head and neck negative for acute fracture or other abnormality, she and are agreeable to outpatient management as needed and she would like to go home. Discharge Plan Discharge Clinical Impression: Fall, Contusion of knee Patient Disposition: NH Long Term/Asst Living Condition: Stable Instructions: Contusion in Adults (ED) Additional Instructions: Please follow up with your doctor; you can always return for any further issues. You can use ice on your left knee. Patient Language: Frisian Prescriptions: New acetaminophen [Tylenol] 325 mg tablet 650 mg PO ONCE PRN (Reason: pain) Qty: 30 0RF No Action metformin 500 mg tablet extended release 24 hr 500 mg PO QPM Ozempic 0.25 mg or 0.5 mg (2 mg/3 mL) pen injector 0.25 mg SUBCUT WEEKLY insulin glargine [Lantus Solostar U-100 Insulin] 100 unit/mL (3 mL) insulin pen 20 unit SUBCUT QPM amoxicillin-pot clavulanate 875-125 mg tablet 1 tablet PO Q12H Qty: 10 0RF alum-mag hydroxide-simeth [Maalox Advanced] 200-200-20 mg/5 mL suspension 15 ml PO QID PRN (Reason: dyspepsia) Qty: 3000 0RF Rx Instructions: administer between meals and at bedtime pantoprazole [Protonix] 20 mg tablet,delayed release (DR/EC) 20 mg PO HS 28 Days Qty: 28 0RF cefdinir 300 mg capsule 300 mg PO Q12H 7 Days Qty: 14 0RF carvedilol 6.25 mg tablet 6.25 mg PO Q12H Qty: 180 0RF amlodipine 10 mg tablet 10 mg PO DAILY@0800 Qty: 90 0RF pantoprazole 40 mg tablet,delayed release (DR/EC) 40 mg PO DAILY Qty: 30 2RF pantoprazole 40 mg tablet,delayed release (DR/EC) 40 mg PO DAILY Qty: 30 3RF Follow-up/Referrals: Ned,MD Jimmy [Primary Care Provider] - 2 Days
== END 2025-04-04 01:54 ==
PROVIDERS: Emergency Provider Emergency Medicine; PCP Internal Medicine
DX: S80.02XA Contusion of left knee, initial encounter (principal); S00.83XA Contusion of other part of head, initial encounter; E11.9 Type 2 diabetes mellitus without complications; Z86.73 Personal history of transient ischemic attack (TIA), and cerebral infarction without residual deficits; Z96.1 Presence of intraocular lens; Z98.42 Cataract extraction status, left eye; Z98.41 Cataract extraction status, right eye; Z96.659 Presence of unspecified artificial knee joint; Z79.85 Long-term (current) use of injectable non-insulin antidiabetic drugs; Z79.899 Other long term (current) drug therapy; Z79.4 Long term (current) use of insulin; Z79.84 Long term (current) use of oral hypoglycemic drugs
CPT/HCPCS: 70450; 72125; 99284

== ENCOUNTER 2025-04-08 08:40 | Inpatient (IN) | payer MEDICARE, SELFPAY ==
[2025-04-08] VITALS (27 sets, daily range): BP systolic 150–182; BP diastolic 64–91; PULSE 53–70; RESP 13–26; TEMP 34.3–36.4; O2SAT 92–100; BMI 38.4
--- NOTE | ~2025-04-08 | XR_ITS ---
MODIFIED ESOPHAGRAM HISTORY: Aspiration TECHNIQUE: Modified barium esophagram was performed on 04/15/2025. I administered fluoroscopy and perf ormed the exam with speech pathologist. Patient was seated for lateral fluoroscopic imaging for tanya stion of thin liquids, pudding, solids and quantified amounts, followed by thin liquids in uncontroll ed amounts. This was recorded on tape. A single fluoroscopic spot image was also recorded. The DAP fo r this procedure was 1.646 Gycm2. The amount of fluoroscopy time used during this procedure was 2.2 m inutes. FINDINGS: Oral stage: Reduced lingual movement.. Pharyngeal stage: Reduced laryngeal elevation and tongue base retraction. There is vallecular and pir iform sinus residue. There is laryngeal penetration. No aspiration observed however patient appeared at risk of aspiration and evaluation was limited due to patient's lethargy. Cervical/esophageal stage: Adequate function. IMPRESSION: Pharyngeal dysphagia with laryngeal penetration. No aspiration observed although patient appeared at risk with assessment limited by patient's lethargy. Please correlate with speech patholo gist findings and specific feeding recommendations. Reviewed, dictated and finalized at location A. IMPRESSION: Pharyngeal dysphagia with laryngeal penetration. No aspiration obse rved although patient appeared at risk with assessment limited by patient's let hargy. Please correlate with speech pathologist findings and specific feeding recommendations.
--- NOTE | ~2025-04-08 | MR_ITS ---
EXAMINATION: MRA brain wo con DATE: 04/12/2025 16:15 INDICATION: Cerebral infarction TECHNIQUE: Magnetic resonance angiography (MRA) of the brain was performed without intravenous contrast by the 3 D [id number] technique. COMPARISON: None. FINDINGS: There is normal flow related signal seen within the vertebral, basilar and internal carotid arteries. Vertebral arteries are codominant. There is a mild <50% stenosis along the intracranial left vertebr al artery. There is no other proximal stenosis. There are no aneurysms identified. Both A1 and P1 s egments are patent. Flow in the cerebral arteries is symmetric. IMPRESSION: 1. Unremarkable cerebral MR angiogram. No hemodynamically significant stenosis or aneurysm. Reviewed, dictated and finalized at location A.
--- NOTE | ~2025-04-08 | CT_ITS ---
EXAM: CT abdomen pelvis wo con - 04/12/2025 10:00 CDT History: 89 years old Female with Emesis TECHNIQUE: Multidetector CT of the abdomen and pelvis without contrast. Coronal and sagittal reforma ts were also provided for review. Automatic exposure control was used for this study. COMPARISON: 04/08/2025. FINDINGS: VISUALIZED CHEST: Small bilateral pleural effusions causing compressive atelectasis. Right basilar at electasis versus possible consolidation. Atherosclerotic calcifications are seen. ABDOMEN and PELVIS: LIVER: Within normal limits. GALLBLADDER: Cholelithiasis. BILE DUCTS: No dilatation. SPLEEN: Within normal limits. PANCREAS: Within normal limits. ADRENAL GLANDS: Within normal limits. KIDNEYS and URETERS: No hydronephrosis or hydroureter. No nephroureterolithiasis. URINARY BLADDER: Chamorro catheter is noted with small amount of intraluminal air. Diffuse thickening of the urinary bladder wall. STOMACH and BOWEL: No abnormal bowel wall thickening. No obstruction. Colonic diverticulosis, without diverticulitis. REPRODUCTIVE ORGANS: Myomatous uterus. MESENTERY/PERITONEAL CAVITY: No free fluid or pneumoperitoneum. LYMPH NODES: No abdominal or pelvic lymphadenopathy. ABDOMINAL WALL: Within normal limits. VASCULATURE: Within normal limits. MUSCULOSKELETAL: Multilevel degenerative changes of the spine. IMPRESSION: 1. Small bilateral pleural effusions causing compressive atelectasis. Right basilar atelectasis vers us possible consolidation. This may represent aspiration pneumonia. Clinical correlation is recommend ed. 2. Diffuse thickening of the urinary bladder wall may represent cystitis. Correlate with urinalysis. Reviewed, dictated and finalized at location A. IMPRESSION: 1. Small bilateral pleural effusions causing compressive atelectasis. Right ba silar atelectasis versus possible consolidation. This may represent aspiration pneumonia. Clinical correlation is recommended. 2. Diffuse thickening of the urinary bladder wall may represent cystitis. Vickey elate with urinalysis.
--- NOTE | ~2025-04-08 | XR_ITS ---
Portable chest x-ray Comparison: 02/22/2025 Clinical History: Altered mental status Findings: Lungs are clear, without focal consolidation or pleural effusion. Cardiomediastinal silho uette is stable. Bones and soft tissues are unremarkable. Impression: Clear lungs. Reviewed, dictated and finalized at location . Impression: Clear lungs.
--- NOTE | ~2025-04-08 | CT_ITS ---
CT brain wo con Ordering provider: Tianna Seymour MD History: 89 years Female with . Altered Mental Status . Comparison: April 08, 2025 Technique: CT of the head without contrast. Radiation reduction technique utilized. The dose-length p roduct was 605.33 mGy-cm. FINDINGS: BRAIN PARENCHYMA AND CSF SPACES: Mild leukoaraiosis and diffuse cortical atrophy. Mild atheromatous d isease. Old lacunar infarcts in the thalami. No midline shift, mass effect or hemorrhage. The brain parenchyma and CSF spaces are otherwise normal. VISUALIZED PARANASAL SINUSES: Well aerated. MASTOIDS: Well aerated. BONES: The bones appear intact. SOFT TISSUES: Visualized nasopharynx is normal. Superficial soft tissues are normal. IMPRESSION: No acute intracranial findings. Reviewed, dictated and finalized at location A.
--- NOTE | ~2025-04-08 | US_ITS ---
EXAMINATION: US carotid duplex BI DATE: 04/12/2025 10:36 INDICATION: Cerebral infarction TECHNIQUE: Grayscale, color Doppler, and pulsed Doppler images of the cervical carotid arteries were obtained. The degree of vessel stenosis is placed in one of the following categories: normal, <50%, 5 0-69%, >=70% but less than near-occlusion, near-occlusion, or total occlusion. Note that percent sten osis relative to normal distal artery lumen diameter is indirectly measured from velocity measurement s as described by Jean Pierre, et al. Radiology 2003; 229:340-346. COMPARISON: None. FINDINGS: RIGHT: The right common carotid artery (CCA) peak systolic velocity (PSV) is 108 cm/s. The right internal ca rotid artery (ICA) PSV is 63 cm/s. The right ICA end-diastolic velocity (EDV) is 15 cm/s. The right I CA/CCA PSV ratio is 0.6. Grayscale and color Doppler images yield an estimate of <50% diameter reduct ion from plaque in the ICA. The external carotid artery (ECA) PSV is 65 cm/s. There is antegrade flow in the right vertebral artery. LEFT: The left CCA PSV is 93 cm/s. The left ICA PSV is 59 cm/s. The left ICA EDV is 10 cm/s. The left ICA/C CA PSV ratio is 0.6. Grayscale and color Doppler images yield an estimate of <50% diameter reduction from plaque in the ICA. The ECA PSV is 126 cm/s. There is antegrade flow in the left vertebral artery . IMPRESSION: 1. <50% stenosis in the right internal carotid artery. 2. <50% stenosis in the left internal carotid artery. Reviewed, dictated and finalized at location A.
--- NOTE | ~2025-04-08 | MR_ITS ---
EXAMINATION: MR brain/brain stem wo con DATE: 04/12/2025 14:55 INDICATION: Cerebral infarction TECHNIQUE: Magnetic resonance imaging (MRI) of the brain and brainstem was performed without intraven ous contrast. Sequences included sagittal and axial T1-weighted SE, axial diffusion-weighted FS SE, a xial T2*-weighted GRE, axial T2-weighted FLAIR, and axial T2-weighted FSE. Apparent diffusion coeffic ient (ADC) maps were created. COMPARISON: None. FINDINGS: There are no areas of restricted diffusion to suggest acute infarction. There are couple of asymmetri c small old lacunar infarcts at the junction of the thalami and external limbs of the internal capsul es on both the left and right. No intracranial hemorrhage or abnormal intracranial mass lesion. There are scattered areas of nonspecific increased T2-weighted signal intensity in the cerebral white bridget er, predominantly involving the deep and periventricular white matter. There are no intraparenchymal signal abnormalities seen on the other pulse sequences. Symmetric prominence of the sulci and ventric les consistent with mild age-appropriate diffuse cerebral volume loss. There are no abnormal extra-ax ial fluid collections. Flow voids are seen in the cerebral arteries on the T2-weighted sequences cons istent with their expected patency. Changes of bilateral intraocular lens replacement. Visualized orb its and soft tissues are unremarkable. Mild mucosal thickening the bilateral ethmoid sinuses. IMPRESSION: 1. A couple old lacunar infarcts at the junction of the bilateral thalami and the posterior limbs of the external capsules. No acute intracranial process. 2. Age-related changes including mild diffuse volume loss and moderate periventricular predominant ca lcific white matter T2 hyperintensity consistent with chronic small vessel ischemic disease. Reviewed, dictated and finalized at location A. IMPRESSION: 1. A couple old lacunar infarcts at the junction of the bilateral thalami and t he posterior limbs of the external capsules. No acute intracranial process. 2. Age-related changes including mild diffuse volume loss and moderate perivent ricular predominant calcific white matter T2 hyperintensity consistent with chr onic small vessel ischemic disease.
--- NOTE | ~2025-04-08 | CT_ITS ---
CT brain wo con Ordering provider: Amanda Cisneros MD History: 89 years Female with . unresponsive episode . Comparison: April 03, 2025. Technique: CT of the head without contrast. Radiation reduction technique utilized.The dose-length pr oduct was 605.33 mGy-cm. FINDINGS: BRAIN PARENCHYMA AND CSF SPACES: Mild leukoaraiosis and diffuse cortical atrophy. Mild atheromatous d isease. Old lacunar infarct in the right and left thalamus.. No midline shift, mass effect or hemorrh age. The brain parenchyma and CSF spaces are otherwise normal. VISUALIZED PARANASAL SINUSES: Well aerated. MASTOIDS: Well aerated. BONES: The bones appear intact. SOFT TISSUES: Visualized nasopharynx is normal. Superficial soft tissues are normal. IMPRESSION: No acute intracranial findings. Reviewed, dictated and finalized at location A.
--- NOTE | ~2025-04-08 | XR_ITS ---
EXAMINATION: XR chest 1V portable DATE: 04/11/2025 09:33 INDICATION: Aspiration TECHNIQUE: frontal view of the chest was obtained. COMPARISON: Chest radiograph and CT dated 04/08/2025 FINDINGS: Mild opacities at the bilateral lung bases likely related to persistent small bilateral pleural effus ions and associated bibasilar atelectasis versus pneumonia. No pneumothorax. Mild cardiomegaly. Old h ealed posterolateral right sixth rib fracture. IMPRESSION: 1. Mild bibasilar opacities consistent with persistent very small bilateral pleural effusions and ass ociated atelectasis and/or pneumonia. 2. Cardiomegaly. Reviewed, dictated and finalized at location A. IMPRESSION: 1. Mild bibasilar opacities consistent with persistent very small bilateral ple ural effusions and associated atelectasis and/or pneumonia. 2. Cardiomegaly.
--- NOTE | ~2025-04-08 | CT_ITS ---
Non-contrast CT scan of the Abdomen and Pelvis Clinical indication: UTI, altered mental status Technique: 2.5 mm axial scans were obtained through the abdomen and pelvis without intravenous or or al contrast. Dose reduction technique was used on this scan by utilizing automated exposure control a nd iterative reconstruction technique. The dose-length product (DLP) was 1108.68 mGy-cm. COMPARISON: 03/17/2025 Findings: Images through the lung bases reveal worsening small bilateral pleural effusions with mild bibasilar atelectatic change. Suspected renal vascular calcifications resin renal stones, though small stones are not completely ex cluded. No ureteral stone or hydronephrosis. The kidneys and the ureters are nondilated. The liver, spleen, pancreas, and adrenals appear normal. Multiple gallstones are present. There are a therosclerotic calcifications of the aorta. . There is no evidence of bowel obstruction. Images through the pelvis were performed. There is no evidence of ascites or lymphadenopathy. Urinary bladder relatively collapsed rounded Chamorro catheter, questionable wall thickening. No adnexal mass e vident. Impression: Suspected bladder wall thickening despite decompression with Chamorro catheter. Correlate clinically for cystitis. Suspected renal vascular calcifications rather than renal stones, though small stones are not exclude d. No ureteral stone or hydronephrosis on either side. Worsening small bilateral pleural effusions with mild bibasilar atelectatic change. Cholelithiasis. Reviewed, dictated and finalized at location . Impression: Suspected bladder wall thickening despite decompression with Chamorro catheter. Co rrelate clinically for cystitis. Suspected renal vascular calcifications rather than renal stones, though small stones are not excluded. No ureteral stone or hydronephrosis on either side. Worsening small bilateral pleural effusions with mild bibasilar atelectatic mason nge. Cholelithiasis.
--- NOTE | 2025-04-08 08:46 | ECG_ITS ---
Test Date: 2025-04-08 08:48:29 Measurements Intervals Rossiter Rate: 55 P: -25 MO: 304 QRS: 19 QRSD: 104 T: 17 QT: 465 QTc: 447 Interpretive Statements SINUS BRADYCARDIA WITH FIRST DEGREE AV BLOCK BORDERLINE R WAVE PROGRESSION, ANTERIOR LEADS CONSIDER INFERIOR INFARCT, AGE INDETERMINATE ABNORMAL ECG Compared to ECG 03/17/2025 02:37:41 HEART RATE HAS DECREASED Electronically Signed On 04-08-2025 09:58:10 CDT by Jorge L George D.O.
[2025-04-08 09:17] LABS: Basophils Percent Auto 0.6 % (0.2-1.2); Eosinophils Absolute Auto 0.3 K/mm3 (0-0.3); Eosinophils Percent Auto 3.9 % (0-4.4); Hematocrit 30.9 % (37.0-47.0); Hemoglobin 9.8 g/dL (12.0-15.0); Immature Granulocyte Absolute 0.02 K/mm3 (0.00-0.031); Immature Granulocyte Percent A 0.3 % (0-0.5); Lymphocytes Absolute Auto 1.93 K/mm3 (0.9-3.2); Lymphocytes Percent Auto 29.8 % (18.3-44.2); Mean Corpuscular HGB Conc 31.7 g/dl (32-36); Mean Corpuscular Hemoglobin 30.2 pg (26-34); Mean Corpuscular Volume 95.1 fl (80-100); Mean Platelet Volume 11.7 fl (7.4-10.4); Monocytes Absolute Auto 0.5 K/mm3 (0.1-0.6); Monocytes Percent Auto 8.2 % (2.6-8.5); Neutrophils Absolute Auto 3.7 K/mm3 (1.3-6.7); Neutrophils Percent Auto 57.2 % (45.5-73.1); Platelet Count Result 298 k/mm3 (150-375); Red Blood Count 3.25 M/mm3 (4.2-5.4); Red Cell Distribution Width 15.9 % (11.5-14.5); White Blood Count 6.5 K/mm3 (4.5-10.0)
--- NOTE | 2025-04-08 09:24 | PCRCNOTE ---
Arrived to give nebulizer tx but Pt. was not in the room.
[2025-04-08 09:28] LABS: INR 1.1; Partial Thromboplastin Time 30.1 Seconds (22.3-36.8); Prothrombin Time 14.4 Seconds (11.1-14.7)
[2025-04-08 09:33] LABS: Add Urine Microscopic? YES; Appearance Urine Turbid (Clear); Bacteria Urine 4+ /hpf; Bilirubin Urine Negative (Negative); Blood Urine Trace (Negative); Budding Yeast Urine Present /hpf; Color Urine Yellow (Yellow); Glucose Urine UA 3+ mg/dL (Negative); Ketones Urine Negative (Negative); Leukocyte Esterase Ur 3+ LEU/UL (Negative); Need Manual Microscopic Reviewed; Nitrate Urine Positive (Negative); Non Pathogenic Casts 0-2; Protein Urine 2+ mg/dL (Negative); Specific Grav Ur 1.016 (1.001-1.035); Squamous Epithelial Cell Urine None Seen /hpf (Few); Urobilinogen Urine 0.2 mg/dL (<2.0); WBC Clumps Urine Present /HPF; WBC Urine >100 /hpf (0-3)
[2025-04-08] MEDS: IPRATROPIUM 0.5 MG/ALBUTEROL SULFATE 2.5 MG AMPUL.NEB 3 ML INHALATION (09:33)
[2025-04-08 09:34] LABS: Alanine Aminotransferase 28 U/L (6-35); Alkaline Phosphatase 145 U/L (38-126); Anion Gap 10 mmol/L (4-12); Aspartate Amino Transferase 32 U/L (14-36); Bilirubin,Total 0.2 mg/dL (0.2-1.3); Blood Urea Nitrogen 36 mg/dL (7-17); Calcium 9.1 mg/dL (8.4-10.2); Carbon Dioxide 21 mmol/L (22-30); Chloride 111 mmol/L (98-107); Estimated Glomerular Filt Rate 39; Glucose 110 mg/dL (65-110); Potassium 4.5 mmol/L (3.4-5.0); Sodium 142 mmol/L (137-145); Total Protein 7.6 g/dL (6.3-8.2)
--- NOTE | 2025-04-08 10:18 | ED_ITS ---
HPI - Altered Mental Status General Chief Complaint: Altered Mental Status Stated Complaint: unresponsive Time Seen by Provider: 04/08/25 08:45 History of Present Illness HPI narrative: Patient presenting here with altered mental status, per she had seemed normal yesterday, per long-term she suddenly became unresponsive. She is currently telling me that she does not feel well. She is slow to speech and cannot elaborate. states that when she has had UTI in the past she has presented similarly prior Related Data Home Medications ?Medication ?Instructions ?Recorded ?Confirmed ?Last Taken ?Type metformin 500 mg tablet,extended 500 mg PO QPM 01/19/25 02/22/25 02/21/25 History release 24 hr semaglutide 0.25 mg or 0.5 mg (2 0.25 mg subcut WEEKLY 01/19/25 02/22/25 02/16/25 History mg/3 mL) subcutaneous pen injector (Ozempic) insulin glargine 100 unit/mL (3 20 unit subcut QPM 02/22/25 02/22/25 02/21/25 History mL) subcutaneous pen (Lantus Solostar U-100 Insulin) Allergies Allergy/AdvReac Type Severity Reaction Status Date / Time No Known Allergies Allergy Verified 02/22/25 12:29 Review of Systems 2 Review of Systems: ROS unobtainable: Yes unobtainable due to mental status PMFSH Past Medical History Medical History Type 2 diabetes mellitus Normal echocardiogram (06/2018) EF 65-70%, impaired grade 1 diastolic dysfunction CVA (cerebral vascular accident) (06/2018) Left basal ganglia and posterior limb of the left internal capsule with initial complaint of difficulty walking and right facial numbness Surgical History Surgical History History of tonsillectomy and adenoidectomy Status post cataract extraction of both eyes with insertion of intraocular lens History of total bilateral knee replacement (2005) Family History Family History Mother Diabetes mellitus Cerebrovascular accident Father Diabetes mellitus Heart disease Sibling Diabetes mellitus Multiple myeloma Social History Social History Smoking status: Never smoker Second hand tobacco smoke exposure: No Alcohol intake: never Substance use: never Substance use type: does not use Do You Feel Safe in your Home?: Yes Lack of Transportation: YES Lack of Food: Never True Current Housing: I Have Housing Concerned About Future Housing: No Difficulty Paying Gas/Electric Bills: No Difficulty Paying for Meds: No Currently Unemployed: No Education: High School Diploma/GED Difficulty w/ Childcare or Family Care: No Spiritual care concerns: No Exam 2 Narrative: EXAMINATION OF ORGAN SYSTEMS/BODY AREAS: Constitutional: Vital signs per nursing GENERAL: Appears slightly uncomfortable HEAD: Normal with no signs of head trauma. EYES: EOMI, conjunctiva normal ENT: Hearing grossly intact LUNGS: Nonlabored breathing. HEART: [Regular rate and rhythm] ABD: [Soft], [nontender to palpation] EXT: Normal range of motion SKIN: [No rashes or lesions.] NEURO: [Alert but slowly responsive to questions. No gross focal sensory or strength deficits. Moves all extremities normally.] PSYCH: Normal affect Course Vital Signs Vital signs: Vital Signs Pulse Rate 55 L 04/08/25 08:40 Respiratory Rate 16 04/08/25 08:40 Blood Pressure 180/85 H 04/08/25 08:40 Pulse Oximetry 96 04/08/25 08:40 Oxygen Delivery Room Air 04/08/25 08:40 Temperature 96.2 F L 04/08/25 12:25 Pulse Rate 63 04/08/25 12:25 Respiratory Rate 13 04/08/25 12:25 Blood Pressure 171/85 H 04/08/25 12:25 Pulse Oximetry 93 04/08/25 12:25 Oxygen Delivery Room Air 04/08/25 08:50 MDM - Altered Mental Status MDM Narrative Medical decision making narrative: Patient presents with altered mental status on exam she is not able to tell me what hurts but she does state that she does not feel good. Vitals initially concerning for low temperature, she is placed on Carl Hugger, septic workup initiated, urinalysis does show UTI, I did obtain CT to ensure no septic stone, this is also consistent with cystitis. I did review prior urine cultures, given the susceptibility, in discussion with Infectious Diseases pharmacist, she will be started on cefepime. Discussed with hospitalist for admission and she will be placed in IMU. Lab Data 04/08/25 09:06 04/08/25 09:06 Labs: Lab Results 04/08/25 04/08/25 Range/Units 09:06 10:04 WBC 6.5 (4.5-10.0) K/mm3 RBC 3.25 L (4.2-5.4) M/mm3 Hgb 9.8 L (12.0-15.0) g/dL Hct 30.9 L (37.0-47.0) % MCV 95.1 (80-100) fl MCH 30.2 (26-34) pg MCHC 31.7 L (32-36) g/dl RDW 15.9 H (11.5-14.5) % Plt Count 298 (150-375) k/mm3 MPV 11.7 H (7.4-10.4) fl Immature Gran % (Auto) 0.3 (0-0.5) % Neut % (Auto) 57.2 (45.5-73.1) % Lymph % (Auto) 29.8 (18.3-44.2) % Miller % (Auto) 8.2 (2.6-8.5) % Eos % (Auto) 3.9 (0-4.4) % Baso % (Auto) 0.6 (0.2-1.2) % Lymph # (Auto) 1.93 (0.9-3.2) K/mm3 [place] # (Auto) 0.5 (0.1-0.6) K/mm3 Eos # (Auto) 0.3 (0-0.3) K/mm3 Baso # (Auto) 0.0 (0.0-0.1) K/mm3 Abs Immat Gran (auto) 0.02 (0.00-0.031) K/mm3 Absolute Neuts (auto) 3.7 (1.3-6.7) K/mm3 Absolute Nucleated RBC 0.000 (0.0-0.012) K/mm3 Nucleated RBC % 0.0 (0.0-0.2) % PT 14.4 (11.1-14.7) Seconds INR 1.1 APTT 30.1 (22.3-36.8) Seconds Sodium 142 (137-145) mmol/L Potassium 4.5 (3.4-5.0) mmol/L Chloride 111 H (98-107) mmol/L Carbon Dioxide 21 L (22-30) mmol/L Anion Gap 10 (4-12) mmol/L BUN 36 H (7-17) mg/dL Creatinine 1.28 H (0.7-1.0) mg/dL Estim Creat Clear Calc Not Reportable Estimated GFR 39 L (59 - ) Glucose 110 (65-110) mg/dL Lactic Acid 1.2 (0.7-2.0) mmol/L Calcium 9.1 (8.4-10.2) mg/dL Total Bilirubin 0.2 (0.2-1.3) mg/dL AST 32 (14-36) U/L ALT 28 (6-35) U/L Alkaline Phosphatase 145 H (38-126) U/L Total Protein 7.6 (6.3-8.2) g/dL Albumin 4.0 (3.5-5.1) g/dL Urine Color Yellow (Yellow) Urine Appearance Turbid H (Clear) Urine pH 5.0 (5.0-9.0) Ur Specific [place] 1.016 (1.001-1.035) Urine Protein 2+ H (Negative) mg/dL Urine Glucose (UA) 3+ H (Negative) mg/dL Urine Ketones Negative (Negative) mg/dL Ur Blood (Man) Trace (Negative) Urine Nitrate Positive H (Negative) Urine Bilirubin Negative (Negative) Urine Urobilinogen 0.2 (<2.0) mg/dL Add Ur Microanalysis Reviewed Leukocyte Esterase Rfl 3+ H (Negative) ZAID/UL Urine RBC 6-10 H (0-2) /hpf Urine WBC >100 H (0-3) /hpf Urine WBC Clumps Present H (None) /HPF Ur Squamous Epith Cells None seen (Few) /hpf Urine Bacteria 4+ H /hpf Urine Casts 0-2 Urine Yeast (Budding) Present H (None) /hpf Critical Care Time Critical Care Time Critical Care Time: Yes Total Critical Care Time: 35 Discharge Plan Discharge Clinical Impression: UTI (urinary tract infection), Sepsis Patient Disposition: Still a Patient Condition: Serious
[2025-04-08 10:20] LABS: Lactic Acid Reflex 1.2 mmol/L (0.7-2.0)
[2025-04-08] MEDS: CEFEPIME 1 GM/NS 50 ML 1 GM/50 ML BAG IVPB ×2 (11:19→20:37)
[2025-04-08] MEDS: LACTATED RINGERS 1,000 ML 999 ML IV CONT (11:50)
--- NOTE | 2025-04-08 13:50 | ADMGEN ---
This patient, Yesi Ross, was admitted to IMU Room 206-01. Patient/family oriented to hospital policies and general routines including ID bracelet, bed and alarms, visiting hours, pain management, procedures, bathroom and other care routines, personal items, smoking policy, room service/diet, and visiting hours. is here to answer questions for her. She is currently getting pt/ot at [facility] Information on how to activate the Rapid Response Team has been discussed. Patient/Family are encouraged to report perceived risks to care and to ask questions if they do not understand what they are told or what they should do.
[2025-04-08 14:37] LABS: Alveolar/Arterial O2 Gradient 96.5 mmHg; Fractional Inspired Oxygen 28 %; HCO3 ABG 22.3 mEq/l (22.0-26.0); Oxygen Content ABG 12.9 %vol (16.0-22.0); Oxygen Saturation ABG 91.5 % (95.0-100.0); Oxyhemoglobin 90.5 % THb (90.0-100.0); PCO2 ABG 36.3 mmHg (35.0-45.0); PO2 ABG 60.3 mmHg (80.0-100.0); PO2 FiO2 Ratio Arterial Blood 2.15 %; Total Hemoglobin 10.1 g/dL (12.0-18.0); pH ABG 7.407 (7.350-7.450)
[2025-04-08 14:39] LABS: Device NASAL CANNULA; Modified Allen's Test Pass; Site Drawn RIGHT RADIAL
--- NOTE | 2025-04-08 14:57 | PCRCNOTE ---
ABG order did not come over vocera.
--- NOTE | 2025-04-08 17:10 | P.HP_ITS ---
H&P: HPI History of Present Illness Date/Time: 04/08/25 17:10 Chief Complaint: AMS Narrative: 89 yo Female with PMH of CVA, DM2 who presented to the ER on account AMS. Patient was lethargic and nonverbal at bedside and unable to provide history. Per ER documentation patient is care home resident who suddenly became altered and was sent to the ER for proper eval. Noted that her stated she had similar presentation the last time she had UTI. ER eval notable for BP 182/76, labs notable WBC 6.5, Hb 9.8, abg 7.407/36.3/60.3/22.3, Cr 1.28, UA postive for Nitrate, Leukocyte esterase 3+, WBC >100with budding yeast. CT Chest showed worsening bilateral pleural effusions with atelectatic changes. CT head unremarkable Patient was started on CEfepime prior to admission Review of Systems Review of Systems: Unable to do ROS due to AMS [facility] Past Medical History Medical History Type 2 diabetes mellitus Normal echocardiogram (06/2018) EF 65-70%, impaired grade 1 diastolic dysfunction CVA (cerebral vascular accident) (06/2018) Left basal ganglia and posterior limb of the left internal capsule with initial complaint of difficulty walking and right facial numbness Surgical History Surgical History History of tonsillectomy and adenoidectomy Status post cataract extraction of both eyes with insertion of intraocular lens History of total bilateral knee replacement (2005) Family History Family History Mother Diabetes mellitus Cerebrovascular accident Father Diabetes mellitus Heart disease Sibling Diabetes mellitus Multiple myeloma Social History Social History Smoking status: Never smoker Second hand tobacco smoke exposure: No Alcohol intake: never Substance use: never Substance use type: does not use Do You Feel Safe in your Home?: Yes Lack of Transportation: YES Lack of Food: Never True Current Housing: I Have Housing Concerned About Future Housing: No Difficulty Paying Gas/Electric Bills: No Difficulty Paying for Meds: No Currently Unemployed: No Education: High School Diploma/GED Difficulty w/ Childcare or Family Care: No Spiritual care concerns: No Meds Home Medications and Allergies Home Medications ?Medication ?Instructions ?Recorded ?Confirmed ?Type metformin 500 mg tablet,extended 500 mg PO QPM 01/19/25 04/08/25 History release 24 hr semaglutide 0.25 mg or 0.5 mg (2 0.25 mg subcut WEEKLY 01/19/25 04/08/25 History mg/3 mL) subcutaneous pen injector (Ozempic) insulin glargine 100 unit/mL (3 20 unit subcut QPM 02/22/25 04/08/25 History mL) subcutaneous pen (Lantus Solostar U-100 Insulin) amlodipine 10 mg tablet 10 mg PO DAILY@0800 #90 tabs 03/08/25 04/08/25 Rx carvedilol 6.25 mg tablet 6.25 mg PO Q12H #180 tabs 03/08/25 04/08/25 Rx pantoprazole 40 mg tablet,delayed 40 mg PO DAILY #30 tabs 03/11/25 04/08/25 Rx release aluminum-mag hydroxide-simethicone 15 ml PO QID PRN dyspepsia #3,000 03/17/25 04/08/25 Rx 200 mg-200 mg-20 mg/5 mL oral susp mL (Maalox Advanced) pantoprazole 20 mg tablet,delayed 20 mg PO HS 4 weeks #28 tabs 03/17/25 04/08/25 Rx release (Protonix) acetaminophen 325 mg tablet 650 mg PO Q6H PRN pain 04/08/25 04/08/25 History (Tylenol) famotidine 20 mg tablet 20 mg PO DAILY 04/08/25 04/08/25 History magnesium hydroxide 400 mg/5 mL 30 ml PO HS PRN constipation 04/08/25 04/08/25 History oral suspension (Milk of Magnesia) ondansetron 4 mg disintegrating 4 mg PO Q8H PRN nausea and vomiting 04/08/25 04/08/25 History tablet Allergies Allergy/AdvReac Type Severity Reaction Status Date / Time No Known Allergies Allergy Verified 04/08/25 13:50 Vital Signs Vital Signs - 24 hr 04/08/25 08:40 04/08/25 08:50 04/08/25 09:33 Temperature 94 F L Pulse Rate 55 L 54 L Respiratory Rate 16 18 Blood Pressure 180/85 H 177/77 H Pulse Oximetry 96 97 Oxygen Delivery Room Air Room Air 04/08/25 09:33 04/08/25 09:42 04/08/25 09:49 Temperature 93.8 F L Pulse Rate 54 L 54 L Respiratory Rate 16 20 Blood Pressure Pulse Oximetry Oxygen Delivery 04/08/25 09:51 04/08/25 10:01 04/08/25 10:04 Temperature 93.8 F L 94.1 F L 94.1 F L Pulse Rate 53 L 54 L Respiratory Rate 26 H 18 Blood Pressure 168/78 H 158/75 H Pulse Oximetry 98 Oxygen Delivery 04/08/25 10:19 04/08/25 10:31 04/08/25 10:32 Temperature 94.3 F L 94.6 F L 94.6 F L Pulse Rate 53 L 56 L Respiratory Rate 18 16 Blood Pressure 168/79 H Pulse Oximetry 92 100 Oxygen Delivery 04/08/25 10:34 04/08/25 10:53 04/08/25 11:00 Temperature 94.5 F L 95.0 F L 95.1 F L Pulse Rate 58 L 55 L Respiratory Rate 21 H 17 Blood Pressure 179/91 H Pulse Oximetry 95 Oxygen Delivery 04/08/25 11:04 04/08/25 11:15 04/08/25 11:16 Temperature 95.2 F L 95.3 F L 95.3 F L Pulse Rate 57 L 57 L Respiratory Rate 17 18 Blood Pressure 166/82 H Pulse Oximetry 97 94 Oxygen Delivery 04/08/25 11:30 04/08/25 12:00 04/08/25 12:25 Temperature 95.5 F L 96 F L 96.2 F L Pulse Rate 63 Respiratory Rate 13 Blood Pressure 171/85 H Pulse Oximetry 93 Oxygen Delivery 04/08/25 14:00 04/08/25 15:53 04/08/25 16:00 Temperature 97.4 F L Pulse Rate 60 63 68 Respiratory Rate 18 Blood Pressure 182/76 H Pulse Oximetry 92 Oxygen Delivery Exam Narrative: General: lethargic and nonverbal Eyes: EOMI, PERRLA ENNT External ears normal, Neck is supple, no masses, Respiratory systems: Clear to auscultation Cardiovascular S1, S2, normal rhythm, no murmur, rub, or gallop; no thrill or palpable murmurs on palpation. Gastrointestinal: soft, non-tender, and non-distended abdomen with no masses; BS present Skin: no rash, lesions, ulcerations, subcutaneous nodules or induration Musculoskeletal: leg edema Neurologic: lethargic and nonverbal l H&P: Results Labs Labs: Short CBC 04/08/25 Range/Units 09:06 WBC 6.5 (4.5-10.0) K/mm3 Hgb 9.8 L (12.0-15.0) g/dL Hct 30.9 L (37.0-47.0) % Plt Count 298 (150-375) k/mm3 BMP 04/08/25 09:06 Sodium 142 Potassium 4.5 Chloride 111 H Carbon Dioxide 21 L BUN 36 H Creatinine 1.28 H Glucose 110 Calcium 9.1 Liver Function 04/08/25 Range/Units 09:06 Total Bilirubin 0.2 (0.2-1.3) mg/dL AST 32 (14-36) U/L ALT 28 (6-35) U/L Alkaline Phosphatase 145 H (38-126) U/L Albumin 4.0 (3.5-5.1) g/dL Urine 04/08/25 Range/Units 09:06 Urine Color Yellow (Yellow) Urine Appearance Turbid H (Clear) Urine pH 5.0 (5.0-9.0) Ur Specific [place] 1.016 (1.001-1.035) Urine Protein 2+ H (Negative) mg/dL Urine Glucose (UA) 3+ H (Negative) mg/dL Assessment and Plan Assessment and plan (1) Elevated blood pressure reading with diagnosis of hypertension: Code(s): I10 - Essential (primary) hypertension Status: Acute (2) UTI (urinary tract infection): Code(s): N39.0 - Urinary tract infection, site not specified Status: Acute Plan UTI with AMS Patient presented with AMS CT head unremarkable CT chest no pneumonia, showed bilateral pleural effusions Blood and urine cultures ordered continue Cefepime and monitor cultures Bilateral pleural effusions and leg edema ?CHF ECHO ordered Lasix 20mg bid and adjust with clinical course Hypertension with elevated blood pressure BP 182/76 Started one dose of Nitro paste continue amlodpine 10mg and Coreg adjust with clinical course PRN hydralazine meanwhile Anemia Hb 9.2 iron panel pending DM2 SSi with accucheks, adjust with clinical course Hx CVA continue home meds DVT prophylaxis on Sq Lovenox Full code, reassess Hospitalist MIPS Advance Care Plan I have confirmed that the patient's Advanced Care Plan is present, code status is documented, or surrogate decision maker is listed in patient medical record.: Yes Medication Reconciliation I have utilized all available resources to obtain, update and review the patients current medications (includes all prescriptions, OTC, herbals, cannabis, and nutritional supplements).: Yes
[2025-04-08] MEDS: NITROGLYCERIN OINTMENT 1 INCH DOSE 0.5 INCH TRANSDERM (18:04)
[2025-04-08] MEDS: FUROSEMIDE INJ 40 MG/4 ML VIAL 20 MG IV PUSH (18:04)
[2025-04-08 18:26] LABS: Glucose Point of Care 81 mg/dl (65-105)
[2025-04-08] MEDS: carvediloL 6.25 MG TABLET PO (20:35)
[2025-04-08 21:15] LABS: Glucose Point of Care 121 mg/dl (65-105)
--- NOTE | 2025-04-08 23:18 | PC.NURSE ---
Patient screamed out from room, RN reoriented patient about where she is and why. Reinforced patient doesn't need to get up - found patient earlier trying to get up - patient repeats she needs to get up. Patient is confused and asking for family. Has a hx of Alizheimer's. Bed alarm is armed, rails are up. Patient is on camera and is rounded on frequently.
[2025-04-09] VITALS (11 sets, daily range): BP systolic 139–170; BP diastolic 64–80; PULSE 64–70; RESP 18–20; TEMP 36.1–36.4; O2SAT 92–98
--- NOTE | 2025-04-09 | ECHO_ITS ---
Patient Info Name: Yesi Ross Age: 89 years : 1935 Gender: Female Ht: 59 in Wt: 183 lbs BSA: 1.90 m2 HR: 64 bpm BP: 139 / 64 mmHg Technical Quality: Good Exam Date: 04/09/2025 1:40 PM Patient Status: I Admit Date: 04/08/2025 Exam Type: CA echo doppler color flow Complete two-dimensional, color flow and Doppler transthoracic echocardiogram is performed. Staff Referring Physician: Amanda Cisneros [employer] Supervisor: Nataly Lujan Attending Provider: Tianna Seymour Summary 1. Complete two-dimensional, color flow and Doppler transthoracic echocardiogram is performed. 2. Left ventricular chamber dimension is normal. 3. Left ventricular systolic function is normal, estimated at 65-70. 4. There is mild concentric increased left ventricular wall thickness. 5. The left ventricular diastolic function is grade I diastolic dysfunction. 6. E/e' 14 is mildly elevated. 7. Left atrial chamber dimension is moderately enlarged. 8. Right atrial chamber dimension is mildly enlarged. 9. There is mild aortic valve sclerosis. 10. The mitral valve has a mildly calcified annulus. 11. There is moderate to severe mitral valve regurgitation. 12. There is moderate tricuspid valve regurgitation. 13. Moderate pulmonary hypertension, estimated pulmonary arterial systolic pressure is 56 mmHg. 14. There is trace pulmonic regurgitation. 15. Dilated inferior vena cava with >50% collapse upon inspiration consistent with elevated right atrial pressure, 10 mmHg. Left Ventricle E/e' 14 is mildly elevated. Left ventricular chamber dimension is normal. Left ventricular systolic function is normal, estimated at 65-70. There is mild concentric increased left ventricular wall thickness. The left ventricular diastolic function is grade I diastolic dysfunction. Right Ventricle Right ventricular chamber dimension is normal. Right ventricular systolic function is normal and with normal TAPSE 2.3 cm. Left Atria Left atrial chamber dimension is moderately enlarged. Right Atria Right atrial chamber dimension is mildly enlarged. Aortic Valve The aortic valve is trileaflet. There is mild aortic valve sclerosis. There is no aortic valve stenosis. There is no aortic valve regurgitation. Pulmonic Valve There is trace pulmonic regurgitation. Mitral Valve The mitral valve has a mildly calcified annulus. There is no mitral valve stenosis. There is moderate to severe mitral valve regurgitation. Tricuspid Valve There is moderate tricuspid valve regurgitation. Moderate pulmonary hypertension, estimated pulmonary arterial systolic pressure is 56 mmHg. Pericardium/Pleural There is no pericardial effusion. Inferior Vena Cava Dilated inferior vena cava with >50% collapse upon inspiration consistent with elevated right atrial pressure, 10 mmHg. Aorta The aortic root size at the sinus of Valsalva is normal. Left Ventricular Outflow Tract Name Value Normal LVOT 2D LVOT Diameter 2.0 cm LVOT Doppler LVOT Peak Velocity 105 cm/s LVOT Peak Gradient 4 mmHg LVOT Mean Gradient 2 mmHg LVOT VTI 26 cm LVOT Stroke Volume 80 ml LVOT CO 5.1 l/min LVOT CI 2.7 l/min/m2 Pulmonic Valve Name Value Normal RVOT Doppler RVOT Peak Velocity 57 cm/s RVOT Peak Gradient 1 mmHg PV Doppler PV Peak Velocity 81 cm/s PV Peak Gradient 3 mmHg Mitral Valve Name Value Normal MV Regurgitation Doppler MR Peak Gradient 155 mmHg MV Diastolic Function MV E Peak Velocity 117 cm/s MV A Peak Velocity 128 cm/s MV E/A 0.9 MV Decel Time (PW) 172 ms MV Annular TDI MV E/e' (Septal) 15.6 MV E/e' (Lateral) 14.3 MV E/e' (Average) 15.0 Tricuspid Valve Name Value Normal TV Regurgitation Doppler TR Peak Velocity 339 cm/s TR Peak Gradient 46 mmHg Estimated PAP/RSVP RA Pressure 10 mmHg <=5 PA Systolic Pressure 56 mmHg <36 RV Systolic Pressure 56 mmHg <36 Aortic Valve Name Value Normal AV Doppler AV Peak Velocity 136 cm/s AV Peak Gradient 7 mmHg AV Area (Cont Eq Nate) 2.4 cm2 AV DI (Nate) 0.78 AV Regurgitation 2D LVOT Area 3.1 cm2 Ventricles Name Value Normal LV Dimensions 2D/MM IVS Diastolic Thickness (2D) 1.0 cm 0.6-1.0 LVID Diastole (2D) 4.1 cm 3.8-5.2 LVIW Diastolic Thickness (2D) 1.3 cm 0.6-0.9 LVID Systole (2D) 2.5 cm 2.2-3.5 LVOT Diameter 2.0 cm LV Mass (2D Cubed) 158.48 g 67.00-162.00 LV Mass Index (2D Cubed) 83 g/m2 43-95 Relative Wall Thickness (2D) 0.63 <=0.42 LV Fractional Shortening/Ejection Fraction 2D/MM LV Fractional Shortening (2D) 38 % 27-45 LV EF (2D Teichholz) 68 % LV Diastolic Volume (4C MOD) 82 ml LV EF (4C MOD) 57 % LV Diastolic Volume (2C MOD) 103 ml LV EF (2C MOD) 61 % LV Diastolic Volume (BP MOD) 96 ml 46-106 LV Diastolic Volume Index (BP MOD) 50 ml/m2 29-61 LV Systolic Volume (BP MOD) 39 ml 14-42 LV Systolic Volume Index (BP MOD) 20 ml/m2 8-24 LV EF (BP MOD) 60 % 54-74 LV Diastolic Length (4C) 7.9 cm LV Systolic Length (4C) 7.3 cm LV Stroke Volume (4C MOD) 47 ml Atria Name Value Normal LA Dimensions LA Volume (4C A-L) 85 ml LA Volume (BP A-L) 76 ml RA Dimensions RA Systolic Major [place] Length (4C) 5.2 cm 2.2-2.8 RA Area (4C) 17.4 cm2 <=18.0 Report Signatures
[2025-04-09 05:03] LABS: Basophils Percent Auto 0.6 % (0.2-1.2); Eosinophils Absolute Auto 0.2 K/mm3 (0-0.3); Eosinophils Percent Auto 3.2 % (0-4.4); Hematocrit 29.4 % (37.0-47.0); Hemoglobin 9.3 g/dL (12.0-15.0); Immature Granulocyte Absolute 0.02 K/mm3 (0.00-0.031); Immature Granulocyte Percent A 0.3 % (0-0.5); Lymphocytes Absolute Auto 2.29 K/mm3 (0.9-3.2); Lymphocytes Percent Auto 32.2 % (18.3-44.2); Mean Corpuscular HGB Conc 31.6 g/dl (32-36); Mean Corpuscular Hemoglobin 30.2 pg (26-34); Mean Corpuscular Volume 95.5 fl (80-100); Mean Platelet Volume 11.3 fl (7.4-10.4); Monocytes Absolute Auto 0.6 K/mm3 (0.1-0.6); Neutrophils Absolute Auto 3.9 K/mm3 (1.3-6.7); Neutrophils Percent Auto 54.7 % (45.5-73.1); Platelet Count Result 268 k/mm3 (150-375); Red Blood Count 3.08 M/mm3 (4.2-5.4); Red Cell Distribution Width 15.8 % (11.5-14.5); White Blood Count 7.1 K/mm3 (4.5-10.0)
[2025-04-09 05:18] LABS: Lactic Acid Reflex 0.5 mmol/L (0.7-2.0)
[2025-04-09 05:23] LABS: Iron 71 ug/dL (37-170)
[2025-04-09 05:32] LABS: Percent Iron Saturation 26 % (20-50)
[2025-04-09 05:33] LABS: Alanine Aminotransferase 24 U/L (6-35); Albumin Level 3.7 g/dL (3.5-5.1); Alkaline Phosphatase 124 U/L (38-126); Anion Gap 7 mmol/L (4-12); Aspartate Amino Transferase 29 U/L (14-36); Bilirubin,Total 0.3 mg/dL (0.2-1.3); Blood Urea Nitrogen 28 mg/dL (7-17); Calcium 9.1 mg/dL (8.4-10.2); Carbon Dioxide 23 mmol/L (22-30); Chloride 110 mmol/L (98-107); Estimated Glomerular Filt Rate 45; Glucose 88 mg/dL (65-110); Magnesium 1.9 mg/dL (1.6-2.3); Potassium 3.7 mmol/L (3.4-5.0); Sodium 140 mmol/L (137-145)
[2025-04-09 08:03] LABS: Glucose Point of Care 94 mg/dl (65-105)
[2025-04-09] MEDS: amLODIPine BESYLATE 10 MG TABLET PO (09:09)
[2025-04-09] MEDS: FUROSEMIDE INJ 40 MG/4 ML VIAL 20 MG IV PUSH ×2 (09:10→16:58)
[2025-04-09] MEDS: carvediloL 6.25 MG TABLET PO ×2 (09:10→22:20)
[2025-04-09] MEDS: CEFEPIME 1 GM/NS 50 ML 1 GM/50 ML BAG IVPB ×2 (09:10→22:20)
[2025-04-09] MEDS: PANTOPRAZOLE 40 MG TABLET PO (09:10)
--- NOTE | 2025-04-09 10:38 | PCSTNOTE ---
Please refer to the Bedside Swallow Evaluation in the EMR. Please note, silent aspiration cannot be ruled out at bedside.
[2025-04-09 12:18] LABS: Glucose Point of Care 126 mg/dl (65-105)
--- NOTE | 2025-04-09 14:50 | P.PNIM_ITS ---
Progress Note: A&P Assessment and Plan (1) Elevated blood pressure reading with diagnosis of hypertension: Code(s): I10 - Essential (primary) hypertension Status: Acute (2) UTI (urinary tract infection): Code(s): N39.0 - Urinary tract infection, site not specified Status: Acute Plan UTI with AMS acute metabolic encephalopathy Patient presented with AMS CT head unremarkable CT chest no pneumonia, showed bilateral pleural effusions Blood and urine cultures pending continue Cefepime and monitor cultures Bilateral pleural effusions and leg edema ?CHF ECHO ordered Lasix 20mg bid and adjust with clinical course Hypertension with elevated blood pressure Improvinge continue amlodpine 10mg and Coreg adjust with clinical course PRN hydralazine meanwhile Anemia Hb 9.3 iron panel WNL DM2 SSi with accucheks, adjust with clinical course 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 Patient was lethargic and nonverbal at bedside and unable to provide history. Per ER documentation patient is long term resident who suddenly became altered and was sent to the ER for proper eval. Noted that her stated she had similar presentation the last time she had UTI. ER eval notable for BP 182/76, labs notable WBC 6.5, Hb 9.8, abg 7.407/36.3/60.3/22.3, Cr 1.28, UA postive for Nitrate, Leukocyte esterase 3+, WBC >100with budding yeast. CT Chest showed worsening bilateral pleural effusions with atelectatic changes. CT head unremarkable Patient was started on CEfepime prior to admission 04/09/25 Patient seen examined at bedside. She is very sleepy. Not following commands. Continue with cefepime for UTI. Follow culture result. Echo ending Creatinine 1.28. Improved to 1.14. Possible dehydrated CT concerning for cystitis and also showed bilateral pleural effusion Review of Systems Review of Systems: Unable to do ROS due to AMS Exam Narrative: General: lethargic and nonverbal Eyes: EOMI, PERRLA ENNT External ears normal, Neck is supple, no masses, Respiratory systems: Clear to auscultation Cardiovascular S1, S2, normal rhythm, no murmur, rub, or gallop; no thrill or palpable murmurs on palpation. Gastrointestinal: soft, non-tender, and non-distended abdomen with no masses; BS present Skin: no rash, lesions, ulcerations, subcutaneous nodules or induration Musculoskeletal: leg edema Neurologic: lethargic Objective Data Vital Signs Vital Signs: Vital Signs - 24 hr 04/08/25 15:53 04/08/25 16:00 04/08/25 18:00 Temperature 97.4 F L Pulse Rate 63 68 68 Respiratory Rate 18 Blood Pressure 182/76 H Pulse Oximetry 92 Oxygen Delivery 04/08/25 20:00 04/08/25 20:00 04/08/25 20:30 Temperature 97.5 F L Pulse Rate 70 70 Respiratory Rate 18 Blood Pressure 150/64 H Pulse Oximetry 94 Oxygen Delivery Room Air 04/08/25 20:35 04/08/25 22:00 04/08/25 23:56 Temperature 97.6 F Pulse Rate 68 69 68 Respiratory Rate 20 Blood Pressure 164/84 H Pulse Oximetry 95 Oxygen Delivery 04/09/25 00:00 04/09/25 00:10 04/09/25 02:00 Temperature Pulse Rate 70 69 Respiratory Rate Blood Pressure Pulse Oximetry Oxygen Delivery Room Air 04/09/25 04:00 04/09/25 04:00 04/09/25 04:00 Temperature 97.6 F Pulse Rate 66 69 Respiratory Rate 18 Blood Pressure 155/80 H Pulse Oximetry 98 Oxygen Delivery Room Air 04/09/25 06:00 04/09/25 08:00 04/09/25 08:00 Temperature 97.5 F L Pulse Rate 66 66 Respiratory Rate 20 Blood Pressure 150/67 H Pulse Oximetry 97 Oxygen Delivery Room Air 04/09/25 08:00 04/09/25 10:00 04/09/25 12:00 Temperature 97.4 F L Pulse Rate 67 66 64 Respiratory Rate 20 Blood Pressure 139/64 Pulse Oximetry 92 Oxygen Delivery 04/09/25 12:00 04/09/25 12:00 Temperature Pulse Rate 67 Respiratory Rate Blood Pressure Pulse Oximetry Oxygen Delivery Room Air Intake/Output Intake/Output: Intake & Output 04/06/25 04/07/25 04/08/25 04/09/25 23:59 23:59 23:59 23:59 Intake Total 1100 370 Output Total 950 2200 Balance 150 -1830 Meds/Results Medications: Active Medications Generic Name Dose Route Start Last Admin Trade Name Freq PRN Reason Stop Dose Admin Amlodipine Besylate 10 mg 04/09/25 08:00 04/09/25 09:09 Amlodipine Besylate 10 Mg Tablet PO 10 mg DAILY@0800 ANIVAL Administration Carvedilol 6.25 mg 04/08/25 21:00 04/09/25 09:10 Carvedilol 6.25 Mg Tablet PO 6.25 mg Q12HR ANIVAL Administration Dextrose 12.5 gm 04/08/25 17:07 Dextrose 50% 25 Gm/50 Ml Syringe IV PUSH PRN PRN Hypoglycemia Protocol Furosemide 20 mg 04/08/25 17:05 04/09/25 09:10 Furosemide Inj 40 Mg/4 Ml Vial IV PUSH 20 mg BID ANIVAL Administration Glucagon 1 mg 04/08/25 17:07 Glucagon For Inj 1 Mg Vial IM PRN PRN Hypoglycemia Protocol Glucose 15 gm 04/08/25 17:07 Glucose Oral Gel 15 Gm Of Glucse In 37.5 Gm Tube PO PRN PRN Hypoglycemia Protocol Hydralazine HCl 10 mg 04/08/25 17:29 Hydralazine Hcl 20 Mg/Ml Vial IV PUSH Q8H PRN SBP >160 Cefepime HCl 1 gm in 50 mls @ 100 mls/hr 04/08/25 21:00 04/09/25 09:10 Maxipime 1 Gm/Ns 50 Ml IVPB 100 mls/hr Q12HR ANIVAL Administration Dextrose 1,000 mls @ 100 mls/hr 04/08/25 17:07 Dextrose 5% 1,000 Ml IVPB PRN PRN Hypoglycemia Protocol Insulin Aspart 3 - 6 units 04/09/25 12:00 04/09/25 12:55 Insulin Aspart (*Bkc) 100 Units/Ml SUB-Q Not Given TIDWM ANIVAL Protocol Insulin Aspart 1 - 3 units 04/09/25 21:00 Insulin Aspart (*Bkc) 100 Units/Ml SUB-Q HS ANIVAL Protocol Pantoprazole Sodium 40 mg 04/09/25 09:00 04/09/25 09:10 Pantoprazole 40 Mg Tablet PO 40 mg DAILY ANIVAL Administration Perflutren Lipid Microsphere 0 ml 04/08/25 17:00 Perflutren Lipid Microspheres 1.5 Ml Vial Diluted To 10 Ml Total Volume IV PUSH 04/11/25 17:00 ONCE PRN adequate visualization Protocol Radiology Results: ITS Impressions Head CT 04/08/25 09:31 IMPRESSION: No acute intracranial findings. Chest X-Ray 04/08/25 10:57 Impression: Clear lungs. Abdomen/Pelvis CT 04/08/25 10:59 Impression: Suspected bladder wall thickening despite decompression with Chamorro catheter. Correlate clinically for cystitis. Suspected renal vascular calcifications rather than renal stones, though small stones are not excluded. No ureteral stone or hydronephrosis on either side. Worsening small bilateral pleural effusions with mild bibasilar atelectatic change. Cholelithiasis. Labs Labs: Laboratory Results - last 24 hr 04/08/25 04/08/25 04/09/25 18:19 21:07 04:58 WBC RBC Hgb Hct MCV MCH MCHC RDW Plt Count MPV Immature Gran % (Auto) Neut % (Auto) Lymph % (Auto) [place] % (Auto) Eos % (Auto) Baso % (Auto) Lymph # (Auto) [place] # (Auto) Eos # (Auto) Baso # (Auto) Abs Immat Gran (auto) Absolute Neuts (auto) Absolute Nucleated RBC Nucleated RBC % Sodium 140 Potassium 3.7 Chloride 110 H Carbon Dioxide 23 Anion Gap 7 BUN 28 H Creatinine 1.14 H Estim Creat Clear Calc Not Reportable Estimated GFR 45 L Glucose 88 POC Capillary Glucose 81 121 H Lactic Acid 0.5 L Calcium 9.1 Magnesium 1.9 Iron TIBC % Saturation Ferritin Total Bilirubin 0.3 AST 29 ALT 24 Alkaline Phosphatase 124 Total Protein 7.0 Albumin 3.7 04/09/25 04/09/25 04/09/25 04:59 08:00 12:15 WBC 7.1 RBC 3.08 L Hgb 9.3 L Hct 29.4 L MCV 95.5 MCH 30.2 MCHC 31.6 L RDW 15.8 H Plt Count 268 MPV 11.3 H Immature Gran % (Auto) 0.3 Neut % (Auto) 54.7 Lymph % (Auto) 32.2 [place] % (Auto) 9.0 H Eos % (Auto) 3.2 Baso % (Auto) 0.6 Lymph # (Auto) 2.29 [place] # (Auto) 0.6 Eos # (Auto) 0.2 Baso # (Auto) 0.0 Abs Immat Gran (auto) 0.02 Absolute Neuts (auto) 3.9 Absolute Nucleated RBC 0.000 Nucleated RBC % 0.0 Sodium Potassium Chloride Carbon Dioxide Anion Gap BUN Creatinine Estim Creat Clear Calc Estimated GFR Glucose POC Capillary Glucose 94 126 H Lactic Acid Calcium Magnesium Iron 71 TIBC 278 % Saturation 26 Ferritin 51.30 Total Bilirubin AST ALT Alkaline Phosphatase Total Protein Albumin
[2025-04-09 16:37] LABS: Glucose Point of Care 153 mg/dl (65-105)
[2025-04-09] MEDS: hydrALAZINE HCL 20 MG/ML VIAL 10 MG IV PUSH (22:21)
[2025-04-09 23:30] LABS: Glucose Point of Care 157 mg/dl (65-105)
[2025-04-10] VITALS (12 sets, daily range): BP systolic 132–167; BP diastolic 68–84; PULSE 68–73; RESP 18–20; TEMP 36.1–36.8; O2SAT 97–99
[2025-04-10 05:32] LABS: Hematocrit 31.7 % (37.0-47.0); Mean Corpuscular HGB Conc 31.5 g/dl (32-36); Mean Corpuscular Hemoglobin 29.9 pg (26-34); Mean Corpuscular Volume 94.6 fl (80-100); Platelet Count Result 268 k/mm3 (150-375); Red Blood Count 3.35 M/mm3 (4.2-5.4); Red Cell Distribution Width 15.7 % (11.5-14.5); White Blood Count 7.3 K/mm3 (4.5-10.0)
[2025-04-10 05:54] LABS: Anion Gap 11 mmol/L (4-12); Blood Urea Nitrogen 25 mg/dL (7-17); Calcium 8.9 mg/dL (8.4-10.2); Carbon Dioxide 24 mmol/L (22-30); Chloride 104 mmol/L (98-107); Estimated Glomerular Filt Rate 44; Glucose 169 mg/dL (65-110); Potassium 3.8 mmol/L (3.4-5.0); Sodium 139 mmol/L (137-145)
[2025-04-10 08:30] LABS: Glucose Point of Care 166 mg/dl (65-105)
[2025-04-10] MEDS: FUROSEMIDE INJ 40 MG/4 ML VIAL 20 MG IV PUSH ×2 (09:12→16:20)
[2025-04-10] MEDS: carvediloL 6.25 MG TABLET PO ×2 (09:12→20:57)
[2025-04-10] MEDS: amLODIPine BESYLATE 10 MG TABLET PO (09:12)
[2025-04-10] MEDS: PANTOPRAZOLE 40 MG TABLET PO (09:13)
[2025-04-10] MEDS: CEFEPIME 1 GM/NS 50 ML 1 GM/50 ML BAG IVPB ×2 (09:13→20:58)
--- NOTE | 2025-04-10 11:42 | P.PNIM_ITS ---
Progress Note: A&P Assessment and Plan (1) Elevated blood pressure reading with diagnosis of hypertension: Code(s): I10 - Essential (primary) hypertension Status: Acute (2) UTI (urinary tract infection): Code(s): N39.0 - Urinary tract infection, site not specified Status: Acute Plan UTI with AMS acute metabolic encephalopathy Patient presented with AMS CT head unremarkable improving CT chest no pneumonia, showed bilateral pleural effusions Blood cultures pending Urine culture Klebsiella sensitive to meropenem continue Cefepime Bilateral pleural effusions and leg edema Echo: G1D, There is moderate to severe mitral valve regurgitation. 12. There is moderate tricuspid valve regurgitation. 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 Patient was lethargic and nonverbal at bedside and unable to provide history. Per ER documentation patient is [facility] resident who suddenly became altered and was sent to the ER for proper eval. Noted that her stated she had similar presentation the last time she had UTI. ER eval notable for BP 182/76, labs notable WBC 6.5, Hb 9.8, abg 7.407/36.3/60.3/22.3, Cr 1.28, UA postive for Nitrate, Leukocyte esterase 3+, WBC >100with budding yeast. CT Chest showed worsening bilateral pleural effusions with atelectatic changes. CT head unremarkable Patient was started on CEfepime prior to admission 04/09/25 Patient seen examined at bedside. She is very sleepy. Not following commands. Continue with cefepime for UTI. Follow culture result. Echo ending Creatinine 1.28. Improved to 1.14. Possible dehydrated CT concerning for cystitis and also showed bilateral pleural effusion 04/10/25 Patient was seen and examined at bedside. She is alert and oriented x4. Denies any chest pain, shortness a breath, abdominal pain, nausea vomiting. Blood culture pending. Urine culture positive for Klebsiella sensitive to c efepime Review of Systems Review of Systems: Unable to do ROS due to AMS Exam Narrative: General: alert end oriented Eyes: EOMI, PERRLA ENNT External ears normal, Neck is supple, no masses, Respiratory systems: Clear to auscultation Cardiovascular S1, S2, normal rhythm, no murmur, rub, or gallop; no thrill or palpable murmurs on palpation. Gastrointestinal: soft, non-tender, and non-distended abdomen with no masses; BS present Skin: no rash, lesions, ulcerations, subcutaneous nodules or induration Musculoskeletal: leg edema Neurologic: alert and oriented Objective Data Vital Signs Vital Signs: Vital Signs - 24 hr 04/09/25 12:00 04/09/25 12:00 04/09/25 12:00 Temperature 97.4 F L Pulse Rate 64 67 Respiratory Rate 20 Blood Pressure 139/64 Pulse Oximetry 92 Oxygen Delivery Room Air 04/09/25 16:00 04/09/25 16:00 04/09/25 20:00 Temperature 97.3 F L Pulse Rate 68 66 65 Respiratory Rate 20 18 Blood Pressure 152/66 H Pulse Oximetry 94 95 Oxygen Delivery Room Air 04/09/25 20:00 04/09/25 21:26 04/09/25 22:20 Temperature 97 F L Pulse Rate 70 69 70 Respiratory Rate 18 Blood Pressure 170/75 H Pulse Oximetry 95 Oxygen Delivery 04/10/25 00:00 04/10/25 00:18 04/10/25 04:00 Temperature Pulse Rate 73 70 Respiratory Rate Blood Pressure 148/84 H Pulse Oximetry Oxygen Delivery 04/10/25 05:26 04/10/25 06:26 04/10/25 09:12 Temperature 97 F L Pulse Rate 73 73 Respiratory Rate 20 Blood Pressure 167/71 H 149/84 H Pulse Oximetry 97 Oxygen Delivery Intake/Output Intake/Output: Intake & Output 04/07/25 04/08/25 04/09/25 04/10/25 23:59 23:59 23:59 23:59 Intake Total 1100 470 100 Output Total 950 4600 550 Balance 150 -9770 450 Meds/Results Medications: Active Medications Generic Name Dose Route Start Last Admin Trade Name Freq PRN Reason Stop Dose Admin Amlodipine Besylate 10 mg 04/09/25 08:00 04/10/25 09:12 Amlodipine Besylate 10 Mg Tablet PO 10 mg DAILY@0800 ANIVAL Administration Carvedilol 6.25 mg 04/08/25 21:00 04/10/25 09:12 Carvedilol 6.25 Mg Tablet PO 6.25 mg Q12HR ANIVAL Administration Dextrose 12.5 gm 04/08/25 17:07 Dextrose 50% 25 Gm/50 Ml Syringe IV PUSH PRN PRN Hypoglycemia Protocol Furosemide 20 mg 04/08/25 17:05 04/10/25 09:12 Furosemide Inj 40 Mg/4 Ml Vial IV PUSH 20 mg BID ANIVAL Administration Glucagon 1 mg 04/08/25 17:07 Glucagon For Inj 1 Mg Vial IM PRN PRN Hypoglycemia Protocol Glucose 15 gm 04/08/25 17:07 Glucose Oral Gel 15 Gm Of Glucse In 37.5 Gm Tube PO PRN PRN Hypoglycemia Protocol Hydralazine HCl 10 mg 04/08/25 17:29 04/09/25 22:21 Hydralazine Hcl 20 Mg/Ml Vial IV PUSH 10 mg Q8H PRN Administration SBP >160 Cefepime HCl 1 gm in 50 mls @ 100 mls/hr 04/08/25 21:00 04/10/25 09:13 Maxipime 1 Gm/Ns 50 Ml IVPB 100 mls/hr Q12HR ANIVAL Administration Dextrose 1,000 mls @ 100 mls/hr 04/08/25 17:07 Dextrose 5% 1,000 Ml IVPB PRN PRN Hypoglycemia Protocol Insulin Aspart 3 - 6 units 04/09/25 12:00 04/10/25 09:10 Insulin Aspart (*Bkc) 100 Units/Ml SUB-Q Not Given TIDWM ANIVAL Protocol Insulin Aspart 1 - 3 units 04/09/25 21:00 04/09/25 23:29 Insulin Aspart (*Bkc) 100 Units/Ml SUB-Q Not Given HS ANIVAL Protocol Pantoprazole Sodium 40 mg 04/09/25 09:00 04/10/25 09:13 Pantoprazole 40 Mg Tablet PO 40 mg DAILY ANIVAL Administration Perflutren Lipid Microsphere 0 ml 04/08/25 17:00 Perflutren Lipid Microspheres 1.5 Ml Vial Diluted To 10 Ml Total Volume IV PUSH 04/11/25 17:00 ONCE PRN adequate visualization Protocol Radiology Results: ITS Impressions Head CT 04/08/25 09:31 IMPRESSION: No acute intracranial findings. Chest X-Ray 04/08/25 10:57 Impression: Clear lungs. Abdomen/Pelvis CT 04/08/25 10:59 Impression: Suspected bladder wall thickening despite decompression with Cham[place] catheter. Correlate clinically for cystitis. Suspected renal vascular calcifications rather than renal stones, though small stones are not excluded. No ureteral stone or hydronephrosis on either side. Worsening small bilateral pleural effusions with mild bibasilar atelectatic change. Cholelithiasis. Labs Labs: Laboratory Results - last 24 hr 04/09/25 04/09/25 04/09/25 12:15 16:33 23:28 WBC RBC Hgb Hct MCV MCH MCHC RDW Plt Count MPV Sodium Potassium Chloride Carbon Dioxide Anion Gap BUN Creatinine Estim Creat Clear Calc Estimated GFR Glucose POC Capillary Glucose 126 H 153 H 157 H Calcium 04/10/25 04/10/25 05:03 08:17 WBC 7.3 RBC 3.35 L Hgb 10.0 L Hct 31.7 L MCV 94.6 MCH 29.9 MCHC 31.5 L RDW 15.7 H Plt Count 268 MPV 12.0 H Sodium 139 Potassium 3.8 Chloride 104 Carbon Dioxide 24 Anion Gap 11 BUN 25 H Creatinine 1.17 H Estim Creat Clear Calc Not Reportable Estimated GFR 44 L Glucose 169 H POC Capillary Glucose 166 H Calcium 8.9
[2025-04-10 12:06] LABS: Glucose Point of Care 174 mg/dl (65-105)
[2025-04-10 17:12] LABS: Glucose Point of Care 160 mg/dl (65-105)
[2025-04-10] MEDS: PANTOPRAZOLE SOD SESQUIHYDRATE 20 MG TAB PO (20:57)
[2025-04-10 21:12] LABS: Glucose Point of Care 190 mg/dl (65-105)
[2025-04-11] VITALS (20 sets, daily range): BP systolic 135–148; BP diastolic 52–65; PULSE 68–79; RESP 12–20; TEMP 36.4–37; O2SAT 83–100
[2025-04-11 08:13] LABS: Glucose Point of Care 201 mg/dl (65-105)
[2025-04-11 08:29] LABS: Basophils Percent Auto 0.3 % (0.2-1.2); Eosinophils Absolute Auto 0.1 K/mm3 (0-0.3); Eosinophils Percent Auto 0.9 % (0-4.4); Hematocrit 35.9 % (37.0-47.0); Hemoglobin 11.4 g/dL (12.0-15.0); Immature Granulocyte Absolute 0.04 K/mm3 (0.00-0.031); Immature Granulocyte Percent A 0.4 % (0-0.5); Lymphocytes Absolute Auto 1.11 K/mm3 (0.9-3.2); Lymphocytes Percent Auto 11.9 % (18.3-44.2); Mean Corpuscular HGB Conc 31.8 g/dl (32-36); Mean Corpuscular Volume 94.5 fl (80-100); Mean Platelet Volume 11.5 fl (7.4-10.4); Monocytes Absolute Auto 0.6 K/mm3 (0.1-0.6); Monocytes Percent Auto 6.6 % (2.6-8.5); Neutrophils Absolute Auto 7.5 K/mm3 (1.3-6.7); Neutrophils Percent Auto 79.9 % (45.5-73.1); Platelet Count Result 299 k/mm3 (150-375); Red Cell Distribution Width 15.3 % (11.5-14.5); White Blood Count 9.3 K/mm3 (4.5-10.0)
[2025-04-11] MEDS: INSULIN ASPART (*BKC) 100 UNITS/ML SUB-Q ×2 (08:31→17:58)
[2025-04-11] MEDS: ENOXAPARIN 40 MG/0.4 ML SYRINGE SUB-Q (08:31)
[2025-04-11] MEDS: CEFEPIME 1 GM/NS 50 ML 1 GM/50 ML BAG IVPB (08:31)
[2025-04-11] MEDS: FUROSEMIDE INJ 40 MG/4 ML VIAL 20 MG IV PUSH (08:39)
[2025-04-11 08:52] LABS: Alanine Aminotransferase 20 U/L (6-35); Albumin Level 4.1 g/dL (3.5-5.1); Alkaline Phosphatase 121 U/L (38-126); Anion Gap 16 mmol/L (4-12); Aspartate Amino Transferase 27 U/L (14-36); Bilirubin,Total 0.5 mg/dL (0.2-1.3); Blood Urea Nitrogen 26 mg/dL (7-17); Calcium 9.2 mg/dL (8.4-10.2); Carbon Dioxide 24 mmol/L (22-30); Chloride 99 mmol/L (98-107); Estimated Glomerular Filt Rate 39; Glucose 201 mg/dL (65-110); Potassium 3.9 mmol/L (3.4-5.0); Sodium 139 mmol/L (137-145); Total Protein 7.9 g/dL (6.3-8.2)
[2025-04-11 09:24] LABS: Glucose Point of Care 196 mg/dl (65-105)
[2025-04-11 09:35] LABS: Alveolar/Arterial O2 Gradient 57.3 mmHg; Base Excess ABG -0.2 mEq/l (+/-2.0); Fractional Inspired Oxygen 21 %; Oxygen Content ABG 14.3 %vol (16.0-22.0); PCO2 ABG 37.7 mmHg (35.0-45.0); PO2 FiO2 Ratio Arterial Blood 2.25 %; Total Hemoglobin 12.4 g/dL (12.0-18.0); pH ABG 7.422 (7.350-7.450)
[2025-04-11 09:39] LABS: Oxygen Saturation ABG 84.3 % (95.0-100.0); PO2 ABG 47.3 mmHg (80.0-100.0)
[2025-04-11 09:40] LABS: Device ROOM AIR; Modified Allen's Test Pass; Site Drawn RIGHT RADIAL
[2025-04-11] MEDS: ONDANSETRON INJ 4 MG/2 ML VIAL IV PUSH ×2 (09:43→15:34)
[2025-04-11 12:23] LABS: Glucose Point of Care 158 mg/dl (65-105)
--- NOTE | 2025-04-11 13:45 | PM.IMPN ---
Progress Note: A&P Assessment and Plan (1) Elevated blood pressure reading with diagnosis of hypertension: Code(s): I10 - Essential (primary) hypertension Status: Acute (2) UTI (urinary tract infection): Code(s): N39.0 - Urinary tract infection, site not specified Status: Acute Plan acute metabolic encephalopathy possible UTI vs?sezure vs Other Patient presented with AMS CT head unremarkable will repeat CT will consult neurology team will get EEG Keep NPO consult [employer] CT chest no pneumonia, showed bilateral pleural effusions Blood cultures pending Urine culture Klebsiella sensitive to meropenem continue Cefepime Bilateral pleural effusions and leg edema Echo: G1D, There is moderate to severe mitral valve regurgitation. 12. There is moderate tricuspid valve regurgitation. 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 Patient was lethargic and nonverbal at bedside and unable to provide history. Per ER documentation patient is [facility] resident who suddenly became altered and was sent to the ER for proper eval. Noted that her stated she had similar presentation the last time she had UTI. ER eval notable for BP 182/76, labs notable WBC 6.5, Hb 9.8, abg 7.407/36.3/60.3/22.3, Cr 1.28, UA postive for Nitrate, Leukocyte esterase 3+, WBC >100with budding yeast. CT Chest showed worsening bilateral pleural effusions with atelectatic changes. CT head unremarkable Patient was started on CEfepime prior to admission 04/09/25 Patient seen examined at bedside. She is very sleepy. Not following commands. Continue with cefepime for UTI. Follow culture result. Echo ending Creatinine 1.28. Improved to 1.14. Possible dehydrated CT concerning for cystitis and also showed bilateral pleural effusion 04/10/25 Patient was seen and examined at bedside. She is alert and oriented x4. Denies any chest pain, shortness a breath, abdominal pain, nausea vomiting. Blood culture pending. Urine culture positive for Klebsiella sensitive to cefepime 04/11/25 Patient was seen and examined at bedside. she is lethargic today. vital sign,BS,ABG unremarkable. Continue with cefepime for possible UTI. Concern for aspiration. Will keep patient NPO We will get CT of head.??? Seizure. We will get EEG. We will consult neurologist. Discussed with her family at bedside Review of Systems Review of Systems: Unable to do ROS due to AMS Exam Narrative: General: alert end oriented Eyes: EOMI, PERRLA ENNT External ears normal, Neck is supple, no masses, Respiratory systems: Clear to auscultation Cardiovascular S1, S2, normal rhythm, no murmur, rub, or gallop; no thrill or palpable murmurs on palpation. Gastrointestinal: soft, non-tender, and non-distended abdomen with no masses; BS present Skin: no rash, lesions, ulcerations, subcutaneous nodules or induration Musculoskeletal: leg edema Neurologic: alert and oriented Objective Data Vital Signs Vital Signs: Vital Signs - 24 hr 04/10/25 16:00 04/10/25 16:00 04/10/25 20:00 Temperature 98.3 F Pulse Rate 68 68 72 Respiratory Rate 18 Blood Pressure 132/68 Pulse Oximetry 98 Oxygen Delivery Oxygen Flow Rate 04/10/25 20:57 04/10/25 21:06 04/11/25 00:00 Temperature 97.2 F L Pulse Rate 68 71 70 Respiratory Rate 18 Blood Pressure 158/73 H Pulse Oximetry 99 Oxygen Delivery Oxygen Flow Rate 04/11/25 04:00 04/11/25 06:38 04/11/25 08:00 Temperature 97.6 F Pulse Rate 69 77 72 Respiratory Rate 18 Blood Pressure 148/65 H Pulse Oximetry 91 Oxygen Delivery Oxygen Flow Rate 04/11/25 08:20 04/11/25 08:40 04/11/25 09:33 Temperature Pulse Rate 68 Respiratory Rate 20 Blood Pressure Pulse Oximetry 94 96 83 L Oxygen Delivery Room Air Nasal Cannula Oxygen Flow Rate 5 04/11/25 09:37 04/11/25 09:49 04/11/25 11:24 Temperature Pulse Rate 75 79 70 Respiratory Rate 20 Blood Pressure 141/54 H Pulse Oximetry 89 L 96 100 Oxygen Delivery Oxygen Flow Rate 04/11/25 12:00 Temperature Pulse Rate 68 Respiratory Rate Blood Pressure Pulse Oximetry Oxygen Delivery Oxygen Flow Rate Intake/Output Intake/Output: Intake & Output 04/08/25 04/09/25 04/10/25 04/11/25 23:59 23:59 23:59 23:59 Intake Total 1100 470 920 250 Output Total 950 4600 5125 1400 Balance 454 -[phone] -[phone] -8712 Meds/Results Medications: Active Medications Generic Name Dose Route Start Last Admin Trade Name Freq PRN Reason Stop Dose Admin Al Hydrox/Mg Hydrox/Simethicone 15 ml 04/10/25 11:57 Mag Hydrox/Al Hydrox/Simeth 30 Ml Udc PO QID PRN dyspepsia Amlodipine Besylate 10 mg 04/09/25 08:00 04/11/25 13:20 Amlodipine Besylate 10 Mg Tablet PO Not Given DAILY@0800 ANIVAL Carvedilol 6.25 mg 04/08/25 21:00 04/11/25 13:21 Carvedilol 6.25 Mg Tablet PO Not Given Q12HR ANIVAL Dextrose 12.5 gm 04/08/25 17:07 Dextrose 50% 25 Gm/50 Ml Syringe IV PUSH PRN PRN Hypoglycemia Protocol Enoxaparin Sodium 40 mg 04/11/25 09:00 04/11/25 08:31 Enoxaparin 40 Mg/0.4 Ml Syringe SUB-Q 40 mg DAILY ANIVAL Administration Furosemide 20 mg 04/08/25 17:05 04/11/25 08:39 Furosemide Inj 40 Mg/4 Ml Vial IV PUSH 20 mg BID ANIVAL Administration Glucagon 1 mg 04/08/25 17:07 Glucagon For Inj 1 Mg Vial IM PRN PRN Hypoglycemia Protocol Glucose 15 gm 04/08/25 17:07 Glucose Oral Gel 15 Gm Of Glucse In 37.5 Gm Tube PO PRN PRN Hypoglycemia Protocol Hydralazine HCl 10 mg 04/08/25 17:29 04/09/25 22:21 Hydralazine Hcl 20 Mg/Ml Vial IV PUSH 10 mg Q8H PRN Administration SBP >160 Dextrose 1,000 mls @ 100 mls/hr 04/08/25 17:07 Dextrose 5% 1,000 Ml IVPB PRN PRN Hypoglycemia Protocol Levofloxacin/Dextrose 750 mg in 150 mls @ 100 mls/hr 04/11/25 21:00 Levaquin 750 Mg/D5w 150 Ml IVPB Q48H ANIVAL Metronidazole 500 mg in 100 mls @ 100 mls/hr 04/11/25 14:00 Flagyl 500 Mg/Iso Soln 100 Ml IVPB Q8H [facility] Insulin Aspart 3 - 6 units 04/09/25 12:00 04/11/25 12:24 Insulin Aspart (*Bkc) 100 Units/Ml SUB-Q Not Given TIDWM [facility] Protocol Insulin Aspart 1 - 3 units 04/09/25 21:00 04/10/25 21:55 Insulin Aspart (*Bkc) 100 Units/Ml SUB-Q Not Given HS [facility] Protocol Ondansetron HCl 4 mg 04/11/25 08:49 04/11/25 09:43 Ondansetron Inj 4 Mg/2 Ml Vial IV PUSH 4 mg Q6H PRN Administration Nausea And Vomiting Pantoprazole Sodium 20 mg 04/10/25 21:00 04/10/25 20:57 Pantoprazole Sod Sesquihydrate 20 Mg Tab PO 20 mg HS ANIVAL Administration Perflutren Lipid Microsphere 0 ml 04/08/25 17:00 Perflutren Lipid Microspheres 1.5 Ml Vial Diluted To 10 Ml Total Volume IV PUSH 04/11/25 17:00 ONCE PRN adequate visualization Protocol Radiology Results: ITS Impressions Head CT 04/08/25 09:31 IMPRESSION: No acute intracranial findings. Abdomen/Pelvis CT 04/08/25 10:59 Impression: Suspected bladder wall thickening despite decompression with Chamorro catheter. Correlate clinically for cystitis. Suspected renal vascular calcifications rather than renal stones, though small stones are not excluded. No ureteral stone or hydronephrosis on either side. Worsening small bilateral pleural effusions with mild bibasilar atelectatic change. Cholelithiasis. Chest X-Ray 04/11/25 09:38 IMPRESSION: 1. Mild bibasilar opacities consistent with persistent very small bilateral pleural effusions and associated atelectasis and/or pneumonia. 2. Cardiomegaly. Labs Labs: Laboratory Results - last 24 hr 04/10/25 04/10/25 04/11/25 17:05 21:10 08:10 WBC RBC Hgb Hct MCV MCH MCHC RDW Plt Count MPV Immature Gran % (Auto) Neut % (Auto) Lymph % (Auto) Burnet % (Auto) Eos % (Auto) Baso % (Auto) Lymph # (Auto) [place] # (Auto) Eos # (Auto) Baso # (Auto) Abs Immat Gran (auto) Absolute Neuts (auto) Absolute Nucleated RBC Nucleated RBC % Puncture Site ABG pH ABG pCO2 ABG pO2 ABG PO2/FiO2 Ratio ABG HCO3 ABG O2 Saturation ABG O2 Content ABG Base Excess A-a Gradient Oxyhemoglobin Total Hemoglobin O2 Delivery Device O2 Liters/Min FiO2 Sodium Potassium Chloride Carbon Dioxide Anion Gap BUN Creatinine Estim Creat Clear Calc Estimated GFR Glucose POC Capillary Glucose 160 H 190 H 201 H Calcium Total Bilirubin AST ALT Alkaline Phosphatase Total Protein Albumin 04/11/25 04/11/25 04/11/25 08:11 09:21 09:28 WBC 9.3 RBC 3.80 L Hgb 11.4 L Hct 35.9 L MCV 94.5 MCH 30.0 MCHC 31.8 L RDW 15.3 H Plt Count 299 MPV 11.5 H Immature Gran % (Auto) 0.4 Neut % (Auto) 79.9 H Lymph % (Auto) 11.9 L Burnet % (Auto) 6.6 Eos % (Auto) 0.9 Baso % (Auto) 0.3 Lymph # (Auto) 1.11 Burnet # (Auto) 0.6 Eos # (Auto) 0.1 Baso # (Auto) 0.0 Abs Immat Gran (auto) 0.04 H Absolute Neuts (auto) 7.5 H Absolute Nucleated RBC 0.000 Nucleated RBC % 0.0 Puncture Site Right radial ABG pH 7.422 ABG pCO2 37.7 ABG pO2 47.3 L* ABG PO2/FiO2 Ratio 2.25 ABG HCO3 24.0 ABG O2 Saturation 84.3 L* ABG O2 Content 14.3 L ABG Base Excess -0.2 A-a Gradient 57.3 Oxyhemoglobin 82.0 L* Total Hemoglobin 12.4 O2 Delivery Device Room air O2 Liters/Min Not Reportable FiO2 21 Sodium 139 Potassium 3.9 Chloride 99 Carbon Dioxide 24 Anion Gap 16 H BUN 26 H Creatinine 1.28 H Estim Creat Clear Calc Not Reportable Estimated GFR 39 L Glucose 201 H POC Capillary Glucose 196 H Calcium 9.2 Total Bilirubin 0.5 AST 27 ALT 20 Alkaline Phosphatase 121 Total Protein 7.9 Albumin 4.1 04/11/25 12:18 WBC RBC Hgb Hct MCV MCH MCHC RDW Plt Count MPV Immature Gran % (Auto) Neut % (Auto) Lymph % (Auto) Burnet % (Auto) Eos % (Auto) Baso % (Auto) Lymph # (Auto) Burnet # (Auto) Eos # (Auto) Baso # (Auto) Abs Immat Gran (auto) Absolute Neuts (auto) Absolute Nucleated RBC Nucleated RBC % Puncture Site ABG pH ABG pCO2 ABG pO2 ABG PO2/FiO2 Ratio ABG HCO3 ABG O2 Saturation ABG O2 Content ABG Base Excess A-a Gradient Oxyhemoglobin Total Hemoglobin O2 Delivery Device O2 Liters/Min FiO2 Sodium Potassium Chloride Carbon Dioxide Anion Gap BUN Creatinine Estim Creat Clear Calc Estimated GFR Glucose POC Capillary Glucose 158 H Calcium Total Bilirubin AST ALT Alkaline Phosphatase Total Protein Albumin
[2025-04-11 14:05] LABS: Ammonia < 9 umol/L (9-30)
[2025-04-11] MEDS: metroNIDAZOLE 500 MG/ISO 100ML 500 MG/100 ML BAG 100 MG IVPB ×2 (14:18→22:59)
[2025-04-11 15:48] LABS: Folic Acid 10.7 ng/mL (2.76->20)
[2025-04-11 17:55] LABS: Glucose Point of Care 201 mg/dl (65-105)
--- NOTE | 2025-04-11 18:39 | WPDNEUROLOGY ---
Neurology EEG Report General Information Date of Study: 04/11/25 TEST Electroencephalogram DIAGNOSIS altered mental status CONDITION OF RECORDING bedside recording EEG NUMBER [id number] CLINICAL HISTORY the patient is lethargic. She was admitted with the pneumonia. The been a change in mental status today compared to yesterday. EEG DESCRIPTION The background activity consists of predominantly theta activity at 7 hertz with an amplitude of 15-30 microvolts. This appears poorly formed and there is no significant anteroposterior gradient. Superimposed frontal intermittent rhythmic delta activity were seen. Times focal slowing or sharp activity appeared over left temporal area. The patient is described as being lethargic or asleep throughout the recording. IMPRESSION This is an abnormal EEG due to following is 1. Diffuse background slowing and frontal intermittent rhythmic delta activity suggestive of generalized encephalopathy. 2. Focal slowing and sharp wave activity noted over left temporal area raises possibility of underlying structural lesion. Sharp transients are are also considered nonspecific focal interictal abnormality. No electrographic seizures were noted. Such abnormalities may be seen in many asymptomatic elderly subjects hence careful clinical correlation is recommended.
[2025-04-11 18:42] LABS: Basophils Percent Auto 0.1 % (0.2-1.2); Hematocrit 36.9 % (37.0-47.0); Hemoglobin 11.6 g/dL (12.0-15.0); Immature Granulocyte Absolute 0.07 K/mm3 (0.00-0.031); Immature Granulocyte Percent A 0.4 % (0-0.5); Lymphocytes Absolute Auto 1.06 K/mm3 (0.9-3.2); Lymphocytes Percent Auto 5.7 % (18.3-44.2); Mean Corpuscular HGB Conc 31.4 g/dl (32-36); Mean Corpuscular Hemoglobin 30.3 pg (26-34); Mean Corpuscular Volume 96.3 fl (80-100); Mean Platelet Volume 11.5 fl (7.4-10.4); Monocytes Absolute Auto 0.6 K/mm3 (0.1-0.6); Monocytes Percent Auto 3.4 % (2.6-8.5); Neutrophils Absolute Auto 16.9 K/mm3 (1.3-6.7); Neutrophils Percent Auto 90.4 % (45.5-73.1); Platelet Count Result 287 k/mm3 (150-375); Red Blood Count 3.83 M/mm3 (4.2-5.4); Red Cell Distribution Width 15.5 % (11.5-14.5); White Blood Count 18.7 K/mm3 (4.5-10.0)
--- NOTE | 2025-04-11 18:43 | WPDNEURCNPN ---
Assessment and Plan Assessment and plan (1) AMS (altered mental status): Code(s): R41.82 - Altered mental status, unspecified Status: Acute (2) Type 2 diabetes mellitus with hyperglycemia, with long-term current use of insulin: Code(s): E11.65 - Type 2 diabetes mellitus with hyperglycemia; Z79.4 - longterm (current) use of insulin Status: Acute (3) Acute kidney injury: Code(s): N17.9 - Acute kidney failure, unspecified Status: Acute Plan The patient appears to have fluctuating mental status. According to the history she was alert yesterday and today she is very drowsy and in fact appears semi responsive. Her EEG shows diffuse background slowing and frontal intermittent rhythmic delta activity suggestive of generalized encephalopathy focal. Focal slowing and sharp wave activity were seen over the left temporal area. Where this can be considered a nonspecific abnormality the possibility of seizure disorder may be a consideration given the fluctuating mental status not otherwise explain by clearly identifiable septic process or a metabolic etiology although her urine culture done on 04/08/2020 5 shows Klebsiella. BUN and creatinine are also slightly high. Given the situation treatment with the anticonvulsant could be a consideration. Carotid Doppler study would be recommended. In Diabetic sometimes brainstem pathology can be cause for fluctuating mental status however in view of the renal insufficiency , CT angiogram was of the head and neck may not be be desirable. An MRI of the brain with the MR angiogram of the head and neck may be helpful. I discussed this with the hospitalist Dr. Seymour and it was decided to go ahead with the Keppra 1000 mg now and followed by 500 mg twice a day and observe her carefully in IMU. She should be observed for any cardiac arrhythmias also. Consult date: 04/11/25 HPI: Yesi Ross is a 89 year old female Admitted to the hospital 3 days ago with altered mental status. According to the patient's she was normal the day before she came here. According to retirement she suddenly became unresponsive. Upon arrival she stated that she did not feel well. Her speech is slow and she cannot elaborate. Her has stated that when she has urinary tract infection she has presented in a similar way. She has history of diabetes mellitus and is currently on metformin, Ozempic injection and insulin. There is no prior history of seizures or stroke. history was obtained from the review of her record. She was admitted previously early part of February and was found to have urinary tract infection and she has had altered mental status with that also. On this admission it appears that she has been found to have mild bibasilar opacities on the chest x-ray with persistent small bilateral pleural effusion and associated atelectasis or possible pneumonia. CT scan of the head was performed which did not show any acute findings. There is evidence of atrophy and prominent ventricles as noted in the previous CT scans. She has had a CT scan of brain on 04/03/[address] scan was done on 04/08/2025 and another 1 done today. Review of Systems Review of Systems: ROS unobtainable: Yes unobtainable due to mental status PMFSH Past Medical History Medical History Type 2 diabetes mellitus Normal echocardiogram (06/2018) EF 65-70%, impaired grade 1 diastolic dysfunction CVA (cerebral vascular accident) (06/2018) Left basal ganglia and posterior limb of the left internal capsule with initial complaint of difficulty walking and right facial numbness Surgical History Surgical History History of tonsillectomy and adenoidectomy Status post cataract extraction of both eyes with insertion of intraocular lens History of total bilateral knee replacement (2005) Family History Family History Mother Diabetes mellitus Cerebrovascular accident Father Diabetes mellitus Heart disease Sibling Diabetes mellitus Multiple myeloma Social History Social History Smoking status: Never smoker Second hand tobacco smoke exposure: No Alcohol intake: never Substance use: never Substance use type: does not use Do You Feel Safe in your Home?: Yes Lack of Transportation: YES Lack of Food: Never True Current Housing: I Have Housing Concerned About Future Housing: No Difficulty Paying Gas/Electric Bills: No Difficulty Paying for Meds: No Currently Unemployed: No Education: High School Diploma/GED Difficulty w/ Childcare or Family Care: No Spiritual care concerns: No Meds Home Medications and Allergies Home Medications ?Medication ?Instructions ?Recorded ?Confirmed ?Type metformin 500 mg tablet,extended 500 mg PO QPM 01/19/25 04/08/25 History release 24 hr semaglutide 0.25 mg or 0.5 mg (2 0.25 mg subcut WEEKLY 01/19/25 04/08/25 History mg/3 mL) subcutaneous pen injector (Ozempic) insulin glargine 100 unit/mL (3 20 unit subcut QPM 02/22/25 04/08/25 History mL) subcutaneous pen (Lantus Solostar U-100 Insulin) amlodipine 10 mg tablet 10 mg PO DAILY@0800 #90 tabs 03/08/25 04/08/25 Rx carvedilol 6.25 mg tablet 6.25 mg PO Q12H #180 tabs 03/08/25 04/08/25 Rx pantoprazole 40 mg tablet,delayed 40 mg PO DAILY #30 tabs 03/11/25 04/08/25 Rx release aluminum-mag hydroxide-simethicone 15 ml PO QID PRN dyspepsia #3,000 03/17/25 04/08/25 Rx 200 mg-200 mg-20 mg/5 mL oral susp mL (Maalox Advanced) pantoprazole 20 mg tablet,delayed 20 mg PO HS 4 weeks #28 tabs 03/17/25 04/08/25 Rx release (Protonix) acetaminophen 325 mg tablet 650 mg PO Q6H PRN pain 04/08/25 04/08/25 History (Tylenol) famotidine 20 mg tablet 20 mg PO DAILY 04/08/25 04/08/25 History magnesium hydroxide 400 mg/5 mL 30 ml PO HS PRN constipation 04/08/25 04/08/25 History oral suspension (Milk of Magnesia) ondansetron 4 mg disintegrating 4 mg PO Q8H PRN nausea and vomiting 04/08/25 04/08/25 History tablet Allergies Allergy/AdvReac Type Severity Reaction Status Date / Time No Known Allergies Allergy Verified 04/08/25 13:50 Vital Signs Vital Signs - 24 hr 04/10/25 20:00 04/10/25 20:57 04/10/25 21:06 Temperature 97.2 F L Pulse Rate 72 68 71 Respiratory Rate 18 Blood Pressure 158/73 H Pulse Oximetry 99 Oxygen Delivery Oxygen Flow Rate 04/11/25 00:00 04/11/25 04:00 04/11/25 06:38 Temperature 97.6 F Pulse Rate 70 69 77 Respiratory Rate 18 Blood Pressure 148/65 H Pulse Oximetry 91 Oxygen Delivery Oxygen Flow Rate 04/11/25 08:00 04/11/25 08:20 04/11/25 08:40 Temperature Pulse Rate 72 68 Respiratory Rate 20 Blood Pressure Pulse Oximetry 94 96 Oxygen Delivery Room Air Nasal Cannula Oxygen Flow Rate 5 04/11/25 09:30 04/11/25 09:33 04/11/25 09:37 Temperature Pulse Rate 75 Respiratory Rate 20 Blood Pressure 141/54 H Pulse Oximetry 93 83 L 89 L Oxygen Delivery Nasal Cannula Oxygen Flow Rate 5 04/11/25 09:49 04/11/25 11:24 04/11/25 12:00 Temperature Pulse Rate 79 70 68 Respiratory Rate Blood Pressure Pulse Oximetry 96 100 Oxygen Delivery Oxygen Flow Rate 04/11/25 16:00 04/11/25 16:21 04/11/25 18:29 Temperature 98.1 F Pulse Rate 73 75 75 Respiratory Rate 18 16 Blood Pressure 135/58 L 147/58 H Pulse Oximetry 99 99 Oxygen Delivery Oxygen Flow Rate Exam Narrative: Patient appears semi responsive and response to deep painful stimuli. She will open her eyes but she did not communicate at all. Difficult to see her pupils since he has appears to be resisting opening her eyes with force. There is no apparent facial asymmetry. The tone in the upper limb appears somewhat increased on the left than right side. In the lower limbs of unable to determine any difficulty difference in the tone. The plantar appears upgoing right plantar was downgoing. No other significant abnormalities were noted. Results Labs 04/11/25 08:11 04/11/25 08:11 Labs: Short CBC 04/11/25 Range/Units 08:11 WBC 9.3 (4.5-10.0) K/mm3 Hgb 11.4 L (12.0-15.0) g/dL Hct 35.9 L (37.0-47.0) % Plt Count 299 (150-375) k/mm3 BMP 04/11/25 08:11 Sodium 139 Potassium 3.9 Chloride 99 Carbon Dioxide 24 BUN 26 H Creatinine 1.28 H Glucose 201 H Calcium 9.2 Liver Function 04/11/25 Range/Units 08:11 Total Bilirubin 0.5 (0.2-1.3) mg/dL AST 27 (14-36) U/L ALT 20 (6-35) U/L Alkaline Phosphatase 121 (38-126) U/L Albumin 4.1 (3.5-5.1) g/dL
[2025-04-11 18:54] LABS: Alanine Aminotransferase 18 U/L (6-35); Albumin Level 4.1 g/dL (3.5-5.1); Alkaline Phosphatase 109 U/L (38-126); Anion Gap 17 mmol/L (4-12); Aspartate Amino Transferase 25 U/L (14-36); Bilirubin,Total 0.6 mg/dL (0.2-1.3); Blood Urea Nitrogen 31 mg/dL (7-17); Calcium 9.1 mg/dL (8.4-10.2); Carbon Dioxide 22 mmol/L (22-30); Chloride 100 mmol/L (98-107); Estimated Glomerular Filt Rate 33; Glucose 229 mg/dL (65-110); Potassium 4.3 mmol/L (3.4-5.0); Sodium 139 mmol/L (137-145); Total Protein 7.6 g/dL (6.3-8.2)
--- NOTE | 2025-04-11 19:55 | PC.NURSE ---
This patient, Yesi Ross, was received from [facility] on 04/11/25 at 1905. Patient/family oriented to unit policies and routines. Report received from DWAINE Lopez
[2025-04-11 20:00] LABS: Glucose Point of Care 211 mg/dl (65-105)
[2025-04-11] MEDS: levETIRAcetam 1000MG/NACL100ML 1,000 MG/100 ML BAG 400 MG IVPB (20:54)
[2025-04-11] MEDS: levoFLOXacin 750 MG/D5W 150 ML 750 MG/150 ML BAG 100 MG IVPB (21:06)
[2025-04-12] VITALS (21 sets, daily range): BP systolic 128–152; BP diastolic 45–65; PULSE 68–77; RESP 12–20; TEMP 36.4–37.2; O2SAT 93–99
[2025-04-12] MEDS: metroNIDAZOLE 500 MG/ISO 100ML 500 MG/100 ML BAG 100 MG IVPB ×3 (05:44→22:13)
[2025-04-12 07:25] LABS: Glucose Point of Care 196 mg/dl (65-105)
[2025-04-12 08:44] LABS: Basophils Percent Auto 0.1 % (0.2-1.2); Eosinophils Percent Auto 0.2 % (0-4.4); Hematocrit 34.2 % (37.0-47.0); Hemoglobin 10.7 g/dL (12.0-15.0); Immature Granulocyte Absolute 0.04 K/mm3 (0.00-0.031); Immature Granulocyte Percent A 0.4 % (0-0.5); Lymphocytes Absolute Auto 1.49 K/mm3 (0.9-3.2); Lymphocytes Percent Auto 13.7 % (18.3-44.2); Mean Corpuscular HGB Conc 31.3 g/dl (32-36); Mean Corpuscular Hemoglobin 30.1 pg (26-34); Mean Corpuscular Volume 96.1 fl (80-100); Mean Platelet Volume 11.3 fl (7.4-10.4); Monocytes Percent Auto 9.4 % (2.6-8.5); Neutrophils Absolute Auto 8.3 K/mm3 (1.3-6.7); Neutrophils Percent Auto 76.2 % (45.5-73.1); Platelet Count Result 287 k/mm3 (150-375); Red Blood Count 3.56 M/mm3 (4.2-5.4); Red Cell Distribution Width 15.5 % (11.5-14.5); White Blood Count 10.9 K/mm3 (4.5-10.0)
[2025-04-12] MEDS: levETIRAcetam 500MG/NACL 100ML 500 MG/100 ML BAG 400 MG IVPB ×2 (08:57→20:41)
[2025-04-12] MEDS: ENOXAPARIN 30 MG/0.3 ML SYRINGE SUB-Q (08:58)
[2025-04-12 09:01] LABS: Anion Gap 15 mmol/L (4-12); Blood Urea Nitrogen 38 mg/dL (7-17); Calcium 9.1 mg/dL (8.4-10.2); Carbon Dioxide 25 mmol/L (22-30); Chloride 100 mmol/L (98-107); Estimated Glomerular Filt Rate 29; Glucose 221 mg/dL (65-110); Potassium 4.2 mmol/L (3.4-5.0); Sodium 140 mmol/L (137-145)
--- NOTE | 2025-04-12 09:26 | PC.NURSE ---
While assessing the patient, green bile like secretions were noted coming from her mouth. Oral suctioning caused more secretions/possible vomitting. Dr Seymour on the unit, notified him and received order for an abdominal/ pelvis ct that can be done with her MRI today. No RN needed to accompany the patient.
[2025-04-12 11:15] LABS: Glucose Point of Care 236 mg/dl (65-105)
--- NOTE | 2025-04-12 13:35 | PCRCNOTE ---
Pt not responsive. Spoke with Rosemary ISIDRO and she spoke with MD about getting ABG. He did not ordered one. MD to speak with family about code status. Family in waiting room.
--- NOTE | 2025-04-12 15:35 | P.PNIM_ITS ---
Progress Note: A&P Assessment and Plan (1) Elevated blood pressure reading with diagnosis of hypertension: Code(s): I10 - Essential (primary) hypertension Status: Acute (2) UTI (urinary tract infection): Code(s): N39.0 - Urinary tract infection, site not specified Status: Acute Plan acute metabolic encephalopathy possible UTI vs?sezure vs Other Patient presented with AMS CT head unremarkable neurology team on board EEG No electrographic seizures were noted. MRI and carotid US negative for acute changes MRA pending Keep NPO SAP [employer] CT chest no pneumonia, showed bilateral pleural effusions Blood cultures pending Urine culture Klebsiella sensitive to meropenem continue Cefepime started on Keppra 04/11/25 Bilateral pleural effusions and leg edema Echo: G1D, There is moderate to severe mitral valve regurgitation. 12. There is moderate tricuspid valve regurgitation. hold Lasix 20mg bid and adjust with clinical course follow with cardiology as outpatient Hypertension with elevated blood pressure Improving continue amlodpine 10mg and Coreg adjust with clinical course PRN hydralazine meanwhile Anemia transfuse if Hb<7 iron panel WNL DM2 SSi with accucheks, adjust with clinical course Hx CVA continue home meds Kameron dehydration Will start IVF DVT prophylaxis on Sq Lovenox Full code, reassess Subjective Date/time seen: 04/12/25 15:35 Interval history: per HPI: 89 yo Female with PMH of CVA, DM2 who presented to the ER on account AMS. Patient was lethargic and nonverbal at bedside and unable to provide history. Per ER documentation patient is [place] [facility] resident who suddenly became altered and was sent to the ER for proper eval. Noted that her stated she had similar presentation the last time she had UTI. ER eval notable for BP 182/76, labs notable WBC 6.5, Hb 9.8, abg 7.407/36.3/60.3/22.3, Cr 1.28, UA postive for Nitrate, Leukocyte esterase 3+, WBC >100with budding yeast. CT Chest showed worsening bilateral pleural effusions with atelectatic changes. CT head unremarkable Patient was started on CEfepime prior to admission 04/09/25 Patient seen examined at bedside. She is very sleepy. Not following commands. Continue with cefepime for UTI. Follow culture result. Echo ending Creatinine 1.28. Improved to 1.14. Possible dehydrated CT concerning for cystitis and also showed bilateral pleural effusion 04/10/25 Patient was seen and examined at bedside. She is alert and oriented x4. Denies any chest pain, shortness a breath, abdominal pain, nausea vomiting. Blood culture pending. Urine culture positive for Klebsiella sensitive to cefepime 04/11/25 Patient was seen and examined at bedside. she is lethargic today. vital sign,BS,ABG unremarkable. Continue with cefepime for possible UTI. Concern for aspiration. Will keep patient NPO We will get CT of head.??? Seizure. We will get EEG. We will consult neurologist. Discussed with her family at bedside 04/12/25 Patient was seen and examined at bedside. she is still lethargic and less responsive. she can protect her airways. neurology team started her on Keppra. MRI of brain pending. discussed with her and he wanted to keep FULL code. Review of Systems Review of Systems: Unable to do ROS due to AMS Exam Narrative: General: alert end oriented Eyes: EOMI, PERRLA ENNT External ears normal, Neck is supple, no masses, Respiratory systems: Clear to auscultation Cardiovascular S1, S2, normal rhythm, no murmur, rub, or gallop; no thrill or palpable murmurs on palpation. Gastrointestinal: soft, non-tender, and non-distended abdomen with no masses; BS present Skin: no rash, lesions, ulcerations, subcutaneous nodules or induration Musculoskeletal: leg edema Neurologic: alert and oriented Objective Data Vital Signs Vital Signs: Vital Signs - 24 hr 04/11/25 16:00 04/11/25 16:21 04/11/25 18:29 Temperature 98.1 F Pulse Rate 73 75 75 Respiratory Rate 18 16 Blood Pressure 135/58 L 147/58 H Pulse Oximetry 99 99 Oxygen Delivery Oxygen Flow Rate 04/11/25 19:41 04/11/25 20:00 04/11/25 20:58 Temperature 98.6 F Pulse Rate 76 68 72 Respiratory Rate 12 Blood Pressure 135/52 L Pulse Oximetry 99 Oxygen Delivery Oxygen Flow Rate 04/11/25 21:00 04/11/25 22:00 04/12/25 00:00 Temperature 98.6 F Pulse Rate 72 71 72 Respiratory Rate 12 16 Blood Pressure 128/57 L Pulse Oximetry 99 99 Oxygen Delivery Nasal Cannula Oxygen Flow Rate 5 04/12/25 00:00 04/12/25 00:00 04/12/25 00:00 Temperature Pulse Rate 72 72 71 Respiratory Rate 16 Blood Pressure Pulse Oximetry 99 Oxygen Delivery Nasal Cannula Oxygen Flow Rate 4 04/12/25 02:00 04/12/25 03:39 04/12/25 04:00 Temperature 99 F Pulse Rate 71 71 71 Respiratory Rate 16 12 Blood Pressure 137/54 L Pulse Oximetry 99 99 Oxygen Delivery Nasal Cannula Oxygen Flow Rate 4 04/12/25 04:00 04/12/25 05:45 04/12/25 06:00 Temperature Pulse Rate 68 73 75 Respiratory Rate 16 Blood Pressure Pulse Oximetry 99 Oxygen Delivery Nasal Cannula Oxygen Flow Rate 3 04/12/25 07:40 04/12/25 08:00 04/12/25 08:00 Temperature 99.0 F Pulse Rate 72 77 73 Respiratory Rate 20 Blood Pressure 152/65 H Pulse Oximetry 97 Oxygen Delivery Oxygen Flow Rate 04/12/25 08:00 04/12/25 09:58 04/12/25 10:00 Temperature Pulse Rate 73 76 Respiratory Rate Blood Pressure Pulse Oximetry 98 93 Oxygen Delivery Nasal Cannula Nasal Cannula Oxygen Flow Rate 3 3 04/12/25 11:50 04/12/25 12:00 04/12/25 12:00 Temperature 97.5 F L Pulse Rate 75 76 Respiratory Rate 18 Blood Pressure 132/53 L Pulse Oximetry 96 97 Oxygen Delivery Nasal Cannula Oxygen Flow Rate 3 04/12/25 14:00 Temperature Pulse Rate 70 Respiratory Rate Blood Pressure Pulse Oximetry Oxygen Delivery Oxygen Flow Rate Intake/Output Intake/Output: Intake & Output 04/09/25 04/10/25 04/11/25 04/12/25 23:59 23:59 23:59 23:59 Intake Total 470 920 600 300 Output Total 4600 5125 1800 100 Balance -4130 -4205 -1200 200 Meds/Results Medications: Active Medications Generic Name Dose Route Start Last Admin Trade Name Freq PRN Reason Stop Dose Admin Al Hydrox/Mg Hydrox/Simethicone 15 ml 04/10/25 11:57 Mag Hydrox/Al Hydrox/Simeth 30 Ml Udc PO QID PRN dyspepsia Amlodipine Besylate 10 mg 04/09/25 08:00 04/12/25 07:40 Amlodipine Besylate 10 Mg Tablet PO Not Given DAILY@0800 [facility]CLUDES [facility] Carvedilol 6.25 mg 04/08/25 21:00 04/12/25 07:40 Carvedilol 6.25 Mg Tablet PO Not Given Q12HR ANIVAL Dextrose 12.5 gm 04/08/25 17:07 Dextrose 50% 25 Gm/50 Ml Syringe IV PUSH PRN PRN Hypoglycemia Protocol Enoxaparin Sodium 30 mg 04/12/25 09:00 04/12/25 08:58 Enoxaparin 30 Mg/0.3 Ml Syringe SUB-Q 30 mg DAILY ANIVAL Administration Famotidine 20 mg 04/12/25 09:00 04/12/25 07:41 Famotidine 20 Mg Tablet PO Not Given DAILY ANIVAL Furosemide 20 mg 04/08/25 17:05 04/11/25 08:39 Furosemide Inj 40 Mg/4 Ml Vial IV PUSH 20 mg BID ANIVAL Administration Glucagon 1 mg 04/08/25 17:07 Glucagon For Inj 1 Mg Vial IM PRN PRN Hypoglycemia Protocol Glucose 15 gm 04/08/25 17:07 Glucose Oral Gel 15 Gm Of Glucse In 37.5 Gm Tube PO PRN PRN Hypoglycemia Protocol Hydralazine HCl 10 mg 04/08/25 17:29 04/09/25 22:21 Hydralazine Hcl 20 Mg/Ml Vial IV PUSH 10 mg Q8H PRN Administration SBP >160 Dextrose 1,000 mls @ 100 mls/hr 04/08/25 17:07 Dextrose 5% 1,000 Ml IVPB PRN PRN Hypoglycemia Protocol Levofloxacin/Dextrose 750 mg in 150 mls @ 100 mls/hr 04/11/25 21:00 04/11/25 22:35 Levaquin 750 Mg/D5w 150 Ml IVPB Infused Q48H ANIVAL Infusion Metronidazole 500 mg in 100 mls @ 100 mls/hr 04/11/25 14:00 04/12/25 14:56 Flagyl 500 Mg/Iso Soln 100 Ml IVPB 100 mls/hr Q8H ANIVAL Administration Levetiracetam 500 mg in 100 mls @ 400 mls/hr 04/12/25 09:00 04/12/25 09:54 Keppra Iv IVPB Infused Q12HR ANIVAL Infusion Insulin Aspart 3 - 6 units 04/09/25 12:00 04/12/25 12:41 Insulin Aspart (*Bkc) 100 Units/Ml SUB-Q Not Given TIDWM COUNT INCLUDES THE [facility] Protocol Insulin Aspart 1 - 3 units 04/09/25 21:00 04/11/25 20:58 Insulin Aspart (*Bkc) 100 Units/Ml SUB-Q Not Given HS COUNT INCLUDES THE [facility] Protocol Magnesium Hydroxide 30 ml 04/11/25 18:22 Magnesium Hydroxide Susp 30 Ml Udc PO HS PRN constipation Ondansetron HCl 4 mg 04/11/25 08:49 04/11/25 15:34 Ondansetron Inj 4 Mg/2 Ml Vial IV PUSH 4 mg Q6H PRN Administration Nausea And Vomiting Pantoprazole Sodium 20 mg 04/10/25 21:00 04/11/25 20:58 Pantoprazole Sod Sesquihydrate 20 Mg Tab PO Not Given HS COUNT INCLUDES THE [facility] Radiology Results: ITS Impressions Chest X-Ray 04/11/25 09:38 IMPRESSION: 1. Mild bibasilar opacities consistent with persistent very small bilateral pleural effusions and associated atelectasis and/or pneumonia. 2. Cardiomegaly. Head CT 04/11/25 14:15 IMPRESSION: No acute intracranial findings. Abdomen/Pelvis CT 04/12/25 10:25 IMPRESSION: 1. Small bilateral pleural effusions causing compressive atelectasis. Right basilar atelectasis versus possible consolidation. This may represent aspiration pneumonia. Clinical correlation is recommended. 2. Diffuse thickening of the urinary bladder wall may represent cystitis. Correlate with urinalysis. Carotid Doppler Study 04/12/25 10:39 IMPRESSION: 1. <50% stenosis in the right internal carotid artery. 2. <50% stenosis in the left internal carotid artery. Brain MRI 04/12/25 15:15 IMPRESSION: 1. A couple old lacunar infarcts at the junction of the bilateral thalami and the posterior limbs of the external capsules. No acute intracranial process. 2. Age-related changes including mild diffuse volume loss and moderate periventricular predominant calcific white matter T2 hyperintensity consistent with chronic small vessel ischemic disease. Labs Labs: Laboratory Results - last 24 hr 04/11/25 04/11/25 04/11/25 13:48 17:54 18:34 WBC 18.7 H RBC 3.83 L Hgb 11.6 L Hct 36.9 L MCV 96.3 MCH 30.3 MCHC 31.4 L RDW 15.5 H Plt Count 287 MPV 11.5 H Immature Gran % (Auto) 0.4 Neut % (Auto) 90.4 H Lymph % (Auto) 5.7 L [place] % (Auto) 3.4 Eos % (Auto) 0.0 Baso % (Auto) 0.1 L Lymph # (Auto) 1.06 [place] # (Auto) 0.6 Eos # (Auto) 0.0 Baso # (Auto) 0.0 Abs Immat Gran (auto) 0.07 H Absolute Neuts (auto) 16.9 H Absolute Nucleated RBC 0.000 Nucleated RBC % 0.0 Sodium 139 Potassium 4.3 Chloride 100 Carbon Dioxide 22 Anion Gap 17 H BUN 31 H Creatinine 1.50 H Estim Creat Clear Calc Not Reportable Estimated GFR 33 L Glucose 229 H POC Capillary Glucose 201 H Calcium 9.1 Total Bilirubin 0.6 AST 25 ALT 18 Alkaline Phosphatase 109 Total Protein 7.6 Albumin 4.1 Vitamin B12 979.0 H Folate 10.7 04/11/25 04/12/25 04/12/25 19:54 07:23 08:29 WBC 10.9 H RBC 3.56 L Hgb 10.7 L Hct 34.2 L MCV 96.1 MCH 30.1 MCHC 31.3 L RDW 15.5 H Plt Count 287 MPV 11.3 H Immature Gran % (Auto) 0.4 Neut % (Auto) 76.2 H Lymph % (Auto) 13.7 L [place] % (Auto) 9.4 H Eos % (Auto) 0.2 Baso % (Auto) 0.1 L Lymph # (Auto) 1.49 [place] # (Auto) 1.0 H Eos # (Auto) 0.0 Baso # (Auto) 0.0 Abs Immat Gran (auto) 0.04 H Absolute Neuts (auto) 8.3 H Absolute Nucleated RBC 0.000 Nucleated RBC % 0.0 Sodium 140 Potassium 4.2 Chloride 100 Carbon Dioxide 25 Anion Gap 15 H BUN 38 H Creatinine 1.68 H Estim Creat Clear Calc Not Reportable Estimated GFR 29 L Glucose 221 H POC Capillary Glucose 211 H 196 H Calcium 9.1 Total Bilirubin AST ALT Alkaline Phosphatase Total Protein Albumin Vitamin B12 Folate 04/12/25 11:13 WBC RBC Hgb Hct MCV MCH MCHC RDW Plt Count MPV Immature Gran % (Auto) Neut % (Auto) Lymph % (Auto) [place] % (Auto) Eos % (Auto) Baso % (Auto) Lymph # (Auto) [place] # (Auto) Eos # (Auto) Baso # (Auto) Abs Immat Gran (auto) Absolute Neuts (auto) Absolute Nucleated RBC Nucleated RBC % Sodium Potassium Chloride Carbon Dioxide Anion Gap BUN Creatinine Estim Creat Clear Calc Estimated GFR Glucose POC Capillary Glucose 236 H Calcium Total Bilirubin AST ALT Alkaline Phosphatase Total Protein Albumin Vitamin B12 Folate
[2025-04-12] MEDS: SODIUM CHLORIDE 0.9% IV 1,000 ML 75 ML IV CONT (16:02)
[2025-04-12 16:04] LABS: Glucose Point of Care 279 mg/dl (65-105)
[2025-04-12] MEDS: INSULIN ASPART (*BKC) 100 UNITS/ML SUB-Q ×2 (16:04→20:49)
[2025-04-12 20:52] LABS: Glucose Point of Care 225 mg/dl (65-105)
[2025-04-13] VITALS (16 sets, daily range): BP systolic 127–159; BP diastolic 43–64; PULSE 8–81; RESP 20; TEMP 36.9–37.5; O2SAT 91–98
[2025-04-13] MEDS: metroNIDAZOLE 500 MG/ISO 100ML 500 MG/100 ML BAG 100 MG IVPB ×3 (05:48→22:49)
[2025-04-13] MEDS: SODIUM CHLORIDE 0.9% IV 1,000 ML 75 ML IV CONT ×2 (05:51→22:47)
[2025-04-13 07:26] LABS: Glucose Point of Care 225 mg/dl (65-105)
[2025-04-13] MEDS: INSULIN ASPART (*BKC) 100 UNITS/ML SUB-Q ×2 (07:32→15:47)
[2025-04-13] MEDS: levETIRAcetam 500MG/NACL 100ML 500 MG/100 ML BAG 400 MG IVPB ×2 (08:24→20:41)
[2025-04-13] MEDS: ENOXAPARIN 30 MG/0.3 ML SYRINGE SUB-Q (08:25)
--- NOTE | 2025-04-13 08:43 | PCSTNOTE ---
Addendum entered by Анна Bowman, RESIDENT CARE MANAGER RN 04/13/25 09:18: Spoke with nurse to consider cancel on BSS order until patient more responsive and she indicated she would talk to the doctor about that. Nurse main concern is silent aspiration which cannot be ruled out at bedside. Original Note: Spoke with Rani from nursing who indicated Distant has not been responsive and is not safe to attempt oral intake. No BSS this date per nursing request.
[2025-04-13 09:30] LABS: Hematocrit 31.6 % (37.0-47.0); Hemoglobin 9.7 g/dL (12.0-15.0); Mean Corpuscular HGB Conc 30.7 g/dl (32-36); Mean Corpuscular Hemoglobin 30.2 pg (26-34); Mean Corpuscular Volume 98.4 fl (80-100); Mean Platelet Volume 11.5 fl (7.4-10.4); Platelet Count Result 288 k/mm3 (150-375); Red Blood Count 3.21 M/mm3 (4.2-5.4); Red Cell Distribution Width 15.5 % (11.5-14.5); White Blood Count 11.2 K/mm3 (4.5-10.0)
[2025-04-13 09:44] LABS: Anion Gap 14 mmol/L (4-12); Blood Urea Nitrogen 42 mg/dL (7-17); Carbon Dioxide 24 mmol/L (22-30); Chloride 107 mmol/L (98-107); Estimated Glomerular Filt Rate 34; Glucose 212 mg/dL (65-110); Potassium 3.4 mmol/L (3.4-5.0); Sodium 145 mmol/L (137-145)
--- NOTE | 2025-04-13 10:40 | P.PNIM_ITS ---
Progress Note: A&P Assessment and Plan (1) Elevated blood pressure reading with diagnosis of hypertension: Code(s): I10 - Essential (primary) hypertension Status: Acute (2) UTI (urinary tract infection): Code(s): N39.0 - Urinary tract infection, site not specified Status: Acute Plan acute metabolic encephalopathy possible UTI vs?sezure vs Other Patient presented with AMS CT head unremarkable neurology team on board EEG No electrographic seizures were noted. MRI MRA and carotid US negative for acute changes Keep NPO [employer] CT chest no pneumonia, showed bilateral pleural effusions Blood cultures pending Urine culture Klebsiella sensitive to meropenem continue Cefepime started on Keppra 04/11/25 Bilateral pleural effusions and leg edema Echo: G1D, There is moderate to severe mitral valve regurgitation. 12. There is moderate tricuspid valve regurgitation. hold Lasix 20mg bid and adjust with clinical course follow with cardiology as outpatient Hypertension with elevated blood pressure Improving continue amlodpine 10mg and Coreg adjust with clinical course PRN hydralazine meanwhile Anemia transfuse if Hb<7 iron panel WNL DM2 SSi with accucheks, adjust with clinical course Hx CVA continue home meds Kameron dehydration c/w IVF DVT prophylaxis on Sq Lovenox Full code, reassess Subjective Date/time seen: 04/13/25 10:40 Interval history: per HPI: 89 yo Female with PMH of CVA, DM2 who presented to the ER on account AMS. Patient was lethargic and nonverbal at bedside and unable to provide history. Per ER documentation [facility] who [facility] became altered and was sent to the ER for proper eval. Noted that her stated she had similar presentation the last time she had UTI. ER eval notable for BP 182/76, labs notable WBC 6.5, Hb 9.8, abg 7.407/36.3/60.3/22.3, Cr 1.28, UA postive for Nitrate, Leukocyte esterase 3+, WBC >100with budding yeast. CT Chest showed worsening bilateral pleural effusions with atelectatic changes. CT head unremarkable Patient was started on CEfepime prior to admission 04/09/25 Patient seen examined at bedside. She is very sleepy. Not following commands. Continue with cefepime for UTI. Follow culture result. Echo ending Creatinine 1.28. Improved to 1.14. Possible dehydrated CT concerning for cystitis and also showed bilateral pleural effusion 04/10/25 Patient was seen and examined at bedside. She is alert and oriented x4. Denies any chest pain, shortness a breath, abdominal pain, nausea vomiting. Blood culture pending. Urine culture positive for Klebsiella sensitive to ce fepime 04/11/25 Patient was seen and examined at bedside. she is lethargic today. vital sign,BS,ABG unremarkable. Continue with cefepime for possible UTI. Concern for aspiration. Will keep patient NPO We will get CT of head.??? Seizure. We will get EEG. We will consult neurologist. Discussed with her family at bedside 04/12/25 Patient was seen and examined at bedside. she is still lethargic and less responsive. she can protect her airways. neurology team started her on Keppra. MRI of brain pending. discussed with her and he wanted to keep FULL code. 04/13/25 Patient was seen and examined at bedside. she is more awake today oppening her eyes. MRI and MRA unremarkable. Had KAMERON yesterday estarted on IVF.Cr improving Review of Systems Review of Systems: Unable to do ROS due to AMS Exam Narrative: General: lethargic opening her eyes nbut not following commands Eyes: A ENNT External ears normal, Neck is supple, no masses, Respiratory systems: Clear to auscultation Cardiovascular S1, S2, normal rhythm, no murmur, rub, or gallop; no thrill or palpable murmurs on palpation. Gastrointestinal: soft, non-tender, and non-distended abdomen with no masses; BS present Skin: no rash, lesions, ulcerations, subcutaneous nodules or induration Musculoskeletal: leg edema Neurologic: Objective Data Vital Signs Vital Signs: Vital Signs - 24 hr 04/12/25 11:50 04/12/25 12:00 04/12/25 12:00 Temperature 97.5 F L Pulse Rate 75 76 Respiratory Rate 18 Blood Pressure 132/53 L Pulse Oximetry 96 97 Oxygen Delivery Nasal Cannula Oxygen Flow Rate 3 04/12/25 14:00 04/12/25 16:00 04/12/25 16:00 Temperature Pulse Rate 70 73 Respiratory Rate Blood Pressure Pulse Oximetry 99 Oxygen Delivery Nasal Cannula Oxygen Flow Rate 3 04/12/25 16:30 04/12/25 18:00 04/12/25 20:00 Temperature 97.5 F L 99.0 F Pulse Rate 73 68 69 Respiratory Rate 20 20 Blood Pressure 137/62 140/45 L Pulse Oximetry 95 98 Oxygen Delivery Oxygen Flow Rate 04/12/25 20:00 04/12/25 20:38 04/12/25 20:45 Temperature Pulse Rate 69 69 72 Respiratory Rate 20 Blood Pressure Pulse Oximetry 98 Oxygen Delivery Nasal Cannula Oxygen Flow Rate 3 04/12/25 22:00 04/12/25 23:44 04/13/25 00:00 Temperature 99.5 F Pulse Rate 73 73 75 Respiratory Rate 20 20 Blood Pressure 133/43 L Pulse Oximetry 98 92 Oxygen Delivery Nasal Cannula Oxygen Flow Rate 3 04/13/25 00:00 04/13/25 02:00 04/13/25 04:00 Temperature 98.8 F Pulse Rate 73 75 69 Respiratory Rate 20 Blood Pressure 127/44 L Pulse Oximetry 97 Oxygen Delivery Oxygen Flow Rate 04/13/25 04:00 04/13/25 04:15 04/13/25 06:00 Temperature Pulse Rate 75 75 76 Respiratory Rate 20 Blood Pressure Pulse Oximetry 92 Oxygen Delivery Nasal Cannula Oxygen Flow Rate 3 04/13/25 07:45 04/13/25 08:00 04/13/25 08:00 Temperature 98.8 F Pulse Rate 77 77 73 Respiratory Rate 20 20 Blood Pressure 153/51 H Pulse Oximetry 93 93 Oxygen Delivery Nasal Cannula Oxygen Flow Rate 3 Intake/Output Intake/Output: Intake & Output 04/10/25 04/11/25 04/12/25 04/13/25 23:59 23:59 23:59 23:59 Intake Total 920 662 957 5295 Output Total 5125 1800 525 500 Balance -4205 -1200 75 500 Meds/Results Medications: Active Medications Generic Name Dose Route Start Last Admin Trade Name Freq PRN Reason Stop Dose Admin Al Hydrox/Mg Hydrox/Simethicone 15 ml 04/10/25 11:57 Mag Hydrox/Al Hydrox/Simeth 30 Ml Udc PO QID PRN dyspepsia Amlodipine Besylate 10 mg 04/09/25 08:00 04/13/25 08:30 Amlodipine Besylate 10 Mg Tablet PO Not Given DAILY@0800 [facility] Carvedilol 6.25 mg 04/08/25 21:00 04/13/25 08:30 Carvedilol 6.25 Mg Tablet PO Not Given Q12HR [facility] Dextrose 12.5 gm 04/08/25 17:07 Dextrose 50% 25 Gm/50 Ml Syringe IV PUSH PRN PRN Hypoglycemia Protocol Enoxaparin Sodium 30 mg 04/12/25 09:00 04/13/25 08:25 Enoxaparin 30 Mg/0.3 Ml Syringe SUB-Q 30 mg DAILY ANIVAL Administration Famotidine 20 mg 04/12/25 09:00 04/13/25 08:30 Famotidine 20 Mg Tablet PO Not Given DAILY ANIVAL Furosemide 20 mg 04/08/25 17:05 04/11/25 08:39 Furosemide Inj 40 Mg/4 Ml Vial IV PUSH 20 mg BID ANIVAL Administration Glucagon 1 mg 04/08/25 17:07 Glucagon For Inj 1 Mg Vial IM PRN PRN Hypoglycemia Protocol Glucose 15 gm 04/08/25 17:07 Glucose Oral Gel 15 Gm Of Glucse In 37.5 Gm Tube PO PRN PRN Hypoglycemia Protocol Hydralazine HCl 10 mg 04/08/25 17:29 04/09/25 22:21 Hydralazine Hcl 20 Mg/Ml Vial IV PUSH 10 mg Q8H PRN Administration SBP >160 Dextrose 1,000 mls @ 100 mls/hr 04/08/25 17:07 Dextrose 5% 1,000 Ml IVPB PRN PRN Hypoglycemia Protocol Levofloxacin/Dextrose 750 mg in 150 mls @ 100 mls/hr 04/11/25 21:00 04/11/25 22:35 Levaquin 750 Mg/D5w 150 Ml IVPB Infused Q48H ANIVAL Infusion Metronidazole 500 mg in 100 mls @ 100 mls/hr 04/11/25 14:00 04/13/25 05:48 Flagyl 500 Mg/Iso Soln 100 Ml IVPB 100 mls/hr Q8H ANIVAL Administration Levetiracetam 500 mg in 100 mls @ 400 mls/hr 04/12/25 09:00 04/13/25 08:24 Keppra Iv IVPB 400 mls/hr Q12HR ANIVAL Administration Sodium Chloride 1,000 mls @ 75 mls/hr 04/12/25 15:45 04/13/25 05:51 Normal Saline Iv IV CONT 75 mls/hr .[id number] ANIVAL Administration Insulin Aspart 3 - 6 units 04/09/25 12:00 04/13/25 07:32 Insulin Aspart (*Bkc) 100 Units/Ml SUB-Q 3 units TIDWM [facility] Administration Protocol Insulin Aspart 1 - 3 units 04/09/25 21:00 04/12/25 20:49 Insulin Aspart (*Bkc) 100 Units/Ml SUB-Q 1 units HS [facility] Administration Protocol Magnesium Hydroxide 30 ml 04/11/25 18:22 Magnesium Hydroxide Susp 30 Ml Udc PO HS PRN constipation Ondansetron HCl 4 mg 04/11/25 08:49 04/11/25 15:34 Ondansetron Inj 4 Mg/2 Ml Vial IV PUSH 4 mg Q6H PRN Administration Nausea And Vomiting Pantoprazole Sodium 20 mg 04/10/25 21:00 04/12/25 20:45 Pantoprazole Sod Sesquihydrate 20 Mg Tab PO Not Given HS [facility] Radiology Results: ITS Impressions Chest X-Ray 04/11/25 09:38 IMPRESSION: 1. Mild bibasilar opacities consistent with persistent very small bilateral pleural effusions and associated atelectasis and/or pneumonia. 2. Cardiomegaly. Head CT 04/11/25 14:15 IMPRESSION: No acute intracranial findings. Abdomen/Pelvis CT 04/12/25 10:25 IMPRESSION: 1. Small bilateral pleural effusions causing compressive atelectasis. Right basilar atelectasis versus possible consolidation. This may represent aspiration pneumonia. Clinical correlation is recommended. 2. Diffuse thickening of the urinary bladder wall may represent cystitis. Correlate with urinalysis. Carotid Doppler Study 04/12/25 10:39 IMPRESSION: 1. <50% stenosis in the right internal carotid artery. 2. <50% stenosis in the left internal carotid artery. Brain MRI 04/12/25 15:15 IMPRESSION: 1. A couple old lacunar infarcts at the junction of the bilateral thalami and the posterior limbs of the external capsules. No acute intracranial process. 2. Age-related changes including mild diffuse volume loss and moderate periventricular predominant calcific white matter T2 hyperintensity consistent with chronic small vessel ischemic disease. Brain MRA 04/12/25 16:56 IMPRESSION: 1. Unremarkable cerebral MR angiogram. No hemodynamically significant stenosis or aneurysm. Labs Labs: Laboratory Results - last 24 hr 04/12/25 04/12/25 04/12/25 11:13 15:55 20:47 WBC RBC Hgb Hct MCV MCH MCHC RDW Plt Count MPV Sodium Potassium Chloride Carbon Dioxide Anion Gap BUN Creatinine Estim Creat Clear Calc Estimated GFR Glucose POC Capillary Glucose 236 H 279 H 225 H Calcium Magnesium 04/13/25 04/13/25 07:21 08:52 WBC 11.2 H RBC 3.21 L Hgb 9.7 L Hct 31.6 L MCV 98.4 MCH 30.2 MCHC 30.7 L RDW 15.5 H Plt Count 288 MPV 11.5 H Sodium 145 Potassium 3.4 Chloride 107 Carbon Dioxide 24 Anion Gap 14 H BUN 42 H Creatinine 1.45 H Estim Creat Clear Calc Not Reportable Estimated GFR 34 L Glucose 212 H POC Capillary Glucose 225 H Calcium 9.0 Magnesium 2.0
[2025-04-13 11:48] LABS: Glucose Point of Care 183 mg/dl (65-105)
[2025-04-13 15:38] LABS: Glucose Point of Care 219 mg/dl (65-105)
[2025-04-13 16:11] LABS: Glucose Point of Care 106 mg/dl (65-105)
--- NOTE | 2025-04-13 19:03 | PC.NURSE ---
In the event that you are unable to reach Jeffrey (pts. spouse) on the phone, please call his son Ben [phone]. Also please call Malik Dominguez if the patients status should change, this is the family licensed veterinary technician and he will be able to get to the spouse and bring him to the hospital. Patients son does not live near by. Ron phone number is [phone]. This is approved by Jeffrey.
[2025-04-13 20:02] LABS: Glucose Point of Care 179 mg/dl (65-105)
[2025-04-13] MEDS: levoFLOXacin 750 MG/D5W 150 ML 750 MG/150 ML BAG 100 MG IVPB (21:23)
--- NOTE | 2025-04-13 21:43 | PC.NURSE ---
Day shift reported patient only responding to pain with moaning during the day. At this time, patient responding by saying what?, without opening her eyes. Peggy Rodriguez notified and states to just hold po medication tonight.
[2025-04-14] VITALS (9 sets, daily range): BP systolic 144–182; BP diastolic 64–81; PULSE 72–77; RESP 20–24; TEMP 36.6–36.8; O2SAT 94–100
[2025-04-14 04:26] LABS: Hemoglobin 9.8 g/dL (12.0-15.0); Mean Corpuscular HGB Conc 30.6 g/dl (32-36); Mean Corpuscular Hemoglobin 30.6 pg (26-34); Mean Platelet Volume 11.2 fl (7.4-10.4); Platelet Count Result 291 k/mm3 (150-375); Red Cell Distribution Width 15.7 % (11.5-14.5); White Blood Count 9.8 K/mm3 (4.5-10.0)
[2025-04-14 04:49] LABS: Anion Gap 13 mmol/L (4-12); Blood Urea Nitrogen 37 mg/dL (7-17); Carbon Dioxide 22 mmol/L (22-30); Chloride 113 mmol/L (98-107); Estimated Glomerular Filt Rate 38; Glucose 211 mg/dL (65-110); Potassium 3.6 mmol/L (3.4-5.0); Sodium 148 mmol/L (137-145)
[2025-04-14] MEDS: metroNIDAZOLE 500 MG/ISO 100ML 500 MG/100 ML BAG 100 MG IVPB ×3 (04:56→21:23)
[2025-04-14 08:12] LABS: Glucose Point of Care 215 mg/dl (65-105)
[2025-04-14] MEDS: levETIRAcetam 500MG/NACL 100ML 500 MG/100 ML BAG 400 MG IVPB ×2 (08:20→21:22)
[2025-04-14] MEDS: ENOXAPARIN 30 MG/0.3 ML SYRINGE SUB-Q (08:20)
--- NOTE | 2025-04-14 09:14 | PCSTNOTE ---
Attempted to see patient with nurse (Rani) still poorly responsive. Holding bedside swallow evaluation
--- NOTE | 2025-04-14 10:12 | PC.NURSE ---
Patient's son at the bedside. Discussed plan of care with him. Discussed that the patient is unable to eat or drink anything at this time. Speech therapy came by to se the patient and she was unable to follow commands related to swallowing and because of that it is currently not safe for us to feed her or give her oral fluids to drink. Family member verbalizes understanding. When asked if the patient or family would want a tube placed for feeding, the patients son answered No. Care coordination was at the bedside for this discussion. Furthermore discussed with family options related to hospice should the patient not wake up and be able to eat or drink. substance abuse prevention coordinator discussed with family options for Hospice and the ability to go back to nursing facility on hospice. Family member verbalizes understanding at this time and states That is the road I see us going down. Family member then went to the car to get a copy of POA for chart.
[2025-04-14] MEDS: DEXTROSE 5%/0.45% SOD CHL 1,000 ML 75 ML IV CONT (10:30)
--- NOTE | 2025-04-14 11:50 | PCDIET ---
Nutrition screen for NPO x 5 days and length of stay. Pt family does not wish to proceed with tube feedings. Hospice consult scheduled with plans to discharge back to facility on hospice care. No nutrition recommendations at this time.
[2025-04-14] MEDS: INSULIN ASPART (*BKC) 100 UNITS/ML SUB-Q ×3 (12:19→21:00)
[2025-04-14 12:20] LABS: Glucose Point of Care 264 mg/dl (65-105)
--- NOTE | 2025-04-14 15:56 | PM.IMPN ---
Progress Note: A&P Assessment and Plan (1) Elevated blood pressure reading with diagnosis of hypertension: Code(s): I10 - Essential (primary) hypertension Status: Acute (2) UTI (urinary tract infection): Code(s): N39.0 - Urinary tract infection, site not specified Status: Acute Plan acute metabolic encephalopathy possible UTI vs?sezure vs Other Patient presented with AMS CT head unremarkable neurology team on board EEG No electrographic seizures were noted. MRI MRA and carotid US negative for acute changes Keep NPO [employer] CT chest no pneumonia, showed bilateral pleural effusions Blood cultures pending Urine culture Klebsiella sensitive to meropenem continue Cefepime on Keppra 04/11/25 Bilateral pleural effusions and leg edema Echo: G1D, There is moderate to severe mitral valve regurgitation. 12. There is moderate tricuspid valve regurgitation. 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 Patient was lethargic and nonverbal at bedside and unable to provide history. Per ER documentation patient is [place] [facility] resident who suddenly became altered and was sent to the ER for proper eval. Noted that her stated she had similar presentation the last time she had UTI. ER eval notable for BP 182/76, labs notable WBC 6.5, Hb 9.8, abg 7.407/36.3/60.3/22.3, Cr 1.28, UA postive for Nitrate, Leukocyte esterase 3+, WBC >100with budding yeast. CT Chest showed worsening bilateral pleural effusions with atelectatic changes. CT head unremarkable Patient was started on CEfepime prior to admission 04/09/25 Patient seen examined at bedside. She is very sleepy. Not following commands. Continue with cefepime for UTI. Follow culture result. Echo ending Creatinine 1.28. Improved to 1.14. Possible dehydrated CT concerning for cystitis and also showed bilateral pleural effusion 04/10/25 Patient was seen and examined at bedside. She is alert and oriented x4. Denies any chest pain, shortness a breath, abdominal pain, nausea vomiting. Blood culture pending. Urine culture positive for Klebsiella sensitive to cefepime 04/11/25 Patient was seen and examined at bedside. she is lethargic today. vital sign,BS,ABG unremarkable. Continue with cefepime for possible UTI. Concern for aspiration. Will keep patient NPO We will get CT of head.??? Seizure. We will get EEG. We will consult neurologist. Discussed with her family at bedside 04/12/25 Patient was seen and examined at bedside. she is still lethargic and less responsive. she can protect her airways. neurology team started her on Keppra. MRI of brain pending. discussed with her and he wanted to keep FULL code. 04/13/25 Patient was seen and examined at bedside. she is more awake today opening her eyes. MRI and MRA unremarkable. Had KAMERON yesterday started on IVF.Cr improving 04/14/25 Patient was seen and examined at bedside. she opens her eyes and oriented to her name. per her nurse she has been oriented x3 earlier today. her family may consider hospice. professional healthcare representative on board. has hypernatremia. will start d5w1/2ns. monitor BMP. Review of Systems Review of Systems: Unable to do ROS due to AMS Exam Narrative: General: lethargic opening her eyes but not following commands Eyes: A ENNT External ears normal, Neck is supple, no masses, Respiratory systems: Clear to auscultation Cardiovascular S1, S2, normal rhythm, no murmur, rub, or gallop; no thrill or palpable murmurs on palpation. Gastrointestinal: soft, non-tender, and non-distended abdomen with no masses; BS present Skin: no rash, lesions, ulcerations, subcutaneous nodules or induration Musculoskeletal: leg edema Neurologic: Objective Data Vital Signs Vital Signs: Vital Signs - 24 hr 04/13/25 16:00 04/13/25 16:04 04/13/25 20:00 Temperature 99.1 F 98.5 F Pulse Rate 8 L 81 81 Respiratory Rate 20 20 Blood Pressure 131/46 L 149/56 H Pulse Oximetry 91 96 Oxygen Delivery Oxygen Flow Rate Fraction of Inspired Oxygen 04/13/25 20:00 04/13/25 20:00 04/13/25 20:57 Temperature Pulse Rate 80 81 Respiratory Rate 20 Blood Pressure Pulse Oximetry 95 Oxygen Delivery Nasal Cannula Oxygen Flow Rate 3 Fraction of Inspired Oxygen 04/13/25 21:22 04/13/25 23:46 04/14/25 00:00 Temperature 98.5 F Pulse Rate 78 78 77 Respiratory Rate 20 Blood Pressure 159/64 H Pulse Oximetry 95 98 Oxygen Delivery Nasal Cannula Oxygen Flow Rate 3 Fraction of Inspired Oxygen 32 04/14/25 03:11 04/14/25 04:00 04/14/25 08:00 Temperature Pulse Rate 74 75 75 Respiratory Rate 22 H 22 H Blood Pressure Pulse Oximetry 94 94 Oxygen Delivery Nasal Cannula Nasal Cannula Oxygen Flow Rate 3 3 Fraction of Inspired Oxygen 32 04/14/25 08:00 04/14/25 08:00 04/14/25 08:32 Temperature 98.2 F Pulse Rate 74 75 72 Respiratory Rate 24 H Blood Pressure 144/81 H Pulse Oximetry 98 94 Oxygen Delivery Nasal Cannula Oxygen Flow Rate 3 Fraction of Inspired Oxygen 04/14/25 12:00 Temperature 98.1 F Pulse Rate 74 Respiratory Rate 20 Blood Pressure 174/66 H Pulse Oximetry 97 Oxygen Delivery Oxygen Flow Rate Fraction of Inspired Oxygen Intake/Output Intake/Output: Intake & Output 04/11/25 04/12/25 04/13/25 04/14/25 23:59 23:59 23:59 23:59 Intake Total 459 175 1103 Output Total 1800 034 757 2827 Balance -1200 75 1750 -1000 Meds/Results Medications: Active Medications Generic Name Dose Route Start Last Admin Trade Name Freq PRN Reason Stop Dose Admin Al Hydrox/Mg Hydrox/Simethicone 15 ml 04/10/25 11:57 Mag Hydrox/Al Hydrox/Simeth 30 Ml Udc PO QID PRN dyspepsia Amlodipine Besylate 10 mg 04/09/25 08:00 04/14/25 10:03 Amlodipine Besylate 10 Mg Tablet PO Not Given DAILY@0800 [facility] Carvedilol 6.25 mg 04/08/25 21:00 04/14/25 10:03 Carvedilol 6.25 Mg Tablet PO Not Given Q12HR [facility] Dextrose 12.5 gm 04/08/25 17:07 Dextrose 50% 25 Gm/50 Ml Syringe IV PUSH PRN PRN Hypoglycemia Protocol Enoxaparin Sodium 30 mg 04/12/25 09:00 04/14/25 08:20 Enoxaparin 30 Mg/0.3 Ml Syringe SUB-Q 30 mg DAILY ANIVAL Administration Famotidine 20 mg 04/12/25 09:00 04/14/25 10:03 Famotidine 20 Mg Tablet PO Not Given DAILY [facility] Furosemide 20 mg 04/08/25 17:05 04/11/25 08:39 Furosemide Inj 40 Mg/4 Ml Vial IV PUSH 20 mg BID ANIVAL Administration Glucagon 1 mg 04/08/25 17:07 Glucagon For Inj 1 Mg Vial IM PRN PRN Hypoglycemia Protocol Glucose 15 gm 04/08/25 17:07 Glucose Oral Gel 15 Gm Of Glucse In 37.5 Gm Tube PO PRN PRN Hypoglycemia Protocol Hydralazine HCl 10 mg 04/08/25 17:29 04/09/25 22:21 Hydralazine Hcl 20 Mg/Ml Vial IV PUSH 10 mg Q8H PRN Administration SBP >160 Dextrose 1,000 mls @ 100 mls/hr 04/08/25 17:07 Dextrose 5% 1,000 Ml IVPB PRN PRN Hypoglycemia Protocol Levofloxacin/Dextrose 750 mg in 150 mls @ 100 mls/hr 04/11/25 21:00 04/13/25 21:23 Levaquin 750 Mg/D5w 150 Ml IVPB 100 mls/hr Q48H ANIVAL Administration Metronidazole 500 mg in 100 mls @ 100 mls/hr 04/11/25 14:00 04/14/25 04:56 Flagyl 500 Mg/Iso Soln 100 Ml IVPB 100 mls/hr Q8H ANIVAL Administration Levetiracetam 500 mg in 100 mls @ 400 mls/hr 04/12/25 09:00 04/14/25 08:20 Keppra Iv IVPB 400 mls/hr Q12HR ANIVAL Administration Dextrose/Sodium Chloride 1,000 mls @ 75 mls/hr 04/14/25 10:25 04/14/25 10:30 Dextrose 5% Sodium Chloride 0.45% IV CONT 75 mls/hr .[id number] ANIVAL Administration Insulin Aspart 3 - 6 units 04/09/25 12:00 04/14/25 12:19 Insulin Aspart (*Bkc) 100 Units/Ml SUB-Q 4 units TIDWM [facility] Administration Protocol Insulin Aspart 1 - 3 units 04/09/25 21:00 04/13/25 21:00 Insulin Aspart (*Bkc) 100 Units/Ml SUB-Q Not Given HS [facility] Protocol Magnesium Hydroxide 30 ml 04/11/25 18:22 Magnesium Hydroxide Susp 30 Ml Udc PO HS PRN constipation Ondansetron HCl 4 mg 04/11/25 08:49 04/11/25 15:34 Ondansetron Inj 4 Mg/2 Ml Vial IV PUSH 4 mg Q6H PRN Administration Nausea And Vomiting Pantoprazole Sodium 20 mg 04/10/25 21:00 04/13/25 20:58 Pantoprazole Sod Sesquihydrate 20 Mg Tab PO Not Given [facility] Radiology Results: ITS Impressions Chest X-Ray 04/11/25 09:38 IMPRESSION: 1. Mild bibasilar opacities consistent with persistent very small bilateral pleural effusions and associated atelectasis and/or pneumonia. 2. Cardiomegaly. Head CT 04/11/25 14:15 IMPRESSION: No acute intracranial findings. Abdomen/Pelvis CT 04/12/25 10:25 IMPRESSION: 1. Small bilateral pleural effusions causing compressive atelectasis. Right basilar atelectasis versus possible consolidation. This may represent aspiration pneumonia. Clinical correlation is recommended. 2. Diffuse thickening of the urinary bladder wall may represent cystitis. Correlate with urinalysis. Carotid Doppler Study 04/12/25 10:39 IMPRESSION: 1. <50% stenosis in the right internal carotid artery. 2. <50% stenosis in the left internal carotid artery. Brain MRI 04/12/25 15:15 IMPRESSION: 1. A couple old lacunar infarcts at the junction of the bilateral thalami and the posterior limbs of the external capsules. No acute intracranial process. 2. Age-related changes including mild diffuse volume loss and moderate periventricular predominant calcific white matter T2 hyperintensity consistent with chronic small vessel ischemic disease. Brain MRA 04/12/25 16:56 IMPRESSION: 1. Unremarkable cerebral MR angiogram. No hemodynamically significant stenosis or aneurysm. Labs Labs: Laboratory Results - last 24 hr 04/08/25 04/13/25 04/14/25 08:49 19:52 03:56 WBC 9.8 RBC 3.20 L Hgb 9.8 L Hct 32.0 L MCV 100.0 MCH 30.6 MCHC 30.6 L RDW 15.7 H Plt Count 291 MPV 11.2 H Sodium 148 H Potassium 3.6 Chloride 113 H Carbon Dioxide 22 Anion Gap 13 H BUN 37 H Creatinine 1.32 H Estim Creat Clear Calc Not Reportable Estimated GFR 38 L Glucose 211 H POC Capillary Glucose 106 H 179 H Calcium 9.0 04/14/25 04/14/25 07:54 11:42 WBC RBC Hgb Hct MCV MCH MCHC RDW Plt Count MPV Sodium Potassium Chloride Carbon Dioxide Anion Gap BUN Creatinine Estim Creat Clear Calc Estimated GFR Glucose POC Capillary Glucose 215 H 264 H Calcium
[2025-04-14 16:39] LABS: Glucose Point of Care 230 mg/dl (65-105)
[2025-04-14 16:46] LABS: Anion Gap 12 mmol/L (4-12); Blood Urea Nitrogen 37 mg/dL (7-17); Calcium 9.2 mg/dL (8.4-10.2); Carbon Dioxide 24 mmol/L (22-30); Chloride 114 mmol/L (98-107); Estimated Glomerular Filt Rate 45; Glucose 254 mg/dL (65-110); Potassium 3.5 mmol/L (3.4-5.0); Sodium 150 mmol/L (137-145)
[2025-04-14 20:04] LABS: Glucose Point of Care 206 mg/dl (65-105)
[2025-04-15] MEDS: DEXTROSE 5%/0.45% SOD CHL 1,000 ML 75 ML IV CONT (01:25)
[2025-04-15 05:16] LABS: Hematocrit 32.9 % (37.0-47.0); Mean Corpuscular HGB Conc 30.4 g/dl (32-36); Mean Corpuscular Hemoglobin 30.4 pg (26-34); Mean Platelet Volume 10.6 fl (7.4-10.4); Platelet Count Result 319 k/mm3 (150-375); Red Blood Count 3.29 M/mm3 (4.2-5.4); Red Cell Distribution Width 15.9 % (11.5-14.5); White Blood Count 11.2 K/mm3 (4.5-10.0)
[2025-04-15] MEDS: metroNIDAZOLE 500 MG/ISO 100ML 500 MG/100 ML BAG 100 MG IVPB ×2 (05:37→13:35)
[2025-04-15 05:39] LABS: Anion Gap 15 mmol/L (4-12); Blood Urea Nitrogen 31 mg/dL (7-17); Calcium 9.2 mg/dL (8.4-10.2); Carbon Dioxide 22 mmol/L (22-30); Chloride 116 mmol/L (98-107); Estimated Glomerular Filt Rate 48; Glucose 280 mg/dL (65-110); Potassium 3.2 mmol/L (3.4-5.0); Sodium 153 mmol/L (137-145)
[2025-04-15 08:00] VITALS: BP 184/66; PULSE 71; RESP 28; TEMP 36.2; O2SAT 100
[2025-04-15 08:17] LABS: Glucose Point of Care 285 mg/dl (65-105)
--- NOTE | 2025-04-15 08:54 | PCSTNOTE ---
Patient retuning to her prior facility hospice today. No Bedside Swallow Evaluation.
[2025-04-15] MEDS: levETIRAcetam 500MG/NACL 100ML 500 MG/100 ML BAG 400 MG IVPB (09:11)
[2025-04-15] MEDS: ENOXAPARIN 30 MG/0.3 ML SYRINGE SUB-Q (09:11)
[2025-04-15] MEDS: INSULIN ASPART (*BKC) 100 UNITS/ML SUB-Q ×3 (09:13→17:27)
[2025-04-15 12:00] VITALS: BP 196/71; PULSE 70; RESP 24; TEMP 36.8; O2SAT 97
[2025-04-15 12:04] LABS: Glucose Point of Care 285 mg/dl (65-105)
--- NOTE | 2025-04-15 13:01 | PM.IMPN ---
Progress Note: A&P Assessment and Plan (1) Elevated blood pressure reading with diagnosis of hypertension: Code(s): I10 - Essential (primary) hypertension Status: Acute (2) UTI (urinary tract infection): Code(s): N39.0 - Urinary tract infection, site not specified Status: Acute Plan acute metabolic encephalopathy possible UTI vs?sezure vs Other Patient presented with AMS CT head unremarkable neurology team on board EEG No electrographic seizures were noted. MRI MRA and carotid US negative for acute changes NPO COURT DEPUTY CT chest no pneumonia, showed bilateral pleural effusions Blood cultures no growth to date Urine culture Klebsiella sensitive to meropenem initially treated with cefepime. Switched to levofloxacin 04/11/25 continue Cefepime Started on Keppra 04/11/25 for suspected seizure Bilateral pleural effusions and leg edema Echo: G1D, There is moderate to severe mitral valve regurgitation. 12. There is moderate tricuspid valve regurgitation. 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 monitor BMP DVT prophylaxis on Sq Lovenox Full code, reassess Subjective Date/time seen: 04/15/25 13:01 Interval history: per HPI: 89 yo Female with PMH of CVA, DM2 who presented to the ER on account AMS. Patient was lethargic and nonverbal at bedside and unable to provide history. Per ER documentation patient is [place] [facility] resident who suddenly became altered and was sent to the ER for proper eval. Noted that her stated she had similar presentation the last time she had UTI. ER eval notable for BP 182/76, labs notable WBC 6.5, Hb 9.8, abg 7.407/36.3/60.3/22.3, Cr 1.28, UA postive for Nitrate, Leukocyte esterase 3+, WBC >100with budding yeast. CT Chest showed worsening bilateral pleural effusions with atelectatic changes. CT head unremarkable Patient was started on CEfepime prior to admission 04/09/25 Patient seen examined at bedside. She is very sleepy. Not following commands. Continue with cefepime for UTI. Follow culture result. Echo ending Creatinine 1.28. Improved to 1.14. Possible dehydrated CT concerning for cystitis and also showed bilateral pleural effusion 04/10/25 Patient was seen and examined at bedside. She is alert and oriented x4. Denies any chest pain, shortness a breath, abdominal pain, nausea vomiting. Blood culture pending. Urine culture positive for Klebsiella sensitive to cefepime 04/11/25 Patient was seen and examined at bedside. she is lethargic today. vital sign,BS,ABG unremarkable. Continue with cefepime for possible UTI. Concern for aspiration. Will keep patient NPO We will get CT of head.??? Seizure. We will get EEG. We will consult neurologist. Discussed with her family at bedside 04/12/25 Patient was seen and examined at bedside. she is still lethargic and less responsive. she can protect her airways. neurology team started her on Keppra. MRI of brain pending. discussed with her and he wanted to keep FULL code. 04/13/25 Patient was seen and examined at bedside. she is more awake today opening her eyes. MRI and MRA unremarkable. Had KAMERON yesterday started on IVF.Cr improving 04/14/25 Patient was seen and examined at bedside. she opens her eyes and oriented to her name. per her nurse she has been oriented x3 earlier today. her family may consider hospice. summer child caregiver on board. has hypernatremia. will start d5w1/2ns. monitor BMP. 04/15/2025: No overnight events. Family at bedside. She is more awake today. Work with speech therapy. Review of Systems Review of Systems: All systems reviewed & are unremarkable except as noted in HPI and below Exam Narrative: General: Awake and alert following command Head: Normocephalic atraumatic Neck Neck is supple, no masses, Respiratory systems: Clear to auscultation no respiratory distress Cardiovascular S1, S2, normal rhythm, no murmur, rub, or gallop; no thrill or palpable murmurs on palpation. Gastrointestinal: soft, non-tender, and non-distended abdomen with no masses; BS present Skin: no rash, lesions, ulcerations, subcutaneous nodules or induration Musculoskeletal: leg edema Neurologic: Objective Data Vital Signs Vital Signs: Vital Signs - 24 hr 04/14/25 16:00 04/14/25 20:00 04/14/25 20:00 Temperature 97.8 F 98.3 F Pulse Rate 73 76 76 Respiratory Rate 24 H 20 24 H Blood Pressure 172/66 H 179/64 H Pulse Oximetry 99 100 95 Oxygen Delivery Nasal Cannula Oxygen Flow Rate 3 04/14/25 23:57 04/15/25 08:00 04/15/25 08:00 Temperature 98.3 F 97.2 F L Pulse Rate 77 71 Respiratory Rate 20 28 H Blood Pressure 182/70 H 184/66 H Pulse Oximetry 99 100 100 Oxygen Delivery Nasal Cannula Oxygen Flow Rate 3 Intake/Output Intake/Output: Intake & Output 04/12/25 04/13/25 04/14/25 04/15/25 23:59 23:59 23:59 23:59 Intake Total 600 2650 1500 25 Output Total 304 396 1799 375 Balance 75 1900 -500 -350 Meds/Results Medications: Active Medications Generic Name Dose Route Start Last Admin Trade Name Freq PRN Reason Stop Dose Admin Al Hydrox/Mg Hydrox/Simethicone 15 ml 04/10/25 11:57 Mag Hydrox/Al Hydrox/Simeth 30 Ml Udc PO QID PRN dyspepsia Amlodipine Besylate 10 mg 04/09/25 08:00 04/15/25 09:13 Amlodipine Besylate 10 Mg Tablet PO Not Given DAILY@0800 [facility] Carvedilol 6.25 mg 04/08/25 21:00 04/15/25 09:12 Carvedilol 6.25 Mg Tablet PO Not Given Q12HR [facility] Dextrose 12.5 gm 04/08/25 17:07 Dextrose 50% 25 Gm/50 Ml Syringe IV PUSH PRN PRN Hypoglycemia Protocol Enoxaparin Sodium 30 mg 04/12/25 09:00 04/15/25 09:11 Enoxaparin 30 Mg/0.3 Ml Syringe SUB-Q 30 mg DAILY ANIVAL Administration Famotidine 20 mg 04/12/25 09:00 04/15/25 09:12 Famotidine 20 Mg Tablet PO Not Given DAILY ANIVAL Furosemide 20 mg 04/08/25 17:05 04/11/25 08:39 Furosemide Inj 40 Mg/4 Ml Vial IV PUSH 20 mg BID ANIVAL Administration Glucagon 1 mg 04/08/25 17:07 Glucagon For Inj 1 Mg Vial IM PRN PRN Hypoglycemia Protocol Glucose 15 gm 04/08/25 17:07 Glucose Oral Gel 15 Gm Of Glucse In 37.5 Gm Tube PO PRN PRN Hypoglycemia Protocol Hydralazine HCl 10 mg 04/08/25 17:29 04/09/25 22:21 Hydralazine Hcl 20 Mg/Ml Vial IV PUSH 10 mg Q8H PRN Administration SBP >160 Dextrose 1,000 mls @ 100 mls/hr 04/08/25 17:07 Dextrose 5% 1,000 Ml IVPB PRN PRN Hypoglycemia Protocol Levofloxacin/Dextrose 750 mg in 150 mls @ 100 mls/hr 04/11/25 21:00 04/13/25 22:53 Levaquin 750 Mg/D5w 150 Ml IVPB Infused Q48H [facility] Infusion Metronidazole 500 mg in 100 mls @ 100 mls/hr 04/11/25 14:00 04/15/25 05:37 Flagyl 500 Mg/Iso Soln 100 Ml IVPB 100 mls/hr Q8H [facility] Administration Levetiracetam 500 mg in 100 mls @ 400 mls/hr 04/12/25 09:00 04/15/25 09:11 Keppra Iv IVPB 400 mls/hr Q12HR [facility] Administration Dextrose/Sodium Chloride 1,000 mls @ 75 mls/hr 04/14/25 10:25 04/15/25 01:25 Dextrose 5% Sodium Chloride 0.45% IV CONT 75 mls/hr .[id number] [facility] Administration Insulin Aspart 3 - 6 units 04/09/25 12:00 04/15/25 09:13 Insulin Aspart (*Bkc) 100 Units/Ml SUB-Q 4 units TIDWM AN[facility]AL Administration Protocol Insulin Aspart 1 - 3 units 04/09/25 21:00 04/14/25 21:00 Insulin Aspart (*Bkc) 100 Units/Ml SUB-Q 3 units HS ANIVAL Administration Protocol Magnesium Hydroxide 30 ml 04/11/25 18:22 Magnesium Hydroxide Susp 30 Ml Udc PO HS PRN constipation Ondansetron HCl 4 mg 04/11/25 08:49 04/11/25 15:34 Ondansetron Inj 4 Mg/2 Ml Vial IV PUSH 4 mg Q6H PRN Administration Nausea And Vomiting Pantoprazole Sodium 20 mg 04/10/25 21:00 04/14/25 21:09 Pantoprazole Sod Sesquihydrate 20 Mg Tab PO Not Given HS [facility] Radiology Results: ITS Impressions Chest X-Ray 04/11/25 09:38 IMPRESSION: 1. Mild bibasilar opacities consistent with persistent very small bilateral pleural effusions and associated atelectasis and/or pneumonia. 2. Cardiomegaly. Head CT 04/11/25 14:15 IMPRESSION: No acute intracranial findings. Abdomen/Pelvis CT 04/12/25 10:25 IMPRESSION: 1. Small bilateral pleural effusions causing compressive atelectasis. Right basilar atelectasis versus possible consolidation. This may represent aspiration pneumonia. Clinical correlation is recommended. 2. Diffuse thickening of the urinary bladder wall may represent cystitis. Correlate with urinalysis. Carotid Doppler Study 04/12/25 10:39 IMPRESSION: 1. <50% stenosis in the right internal carotid artery. 2. <50% stenosis in the left internal carotid artery. Brain MRI 04/12/25 15:15 IMPRESSION: 1. A couple old lacunar infarcts at the junction of the bilateral thalami and the posterior limbs of the external capsules. No acute intracranial process. 2. Age-related changes including mild diffuse volume loss and moderate periventricular predominant calcific white matter T2 hyperintensity consistent with chronic small vessel ischemic disease. Brain MRA 04/12/25 16:56 IMPRESSION: 1. Unremarkable cerebral MR angiogram. No hemodynamically significant stenosis or aneurysm. Labs Labs: Laboratory Results - last 24 hr 04/14/25 04/14/25 04/14/25 16:07 16:16 19:50 WBC RBC Hgb Hct MCV MCH MCHC RDW Plt Count MPV Sodium 150 H Potassium 3.5 Chloride 114 H Carbon Dioxide 24 Anion Gap 12 BUN 37 H Creatinine 1.13 H Estim Creat Clear Calc Not Reportable Estimated GFR 45 L Glucose 254 H POC Capillary Glucose 230 H 206 H Calcium 9.2 04/15/25 04/15/25 04/15/25 04:57 08:05 11:56 WBC 11.2 H RBC 3.29 L Hgb 10.0 L Hct 32.9 L MCV 100.0 MCH 30.4 MCHC 30.4 L RDW 15.9 H Plt Count 319 MPV 10.6 H Sodium 153 H Potassium 3.2 L Chloride 116 H Carbon Dioxide 22 Anion Gap 15 H BUN 31 H Creatinine 1.07 H Estim Creat Clear Calc Not Reportable Estimated GFR 48 L Glucose 280 H POC Capillary Glucose 285 H 285 H Calcium 9.2
[2025-04-15] MEDS: POTASSIUM CHLORIDE INJ 40 MEQ in DEXTROSE 5% IN WATER 500 ML 130 MEQ IVPB (14:42)
--- NOTE | 2025-04-15 14:49 | PCSTNOTE ---
Please refer to the Modified Barium Swallow Evaluation in the EMR. Pt was seen for an MBS due to decline in mental status since previous bedside swallow evaluation that did not reveal any overt s/s of aspiration; many attempts were made this week to reassess pt at bedside but she has been too lethargic. RN notified ST that pt is more responsive and they are putting hospice consult on hold until ST can re assess swallow. ST checked pt's DARIO at the bedside to determine ability to participate in MBS. At that time, approximately 11:30, the pt was somewhat responsive, sucking from a toothette and asking for water. ST agreed to MBS. Pt was brought to [facility] for MBS at approximately 12:45; pt was very lethargic and could barely remain upright. Pt did not open eyes but verbalized unintelligible responses to verbal stim to awaken. The pt was seated for a lateral view and positioned upright with assist. She was presented with 5 ml thin liquid, pudding consistency barium via a spoon, and mildly thick liquids via a spoon and straw sip. During the oral stages, premature spill occurred (with liquids) over the tongue base and to the level of the pyriform sinuses. During the pharyngeal stage the following occurred: reduced tongue base retraction as evidenced by vallecular residue but it was either a trace or mild amount across all consistencies; reduced laryngeal elevation as evidenced by laryngeal penetration during the swallow & pyriform sinus residue which was also mild but also occurred across all consistencies. Epiglottic inversion was noted to be sluggish. Contents coated backside of the epiglottis and entered the laryngeal vestibule after the swallow. Pt did not exhibit any laryngeal sensation thus did not cough or clear throat to remove contents from vestibule. Despite it being relatively small amounts, it is felt the pt is a poor candidate for oral intake. Once lethargy/level of alertness CONSISTENTLY improves, swallow should be re assessed. Impression/recommendation: severe dysphagia but also impacted by pts lethargy; NPO with an alternative means of nutrition. Would allow pt to suck on water slightly soaked toothette to prevent further swallow muscle atrophy.
[2025-04-15 16:00] VITALS: BP 155/92; PULSE 68; RESP 22; TEMP 36.3; O2SAT 100
[2025-04-15 16:33] LABS: Glucose Point of Care 265 mg/dl (65-105)
--- NOTE | 2025-04-15 17:32 | PM.DS ---
DS: Admitting Diagnosis Discharge Date 04/15/25 Admitting Diagnosis ams DS: Discharge Diagnosis Discharge Diagnosis (1) Elevated blood pressure reading with diagnosis of hypertension: Code(s): I10 - Essential (primary) hypertension Status: Acute (2) UTI (urinary tract infection): Code(s): N39.0 - Urinary tract infection, site not specified Status: Acute DS: Summary Hospital Course Hospital Course: acute metabolic encephalopathy possible UTI vs?sezure vs Other Patient presented with AMS CT head unremarkable neurology team on board EEG No electrographic seizures were noted. MRI MRA and carotid US negative for acute changes NPO NURSING AIDE CT chest no pneumonia, showed bilateral pleural effusions Blood cultures no growth to date Urine culture Klebsiella sensitive to meropenem initially treated with cefepime. Switched to levofloxacin 04/11/25 continue Cefepime Started on Keppra 04/11/25 for suspected seizure Bilateral pleural effusions and leg edema Echo: G1D, There is moderate to severe mitral valve regurgitation. 12. There is moderate tricuspid valve regurgitation. 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 monitor BMP Dysphagia: She continued to be somnolent. MBS was performed which she failed. Family eventually decided to go home on hospice. Which was arranged with the help of care coordination. DVT prophylaxis on Sq Lovenox Full code swtiched to dnr Time Spent with Patient Time attestation: Total time spent providing and/or coordinating discharge services: 30 mins Exam Narrative: General: Awake and alert following command Head: Normocephalic atraumatic Neck Neck is supple, no masses, Respiratory systems: Clear to auscultation no respiratory distress Cardiovascular S1, S2, normal rhythm, no murmur, rub, or gallop; no thrill or palpable murmurs on palpation. Gastrointestinal: soft, non-tender, and non-distended abdomen with no masses; BS present Skin: no rash, lesions, ulcerations, subcutaneous nodules or induration Musculoskeletal: leg edema Neurologic: DS: Data Data Completed and Pending Completed studies during hospitalization: Exam Type: CA echo doppler color flow Complete two-dimensional, color flow and Doppler transthoracic echocardiogram is performed. Staff Referring Physician: Amanda Cisneros Telephone Solicitor: Nataly Lujan Attending Provider: Tianna Seymour Summary 1. Complete two-dimensional, color flow and Doppler transthoracic echocardiogram is performed. 2. Left ventricular chamber dimension is normal. 3. Left ventricular systolic function is normal, estimated at 65-70. 4. There is mild concentric increased left ventricular wall thickness. 5. The left ventricular diastolic function is grade I diastolic dysfunction. 6. E/e' 14 is mildly elevated. 7. Left atrial chamber dimension is moderately enlarged. 8. Right atrial chamber dimension is mildly enlarged. 9. There is mild aortic valve sclerosis. 10. The mitral valve has a mildly calcified annulus. 11. There is moderate to severe mitral valve regurgitation. 12. There is moderate tricuspid valve regurgitation. 13. Moderate pulmonary hypertension, estimated pulmonary arterial systolic pressure is 56 mmHg. 14. There is trace pulmonic regurgitation. 15. Dilated inferior vena cava with >50% collapse upon inspiration consistent with elevated right atrial pressure, 10 mmHg. Left Ventricle E/e' 14 is mildly elevated. Left ventricular chamber dimension is normal. Left ventricular systolic function is normal, estimated at 65-70. There is mild concentric increased left ventricular wall thickness. The left ventricular diastolic function is grade I diastolic dysfunction. Right Ventricle Right ventricular chamber dimension is normal. Right ventricular systolic function is normal and with normal TAPSE 2.3 cm. Left Atria Left atrial chamber dimension is moderately enlarged. Right Atria Right atrial chamber dimension is mildly enlarged. Aortic Valve The aortic valve is trileaflet. There is mild aortic valve sclerosis. There is no aortic valve stenosis. There is no aortic valve regurgitation. Pulmonic Valve There is trace pulmonic regurgitation. Mitral Valve The mitral valve has a mildly calcified annulus. There is no mitral valve stenosis. There is moderate to severe mitral valve regurgitation. Tricuspid Valve There is moderate tricuspid valve regurgitation. Moderate pulmonary hypertension, estimated pulmonary arterial systolic pressure is 56 mmHg. Pericardium/Pleural There is no pericardial effusion. Inferior Vena Cava Dilated inferior vena cava with >50% collapse upon inspiration consistent with elevated right atrial pressure, 10 mmHg. Aorta The aortic root size at the sinus of Valsalva is normal. Labs on day of discharge: Labs from last 24 hours 04/15/25 04/15/25 04/15/25 16:14 11:56 08:05 WBC RBC Hgb Hct MCV MCH MCHC RDW Plt Count MPV Sodium Potassium Chloride Carbon Dioxide Anion Gap BUN Creatinine Estim Creat Clear Calc Estimated GFR Glucose POC Capillary Glucose 265 H 285 H 285 H Calcium 04/15/25 04/14/25 04:57 19:50 WBC 11.2 H RBC 3.29 L Hgb 10.0 L Hct 32.9 L MCV 100.0 MCH 30.4 MCHC 30.4 L RDW 15.9 H Plt Count 319 MPV 10.6 H Sodium 153 H Potassium 3.2 L Chloride 116 H Carbon Dioxide 22 Anion Gap 15 H BUN 31 H Creatinine 1.07 H Estim Creat Clear Calc Not Reportable Estimated GFR 48 L Glucose 280 H POC Capillary Glucose 206 H Calcium 9.2 Preliminary micro results at discharge 04/11/25 13:48 Blood Culture - Preliminary Blood 04/11/25 13:55 Blood Culture - Preliminary Blood Imaging Radiologist's impression: ITS Impressions Head CT 04/08/25 09:31 IMPRESSION: No acute intracranial findings. Chest X-Ray 04/08/25 10:57 Impression: Clear lungs. Abdomen/Pelvis CT 04/08/25 10:59 Impression: Suspected bladder wall thickening despite decompression with Chamorro catheter. Correlate clinically for cystitis. Suspected renal vascular calcifications rather than renal stones, though small stones are not excluded. No ureteral stone or hydronephrosis on either side. Worsening small bilateral pleural effusions with mild bibasilar atelectatic change. Cholelithiasis. Chest X-Ray 04/11/25 09:38 IMPRESSION: 1. Mild bibasilar opacities consistent with persistent very small bilateral pleural effusions and associated atelectasis and/or pneumonia. 2. Cardiomegaly. Head CT 04/11/25 14:15 IMPRESSION: No acute intracranial findings. Abdomen/Pelvis CT 04/12/25 10:25 IMPRESSION: 1. Small bilateral pleural effusions causing compressive atelectasis. Right basilar atelectasis versus possible consolidation. This may represent aspiration pneumonia. Clinical correlation is recommended. 2. Diffuse thickening of the urinary bladder wall may represent cystitis. Correlate with urinalysis. Carotid Doppler Study 04/12/25 10:39 IMPRESSION: 1. <50% stenosis in the right internal carotid artery. 2. <50% stenosis in the left internal carotid artery. Brain MRI 04/12/25 15:15 IMPRESSION: 1. A couple old lacunar infarcts at the junction of the bilateral thalami and the posterior limbs of the external capsules. No acute intracranial process. 2. Age-related changes including mild diffuse volume loss and moderate periventricular predominant calcific white matter T2 hyperintensity consistent with chronic small vessel ischemic disease. Brain MRA 04/12/25 16:56 IMPRESSION: 1. Unremarkable cerebral MR angiogram. No hemodynamically significant stenosis or aneurysm. Modified Barium Swallow 04/15/25 14:54 IMPRESSION: Pharyngeal dysphagia with laryngeal penetration. No aspiration observed although patient appeared at risk with assessment limited by patient's lethargy. Please correlate with speech pathologist findings and specific feeding recommendations. Discharge Plan Discharge Attending physician on discharge: Lon Ace Consulting providers: Yony Billings Discharging Clinician: Lon Ace Anticipated Discharge Date/Time: 04/15/25 17:34 Patient Disposition: Hospice - Home Activity: as tolerated Diet: as tolerated Patient Language: Luxembourgish Stand Alone Forms: General Discharge Information Discharge Medications: Continued metformin 500 mg tablet extended release 24 hr 500 mg PO QPM Ozempic 0.25 mg or 0.5 mg (2 mg/3 mL) pen injector 0.25 mg SUBCUT WEEKLY insulin glargine [Lantus Solostar U-100 Insulin] 100 unit/mL (3 mL) insulin pen 20 unit SUBCUT QPM alum-mag hydroxide-simeth [Maalox Advanced] 200-200-20 mg/5 mL suspension 15 ml PO QID PRN (Reason: dyspepsia) Qty: 3000 0RF Rx Instructions: administer between meals and at bedtime pantoprazole [Protonix] 20 mg tablet,delayed release (DR/EC) 20 mg PO HS 28 Days Qty: 28 0RF magnesium hydroxide [Milk of Magnesia] 400 mg/5 mL suspension 30 ml PO HS PRN (Reason: constipation) famotidine 20 mg tablet 20 mg PO DAILY acetaminophen [Tylenol] 325 mg tablet 650 mg PO Q6H PRN (Reason: pain) ondansetron 4 mg tablet,disintegrating 4 mg PO Q8H PRN (Reason: nausea and vomiting) carvedilol 6.25 mg tablet 6.25 mg PO Q12H Qty: 180 0RF amlodipine 10 mg tablet 10 mg PO DAILY@0800 Qty: 90 0RF pantoprazole 40 mg tablet,delayed release (DR/EC) 40 mg PO DAILY Qty: 30 2RF Date of admission: 04/08/25 11:28 Primary Care Provider: YaritzaJimmy Admitting Provider: Bud Petty Attending physician on admission: Tianna Seymour Condition: Guarded Prognosis
--- NOTE | 2025-04-15 18:27 | PC.NURSE ---
Phoned [facility] and spoke with the nurse Crystal and informed pt is returning to facility via ambulance under the care of hospice. Our facility is awaiting ambulance to arrive. IV's have been removed and tse. Patient continues to rest in bed. Mouth swabs for comfort. Call light in reach. Bed low and locked. Will continue to monitor. Prince Cano RN
== END 2025-04-15 19:55 | disposition hospice, home (50) | DRG 689 ==
LOC: ANHED 08:51 → ANHIMU 11:58 → ANH2MED 04-09 16:37 → ANHIMU 04-11 19:32
PROVIDERS: Internal Medicine; Admitting Provider General Practice; Emergency Provider Emergency Medicine; PCP Internal Medicine; Visit Provider Internal Medicine
DX: N39.0 Urinary tract infection, site not specified (principal); G93.41 Metabolic encephalopathy; J90 Pleural effusion, not elsewhere classified; N17.9 Acute kidney failure, unspecified; E87.0 Hyperosmolality and hypernatremia; I10 Essential (primary) hypertension; E11.65 Type 2 diabetes mellitus with hyperglycemia; B96.1 Klebsiella pneumoniae [K. pneumoniae] as the cause of diseases classified elsewhere; D64.9 Anemia, unspecified; E86.0 Dehydration; R13.10 Dysphagia, unspecified; Z96.653 Presence of artificial knee joint, bilateral; Z86.73 Personal history of transient ischemic attack (TIA), and cerebral infarction without residual deficits; Z96.1 Presence of intraocular lens; Z98.42 Cataract extraction status, left eye; Z98.41 Cataract extraction status, right eye; Z79.4 Long term (current) use of insulin
CPT/HCPCS: 36415; 36600; 70450; 70544; 70551; 71045; 74176; 74230; 80048; 80053; 81001; 82140; 82607; 82728; 82746; 82805; 82948; 83540; 83550; 83605; 83735; 85018; 85025; 85027; 85610; 85730; 87040; 87086; 87186; 92610; 92611; 93005; 93306; 93880; 94640; 95816; 96365; 99285; A9270; J0360; J0692; J1650; J1815; J1836; J1938; J1953; J1956; J2405; J3480; J7030; J7060; J7120